=== PATIENT | female | born 1930 | race Caucasian/White ===

== ENCOUNTER → 2016-09-22 | Outpatient (CLI) | payer MEDICARE, BC ==
--- NOTE | 2016-09-22 14:37 | CT ---
EXAMINATION TYPE: CT abdomen wo con DATE OF EXAM: 09/22/2016 COMPARISON: NONE INDICATION: Abdominal pain DLP: 166.30 mGycm, Automated exposure control for dose reduction was used. CONTRAST: 0 mL of Omnipaque 350. Study performed without Oral Contrast TECHNIQUE: Axial images were obtained from above the diaphragm to the pubic rami in the axial plane a t 5 mm thick sections. Reconstructed images are reviewed on the computer in the coronal plane. FINDINGS: Limited CT sections are obtained the lung bases. The lung bases are clear. Coronary artery calcific ation is present. CT ABDOMEN: Liver: There are a multiple scattered calcified granuloma within the liver. Spleen: Multiple calcified splenic granuloma are present. Note is made of splenic artery calcificatio n and tortuosity. Pancreas: Normal Adrenal glands: The adrenal glands are normal. Gallbladder: Normal Kidneys: No masses are evident. No hydronephrosis is present. There is a large cyst extending from the inferior pole right kidney estimated to measure 11.1 x 7.6 cm in size. Smaller cortical renal cys t is present on the mid left kidney measuring 2.9 cm. There is an exophytic right mid kidney cyst bella suring 1.7 cm. No suspicious calcifications are present. There is malrotation of the left kidney. Aorta: Vascular calcification is within the aorta. Inferior vena cava: Normal. Loops of bowel within the abdomen and pelvis are normal. Study is performed without oral contrast limiting the evaluation. IMPRESSIONS: 1. 1. Multiple renal cysts. 2. Calcified granuloma within the spleen and liver
== END | disposition home or self-care (01) ==
LOC: RADCTMAIN 13:15
PROVIDERS: ATTEND Family Medicine
DX: N28.1 Cyst of kidney, acquired (principal); K75.3 Granulomatous hepatitis, not elsewhere classified; D73.89 Other diseases of spleen
CPT/HCPCS: 74150

== ENCOUNTER → 2016-10-19 | Outpatient (CLI) | payer MEDICARE, BC ==
--- NOTE | 2016-10-19 12:55 | US ---
EXAMINATION TYPE: US transvaginal DATE OF EXAM: 10/19/2016 COMPARISON: NONE CLINICAL HISTORY: N93.9 Vaginal bleeding. post menopausal patient with single episode of bleeding TECHNIQUE: Transvaginal (TV) EXAM MEASUREMENTS: Uterus: 4.9 x 1.9 x 4.4 cm Endometrial Stripe: 0.5 cm 1. Uterus: Retroverted myometrium is diffusely heterogenous. 2. Endometrium: Endometrium is thickened for the patient's age measuring 5 mm containing a 2mm cyst near the fundus. 3. Right Ovary: Obscured by overlying bowel gas 4. Left Ovary: Obscured by overlying bowel gas 5. Bilateral Adnexa: wnl 6. Posterior cul-de-sac: minimal free fluid IMPRESSION: Abnormally thickened endometrium for the patient's age of 5 mm containing an endometrial cyst. Direct visualization is recommended. A [place] message has been communicated to Pepe Canela MD via the [employer] Critical Result system on 10/19/2016 12:53 PM, Message ID [id number].
== END | disposition home or self-care (01) ==
LOC: RADUSWWP 11:38
PROVIDERS: ATTEND Family Medicine
DX: N85.8 Other specified noninflammatory disorders of uterus (principal); R93.8 Abnormal findings on diagnostic imaging of other specified body structures; N93.9 Abnormal uterine and vaginal bleeding, unspecified
CPT/HCPCS: 76830

== ENCOUNTER → 2016-11-09 | Outpatient (CLI) | payer MEDICARE, BC ==
--- NOTE | 2016-11-09 10:49 | FL ---
EXAMINATION TYPE: FL UGI air w small bowel DATE OF EXAM: 11/09/2016 10:39 AM COMPARISON: NONE CLINICAL HISTORY: Pain Preliminary view of the abdomen reveals a normal bowel gas pattern. Mild degenerative changes are not ed of the thoracolumbar spine. Upper GI examination was performed according to the air contrast technique. Barium and effervescent crystal was swallowed without difficulty or delay. Esophageal peristalsis and motility are within normal limits. There is no evidence for esophagitis, intraluminal mass, hiatal hernia or gastroesophageal reflux. The stomach has a normal appearance in terms of its size, shape and location. No gastric filling defects or ulcer craters are seen. The du odenal bulb and sweep are also free of intraluminal lesion or ulcer crater. Small bowel follow-through was performed with a transit time of 20 minutes. Small bowel loops are of normal caliber. There is no evidence for intrinsic or extrinsic mass effect. No evidence for inflamma tory bowel disease. Normal-appearing terminal ileum. IMPRESSION: Unremarkable evaluation.
== END | disposition home or self-care (01) ==
LOC: RADFLMAIN 08:51
PROVIDERS: ATTEND Family Medicine
DX: K21.9 Gastro-esophageal reflux disease without esophagitis (principal)
CPT/HCPCS: 74249

== ENCOUNTER → 2016-11-23 | Outpatient (CLI) | payer MEDICARE, BC ==
--- NOTE | 2016-11-23 16:28 | FL ---
EXAMINATION TYPE: FL barium swallow DATE OF EXAM: 11/23/2016 CLINICAL HISTORY: Dysphagia with difficulty swallowing. No history of surgery within the esophagus or upper abdomen. TECHNIQUE: A double contrast esophagram is performed utilizing air and barium. A total of 2 minutes and 1 second of fluoroscopic time was utilized during procedure with a total of 64 images. COMPARISON: None FINDINGS: The esophagus shows delayed motility with abnormal secondary waves and tertiary contraction s during both the gravity independent portion and gravity dependent portion of the examination. Altho ugh there is no esophageal dilatation there is severe delayed propulsion at the gastroesophageal junc tion representing an incomplete stricture. No definitive achalasia is seen as there is no proximal di lation and contrast does eventually pass through the lower esophageal sphincter. No evidence of hiatal hernia or stricture noted. Moderate intraesophageal reflux was seen during real time performance of this study. No significant gastroesophageal reflux of contrast was seen through the lower esophageal sphincter utilizing the Valsalva maneuver in the gravity independent position. Delayed esophageal motility was most pronounced on the gravity independent portion the examination an d water needed to be used to expel residual retained contrast within the mid and distal thoracic esop hagus through the gastroesophageal junction at the end of the examination. IMPRESSION: 1. 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 2. Moderate intraesophageal reflux due to delayed propulsion with nonuniform secondary contractions a nd tertiary contractions seen both in the gravity dependent and independent portions of the examinati on. 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
== END | disposition home or self-care (01) ==
LOC: RADFLWHC 10:10
PROVIDERS: ATTEND Family Medicine
DX: K22.2 Esophageal obstruction (principal); K21.9 Gastro-esophageal reflux disease without esophagitis
CPT/HCPCS: 74220

== ENCOUNTER → 2017-10-25 | Outpatient (CLI) | payer MEDICARE, BC ==
--- NOTE | 2017-10-25 13:56 | US ---
EXAMINATION TYPE: US abdomen complete DATE OF EXAM: 10/25/2017 COMPARISON: NONE CLINICAL HISTORY: R19.4 CHNG IN BOWEL HABITS,A09 gastroenteritis. Diarrhea, cholecystectomy EXAM MEASUREMENTS: Liver Length: 14.8 cm Gallbladder Wall: Surgically absent CBD: 0.6 cm Spleen: 9.4 cm Right Kidney: 10.5 x 3.3 x 4.3 cm Left Kidney: 10.1 x 3.6 x 4.8 cm Technical limitations due to large amount of overlying bowel content Pancreas: Obscured by bowel gas Liver: heterogeneous Gallbladder: Surgically absent Evidence for sonographic Kiran's sign: no CBD: wnl Spleen: granulomas Right Kidney: multiple cystic areas, largest = 1.8 x 1.4 x 1.7cm Left Kidney: multiple cystic areas, largest = 12.0 x 8.4 x 11.4cm Upper IVC: wnl Abd Aorta: calcifications noted Bladder: appears wnl, unable to visualize bladder jets IMPRESSION: 1. Bilateral renal cysts. 2. Splenic granuloma.
== END | disposition home or self-care (01) ==
LOC: RADUSWWP 12:21
PROVIDERS: ATTEND Family Medicine
DX: N28.1 Cyst of kidney, acquired (principal); D73.89 Other diseases of spleen
CPT/HCPCS: 76700; 76857

== ENCOUNTER → 2018-03-30 | Outpatient (CLI) | payer MEDICARE, BC | END | disposition home or self-care (01) | LOC: RADUSWWP 12:01 | PROVIDERS: ATTEND Orthopaedic Surgery | DX: I70.90 Unspecified atherosclerosis (principal); M20.41 Other hammer toe(s) (acquired), right foot; M20.42 Other hammer toe(s) (acquired), left foot | CPT/HCPCS: 93923 ==

== ENCOUNTER → 2018-04-26 | Outpatient (CLI) | payer MEDICARE, BC ==
[~2018-04-26] MED LIST: REGADENOSON 0.4 MG/5 ML SYRINGE IV ONE
--- NOTE | 2018-04-26 12:00 | NM ---
"EXAMINATION TYPE: NM stress lexiscan cardiolite DATE OF EXAM: 04/26/2018 COMPARISON: NONE HISTORY: Chest pain TECHNIQUE: After the intravenous administration of 9.2 mCi Tc 99m Sestamibi - Cardiolite resting SPE CT images acquired 50 minutes post injection. The patient received 0.4mg Lexiscan, 25 mCi Tc 99m Sestamibi - Stress images obtained 30 minutes post injection FINDINGS: Review of stress and rest SPECT images demonstrates question of a small area of thinning of the anter ior wall on stress images relative to rest images.. Gated analysis shows normal wall motion with an estimated left ventricular ejection fraction of 73 %. IMPRESSION: 1. Cannot exclude a small area of stress-induced reversibility involving the anterior wall the myocar dium. A [place] level critical message alert has been initiated for Pepe Canela MD via the [facility] 0 | Critical Results System on 04/26/2018 11:58 AM. This message alert has been sent to Pepe Canela MD via the preferences provided by the clinician for the receipt of Radiology Critical Findings. [facility] ID [id number]."
--- NOTE | 2018-04-27 09:00 | EST ---
EXERCISE STRESS DATE OF SERVICE: 04/26/2018 AGE: 87 SEX: Female HT: 67" WT: 145 pounds PROTOCOL: Lexiscan Cardiolite STAGE: DURATION OF EXERCISE: HEART RATE REST: 54 BLOOD PRESSURE REST: 162/78 MAXIMUM HEART RATE ACHIEVED: 90 MAXIMUM BLOOD PRESSURE: 163/85 85% MPHR: 100% MPHR: METS: INDICATIONS: Chest pain. CLINICAL INFORMATION: STRESS DATA: Heart rate 54, pressure is 162/78 mmHg. Baseline EKG showed sinus mechanism. The 0.4 mg of Lexiscan given over 15 seconds per protocol. Max heart rate was 90 beats per minute maximum pressure was 163/85 mmHg. Clinically, the patient did not have any symptoms of chest pain or discomfort and the EKG did not show any significant ST or T-wave abnormalities concerning for ischemia. CONCLUSION: 1. Nondiagnostic electrocardiogram stress testing in response to Lexiscan. 2. Please follow up on the Cardiolite portion on separate report. MMODL / IJN: [id number] /
== END | disposition home or self-care (01) ==
LOC: RADNMMAIN 08:26
PROVIDERS: ATTEND Family Medicine
DX: R94.31 Abnormal electrocardiogram [ECG] [EKG] (principal)
CPT/HCPCS: 93017; 78452; A9500; J2785

== ENCOUNTER 2018-05-09 06:07 | Inpatient (IN) | payer MEDICARE, BC ==
[2018-05-08 09:00] VITALS: BMI 24.9
[~2018-05-09 06:07] MED LIST changes: +LIDOCAINE 1% 20 ML VIAL (10MG/ML) FOR IV START INTRADERMA PRN; -REGADENOSON 0.4 MG/5 ML SYRINGE IV ONE; +ceFAZolin IN SWFI 2 GM/20 ML SYRINGE IVP ONE
[2018-05-09] MEDS ORDERED: DEXAMETHASONE SOD PHOS (MDV) 100 MG/10 ML VIAL IVP ONE (06:45)
[2018-05-09] MEDS ORDERED: ONDANSETRON 4 MG/2 ML VIAL IVP ONE (06:45)
[2018-05-09] MEDS: LACTATED RINGERS 1,000 ML IV SCH ×3 (07:00→20:34)
[2018-05-09 07:07] LABS: Basophils % (A) 1 %; Eosinophils # (A) 0.4 k/uL (0-0.7); Eosinophils % (A) 10 %; HCT 37.1 % (34.0-46.0); HGB 11.9 gm/dL (11.4-16.0); Lymphocytes # (A) 1.1 k/uL (1.0-4.8); Lymphocytes % (A) 33 %; MCH 31.4 pg (25.0-35.0); MCHC 32.2 g/dL (31.0-37.0); MCV 97.6 fL (80.0-100.0); Mean Platelet Volume 6.6; Monocytes # (A) 0.4 k/uL (0-1.0); Monocytes % (A) 13 %; Neutrophils # (A) 1.3 k/uL (1.3-7.7); Neutrophils % (A) 40 %; Platelet Count 217 k/uL (150-450); RDW 13.6 % (11.5-15.5); WBC 3.4 k/uL (3.8-10.6)
[2018-05-09] MEDS: fentaNYL (PF) 50 MCG/ML 2 ML AMP IV PRN ×3 (07:09→10:37)
[2018-05-09] MEDS ORDERED: MIDAZOLAM (PF) 2 MG/2 ML VIAL IVP ONE (07:09)
[2018-05-09 07:15] LABS: Calcium 9.4 mg/dL (8.4-10.2)
[2018-05-09 07:16] LABS: Potassium 4.7 mmol/L (3.5-5.1)
[2018-05-09] MEDS ORDERED: PROPOFOL 10 MG/ML 20 ML VIAL IV ONE (07:55)
[2018-05-09] MEDS ORDERED: LIDOCAINE 1% INJ 10MG/ML (20 ML MDV) ONE (07:55)
--- NOTE | 2018-05-09 09:28 | P.OP ---
Date of Procedure: 05/09/18 Preoperative Diagnosis: 1. Right rigid second hammertoe 2. Right rigid third hammertoe 3. Right hallux valgus 4. Right rigid fourth and fifth hammertoes Postoperative Diagnosis: Same Procedure(s) Performed: 1. Correction of right rigid second hammertoe with PIP resection arthroplasty, MTP capsulotomy, extensor tenotomy, and Girdlestone-Cassidy flexor to extensor tendon transfers 2. Correction of right rigid third hammertoe with PIP resection arthroplasty, MTP capsulotomy, extensor tenotomy, and Girdlestone-Cassidy flexor to extensor tendon transfers Anesthesia: SHUNA, regional Surgeon: Win Llamas [employer] Associate #1: Marlo Hernandez Estimated Blood Loss (ml): 10 IV fluids (ml): 1,000 Pathology: none sent Condition: stable Disposition: PACU Indications for Procedure: The patient is a very pleasant 87-year-old female with a long-standing history of problems in both of her feet. The patient came to see me with symptomatic right second and third hammertoes. Clinically she had a moderate to severe hallux valgus and rigid hammering of the second through fifth toes. Only the second and third toes bothered her. She had tried nonsurgical treatment with toe straps, Budin splints, extra-depth shoes, and activity modification all with diminishing relief. She requested surgery. Prior to agreeing to proceed with surgery I sent her for a vascular surgery evaluation to make sure she had adequate vascular inflow into her toes to heal elective surgery. She was seen by vascular surgery and cleared to heal elective forefoot procedure. I do lengthy discussion with the patient and her daughter on treatment options. My recommendation was to correct her rigid hammertoe deformities with a PIP resection arthroplasty, MTP capsulotomy, extensor tenotomy, and flexor to extensor tendon transfers. We discussed the potential risks and complications of surgery including but not limited to risk of anesthesia, superficial infection, deep infection, delayed wound healing, wound necrosis, loss of vascular supply to the toe requiring pin removal and possibly amputation, recurrent deformity, floating toe, numbness in the toes, swelling in the toes, generalized to satisfaction with surgery, need for further surgery, and postoperative medical complications. The patient voiced her understanding of this and also analysis a less common complications are possible. At her consent to go forward with surgery. Description of Procedure: The patient was identified in preoperative holding. The right extremity including the second and third toes were marked with my initials. I reviewed the consent form with the patient and her daughter. All their questions were answered. The patient was then brought back to the operating room by anesthesia. She was positioned on the OR table where general anesthetic and preoperative antibiotics were administered. All bony prominences were well- padded. A tourniquet was applied to the proximal aspect of the right leg. The right leg was then prepped and draped in standard sterile fashion. Prior to starting surgery timeout was performed identifying the correct patient, operative extremity, and procedure. The patient's leg was then elevated, exs anguinated with an Esmarch bandage, and the tourniquet was inflated to 300 mmHg. I began by outlining a longitudinal incision centered over the second toe. Skin incision with a scalpel and dissection was carried down carefully to take soft tissue. The long extensor tendon was found proximally and sharply incised. The second MTP capsule was identified and the dorsal, medial, and lateral capsule were released to allow correction of the MTP deformity. A transverse incision was made directly over the PIP joint. The collateral ligaments were released. The head of the proximal phalanx was exposed and a small microsagittal saw was used to remove the head of the proximal phalanx at the metaphyseal flare. A small longitudinal incision was made in the floor of the PIP joint. The short flexor tendons were identified and sharply released. The long flexor tendon was identified, clamped, and cut distally. The long flexor tendon was then split along its raphae. A small longitudinal incision was then made over the dorsal extensor mechanism over the proximal phalanx. Dissection was carried subperiosteally medially and laterally around the proximal phalanx into the PIP joint were both limbs of the long flexor tendon were then grasped and transferred dorsally. A long double-ended 0.0625 K wire was driven retrograde through the joint out the tip of the toe. The PIP joint was then reduced and the K wire was driven proximally across the proximal phalanx and into the metatarsal head holding the joint reduced. The long flexor tendons were then secured into the extensor mechanism using 3-0 FiberWire. The wire was cut and capped. The wound was irrigated and closed in layers. Attention was then turned to the third toe. I began by outlining a longitudinal incision centered over the third toe. Skin incision with a scalpel and dissection was carried down carefully to take soft tissue. The long extensor tendon was found proximally and sharply incised. The third MTP capsule was identified and the dorsal, medial, and lateral capsule were released to allow correction of the MTP deformity. A transverse incision was made directly over the PIP joint. The collateral ligaments were released. The head of the proximal phalanx was exposed and a small microsagittal saw was used to remove the head of the proximal phalanx at the metaphyseal flare. A small longitudinal incision was made in the floor of the PIP joint. The short flexor tendons were identified and sharply released. The long flexor tendon was identified, clamped, and cut distally. The long flexor tendon was then split along its raphae. A small longitudinal incision was then made over the dorsal extensor mechanism over the proximal phalanx. Dissection was carried subperiosteally medially and laterally around the proximal phalanx into the PIP joint were both limbs of the long flexor tendon were then grasped and transferred dorsally. A long double-ended 0.0625 K wire was driven retrograde through the joint out the tip of the toe. The PIP joint was then reduced and the K wire was driven proximally across the proximal phalanx and into the metatarsal head holding the joint reduced. The long flexor tendons were then secured into the extensor mechanism using 3-0 FiberWire. The wire was cut and capped. The wound was irrigated and closed in layers. Final fluoroscopic images were then taken verifying position of the K wires. A sterile dressing was applied followed by her total postoperative shoe. The patient was awoken from her anesthetic, transferred to a [place], and brought to PACU without the procedure well. Marlo Hernandez PA-C was required as a skilled assignment desk assistant throughout this procedure Plan: Due to the patient's age, need for physical therapy, and elevated blood pressures intraoperatively she is going to be admitted overnight for observation and an internal medicine consultation to evaluate her blood pressure. Since she received a nerve block she is to remain nonweightbearing on her operative extremity until the block wears off. Once the block wears off she can heel weight-bear in a postoperative shoe. She will receive 2 doses of postoperative antibiotics. She can discharge back to her nursing facility when she is cleared by internal medicine and passes therapy.
[2018-05-09] MEDS ORDERED: MORPHINE SULFATE 2 MG/ML SYRINGE IV PRN ×4 (09:42)
[2018-05-09] MEDS ORDERED: ONDANSETRON 4 MG/2 ML VIAL IVP PRN (09:42)
--- NOTE | 2018-05-09 09:51 | P.ONQ ---
Anesthesiology Proc Note - PNB - Peripheral Nerve Block Performed Right Adductor Canal Single Time Out Performed: Yes (7:08) Procedure Start Time: 07:11 Procedure Stop Time: 07:14 Indication: Acute Post-Operative Pain, Requested by physician Sedation Type: Sedate with meaningful contact maintained Preparation: Sterile Prep Position: Supine Catheter: None Needle Types: Facet Needle Size: 100mm (4") Needle Gauge: 20 Technique: Ultrasound Injectate: 0.5% Ropivacaine (see comment for volume) (20 cc) Blood Aspirated: No Pain Paresthesia on Injection Noted: No Resistance on Injection: Normal Events: Uneventful and Well Tolerated
--- NOTE | 2018-05-09 09:53 | P.ONQ ---
Anesthesiology Proc Note - PNB - Peripheral Nerve Block Performed Right Popliteal Single Time Out Performed: Yes (7:08) Procedure Start Time: 07:16 Procedure Stop Time: :19 Indication: Acute Post-Operative Pain Sedation Type: Sedate with meaningful contact maintained Preparation: Sterile Prep Catheter: None Needle Types: Facet Needle Size: 100mm (4") Needle Gauge: 20 Technique: Ultrasound Injectate: 0.5% Ropivacaine (see comment for volume) Blood Aspirated: No Pain Paresthesia on Injection Noted: No Resistance on Injection: Normal Events: Uneventful and Well Tolerated (20cc)
[2018-05-09] MEDS ORDERED: hydrALAZINE HCL 20 MG/ML 1 ML VIAL IVP ONE (10:20)
[2018-05-09] MEDS: METOPROLOL SUCCINATE (ER) 50 MG TAB.ER.24H PO SCH (14:58)
[2018-05-09] MEDS: hydrALAZINE HCL 20 MG/ML 1 ML VIAL IVP PRN (14:58)
--- NOTE | 2018-05-09 15:21 | FL ---
Fluoroscopy HISTORY: Arthrodesis 4 seconds fluoroscopy time supplied to the referring clinician. 2 intraoperative C-arm images docum ent the procedure. See dictated report from orthopedic surgery.
--- NOTE | 2018-05-09 15:24 | XR ---
Limited right foot HISTORY: Arthrodesis 2 intraoperative C-arm images document the procedure.
[2018-05-09] MEDS: HYDROcodone/APAP 5-325MG 1 EACH TAB PO PRN ×2 (15:56→23:21)
[2018-05-09] MEDS: ceFAZolin IN SWFI 2 GM/20 ML SYRINGE IVP SCH ×2 (15:57→23:10)
[2018-05-09] MEDS: QUEtiapine 50 MG TAB PO SCH (20:41)
[2018-05-09] MEDS ORDERED: QUEtiapine 50 MG TAB PO SCH (21:00)
[2018-05-09] MEDS ORDERED: QUEtiapine 100 MG TAB PO SCH (21:00)
--- NOTE | 2018-05-10 01:09 | CONS ---
CONSULTATION CHIEF COMPLAINT: 87-year-old white female with status post hammertoe placement in the right foot. Medical management consult. No chest pain, shortness of breath. She is requesting her Seroquel she takes at night for insomnia, hypertension medications, pain medications and diuretics. 14-point review of systems negative except for mentioned in HPI. HOME MEDICINES: 1. Seroquel 150 q.h.s. 2. Metoprolol succinate 50 mg 1 q.a.m. 3. Lasix 20 daily. 4. Aspirin 81 daily. 5. Lyrica 75 q.8h. PHYSICAL EXAMINATION: Vital signs stable. Afebrile. Cardiovascular S1, S2. Lungs clear. GI soft. Hematology negative. Homans psych fair mood and affect. ASSESSMENT: 1. Status post hammertoe surgery. 2. Hypertension. 3. Insomnia. 4. Mood disorder. 5. Chronic degenerative disc disease. MMODL / IJN: [id number] /
[2018-05-10] MEDS: LACTATED RINGERS 1,000 ML IV SCH ×3 (05:24→13:53)
[2018-05-10] MEDS: FUROSEMIDE 20 MG TAB PO SCH (08:20)
[2018-05-10] MEDS: ASPIRIN 81 MG PO SCH (08:20)
[2018-05-10] MEDS: METOPROLOL SUCCINATE (ER) 50 MG TAB.ER.24H PO SCH (08:20)
[2018-05-10] MEDS: ENOXAPARIN 30 MG/0.3 ML SYRINGE SQ SCH (08:20)
[2018-05-10] MEDS: HYDROcodone/APAP 5-325MG 1 EACH TAB PO PRN ×2 (13:49→19:46)
[2018-05-10] MEDS: hydrOXYzine PAMOATE 25 MG CAP PO PRN (13:49)
--- NOTE | 2018-05-10 15:21 | P.PN ---
Subjective Progress Note Date: 05/10/18 This patient is an 87-year-old female with a past medical history of hypertension, mood disorder, and kidney disease who was initially seen by Dr. Llamas in the office for her symptomatic right second and third hammertoes. Patient had tried nonsurgical treatment with toe straps, Budin splints, extra depth shoes, and activity modification all with minimal relief. Patient requested surgery for a permanent correction of her foot deformity. Prior to the procedure, the patient was sent for a vascular surgery evaluation to make sure she had adequate vascular inflow into her toes to heal from elective surgery. Patient presented to [facility] on 05/09/2018 and underwent a correction of the rigid hammertoe with PIP resection arthroplasty, MTP capsulotomy, extensor tenotomy, Girdlestonetaylor flexor to extensor tendon transfers of the right second and third right toes with Dr. Llamas. Patient was admitted following the procedure for overnight for observation, internal medicine consultation, physical therapy evaluation, and rehab placement. Today is postoperative day #1. The patient states her pain is currently well- controlled, patient states her foot still feels numb due to the nerve block. She states she was up with therapy today, she transferred with the walker without issue, per patient. She states she is remaining non-weight bearing on the right lower extremity. Patient tolerated her breakfast and lunch well. Patient denies chest pain, shortness of breath, nausea, vomiting. Patient has no new complaints today. Vital signs stable. Objective - Vital Signs Vital signs: Vital Signs Temp 98.6 F 05/10/18 07:00 Pulse 73 05/10/18 07:00 Resp 17 05/10/18 07:00 BP 137/61 05/10/18 07:00 Pulse Ox 92 L 05/10/18 07:00 Intake & Output 05/09/18 05/10/18 05/10/18 18:59 06:59 18:59 Intake Total 1000 400 240 Output Total 5 300 Balance 995 100 240 Intake: IV 800 Intake, IV Titration 400 Amount Lactated Ringers 1,000 ml 400 @ 100 mls/hr IV .Q10H JS Rx#:[id number] Oral 240 Other 200 Output: Urine 300 Estimated Blood Loss 5 Other: # Voids 3 1 - Exam On examination, the patient is lying in bed in no acute distress. The patient is alert and oriented 3. On inspection of the right lower extremity, there is a a soft dressing with an MARLY wrap in place. The dressing is clean, dry, and intact. There are pins present in the 2nd and 3rd toes; there is no surrounding erythema, warmth, or drainage. There are no signs of infection of the pin sites. The right toes are warm and well perfused, with capillary refill less than 2 seconds. Sensation is intact to light touch of the right lower extremity. Neurovascular is intact of the right lower extremity. Calves are soft and non- tender bilaterally. - Labs CBC & Chem 7: 05/09/18 06:50 05/09/18 06:50 Assessment and Plan Assessment: Postoperative day #1: Correction of rigid second hammertoe with PIP resection arthroplasty, and MTP capsulotomy, extensor tenotomy, and Girdlestonetaylor flexor to extensor tendon transfers of the right second and third toes Plan: - Strict nonweightbearing of the right lower extremity. Ice and elevate the right lower extremity to decrease pain and swelling. - Hydrogen peroxide to pin sites of 2nd and 3rd toes BID. Surgical dressing may be changed 48 hours post-operatively. - Physical therapy for gait and balance training. - Continue pain management. - Lovenox while inpatient for anticoagulation, aspirin on discharge. - 2 doses of postoperative antibiotics complete. - Appreciate medicine consult for medical management. - Anticipate discharge to rehab facility within next 48-72 hours, pending medical clearance.
[2018-05-10] MEDS: hydrALAZINE HCL 20 MG/ML 1 ML VIAL IVP PRN (17:50)
[2018-05-10] MEDS: QUEtiapine 50 MG TAB PO SCH (19:47)
[2018-05-10] MEDS ORDERED: HYDROcodone/APAP 5-325MG 1 EACH TAB PO STA (22:15)
[2018-05-10] MEDS ORDERED: MORPHINE SULFATE 4 MG/ML SYRINGE IVP PRN (22:16)
[2018-05-10] MEDS ORDERED: MORPHINE SULFATE 2 MG/ML SYRINGE IVP PRN (22:16)
[2018-05-11] MEDS: HYDROcodone/APAP 5-325MG 1 EACH TAB PO PRN ×4 (04:37→23:50)
--- NOTE | 2018-05-11 06:11 | PN ---
PROGRESS NOTE SUBJECTIVE: This is an 87-year-old white female. Status post hammertoe repair of the right leg, is going to go to the rehab center next day or 2 for nonweightbearing for 6 weeks on the right leg. CARDIOVASCULAR: S1, S2. LUNGS: Transmitted upper airway sounds. HEMATOLOGY: Negative Homans. PSYCH: Fair mood and affect. NEUROLOGIC: Alert and oriented x3. ASSESSMENT: 1. Status post hammertoe repair, right foot. 2. Chronic pain syndrome. 3. Gastroesophageal reflux disease. 4. Insomnia. Restart her home medicines. Watch for the next 24 to 48 hours. Possible rehab center placement. MMODL / IJN: [id number] /
[2018-05-11] MEDS: LACTATED RINGERS 1,000 ML IV SCH ×2 (07:31→15:58)
[2018-05-11] MEDS: ENOXAPARIN 30 MG/0.3 ML SYRINGE SQ SCH (07:36)
[2018-05-11] MEDS: FUROSEMIDE 20 MG TAB PO SCH (07:36)
[2018-05-11] MEDS: ASPIRIN 81 MG PO SCH (07:36)
[2018-05-11] MEDS: METOPROLOL SUCCINATE (ER) 50 MG TAB.ER.24H PO SCH (07:36)
--- NOTE | 2018-05-11 14:50 | P.PN ---
Subjective Progress Note Date: 05/11/18 This patient is an 87-year-old female with a past medical history of hypertension, mood disorder, and kidney disease who was initially seen by Dr. Llamas in the office for her symptomatic right second and third hammertoes. Patient had tried nonsurgical treatment with toe straps, Budin splints, extra depth shoes, and activity modification all with minimal relief. Patient requested surgery for a permanent correction of her foot deformity. Prior to the procedure, the patient was sent for a vascular surgery evaluation to make sure she had adequate vascular inflow into her toes to heal from elective surgery. Patient presented to [facility] on 05/09/2018 and underwent a correction of the rigid hammertoe with PIP resection arthroplasty, MTP capsulotomy, extensor tenotomy, Girdlestonetaylor flexor to extensor tendon transfers of the right second and third right toes with Dr. Llamas. Patient was admitted following the procedure for overnight for observation, internal medicine consultation, physical therapy evaluation, and rehab placement. Today is postoperative day #2. The patient states her pain is currently well- controlled, although she was in a lot of pain last night. She states she is remaining non-weight bearing on the right lower extremity. Patient continues to tolerate her diet well. Patient denies chest pain, shortness of breath, nausea, vomiting, numbness or tingling of the right lower extremity. Patient has no new complaints today. Vital signs stable. Objective - Vital Signs Vital signs: Vital Signs Temp 98.1 F 05/11/18 07:00 Pulse 67 05/11/18 07:00 Resp 16 05/11/18 07:00 BP 135/55 05/11/18 07:00 Pulse Ox 93 L 05/11/18 07:00 Intake & Output 05/10/18 05/11/18 05/11/18 18:59 06:59 18:59 Intake Total 840 1320 240 Output Total 125 Balance 840 1195 240 Intake: Intake, IV Titration 320 Amount Lactated Ringers 1,000 ml 320 @ 20 mls/hr IV .Q24H [facility] Rx#:[id number] Oral 840 1000 240 Output: Urine 125 Other: Voiding Method Bedside Commode # Voids 7 2 - Exam On examination, the patient is lying in bed in no acute distress. The patient is alert and oriented 3. On inspection of the right lower extremity, there is a a soft dressing with an MARLY wrap in place. The dressing is clean, dry, and intact. There are pins present in the 2nd and 3rd toes; there is no surrounding erythema, warmth, or drainage. There are no signs of infection of the pin sites. The right toes are warm and well perfused, with capillary refill less than 2 seconds. Sensation is intact to light touch of the right lower extremity. Neurovascular is intact of the right lower extremity. Calves are soft and non- tender bilaterally. - Labs CBC & Chem 7: 05/09/18 06:50 05/09/18 06:50 Assessment and Plan Assessment: Postoperative day #2: Correction of rigid second hammertoe with PIP resection arthroplasty, and MTP capsulotomy, extensor tenotomy, and Girdlestonetaylor fle xor to extensor tendon transfers of the right second and third toes Plan: - Strict nonweightbearing of the right lower extremity. Ice and elevate the right lower extremity to decrease pain and swelling. - Hydrogen peroxide to pin sites of 2nd and 3rd toes BID. Surgical dressing may be changed 48 hours post-operatively. - Physical therapy for gait and balance training. - Continue pain management. - Lovenox while inpatient for anticoagulation, aspirin on discharge. - 2 doses of postoperative antibiotics complete. - Appreciate medicine consult for medical management. - Anticipate discharge to [facility] within next 48-72 hours, pending medical clearance.
[2018-05-11] MEDS: hydrALAZINE HCL 20 MG/ML 1 ML VIAL IVP PRN (17:59)
[2018-05-11] MEDS: QUEtiapine 50 MG TAB PO SCH (20:59)
[2018-05-12] MEDS: LACTATED RINGERS 1,000 ML IV SCH ×4 (00:56→18:24)
[2018-05-12] MEDS: hydrOXYzine PAMOATE 25 MG CAP PO PRN ×2 (07:24→13:28)
[2018-05-12] MEDS: HYDROcodone/APAP 5-325MG 1 EACH TAB PO PRN ×3 (07:24→20:25)
[2018-05-12] MEDS: ENOXAPARIN 30 MG/0.3 ML SYRINGE SQ SCH (09:17)
[2018-05-12] MEDS: hydrALAZINE HCL 20 MG/ML 1 ML VIAL IVP PRN (09:17)
[2018-05-12] MEDS: METOPROLOL SUCCINATE (ER) 50 MG TAB.ER.24H PO SCH (09:18)
[2018-05-12] MEDS: FUROSEMIDE 20 MG TAB PO SCH (09:18)
[2018-05-12] MEDS: ASPIRIN 81 MG PO SCH (09:18)
--- NOTE | 2018-05-12 11:23 | P.PN ---
Subjective Progress Note Date: 05/12/18 Principal diagnosis: Status post right second and third toe hammertoe corrections Patient is seen at bedside this morning. She is postop day #3 from second and third toe hammertoe correction surgery. She has pain at the surgical site as expected but denies any new complaints. She denies numbness, tingling or calf pain. Review of systems is negative for fever, chills, chest pain, shortness of breath or other Objective - Vital Signs Vital signs: Vital Signs Temp 98.1 F 05/12/18 07:30 Pulse 85 05/12/18 07:30 Resp 20 05/12/18 07:30 BP 164/70 05/12/18 07:30 Pulse Ox 92 L 05/12/18 07:30 Intake & Output 05/11/18 05/12/18 05/12/18 18:59 06:59 18:59 Intake Total 640 Balance 640 Intake: Intake, IV Titration 160 Amount Lactated Ringers 1,000 ml 160 @ 20 mls/hr IV .Q24H [facility] Rx#:[id number] Oral 480 Other: Voiding Method Bedside Commode # Voids 2 1 - Exam Inspection reveals a benign surgical wound. Pins are in place. There is no active bleeding or drainage. Neurovascular status is intact throughout the lower extremity with motor and sensation fully intact. Calf is soft and nontender. 2+ dorsalis pedis pulse and less than 2 second cap refill is present. - Constitutional General appearance: Present: no acute distress - Labs CBC & Chem 7: 05/09/18 06:50 05/09/18 06:50 Assessment and Plan (1) Hammertoe of right foot Narrative/Plan: She will continue with routine postop orthopedic protocol including pain management, wound care, PT, DVT prophylaxis and medical management. Expect that she will transfer to [facility] Monday. Current Visit: Yes Status: Acute Priority: Medium Code(s): M20.41 - OTHER HAMMER TOE(S) (ACQUIRED), RIGHT FOOT SNOMED Code(s): 970980184 Time with Patient: Less than 30
[2018-05-12 13:42] LABS: Albumin 3.6 g/dL (3.5-5.0); Calcium 9.3 mg/dL (8.4-10.2); Potassium 4.6 mmol/L (3.5-5.1); Total Bilirubin 0.6 mg/dL (0.2-1.3); Total Protein 7.1 g/dL (6.3-8.2)
--- NOTE | 2018-05-12 16:45 | PN ---
PROGRESS NOTE SUBJECTIVE: 87-year-old white female with renal insufficiency. BUN and creatinine elevated. This could be repeated today. She is sitting up in the chair, getting physical therapy. Awaiting rehab placement. Cardiovascular S1, S2. Lungs clear. GI soft. ASSESSMENT: 1. Insomnia. 2. Mood disorder. 3. Hypertension. 4. Diastolic heart failure. 5. Renal insufficiency. 6. Status post hammertoe surgery on the right foot, nonweightbearing for 6 months. BUN is 32, creatinine 1.711. Possibly monitor. Home medications. Follow up at the rehab center with this patient. MMODL / IJN: [id number] /
[2018-05-12] MEDS: QUEtiapine 50 MG TAB PO SCH (20:26)
[2018-05-12] MEDS: SENNOSIDES-DOCUSATE SODIUM 1 EACH TAB PO PRN (20:42)
[2018-05-13] MEDS: LACTATED RINGERS 1,000 ML IV SCH ×3 (03:56→20:35)
[2018-05-13] MEDS: HYDROcodone/APAP 5-325MG 1 EACH TAB PO PRN ×3 (03:56→20:29)
--- NOTE | 2018-05-13 09:21 | P.PN ---
Subjective Progress Note Date: 05/13/18 The patient reports the pain is well controlled and much improved from the first postop day. She's been able to ambulate and she feels her mobility is improving. The pain is well controlled with oral medications. She denies specific issues or concerns. Objective - Vital Signs Vital signs: Vital Signs Temp 98.3 F 05/13/18 07:00 Pulse 79 05/13/18 07:00 Resp 16 05/13/18 07:00 BP 106/52 05/13/18 07:00 Pulse Ox 96 05/13/18 07:00 Intake & Output 05/12/18 05/13/18 05/13/18 18:59 06:59 18:59 Intake Total 1140 Balance 1140 Intake: Oral 1140 Other: Voiding Method Toilet # Voids 2 2 - Exam The dressing was removed. The incisions are well approximated with sutures in place. There is mild edema without erythema. No significant ecchymosis. K wires are in place with no drainage. Light touch sensation is subjectively intact. Calf is soft and nontender. - Labs CBC & Chem 7: 05/09/18 06:50 05/12/18 13:09 Labs: Abnormal Lab Results - Last 24 Hours (Table) 05/12/18 Range/Units 13:09 BUN 32 H (7-17) mg/dL Creatinine 1.71 H (0.52-1.04) mg/dL Glucose 101 H (74-99) mg/dL Assessment and Plan Assessment: Postoperative day #4: Correction of rigid second hammertoe with PIP resection arthroplasty, MTP capsulotomy, extensor tenotomy, Girdlestone-Cassidy [id number] tendon transfers of the right second and third toes Plan: The dressing was changed. Continue physical therapy for gait training PRN pain management DVT prophylaxis with LMWH while inpatient then aspirin Expect discharge to subacute rehabilitation facility tomorrow Bo Covington D.O. [facility]
[2018-05-13] MEDS: ASPIRIN 81 MG PO SCH (09:40)
[2018-05-13] MEDS: METOPROLOL SUCCINATE (ER) 50 MG TAB.ER.24H PO SCH (09:40)
[2018-05-13] MEDS: FUROSEMIDE 20 MG TAB PO SCH (09:40)
[2018-05-13] MEDS: ENOXAPARIN 30 MG/0.3 ML SYRINGE SQ SCH (09:40)
[2018-05-13] MEDS ORDERED: MAGNESIUM HYDROXIDE 2,400 MG/10 ML CUP PO PRN (11:49)
[2018-05-13] MEDS: hydrALAZINE HCL 20 MG/ML 1 ML VIAL IVP PRN (15:33)
[2018-05-13] MEDS: QUEtiapine 50 MG TAB PO SCH (20:29)
[2018-05-13] MEDS: SENNOSIDES-DOCUSATE SODIUM 1 EACH TAB PO PRN (20:37)
--- NOTE | 2018-05-14 00:07 | PN ---
PROGRESS NOTE SUBJECTIVE: White female is getting cleared for discharge to the rehab center. PT/OT on the right foot is undergoing. Cardiovascular S1-S2. Lungs clear. GI soft. Milk of magnesia being given for constipation. ASSESSMENT AND PLAN: 1. Status post hematoma, right foot surgery. 2. Hypertension. 3. Insomnia. 4. Chronic constipation. 5. Milk of magnesia. 6. Home medicines. 7. Discharge to long term tomorrow. MMODL / IJN: [id number] /
[2018-05-14] MEDS: LACTATED RINGERS 1,000 ML IV SCH ×3 (00:45→08:02)
[2018-05-14] MEDS: HYDROcodone/APAP 5-325MG 1 EACH TAB PO PRN ×2 (03:43→14:17)
[2018-05-14 07:51] VITALS: RESP 12
[2018-05-14] MEDS: METOPROLOL SUCCINATE (ER) 50 MG TAB.ER.24H PO SCH (07:56)
[2018-05-14] MEDS: FUROSEMIDE 20 MG TAB PO SCH (07:56)
[2018-05-14] MEDS: ASPIRIN 81 MG PO SCH (07:56)
[2018-05-14] MEDS: ENOXAPARIN 30 MG/0.3 ML SYRINGE SQ SCH (07:57)
--- NOTE | 2018-05-14 12:36 | P.DS ---
Providers Date of admission: 05/10/18 14:35 Attending physician: Win Llamas Consults: 05/09/18 09:53 Consult Physician Routine Consulting Provider: Pepe Canela Reason/Comments: Medical management Do you want consulting provider notified?: Yes [facility] Course: This patient is an 87-year-old female with a past medical history of hypertension, mood disorder, and kidney disease who was initially seen by Dr. Llamas in the office for her symptomatic right second and third hammertoes. Patient had tried nonsurgical treatment with toe straps, Budin splints, extra depth shoes, and activity modification all with minimal relief. Patient requested surgery for a permanent correction of her foot deformity. Prior to the procedure, the patient was sent for a vascular surgery evaluation to make sure she had adequate vascular inflow into her toes to heal from elective surgery. Patient presented to [facility] on 05/09/2018 and underwent a c orrection of the rigid hammertoe with PIP resection arthroplasty, MTP capsulotomy, extensor tenotomy, Girdlestonetaylor flexor to extensor tendon transfers of the right second and third right toes with Dr. Llamas. Patient was admitted following the procedure for for observation, internal medicine consultation, physical therapy evaluation, and rehab placement. The procedure was performed without complication or sequelae. The patient is doing fairly well postoperatively. Vital signs and labs are stable on postoperative day #5. The patient is examined bedside this morning. The patient states her pain continues to improve. She has been up with therapy and has been transferring without issue, per patient. She denies numbness or tingling of the right lower extremity. She denies any new complaints or concerns this morning. On examination, the patient is sitting up in the chair in no acute distress. The patient is alert and oriented 3. On inspection of the right lower extremity, there is a a soft dressing with an MARLY wrap in place. The dressing is clean, dry, and intact. There are pins present in the 2nd and 3rd toes; there is no surrounding erythema, warmth, or drainage. There are no signs of infection of the pin sites. The right toes are warm and well perfused, with capillary refill less than 2 seconds. Sensation is intact to light touch of the right l ower extremity. Neurovascular is intact of the right lower extremity. Calves are soft and non-tender bilaterally. Patient is discharged to rehab in good condition, pending medical clearance. Patient will follow-up with Dr. Llamas in the office in 2 weeks. Please see [facility] for accurate list of discharge medication Patient Condition at Discharge: Fair Plan - Discharge Summary Discharge Rx Participant: Yes New Discharge Prescriptions: New Aspirin 325 mg PO DAILY #14 tab Docusate [Colace] 100 mg PO BID #60 capsule Hydrocodone/Acetaminophen [[place] 5-325] 1 tab PO Q6HR PRN #28 tab PRN Reason: Pain HYDROcodone/APAP 5-325MG [[place] 5-325] 1 each PO Q6HR PRN tab PRN Reason: Pain Metoprolol Succinate (ER) [Toprol XL] 50 mg PO DAILY tab.er.24h Continue Aspirin 81 mg PO DAILY QUEtiapine [SEROquel] 50 mg PO HS QUEtiapine [SEROquel] 100 mg PO HS Furosemide [Lasix] 20 mg PO DAILY Discontinued Hydrocodone/Acetaminophen [[place] 7.5-325] 1 tab PO Q8H PRN PRN Reason: Pain Metoprolol Succinate (ER) [Toprol Xl] 50 mg PO DAILY Discharge Medication List Aspirin 81 mg PO DAILY 07/08/13 [History] Furosemide [Lasix] 20 mg PO DAILY 05/08/18 [History] QUEtiapine [SEROquel] 50 mg PO HS 05/08/18 [History] QUEtiapine [SEROquel] 100 mg PO HS 05/08/18 [History] Aspirin 325 mg PO DAILY #14 tab 05/11/18 [Rx] Docusate [Colace] 100 mg PO BID #60 capsule 05/11/18 [Rx] HYDROcodone/APAP 5-325MG [[place] 5-325] 1 each PO Q6HR PRN tab 05/14/18 [Rx] Hydrocodone/Acetaminophen [[place] 5-325] 1 tab PO Q6HR PRN #28 tab 05/14/18 [Rx] Metoprolol Succinate (ER) [Toprol XL] 50 mg PO DAILY tab.er.24h 05/14/18 [Rx] Follow up Appointment(s)/Referral(s): Elmira Pham, [NON-STAFF] - As Needed Win Llamas MD [Medical Doctor] - 05/24/18 1:50 pm Activity/Diet/Wound Care/Special Instructions: 1. Strict non-weight bearing on right leg for one week following surgery. May begin heel weight bearing only in a hard-soled post-operative shoe starting 1 week post-operatively, on Monday05/16/18, if nerve block has completely worn off. 2. Leave dressing in place for 2 days after surgery. After 2-days you can remove dressing and get incision wet in the shower, but don't soak. When you are done showering pat incisions dry and keep covered with band aids or gauze. 3. Perform twice daily pin site care with a q-tip dipped in peroxide starting the first afternoon following surgery. 4. Take pain medications as ordered, take Colace as a stool softener, take aspirin for blood clot prevention. 5. Follow-up in the office in [address] Llamas. Call the office with any questions or concerns, Discharge Disposition: TRANSFER TO SNF/ECF
[2018-05-14 15:14] VITALS: BP 170/68; PULSE 55; TEMP 98.1
== END 2018-05-14 16:30 | DRG 501 ==
LOC: OR 06:07 → 4SSUR 09:40 → OR 05-10 14:35 → 4SSUR 05-10 14:35
PROVIDERS: ADMIT Orthopaedic Surgery; ATTEND Orthopaedic Surgery
PROC: 0L8V0ZZ Division of Right Foot Tendon, Open Approach (ICD-10-PCS; 2018-05-09)
PROC: 0SRP0JZ Replacement of Right Toe Phalangeal Joint with Synthetic Substitute, Open Approach (ICD-10-PCS; 2018-05-09)
PROC: 0SRP0JZ Replacement of Right Toe Phalangeal Joint with Synthetic Substitute, Open Approach (ICD-10-PCS; 2018-05-09)
PROC: 0SNP0ZZ Release Right Toe Phalangeal Joint, Open Approach (ICD-10-PCS; 2018-05-09)
PROC: 0SNP0ZZ Release Right Toe Phalangeal Joint, Open Approach (ICD-10-PCS; 2018-05-09)
PROC: 0LXV0ZZ Transfer Right Foot Tendon, Open Approach (ICD-10-PCS; 2018-05-09)
PROC: 0LXV0ZZ Transfer Right Foot Tendon, Open Approach (ICD-10-PCS; 2018-05-09)
PROC: 0L8V0ZZ Division of Right Foot Tendon, Open Approach (ICD-10-PCS; principal; 2018-05-09 08:00)
DX: M20.41 Other hammer toe(s) (acquired), right foot (principal); I50.32 Chronic diastolic (congestive) heart failure; I11.0 Hypertensive heart disease with heart failure; F39 Unspecified mood [affective] disorder; M20.11 Hallux valgus (acquired), right foot; G89.4 Chronic pain syndrome; K21.9 Gastro-esophageal reflux disease without esophagitis; G47.00 Insomnia, unspecified; N28.9 Disorder of kidney and ureter, unspecified; K59.09 Other constipation; Z79.82 Long term (current) use of aspirin; Z79.899 Other long term (current) drug therapy
CPT/HCPCS: 64493; 80048; 80053; 85025

== ENCOUNTER 2018-06-13 12:25 | Emergency (ER) | payer MEDICARE, BC ==
[2018-06-13 12:34] VITALS: BP 178/78; PULSE 77; RESP 73; TEMP 98.2
[2018-06-13] MEDS ORDERED: KETOROLAC 30 MG/ML 1 ML VIAL IVP STA (12:55)
--- NOTE | 2018-06-13 12:58 | ED ---
Chest Pain HPI - General Chief Complaint: Chest Pain Stated Complaint: Chest Pain Time Seen by Provider: 06/13/18 12:37 Source: patient, family, RN notes reviewed Mode of arrival: wheelchair Limitations: no limitations - History of Present Illness Initial Comments: This is a 87-year-old female who presents with complaints of the onset of left- sided chest pain with radiation down her left arm 5 days ago. She states it's hurts sometimes pressure-like 56/10 severity does increase with certain movements. She denies any cough or sneeze trauma. She does push on the anterior aspect the left chest wall and it does reproduce the pain. MD Complaint: chest pain - Related Data Home Medications Medication Instructions Recorded Confirmed Aspirin 81 mg PO DAILY 07/08/13 06/13/18 Furosemide [Lasix] 20 mg PO DAILY 05/08/18 06/13/18 QUEtiapine [SEROquel] 50 mg PO HS 05/08/18 06/13/18 QUEtiapine [SEROquel] 100 mg PO HS 05/08/18 06/13/18 Previous Rx's Medication Instructions Recorded Aspirin 325 mg PO DAILY #14 tab 05/11/18 Docusate [Colace] 100 mg PO BID #60 capsule 05/11/18 HYDROcodone/APAP 5-325MG [[place] 1 each PO Q6HR PRN tab 05/14/18 5-325] Metoprolol Succinate (ER) [Toprol 50 mg PO DAILY tab.er.24h 05/14/18 XL] predniSONE 20 mg PO BID #10 tab 06/13/18 Allergies Allergy/AdvReac Type Severity Reaction Status Date / Time No Known Allergies Allergy Verified 06/13/18 12:48 Review of Systems ROS Statement: Those systems with pertinent positive or pertinent negative responses have been documented in the HPI. ROS Other: All systems not noted in ROS Statement are negative. EKG Findings - EKG Results: EKG: interpreted by ERMD, sinus rhythm (Sinus tachycardia rate of 129. Interval 176 respiration 140 QT since QTC to 36/345) bundle-branch block with anterior fascicular block nonspecific inferior changes. This is compared with EKG dated 05/09/18 showing similar configuration.) Past Medical History Past Medical History: CVA/TIA, Hypertension, Osteoarthritis (OA), Renal Disease Additional Past Medical History / Comment(s): HX PANCREATITIS 2011 OR 2010, LOWER BACK PAIN-HARD TO WALK FAR- USES CANE OR WALKER. TIA X 2. patient states not aware. states Stage 3 kidney dx, History of Any Multi-Drug Resistant Organisms: None Reported Past Surgical History: Adenoidectomy, Appendectomy, Back Surgery, Cholecystectomy, Hernia Repair, Joint Replacement, Tonsillectomy Additional Past Surgical History / Comment(s): Low back surgery, CATARACTS TAMAR, INCISIONAL HERNIA, RT KNEE REPLACEMENT, TAMAR.VARICOSE VEIN STRIPPING, PAIN CLINIC PROCEDURES, COLONOSCOPY, EGD Past Anesthesia/Blood Transfusion Reactions: No Reported Reaction Additional Past Anesthesia/Blood Transfusion Reaction / Comment(s): . Past Psychological History: No Psychological Hx Reported Smoking Status: Former smoker Past Alcohol Use History: Rare Past Drug Use History: None Reported - Past Family History Father Family Medical History: No Reported History Additional Family Medical History / Comment(s): Father at age 84 yrs of old age. Mother Family Medical History: Cancer Additional Family Medical History / Comment(s): Mother at age 53yrs of ovarian cancer. Brother(s) Family Medical History: Cancer Additional Family Medical History / Comment(s): BRAIN CA General Exam - General Exam Comments Initial Comments: This is a well-developed well-nourished awake alert oriented 3 female Limitations: no limitations General appearance: alert, anxious Head exam: Present: atraumatic, normocephalic, normal inspection Eye exam: Present: normal appearance, PERRL, EOMI. Absent: scleral icterus, conjunctival injection, periorbital swelling ENT exam: Present: normal exam, mucous membranes moist Neck exam: Present: normal inspection, full ROM, other (No stridor JVD or bruits). Absent: tenderness, meningismus, lymphadenopathy Respiratory exam: Present: normal lung sounds bilaterally, chest wall tenderness (Reproducible tennis palpation on the left costochondral costal sternal margin no step-off or crepitation), other (Patient is demonstrated evidence of kyphosis.). Absent: respiratory distress, wheezes, rales, rhonchi, stridor Cardiovascular Exam: Present: regular rate, normal rhythm, normal heart sounds. Absent: systolic murmur, diastolic murmur, rubs, gallop, clicks GI/Abdominal exam: Present: soft, normal bowel sounds. Absent: distended, tenderness, guarding, rebound, rigid Extremities exam: Present: normal inspection, full ROM, normal capillary refill. Absent: tenderness, pedal edema, joint swelling, calf tenderness Back exam: Present: normal inspection Neurological exam: Present: alert, oriented X3, CN II-XII intact Psychiatric exam: Present: normal affect, normal mood Skin exam: Present: warm, dry, intact, normal color. Absent: rash Course Vital Signs 06/13/18 12:31 Temperature 98.2 F Pulse Rate 77 Respiratory 73 H Rate Blood Pressure 178/78 O2 Sat by Pulse 97 Oximetry Chest Pain MDM - MDM I did review the imaging and report no acute findings. Patient's heart rate did respond to IV fluids. I did review the findings with the patient and her family. The presentation consistent with chest wall pain costochondritis we placed on a short course of steroids and Tylenol for pain she is a follow-up with Dr. woods when necessary Disposition Clinical Impression: Costalchondritis, Chest wall syndrome Disposition: HOME SELF-CARE Condition: Good Instructions (If sedation given, give patient instructions): Costochondritis (ED) Additional Instructions: Tylenol for pain Prescriptions: predniSONE 20 mg PO BID #10 tab Is patient prescribed a controlled substance at d/c from ED?: No Referrals: Pepe Canela MD [Primary Care Provider] - 1-2 days
[2018-06-13 13:19] LABS: Basophils # (A) 0.1 k/uL (0-0.2); Basophils % (A) 1 %; Eosinophils # (A) 0.4 k/uL (0-0.7); Eosinophils % (A) 8 %; HGB 11.8 gm/dL (11.4-16.0); Lymphocytes # (A) 1.1 k/uL (1.0-4.8); Lymphocytes % (A) 20 %; MCHC 32.7 g/dL (31.0-37.0); MCV 97.8 fL (80.0-100.0); Mean Platelet Volume 6.7; Monocytes # (A) 0.5 k/uL (0-1.0); Monocytes % (A) 9 %; Neutrophils # (A) 3.2 k/uL (1.3-7.7); Neutrophils % (A) 59 %; Platelet Count 166 k/uL (150-450); RBC 3.68 m/uL (3.80-5.40); RDW 13.5 % (11.5-15.5); WBC 5.5 k/uL (3.8-10.6)
[2018-06-13 13:33] LABS: Partial Thromboplastin Time 21.4 sec (22.0-30.0); Prothrombin Time 10.4 sec (9.0-12.0)
[2018-06-13 13:34] LABS: Albumin 3.8 g/dL (3.5-5.0); Calcium 9.2 mg/dL (8.4-10.2); Total Bilirubin 0.7 mg/dL (0.2-1.3); Total Protein 7.3 g/dL (6.3-8.2)
[2018-06-13 13:38] LABS: Potassium 5.2 mmol/L (3.5-5.1)
--- NOTE | 2018-06-13 13:49 | XR ---
EXAMINATION TYPE: XR chest 2V DATE OF EXAM: 06/13/2018 COMPARISON: Prior chest x-ray 01/17/2015 HISTORY: Chest pain TECHNIQUE: Frontal and lateral views of the chest are obtained. FINDINGS: There is no focal air space opacity, pleural effusion, or pneumothorax seen. The cardiac silhouette size is stable and likely enlarged although patient is rotated which makes accentuate appe arance. Bandlike area of increased attenuation in the right midlung likely represents scarring is sta ble. There are overlying cardiac leads. Prominent lung volumes suggest underlying COPD. The aorta is dense and tortuous as on prior exam. There are coronary artery calcifications present. The osseous st ructures are intact. IMPRESSION: No acute cardiopulmonary process.
== END 2018-06-13 15:14 | disposition home or self-care (01) ==
LOC: EC 12:25
DX: M94.0 Chondrocostal junction syndrome [Tietze] (principal); M40.209 Unspecified kyphosis, site unspecified; M19.90 Unspecified osteoarthritis, unspecified site; I10 Essential (primary) hypertension; Z79.82 Long term (current) use of aspirin; Z79.899 Other long term (current) drug therapy; Z86.73 Personal history of transient ischemic attack (TIA), and cerebral infarction without residual deficits; Z87.891 Personal history of nicotine dependence; Z96.651 Presence of right artificial knee joint
CPT/HCPCS: 36415; 93005; 83880; 80053; 83735; 84484; 85025; 85610; 85730; 71046; 99285; 96374; J1885

== ENCOUNTER 2018-06-23 18:03 | Observation (INO) | payer MEDICARE, BC ==
[2018-06-23] MEDS ORDERED: MORPHINE SULFATE 4 MG/ML SYRINGE IV STA (18:40)
[2018-06-23] MEDS ORDERED: SODIUM CHLORIDE 0.9% 500 ML 500 ML IV STA (18:40)
[2018-06-23] MEDS ORDERED: ONDANSETRON 4 MG/2 ML VIAL IVP STA (18:40)
--- NOTE | 2018-06-23 18:42 | ED ---
Abdominal Pain HPI - General Source: patient Mode of arrival: wheelchair Limitations: no limitations <Jenna Gordon - Last Filed: 06/24/18 00:29> <Gris Crump - Last Filed: 06/27/18 04:28> - General Chief Complaint: Abdominal Pain Stated Complaint: Rt side pain Time Seen by Provider: 06/23/18 18:22 - History of Present Illness Initial Comments: 87-year-old female patient presents to the emergency department today for evaluation of right-sided abdominal pain and right-sided chest pain. Patient states that symptoms started yesterday. Patient states the pain has been progressively worsening since. Patient states she is having some mild shortness of breath with this. She states she has been nauseated but has not vomited. Patient does have history of pancreatitis. She was recently worked up for angina approximately one week ago did see her conference planning manager afterwards. Patient states she has not had anything to eat or drink today. Denies any constipation or diarrhea. Denies any fever or chills. Denies any radiation of the pain into her back. Patient denies any recent rash, numbness, tingling, dizziness, weakness, hematuria, dysuria, urinary urgency, urinary frequency, headache, visual changes, or any other complaints. (Jenna Gordon) - Related Data Home Medications Medication Instructions Recorded Confirmed Aspirin 81 mg PO DAILY 07/08/13 06/23/18 Furosemide [Lasix] 20 mg PO DAILY 05/08/18 06/23/18 QUEtiapine [SEROquel] 50 mg PO HS 05/08/18 06/23/18 QUEtiapine [SEROquel] 100 mg PO HS 05/08/18 06/23/18 Atorvastatin [Lipitor] 20 mg PO DAILY 06/23/18 06/23/18 HYDROcodone/APAP 7.5-325MG [[place] 1 tab PO HS 06/23/18 06/23/18 7.5-325] Multivitamins, Thera [Multivitamin 1 tab PO DAILY 06/23/18 06/23/18 (formulary)] Previous Rx's Medication Instructions Recorded Metoprolol Succinate (ER) [Toprol 50 mg PO DAILY tab.er.24h 05/14/18 XL] Allergies Allergy/AdvReac Type Severity Reaction Status Date / Time No Known Allergies Allergy Verified 06/23/18 19:42 Review of Systems ROS Other: All systems not noted in ROS Statement are negative. <Jenna Gordon - Last Filed: 06/24/18 00:29> ROS Other: All systems not noted in ROS Statement are negative. <Zulema Crumpica P - Last Filed: 06/27/18 04:28> ROS Statement: Those systems with pertinent positive or pertinent negative responses have been documented in the HPI. Past Medical History Past Medical History: CVA/TIA, Hypertension, Osteoarthritis (OA), Renal Disease Additional Past Medical History / Comment(s): HX PANCREATITIS 2011 OR 2010, LOWER BACK PAIN-HARD TO WALK FAR- USES CANE OR WALKER. TIA X 2. patient states not aware. states Stage 3 kidney dx, History of Any Multi-Drug Resistant Organisms: None Reported Past Surgical History: Adenoidectomy, Appendectomy, Back Surgery, Cholecystectomy, Hernia Repair, Joint Replacement, Tonsillectomy Additional Past Surgical History / Comment(s): Low back surgery, CATARACTS TAMAR, INCISIONAL HERNIA, RT KNEE REPLACEMENT, TAMAR.VARICOSE VEIN STRIPPING, PAIN CLINIC PROCEDURES, COLONOSCOPY, EGD Past Anesthesia/Blood Transfusion Reactions: No Reported Reaction Additional Past Anesthesia/Blood Transfusion Reaction / Comment(s): . Past Psychological History: No Psychological Hx Reported Smoking Status: Former smoker Past Alcohol Use History: Rare Past Drug Use History: None Reported - Past Family History Father Family Medical History: No Reported History Additional Family Medical History / Comment(s): Father at age 84 yrs of old age. Mother Family Medical History: Cancer Additional Family Medical History / Comment(s): Mother at age 53yrs of ovarian cancer. Brother(s) Family Medical History: Cancer Additional Family Medical History / Comment(s): BRAIN CA <Jenna Gordon - Last Filed: 06/24/18 00:29> General Exam Limitations: no limitations General appearance: alert, in no apparent distress, other (Physical well- developed, well-nourished elderly female patient in no acute distress. Vital signs upon presentation are temperature 97.9F, pulse 98, respirations 18, blood pressure 164/79, pulse ox 96% on room air.) Eye exam: Present: normal appearance, PERRL, EOMI. Absent: scleral icterus, conjunctival injection, periorbital swelling ENT exam: Present: normal exam, normal oropharynx, mucous membranes moist Respiratory exam: Present: normal lung sounds bilaterally, chest wall tenderness (right sided). Absent: respiratory distress, wheezes, rales, rhonchi, stridor Cardiovascular Exam: Present: regular rate, normal rhythm, normal heart sounds. Absent: systolic murmur, diastolic murmur, rubs, gallop, clicks GI/Abdominal exam: Present: soft, tenderness (Midepigastric, right upper quadrant, left upper quadrant tenderness), normal bowel sounds. Absent: distended, guarding, rebound, rigid Neurological exam: Present: alert, oriented X3, CN II-XII intact Psychiatric exam: Present: normal affect, normal mood Skin exam: Present: warm, dry, intact, normal color. Absent: rash <Jenna Gordon - Last Filed: 06/24/18 00:29> Course Vital Signs 06/23/18 06/23/18 06/23/18 18:06 19:30 21:05 Temperature 97.9 F 98.2 F 98.3 F Pulse Rate 98 85 96 Respiratory 18 15 14 Rate Blood Pressure 164/79 176/91 170/94 O2 Sat by Pulse 96 93 L 94 L Oximetry 06/23/18 22:20 Temperature 98.2 F Pulse Rate 85 Respiratory 15 Rate Blood Pressure 176/87 O2 Sat by Pulse 97 Oximetry Medical Decision Making - Lab Data Result diagrams: 06/23/18 19:15 06/23/18 19:15 - EKG Data -: EKG Interpreted by Oh - Radiology Data Radiology results: report reviewed, image reviewed <Jenna Gordon - Last Filed: 06/24/18 00:29> - Lab Data Result diagrams: 06/24/18 06:07 06/25/18 15:05 <Gris Crump - Last Filed: 06/27/18 04:28> - Medical Decision Making 87-year-old female patient presents the emergency department today for evaluation of right-sided chest pain, right-sided abdominal pain. Physical examination did reveal upper abdominal tenderness. Labs reviewed and did reveal elevated BUN at 31 and creatinine 1.26, GFR is 38, this is chronic for the patient. CT abdomen and pelvis was obtained given patient's presence of tenderness. This showed no acute abnormalities. Patient does continue to have pain despite administration of narcotic pain medication. She'll be admitted to the hospital for further evaluation of intractable abdominal and chest pain. Patient family are aware of and agreeable with this plan. (Jenna Gordon) I personally saw and examined the patient. I reviewed and agree with the mid- level provider findings including all diagnostic interpretations and treatment plans as written unless otherwise stated. (Gris Crump) - Lab Data Lab Results 06/23/18 06/23/18 06/23/18 Range/Units 19:15 19:15 19:15 WBC 8.7 (3.8-10.6) k/uL RBC 3.99 (3.80-5.40) m/uL Hgb 12.6 (11.4-16.0) gm/dL Hct 39.0 (34.0-46.0) % MCV 97.6 (80.0-100.0) fL MCH 31.6 (25.0-35.0) pg MCHC 32.3 (31.0-37.0) g/dL RDW 14.3 (11.5-15.5) % Plt Count 208 (150-450) k/uL Neutrophils % 89 % Lymphocytes % 5 % Monocytes % 3 % Eosinophils % 1 % Basophils % 0 % Neutrophils # 7.8 H (1.3-7.7) k/uL Lymphocytes # 0.5 L (1.0-4.8) k/uL Monocytes # 0.3 (0-1.0) k/uL Eosinophils # 0.0 (0-0.7) k/uL Basophils # 0.0 (0-0.2) k/uL PT (9.0-12.0) sec INR (<1.2) APTT (22.0-30.0) sec Sodium 136 L (137-145) mmol/L Potassium 4.8 (3.5-5.1) mmol/L Chloride 106 (98-107) mmol/L Carbon Dioxide 24 (22-30) mmol/L Anion Gap 6 mmol/L BUN 31 H (7-17) mg/dL Creatinine 1.26 H (0.52-1.04) mg/dL Est GFR (CKD-EPI)AfAm 44 (>60 ml/min/1.73 sqM) Est GFR (CKD-EPI)NonAf 38 (>60 ml/min/1.73 sqM) Glucose 125 H (74-99) mg/dL Plasma Lactic Acid Vladimir 0.8 (0.7-2.0) mmol/L Calcium 9.3 (8.4-10.2) mg/dL Total Bilirubin 0.7 (0.2-1.3) mg/dL AST 19 (14-36) U/L ALT 23 (9-52) U/L Alkaline Phosphatase 109 (38-126) U/L Troponin I (0.000-0.034) ng/mL Total Protein 7.0 (6.3-8.2) g/dL Albumin 3.6 (3.5-5.0) g/dL Amylase 65 (30-110) U/L Lipase 150 (23-300) U/L Urine Color Urine Appearance (Clear) Urine pH (5.0-8.0) Ur Specific Harvey (1.001-1.035) Urine Protein (Negative) Urine Glucose (UA) (Negative) Urine Ketones (Negative) Urine Blood (Negative) Urine Nitrite (Negative) Urine Bilirubin (Negative) Urine Urobilinogen (<2.0) mg/dL Ur Leukocyte Esterase (Negative) 06/23/18 06/23/18 06/23/18 Range/Units 19:15 19:15 19:56 WBC (3.8-10.6) k/uL RBC (3.80-5.40) m/uL Hgb (11.4-16.0) gm/dL Hct (34.0-46.0) % MCV (80.0-100.0) fL MCH (25.0-35.0) pg MCHC (31.0-37.0) g/dL RDW (11.5-15.5) % Plt Count (150-450) k/uL Neutrophils % % Lymphocytes % % Monocytes % % Eosinophils % % Basophils % % Neutrophils # (1.3-7.7) k/uL Lymphocytes # (1.0-4.8) k/uL Monocytes # (0-1.0) k/uL Eosinophils # (0-0.7) k/uL Basophils # (0-0.2) k/uL PT 10.4 (9.0-12.0) sec INR 1.0 (<1.2) APTT 26.6 (22.0-30.0) sec Sodium (137-145) mmol/L Potassium (3.5-5.1) mmol/L Chloride (98-107) mmol/L Carbon Dioxide (22-30) mmol/L Anion Gap mmol/L BUN (7-17) mg/dL Creatinine (0.52-1.04) mg/dL Est GFR (CKD-EPI)AfAm (>60 ml/min/1.73 sqM) Est GFR (CKD-EPI)NonAf (>60 ml/min/1.73 sqM) Glucose (74-99) mg/dL Plasma Lactic Acid Vladimir (0.7-2.0) mmol/L Calcium (8.4-10.2) mg/dL Total Bilirubin (0.2-1.3) mg/dL AST (14-36) U/L ALT (9-52) U/L Alkaline Phosphatase (38-126) U/L Troponin I <0.012 (0.000-0.034) ng/mL Total Protein (6.3-8.2) g/dL Albumin (3.5-5.0) g/dL Amylase (30-110) U/L Lipase (23-300) U/L Urine Color Light Yellow Urine Appearance Clear (Clear) Urine pH 7.0 (5.0-8.0) Ur Specific Harvey 1.007 (1.001-1.035) Urine Protein Negative (Negative) Urine Glucose (UA) Negative (Negative) Urine Ketones Negative (Negative) Urine Blood Negative (Negative) Urine Nitrite Negative (Negative) Urine Bilirubin Negative (Negative) Urine Urobilinogen <2.0 (<2.0) mg/dL Ur Leukocyte Esterase Negative (Negative) - EKG Data EKG Comments: EKG obtained in 1917 shows sinus rhythm with a right bundle branch block, left anterior fascicular block. Ventricular rate is 173, QRS duration 140, QT 176, QTC 298. (Jenna Gordon) - Radiology Data CT abdomen and pelvis without contrast was obtained. Report was reviewed in its entirety. Impression by Dr. Head shows compared to old exam there is no in filtrate and atelectasis at the lung bases. Old granulomatous disease. Cardiomegaly. Multiple renal cysts. There is a large right-sided extrarenal pelvis unchanged. Colonic diverticulosis without diverticulitis. Two-view x-ray of the chest is obtained. Report was reviewed in its entirety. Impression by Dr. Head shows fibrotic changes and atelectasis at the lung bases is increased compared to old exam. No heart failure seen. Single view of the abdomen is obtained. Report reviewed in its entirety. Impression by Dr. Head shows nonacute abdomen. Pleural reaction and atelectasis at the lung bases increased compared to old exam. (Jenna Gordon) Disposition Decision to Admit Reason: Admit from EC Decision Date: 06/23/18 Decision Time: 21:47 <Jenna Gordon - Last Filed: 06/24/18 00:29> <Gris Crump - Last Filed: 06/27/18 04:28> Clinical Impression: Intractable abdominal pain, Chest pain Disposition: ADMITTED IP TO THIS [facility] Condition: Stable
--- NOTE | 2018-06-23 19:50 | XR ---
Abdomen single view. History pain. Comparison 01/17/2015. FINDINGS: There is some pleural thickening and atelectasis at the lung bases. There is no sign of intestinal ob struction or pneumoperitoneum. Abdominal aorta is atheromatous. There is no evidence of a mass. IMPRESSION: Nonacute abdomen. Pleural reaction and atelectasis at the lung bases increased compared to old exam.
[2018-06-23 19:53] LABS: Basophils % (A) 0 %; Eosinophils % (A) 1 %; HGB 12.6 gm/dL (11.4-16.0); Lymphocytes # (A) 0.5 k/uL (1.0-4.8); Lymphocytes % (A) 5 %; MCH 31.6 pg (25.0-35.0); MCHC 32.3 g/dL (31.0-37.0); MCV 97.6 fL (80.0-100.0); Mean Platelet Volume 7.6; Monocytes # (A) 0.3 k/uL (0-1.0); Monocytes % (A) 3 %; Neutrophils # (A) 7.8 k/uL (1.3-7.7); Neutrophils % (A) 89 %; Platelet Count 208 k/uL (150-450); RBC 3.99 m/uL (3.80-5.40); RDW 14.3 % (11.5-15.5); WBC 8.7 k/uL (3.8-10.6)
[2018-06-23 20:10] LABS: Albumin 3.6 g/dL (3.5-5.0); Calcium 9.3 mg/dL (8.4-10.2); Potassium 4.8 mmol/L (3.5-5.1); Total Bilirubin 0.7 mg/dL (0.2-1.3)
[2018-06-23 20:11] LABS: Partial Thromboplastin Time 26.6 sec (22.0-30.0); Prothrombin Time 10.4 sec (9.0-12.0)
--- NOTE | 2018-06-23 20:12 | XR ---
EXAMINATION TYPE: XR chest 2V DATE OF EXAM: 06/23/2018 COMPARISON: 06/13/2018 HISTORY: Chest pain TECHNIQUE: Frontal and lateral views of the chest are obtained. FINDINGS: There is some infiltrate or atelectasis at the lung bases. Heart size is normal. Thoracic aorta is atheromatous. There is no heart failure. IMPRESSION: Fibrotic changes and atelectasis at the lung bases is increased compared to old exam. No heart failure seen.
[2018-06-23 20:19] LABS: Appearance,Urine Clear (Clear); Bilirubin,Urine Negative (Negative); Blood,Urine Negative (Negative); Color,Urine Light Yellow; Glucose,Urine (UA) Negative (Negative); Ketones,Urine Negative (Negative); Leukocyte Esterase,Urine Negative (Negative); Nitrite,Urine Negative (Negative); Protein,Urine Negative (Negative); Specific Gravity,Urine 1.007 (1.001-1.035); Urobilinogen,Urine <2.0 mg/dL (<2.0)
--- NOTE | 2018-06-23 20:58 | CT ---
EXAMINATION TYPE: CT abdomen pelvis wo con DATE OF EXAM: 06/23/2018 COMPARISON: 10/09/2016 HISTORY: Right sided abdominal tenderness. CT DLP: 425.4 mGycm Automated exposure control for dose reduction was used. TECHNIQUE: Helical acquisition of images was performed from the lung bases through the pelvis. FINDINGS: There is some patchy atelectasis at the lung bases. There is 1.5 center calcified granuloma left lowe r lobe. There are numerous splenic calcified granulomata. Heart is enlarged. There is no pericardial effusion. There is some pleural thickening at the lung bases. There are calcified hepatic granulomata. Bile ducts are not dilated. There is no evidence of pancreat ic mass. There are a few pancreatic calcifications. I see no pancreatic mass. There is extensive vasc ular calcification. Kidneys show multiple cortical cysts and there is a very large cyst on the lower pole of the left kid tre that measures 11.5 cm. There are numerous diverticula in the sigmoid colon. There is no sign of d iverticulitis. Bladder distends smoothly. There is no inguinal hernia. There is no hydronephrosis. Th ere is large extrarenal pelvis on the right side. There is no retroperitoneal adenopathy. There is no ascites. There is no sign of a bowel obstruction. There is no free air. There is no mesenteric edema. IMPRESSION: COMPARED TO OLD EXAM THERE IS NEW INFILTRATE AND ATELECTASIS AT THE LUNG BASES. OLD GRANULOMATOUS DISEASE. CARDIOMEGALY. MULTIPLE RENAL CYSTS. THERE IS A LARGE RIGHT-SIDED EXTRARENAL PELVIS UNCHANGED. COLONIC DIVERTICULOSIS WITHOUT DIVERTICULITIS.
[2018-06-23] MEDS ORDERED: MORPHINE SULFATE 4 MG/ML SYRINGE IVP STA (21:39)
[2018-06-23] MEDS ORDERED: MORPHINE SULFATE 4 MG/ML SYRINGE IV PRN (21:40)
[2018-06-23] MEDS ORDERED: NALOXONE 0.4 MG/ML 1 ML VIAL IV PRN (21:40)
[2018-06-23] MEDS ORDERED: ONDANSETRON 4 MG/2 ML VIAL IVP PRN (21:40)
[2018-06-23] MEDS: SODIUM CHLORIDE 0.9% 1,000 ML IV SCH (22:22)
[2018-06-23] MEDS ORDERED: hydrALAZINE HCL 20 MG/ML 1 ML VIAL IVP PRN (23:39)
[2018-06-24] MEDS: QUEtiapine 100 MG TAB PO SCH ×2 (00:02→20:37)
[2018-06-24] MEDS: QUEtiapine 50 MG TAB PO SCH ×2 (00:02→20:37)
[2018-06-24 07:12] LABS: Basophils % (A) 0 %; Eosinophils % (A) 0 %; HCT 34.9 % (34.0-46.0); HGB 11.3 gm/dL (11.4-16.0); Lymphocytes # (A) 0.6 k/uL (1.0-4.8); Lymphocytes % (A) 11 %; MCHC 32.4 g/dL (31.0-37.0); MCV 98.7 fL (80.0-100.0); Mean Platelet Volume 6.9; Monocytes # (A) 0.5 k/uL (0-1.0); Monocytes % (A) 9 %; Neutrophils # (A) 4.4 k/uL (1.3-7.7); Neutrophils % (A) 78 %; Platelet Count 190 k/uL (150-450); RBC 3.54 m/uL (3.80-5.40); RDW 13.7 % (11.5-15.5); WBC 5.6 k/uL (3.8-10.6)
[2018-06-24 07:27] LABS: Albumin 2.9 g/dL (3.5-5.0); Calcium 8.6 mg/dL (8.4-10.2); Potassium 5.5 mmol/L (3.5-5.1); Total Bilirubin 0.4 mg/dL (0.2-1.3)
[2018-06-24] MEDS: METOPROLOL SUCCINATE (ER) 50 MG TAB.ER.24H PO SCH (08:42)
[2018-06-24] MEDS: ASPIRIN 81 MG PO SCH (08:42)
[2018-06-24] MEDS: FUROSEMIDE 20 MG TAB PO SCH (08:42)
[2018-06-24] MEDS: ATORVASTATIN 20 MG TAB PO SCH (08:42)
--- NOTE | 2018-06-24 11:27 | P.GSCN ---
History of Present Illness Consult date: 06/24/18 History of present illness: CHIEF COMPLAINT: Abdominal pain HISTORY OF PRESENT ILLNESS: The patient is a 87-year-old female who presents to the hospital after developing acute cramping abdominal pain particularly along the right side extending to the left. No prior events. She reports trying to bake apple pie and was lifting from the abdomen and then had acute onset of sharp stabbing pain. Her pain became moderate severe 10 on a 10 prompting her to the emergency room. Since admission, the pain has improved. She reports having chronic kidney disease. She has not been previously evaluated by urology per her recollection. General surgery's consulted for history of abdominal pain. PAST MEDICAL HISTORY: See list. PAST SURGICAL HISTORY: See list. MEDICATIONS: See list. ALLERGIES: See list. SOCIAL HISTORY: No illicit drug use FAMILY HISTORY: No reports of Crohn's disease or inflammatory bowel disease REVIEW OF ORGAN SYSTEMS: CONSTITUTIONAL: No fevers or chills. No recent weight loss. EYES: Denies any trouble with vision. No glasses. HEENT: No difficulties with hearing. No nosebleeds. RESPIRATORY: Denies pneumonia. Denies any troubles with breathing or dyspnea on exertion. CARDIOVASCULAR: Denies any chest pain, palpitations, or recent heart attacks. GASTROINTESTINAL: Denies fatty food intolerance. Past history of pancreatitis GENITOURINARY: Denies any blood in urine or increased urinary frequency. Has stage III kidney disease. NEUROLOGICAL: Denies any numbness or tingling along the distal extremities. No seizure disorders or headaches. Past history of stroke. MUSCULOSKELETAL: Has back pain, stiffness or joint arthritis. SKIN: No current skin cancer. No rash. PSYCHIATRIC: Has depression. No suicidal thoughts. ENDOCRINE: Denies current thyroid disorders. Denies any blood sugar glucose intolerance. HEME/LYMPHATIC: Denies any lumps and bumps around the neck. No recent deep venous thrombosis. ALLERGY/IMMUNOLOGY: No immunoglobulin therapy. No immune deficiencies. BREAST: Denies current breast lumps, pain or nipple discharge. PHYSICAL EXAM: VITALS: Reviewed CONSTITUTIONAL: Well developed and in no acute distress. EYES: Conjuctivae without sclera icterus. Pupils are equally round and reactive to light. Extraocular movements grossly intact. HEAD, EARS, NOSE, THROAT: Moist buccal mucosa. Head is atraumatic, normocephalic. Hears conversational speech. No nasal drainage. NECK: Supple. No JV distention. No thyroidomegaly. RESPIRATORY: Non-labored respirations and equal bilateral excursions. No gross wheezes. CARDIOVASCULAR: Regular rate and rhythm. Extremities without moderate edema. Palpable 2+ radial pulses. ABDOMEN: No hepatomegaly. Soft. Nondistended. Fullness along the left upper quadrant to left lower quadrant. No peritonitis LYMPH: No neck lymphadenopathy. MUSCULOSKELETAL: Nail and fingers with good capillary refill. SKIN: Warm and well perfused with good skin turgor. NEUROLOGIC: Cranial nerves I through XII grossly intact. Sensation upper and extremities intact. No focal or lateralizing signs. PSYCH: Appropriate affect. Alert and oriented to person, place and time. Displays appropriate insight. CLINCAL LABS: Reviewed without white count. Creatinine function elevated over 1.2. RADIOLOGY: Report reviewed IMAGING: Independently reviewed of CT scans from 2019 in 2014 demonstrating increased size of extremely large left renal cyst over 11 cm in size with mass e ffect. No perforation or pneumoperitoneum identified ASSESSMENT: 1. New acute onset abdominal pain, generalized 2. Extremely large left renal cyst with mass effect 3. History of stage III chronic kidney disease, secondary to hypertension PLAN: 1. She has extremely large left renal cyst with mass effect in comparison to prior studies 2. She reports not previously seeing a urologist. Recommend urology consultation for extremely large renal cyst with mass effect 3. No general surgical intervention needed. 4. She reports seeing Dr. Staley for baseline chronic kidney disease Thank you for this kind consultation. Past Medical History Past Medical History: CVA/TIA, Hypertension, Osteoarthritis (OA), Renal Disease Additional Past Medical History / Comment(s): HX PANCREATITIS 2011 OR 2010, LOWER BACK PAIN-HARD TO WALK FAR- USES CANE OR WALKER. TIA X 2. patient states not aware. states Stage 3 kidney dx, History of Any Multi-Drug Resistant Organisms: None Reported Past Surgical History: Adenoidectomy, Appendectomy, Back Surgery, Cholecystectomy, Hernia Repair, Joint Replacement, Tonsillectomy Additional Past Surgical History / Comment(s): Low back surgery, CATARACTS TAMAR, INCISIONAL HERNIA, RT KNEE REPLACEMENT, TAMAR.VARICOSE VEIN STRIPPING, PAIN CLINIC PROCEDURES, COLONOSCOPY, EGD Past Anesthesia/Blood Transfusion Reactions: No Reported Reaction Additional Past Anesthesia/Blood Transfusion Reaction / Comm: . Past Psychological History: No Psychological Hx Reported Smoking Status: Former smoker Past Alcohol Use History: Rare Past Drug Use History: None Reported - Past Family History Father Family Medical History: No Reported History Additional Family Medical History / Comment(s): Father at age 84 yrs of old age. Mother Family Medical History: Cancer Additional Family Medical History / Comment(s): Mother at age 53yrs of ovarian cancer. Brother(s) Family Medical History: Cancer Additional Family Medical History / Comment(s): BRAIN CA Medications and Allergies Home Medications Medication Instructions Recorded Confirmed Type Aspirin 81 mg PO DAILY 07/08/13 06/23/18 History Furosemide [Lasix] 20 mg PO DAILY 05/08/18 06/23/18 History QUEtiapine [SEROquel] 50 mg PO HS 05/08/18 06/23/18 History QUEtiapine [SEROquel] 100 mg PO HS 05/08/18 06/23/18 History Metoprolol Succinate (ER) [Toprol 50 mg PO DAILY tab.er.24h 05/14/18 06/23/18 Rx XL] Atorvastatin [Lipitor] 20 mg PO DAILY 06/23/18 06/23/18 History HYDROcodone/APAP 7.5-325MG [[place] 1 tab PO HS 06/23/18 06/23/18 History 7.5-325] Multivitamins, Thera [Multivitamin 1 tab PO DAILY 06/23/18 06/23/18 History (formulary)] Allergies Allergy/AdvReac Type Severity Reaction Status Date / Time No Known Allergies Allergy Verified 06/23/18 19:42 Surgical - Exam Vital Signs Temp Pulse Resp BP Pulse Ox 97.9 F 98 18 164/79 96 06/23/18 18:06 06/23/18 18:06 06/23/18 18:06 06/23/18 18:06 06/23/18 18:06 Results - Labs 06/24/18 06:07 06/24/18 06:07 Abnormal Lab Results - Last 24 Hours (Table) 06/23/18 06/23/18 06/24/18 Range/Units 19:15 19:15 06:07 RBC 3.54 L (3.80-5.40) m/uL Hgb 11.3 L (11.4-16.0) gm/dL Neutrophils # 7.8 H (1.3-7.7) k/uL Lymphocytes # 0.5 L 0.6 L (1.0-4.8) k/uL Sodium 136 L (137-145) mmol/L Potassium (3.5-5.1) mmol/L Chloride (98-107) mmol/L BUN 31 H (7-17) mg/dL Creatinine 1.26 H (0.52-1.04) mg/dL Glucose 125 H (74-99) mg/dL Total Protein (6.3-8.2) g/dL Albumin (3.5-5.0) g/dL 06/24/18 Range/Units 06:07 RBC (3.80-5.40) m/uL Hgb (11.4-16.0) gm/dL Neutrophils # (1.3-7.7) k/uL Lymphocytes # (1.0-4.8) k/uL Sodium (137-145) mmol/L Potassium 5.5 H (3.5-5.1) mmol/L Chloride 109 H (98-107) mmol/L BUN 26 H (7-17) mg/dL Creatinine 1.11 H (0.52-1.04) mg/dL Glucose 100 H (74-99) mg/dL Total Protein 6.0 L (6.3-8.2) g/dL Albumin 2.9 L (3.5-5.0) g/dL Diabetes panel 06/23/18 06/24/18 Range/Units 19:15 06:07 Sodium 136 L 137 (137-145) mmol/L Potassium 4.8 5.5 H (3.5-5.1) mmol/L Chloride 106 109 H (98-107) mmol/L Carbon Dioxide 24 22 (22-30) mmol/L BUN 31 H 26 H (7-17) mg/dL Creatinine 1.26 H 1.11 H (0.52-1.04) mg/dL Glucose 125 H 100 H (74-99) mg/dL Calcium 9.3 8.6 (8.4-10.2) mg/dL AST 19 17 (14-36) U/L ALT 23 27 (9-52) U/L Alkaline Phosphatase 109 78 (38-126) U/L Total Protein 7.0 6.0 L (6.3-8.2) g/dL Albumin 3.6 2.9 L (3.5-5.0) g/dL Calcium panel 06/23/18 06/24/18 Range/Units 19:15 06:07 Calcium 9.3 8.6 (8.4-10.2) mg/dL Albumin 3.6 2.9 L (3.5-5.0) g/dL Pituitary panel 06/23/18 06/24/18 Range/Units 19:15 06:07 Sodium 136 L 137 (137-145) mmol/L Potassium 4.8 5.5 H (3.5-5.1) mmol/L Chloride 106 109 H (98-107) mmol/L Carbon Dioxide 24 22 (22-30) mmol/L BUN 31 H 26 H (7-17) mg/dL Creatinine 1.26 H 1.11 H (0.52-1.04) mg/dL Glucose 125 H 100 H (74-99) mg/dL Calcium 9.3 8.6 (8.4-10.2) mg/dL Adrenal panel 06/23/18 06/24/18 Range/Units 19:15 06:07 Sodium 136 L 137 (137-145) mmol/L Potassium 4.8 5.5 H (3.5-5.1) mmol/L Chloride 106 109 H (98-107) mmol/L Carbon Dioxide 24 22 (22-30) mmol/L BUN 31 H 26 H (7-17) mg/dL Creatinine 1.26 H 1.11 H (0.52-1.04) mg/dL Glucose 125 H 100 H (74-99) mg/dL Calcium 9.3 8.6 (8.4-10.2) mg/dL Total Bilirubin 0.7 0.4 (0.2-1.3) mg/dL AST 19 17 (14-36) U/L ALT 23 27 (9-52) U/L Alkaline Phosphatase 109 78 (38-126) U/L Total Protein 7.0 6.0 L (6.3-8.2) g/dL Albumin 3.6 2.9 L (3.5-5.0) g/dL Assessment and Plan (1) Cyst of left kidney Current Visit: Yes Status: Acute Code(s): N28.1 - CYST OF KIDNEY, ACQUIRED SNOMED Code(s): 094810332 (2) Stage 3 chronic kidney disease due to benign hypertension Current Visit: Yes Status: Acute Code(s): I12.9 - HYPERTENSIVE CHRONIC KIDNEY DISEASE W STG 1-4/UNSP CHR KDNY; N18.3 - CHRONIC KIDNEY DISEASE, STAGE 3 (MODERATE) SNOMED Code(s): 974643680276804 (3) Hypertensive heart and chronic kidney disease stage 3 Current Visit: Yes Status: Acute Code(s): I13.10 - HYP HRT & CHR KDNY DIS W/O HRT FAIL, W STG 1-4/UNSP CHR KDNY; N18.3 - CHRONIC KIDNEY DISEASE, STAGE 3 (MODERATE) SNOMED Code(s): 89564712337811 (4) Intractable abdominal pain Current Visit: Yes Status: Acute Code(s): R10.9 - UNSPECIFIED ABDOMINAL PAIN SNOMED Code(s): 95407191 (5) Hyperlipidemia Current Visit: Yes Status: Acute Code(s): E78.5 - HYPERLIPIDEMIA, UNSPECIFIED SNOMED Code(s): 01753409 (6) Depressive disorder Current Visit: Yes Status: Acute Code(s): F32.9 - MAJOR DEPRESSIVE DISORDER, SINGLE EPISODE, UNSPECIFIED SNOMED Code(s): 65083410
--- NOTE | 2018-06-24 13:51 | P.CRDCN ---
History of Present Illness Consult date: 06/24/18 Chief complaint: Epigastric discomfort History of present illness: This is a pleasant 87-year-old female patient who sees Dr. alatorre as an outpa tient with a past medical history significant for hypertension as well as dyslipidemia was brought to the hospital by her daughter because off abdominal/epigastric discomfort. The patient describes a discomfort in the upper right abdomen and epigastric area, without any chest pain or chest discomfort, no radiation of the pain to the arm or neck or shoulders, andseated symptoms of shortness of breath, sweating, dizziness or light the scar syncope. The patient was admitted to the hospital about 2 months ago with a chest discomfort and at that point she underwent myocardial perfusion imaging stress test and that showed possible apical ischemia but for some reason she did not having any coronary angiogram. The troponin this time came in to be unremarkable. The EKG did not show any significant ST or T-wave abnormalities. She stated that her discomfort has improved now but she still have some. She underwent a computed tomography scan of the abdomen and pelvis and that revealed what it seems to be diverticulosis without any evidence of diverticulitis. Past Medical History Past Medical History: CVA/TIA, Hypertension, Osteoarthritis (OA), Renal Disease Additional Past Medical History / Comment(s): HX PANCREATITIS 2011 OR 2010, LOWER BACK PAIN-HARD TO WALK FAR- USES CANE OR WALKER. TIA X 2. patient states not aware. states Stage 3 kidney dx, History of Any Multi-Drug Resistant Organisms: None Reported Past Surgical History: Adenoidectomy, Appendectomy, Back Surgery, Cholecystectomy, Hernia Repair, Joint Replacement, Tonsillectomy Additional Past Surgical History / Comment(s): Low back surgery, CATARACTS TAMAR, INCISIONAL HERNIA, RT KNEE REPLACEMENT, TAMAR.VARICOSE VEIN STRIPPING, PAIN CLINIC PROCEDURES, COLONOSCOPY, EGD Past Anesthesia/Blood Transfusion Reactions: No Reported Reaction Additional Past Anesthesia/Blood Transfusion Reaction / Comment(s): . Past Psychological History: No Psychological Hx Reported Smoking Status: Former smoker Past Alcohol Use History: Rare Past Drug Use History: None Reported - Past Family History Father Family Medical History: No Reported History Additional Family Medical History / Comment(s): Father at age 84 yrs of old age. Mother Family Medical History: Cancer Additional Family Medical History / Comment(s): Mother at age 53yrs of ovarian cancer. Brother(s) Family Medical History: Cancer Additional Family Medical History / Comment(s): BRAIN CA Medications and Allergies Home Medications Medication Instructions Recorded Confirmed Type Aspirin 81 mg PO DAILY 07/08/13 06/23/18 History Furosemide [Lasix] 20 mg PO DAILY 05/08/18 06/23/18 History QUEtiapine [SEROquel] 50 mg PO HS 05/08/18 06/23/18 History QUEtiapine [SEROquel] 100 mg PO HS 05/08/18 06/23/18 History Metoprolol Succinate (ER) [Toprol 50 mg PO DAILY tab.er.24h 05/14/18 06/23/18 Rx XL] Atorvastatin [Lipitor] 20 mg PO DAILY 06/23/18 06/23/18 History HYDROcodone/APAP 7.5-325MG [[place] 1 tab PO HS 06/23/18 06/23/18 History 7.5-325] Multivitamins, Thera [Multivitamin 1 tab PO DAILY 06/23/18 06/23/18 History (formulary)] Allergies Allergy/AdvReac Type Severity Reaction Status Date / Time No Known Allergies Allergy Verified 06/23/18 19:42 Physical Exam Vitals: Vital Signs Temp Pulse Pulse Pulse Resp BP BP 06/24/18 11:50 97.8 F 77 16 127/72 06/24/18 05:00 98.3 F 96 16 123/59 06/24/18 02:22 95 16 146/72 06/24/18 00:50 96 16 06/24/18 00:44 160/78 06/23/18 23:05 98.3 F 16 180/86 06/23/18 23:00 97.6 F 76 16 06/23/18 22:20 98.2 F 85 15 176/87 06/23/18 21:05 98.3 F 96 14 170/94 06/23/18 19:30 98.2 F 85 15 176/91 06/23/18 18:06 97.9 F 98 18 164/79 Pulse Ox 06/24/18 11:50 96 06/24/18 05:00 96 06/24/18 02:22 06/24/18 00:50 06/24/18 00:44 06/23/18 23:05 96 06/23/18 23:00 91 L 06/23/18 22:20 97 06/23/18 21:05 94 L 06/23/18 19:30 93 L 06/23/18 18:06 96 Intake and Output 06/23/18 06/24/18 06/24/18 22:59 06:59 14:59 Intake Total 450 Balance 450 Intake: Intake, IV Titration 450 Amount Sodium Chloride 0.9% 1, 400 000 ml @ 50 mls/hr IV . Q20H JS Rx#:[id number] cefTRIAXone 1 gm In 50 Sodium Chloride 0.9% 50 ml @ 100 mls/hr IVPB Q24H [facility] Rx#:[id number] Other: Voiding Method Bedside Commode Bedside Commode # Voids 1 1 Weight 68.039 kg 63.5 kg - Constitutional General appearance: no acute distress - Respiratory Respiratory: bilateral: CTA - Cardiovascular Rhythm: regular Heart sounds: normal: S1, S2 Abnormal Heart Sounds: systolic murmur Results 06/24/18 06:07 06/24/18 06:07 Cardiac Enzymes 06/23/18 06/23/18 06/24/18 Range/Units 19:15 19:15 01:28 AST 19 (14-36) U/L Troponin I <0.012 <0.012 (0.000-0.034) ng/mL 06/24/18 06/24/18 Range/Units 06:07 06:07 AST 17 (14-36) U/L Troponin I <0.012 (0.000-0.034) ng/mL Coagulation 06/23/18 Range/Units 19:15 PT 10.4 (9.0-12.0) sec APTT 26.6 (22.0-30.0) sec CBC 06/23/18 06/24/18 Range/Units 19:15 06:07 WBC 8.7 5.6 (3.8-10.6) k/uL RBC 3.99 3.54 L (3.80-5.40) m/uL Hgb 12.6 11.3 L (11.4-16.0) gm/dL Hct 39.0 34.9 (34.0-46.0) % Plt Count 208 190 (150-450) k/uL Comprehensive Metabolic Panel 06/23/18 06/24/18 Range/Units 19:15 06:07 Sodium 136 L 137 (137-145) mmol/L Potassium 4.8 5.5 H (3.5-5.1) mmol/L Chloride 106 109 H (98-107) mmol/L Carbon Dioxide 24 22 (22-30) mmol/L BUN 31 H 26 H (7-17) mg/dL Creatinine 1.26 H 1.11 H (0.52-1.04) mg/dL Glucose 125 H 100 H (74-99) mg/dL Calcium 9.3 8.6 (8.4-10.2) mg/dL AST 19 17 (14-36) U/L ALT 23 27 (9-52) U/L Alkaline Phosphatase 109 78 (38-126) U/L Total Protein 7.0 6.0 L (6.3-8.2) g/dL Albumin 3.6 2.9 L (3.5-5.0) g/dL Current Medications Generic Name Dose Route Start Last Admin Trade Name Freq PRN Reason Stop Dose Admin Hydrocodone Bitart/Acetaminophen 1 each 06/24/18 21:00 [place] 7.5-325 PO HS JS Aspirin 81 mg 06/24/18 09:00 06/24/18 08:42 Aspirin PO 81 mg DAILY JS Administration Atorvastatin Calcium 20 mg 06/24/18 09:00 06/24/18 08:42 Lipitor PO 20 mg DAILY JS Administration Furosemide 20 mg 06/24/18 09:00 06/24/18 08:42 Lasix PO 20 mg DAILY JS Administration Hydralazine HCl 10 mg 06/23/18 23:39 06/24/18 00:03 Apresoline IVP 10 mg Q6HR PRN Administration Blood Pressure - High Sodium Chloride 1,000 mls @ 50 mls/hr 06/23/18 21:45 06/23/18 22:22 Saline 0.9% IV 50 mls/hr .Q20H JS Administration Ceftriaxone Sodium 1 gm/ 50 mls @ 100 mls/hr 06/23/18 23:00 06/24/18 00:00 Sodium Chloride IVPB 100 mls/hr Q24H JS Administration Metoprolol Succinate 50 mg 06/24/18 09:00 06/24/18 08:42 Toprol Xl PO 50 mg DAILY JS Administration Morphine Sulfate 4 mg 06/23/18 21:40 06/24/18 08:42 Morphine Sulfate (Inj) IV 4 mg Q4HR PRN Administration Severe Pain Naloxone HCl 0.2 mg 06/23/18 21:40 Narcan IV Q2M PRN Opioid Reversal Ondansetron HCl 4 mg 06/23/18 21:40 Zofran IVP Q8HR PRN Nausea And Vomiting Quetiapine Fumarate 50 mg 06/23/18 23:00 06/24/18 00:02 Seroquel PO 50 mg HS JS Administration Quetiapine Fumarate 100 mg 06/23/18 23:00 06/24/18 00:02 Seroquel PO 100 mg HS JS Administration Intake and Output 06/23/18 06/24/18 06/24/18 22:59 06:59 14:59 Intake Total 450 Balance 450 Intake: Intake, IV Titration 450 Amount Sodium Chloride 0.9% 1, 400 000 ml @ 50 mls/hr IV . Q20H JS Rx#:[id number] cefTRIAXone 1 gm In 50 Sodium Chloride 0.9% 50 ml @ 100 mls/hr IVPB Q24H JS Rx#:[id number] Other: Voiding Method Bedside Commode Bedside Commode # Voids 1 1 Weight 68.039 kg 63.5 kg 06/24/18 06:07 06/24/18 06:07 Assessment and Plan Assessment: Assessment #1 atypical chest/epigastric discomfort #2 hypertension #3 dyslipidemia Plan #1 the patient was ruled out for acute coronary event #2 monitor the patient for additional 24 hours #3 follow-up with the patient Thank you for allowing us participate in her care
[2018-06-24] MEDS: HYDROcodone/APAP 5-325MG 1 EACH TAB PO PRN (17:08)
[2018-06-24] MEDS: SODIUM CHLORIDE 0.9% 1,000 ML IV SCH (17:11)
[2018-06-24] MEDS ORDERED: HYDROcodone/APAP 7.5-325MG 1 EACH TAB PO SCH (21:00)
--- NOTE | 2018-06-24 21:05 | HP ---
HISTORY AND PHYSICAL CHIEF COMPLAINT: 87-year-old white female with history of hypertension, lifted a crock pot and twisted. She had some abdominal epigastric pain radiating to her right ribs, worse when she moved. Surgery saw the patient and had concern over a cyst in her kidney at 12 cm, which was unchanged from multiple times in the past. Her pain is elicited on palpation and with movement. Cardiology consult was reviewed. PAST MEDICAL HISTORY: CVA, TIA, hypertension, osteoarthritis, GERD, renal disease, pancreatitis. SURGERIES: Adenoidectomy, appendectomy, back surgery, cholecystectomy, hernia repair, joint replacement, tonsillectomy, knee replacement, varicose vein stripping. SOCIAL HISTORY: Former smoker. Rare alcohol. PAST FAMILY MEDICAL HISTORY: Father of old age. Mother cancer, ovarian. Brother, brain cancer. HOME MEDICINES: 1. Lasix 20 daily. 2. Seroquel 150 q.h.s. 3. Metoprolol succinate 50 daily. 4. Lipitor 20 mg daily. ALLERGIES: Negative. Temp 97.8, pulse is 90s to 80s, respiratory rate 16-14, blood pressure is 120s to 180s over 60 to 80. CARDIOVASCULAR: S1, S2. LUNGS: Clear. GI: Soft. HEMATOLOGY: Negative Homans. PSYCH: Fair mood and affect. MUSCULOSKELETAL: Tenderness to palpation, right ribs over lateral palpation and mild right flank pain with tenderness. Hemoglobin is 11.3 and white count is normal. CT scan of the abdomen and pelvis is reviewed. ASSESSMENT: 1. Hypertension. 2. Dyslipidemia. 3. Rib pain. 4. Costochondritis. 5. Flank tenderness. 6. Acute on chronic renal insufficiency. 7. Atypical chest pain, musculoskeletal nature. The patient will probably be discharged home as it is musculoskeletal in nature. Await for Cardiology and Urology consults. MMODL / IJN: [id number] /
[2018-06-25] MEDS: FUROSEMIDE 20 MG TAB PO SCH (08:15)
[2018-06-25] MEDS: HYDROcodone/APAP 5-325MG 1 EACH TAB PO PRN (08:15)
[2018-06-25] MEDS: METOPROLOL SUCCINATE (ER) 50 MG TAB.ER.24H PO SCH (08:15)
[2018-06-25] MEDS: ASPIRIN 81 MG PO SCH (08:15)
[2018-06-25] MEDS: ATORVASTATIN 20 MG TAB PO SCH (08:15)
--- NOTE | 2018-06-25 10:44 | P.PN ---
Subjective This is a pleasant 87-year-old female past medical history significant for hypertension, dyslipidemia and chronic kidney disease. She follows in the office with Dr. Vincent. She presented to the hospital with symptoms of right sided abdominal pain and we are following her for an episode of chest pain. She was recently evaluated in the office after being seen in the hospital with costrochondritis. Discussion with the patient and her daughter at that time determined maximum medical therapy would be the goal of any further CAD work-up. She has been seen by surgery and they are recommending a urology consultation for a large renal cyst. Blood pressure 128/65 heart rate 75 afebrile maintaining oxygen saturation on nasal cannula. Laboratory data reviewed, WBC 5.6, hemoglobin 11.3, platelets 198, sodium 137, potassium 5.5, creatinine 1.1, cardiac enzymes negative 3. Currently maintained on aspirin 81 mg daily, atorvastatin 20 mg daily, Lasix 20 mg daily, Toprol 50 mg daily. She is seen and examined sitting up in bed in no acute distress. She continues to complain of right upper quadrant abdominal pain and reproducible right chest wall pain. No shortness of breath, dizziness or palpitations. GENERAL: Well-appearing, well-nourished and in no acute distress. NECK: Supple without JVD or thyromegaly. LUNGS: Breath sounds clear to auscultation bilaterally. Respiration equal and unlabored. No wheezes, rales or rhonchi. HEART: Regular rate and rhythm with systolic ejection murmur at the left sternal border, no rubs or gallops. S1 and S2 heard. EXTREMITIES: Normal range of motion, no edema. No clubbing or cyanosis. Per ipheral pulses intact. ASSESSMENT Reproducible chest pain, atypical for angina. An acute coronary event has been ruled out. Abdominal pain Hypertension Dyslipidemia Chronic kidney disease PLAN An acute coronary event has been ruled out. Review echocardiogram and doppler study. Ongoing medical management. Follow up with Dr. Vincent upon discharge. Nurse Practitioner note has been reviewed, I agree with a documented findings and plan of care. Patient was seen and examined. Objective - Vital Signs Vital signs: Vital Signs Temp 98.7 F 06/25/18 05:00 Pulse 75 06/25/18 05:00 Resp 16 06/25/18 05:00 BP 128/65 06/25/18 05:00 Pulse Ox 93 L 06/25/18 05:00 Intake & Output 06/24/18 06/25/18 06/25/18 18:59 06:59 18:59 Intake Total 1480 Balance 1480 Intake: Intake, IV Titration 650 Amount Sodium Chloride 0.9% 1, 600 000 ml @ 50 mls/hr IV . Q20H JS Rx#:[id number] cefTRIAXone 1 gm In 50 Sodium Chloride 0.9% 50 ml @ 100 mls/hr IVPB Q24H JS Rx#:[id number] Oral 830 Other: Voiding Method Bedside Commode Bedside Commode # Voids 1 2 - Labs CBC & Chem 7: 06/24/18 06:07 06/24/18 06:07
--- NOTE | 2018-06-25 11:17 | P.PN ---
Subjective Progress Note Date: 06/25/18 CHIEF COMPLAINT: abdominal pain HISTORY OF PRESENT ILLNESS: Patient examined at the bedside. Patient reports right sided back pain. She denies abdominal pain. Denies nausea or vomiting. Vital signs have been stable. She is afebrile. PHYSICAL EXAM: VITAL SIGNS: Reviewed. GENERAL: Well-developed in no acute distress. HEENT: No sclera icterus. Extraocular movements grossly intact. Moist buccal mucosa. Head is atraumatic, normocephalic. ABDOMEN: Soft. Nondistended. Nontender. NEUROLOGIC: Alert and oriented. Cranial nerves II through XII grossly intact. ASSESSMENT: 1. Abdominal pain, resolved 2. Large left renal cyst with mass effect PLAN: No surgical intervention recommended. Urology consult recommended yesterday by Dr. Wray. We will sign off. Please reconsult if needed. Nurse practitioner note has been reviewed by physician. Signing provider agrees with the documented findings, assessment, and plan of care. Objective - Vital Signs Vital signs: Vital Signs Temp 98.7 F 06/25/18 05:00 Pulse 75 06/25/18 05:00 Resp 16 06/25/18 05:00 BP 128/65 06/25/18 05:00 Pulse Ox 93 L 06/25/18 05:00 Intake & Output 06/24/18 06/25/18 06/25/18 18:59 06:59 18:59 Intake Total 1480 Balance 1480 Intake: Intake, IV Titration 650 Amount Sodium Chloride 0.9% 1, 600 000 ml @ 50 mls/hr IV . Q20H JS Rx#:[id number] cefTRIAXone 1 gm In 50 Sodium Chloride 0.9% 50 ml @ 100 mls/hr IVPB Q24H JS Rx#:[id number] Oral 830 Other: Voiding Method Bedside Commode Bedside Commode # Voids 1 2 - Labs CBC & Chem 7: 06/24/18 06:07 06/24/18 06:07 Assessment and Plan (1) Cyst of left kidney Current Visit: Yes Status: Acute Code(s): N28.1 - CYST OF KIDNEY, ACQUIRED SNOMED Code(s): 157882410 (2) Intractable abdominal pain Current Visit: Yes Status: Acute Code(s): R10.9 - UNSPECIFIED ABDOMINAL PAIN SNOMED Code(s): 97242423
[2018-06-25 12:08] VITALS: BP 122/67; PULSE 53; RESP 17; TEMP 97.8
--- NOTE | 2018-06-25 15:00 | P.DS ---
Providers Date of admission: 06/23/18 21:36 Expected date of discharge: 06/25/18 Attending physician: Peep Canela Consults: 06/23/18 22:35 Consult Physician Routine Consulting Provider: Hermilo Zamudio Consult Reason/Comments: abdominal pain Do you want consulting provider notified?: Yes 06/23/18 22:36 Consult Physician Routine Consulting Provider: Clemencia Galvan Consult Reason/Comments: chest pain Do you want consulting provider notified?: Yes [facility] Course: Final Diagnoses: _Atypical chest pain, muscle skeletal nature. Acute coronary event ruled out as per cardiology -HTN -Abdominal pain, resolved -Recent costochondritis -Acute on chronic renal failure, III -Dyslipidemia -Large left renal cyst with mass effect, follow-up with urology outpatient Hospital course:This is an 87-year-old female admitted with right-sided abdominal pain is pain recent costochondritis and multiple other medical issues. Evaluated by cardiology, general surgery.Abdominal pain subsided. Apparently patient had previously followed up with urology with no further recommendations at that time as per PCP .Patient advised to follow-up with urology outpatient. Patient has been cleared by all consults for discharge. Patient is being discharged home in a stable condition with guarded prognosis. EXAM: GENERAL:Alert & oriented X 3, no acute distress Lungs: Bilateral breath sounds clear, no rhonchi crackles or wheezes CARDIAC: Regular S1 and S2, positive systolic murmur ABD: Soft, nontender, positive bowel sounds Neuro: No focal deficits The impression and plan of care has been dictated as directed. : I performed a history and examination of this patient, discussed the same with the dictator. I agree with the dictator's note ,documented as a scribe. Any additional findings or plans will be noted. Time taken: 35 minutes Patient Condition at Discharge: Stable Plan - Discharge Summary Discharge Rx Participant: No New Discharge Prescriptions: Continue Aspirin 81 mg PO DAILY QUEtiapine [SEROquel] 50 mg PO HS QUEtiapine [SEROquel] 100 mg PO HS Furosemide [Lasix] 20 mg PO DAILY Metoprolol Succinate (ER) [Toprol XL] 50 mg PO DAILY tab.er.24h Multivitamins, Thera [Multivitamin (formulary)] 1 tab PO DAILY HYDROcodone/APAP 7.5-325MG [[place] 7.5-325] 1 tab PO HS Atorvastatin [Lipitor] 20 mg PO DAILY Discharge Medication List Aspirin 81 mg PO DAILY 07/08/13 [History] Furosemide [Lasix] 20 mg PO DAILY 05/08/18 [History] QUEtiapine [SEROquel] 50 mg PO HS 05/08/18 [History] QUEtiapine [SEROquel] 100 mg PO HS 05/08/18 [History] Metoprolol Succinate (ER) [Toprol XL] 50 mg PO DAILY tab.er.24h 05/14/18 [Rx] Atorvastatin [Lipitor] 20 mg PO DAILY 06/23/18 [History] HYDROcodone/APAP 7.5-325MG [[place] 7.5-325] 1 tab PO HS 06/23/18 [History] Multivitamins, Thera [Multivitamin (formulary)] 1 tab PO DAILY 06/23/18 [History] Follow up Appointment(s)/Referral(s): Ilan Vincent MD [STAFF PHYSICIAN] - 2 Weeks Pepe Canela MD [Primary Care Provider] - 3 Days Lionel Rivera MD [STAFF PHYSICIAN] - 1 Week Ambulatory/Diagnostic Orders: Complete Blood Count w/diff [LAB.AMB] Time Frame: 3 Days, Location: None Selected Activity/Diet/Wound Care/Special Instructions: "k" Pending
[2018-06-25 15:36] LABS: Calcium 8.6 mg/dL (8.4-10.2); Potassium 4.3 mmol/L (3.5-5.1)
[2018-06-25] MEDS: SODIUM CHLORIDE 0.9% 1,000 ML IV SCH (16:24)
--- NOTE | 2018-06-25 19:33 | ECHOF ---
Referral Reason:cp MEASUREMENTS -------- HEIGHT: 167.6 cm WEIGHT: 63.0 kg BP: IVSd: 1.2 cm (0.6 - 1.1) LVIDd: 2.9 cm (3.9 - 5.3) LVPWd: 1.2 cm (0.6 - 1.1) IVSs: 1.7 cm LVIDs: 1.4 cm LVPWs: 1.4 cm Ao Diam: 3.4 cm (2.0 - 3.7) LA Diam: 4.0 cm (2.7 - 3.8) AV Cusp: 1.7 cm (1.5 - 2.6) MV E John: 0.98 m/s MV DecT: 271 ms MV A John: 1.10 m/s MV E/A Ratio: 0.89 AR PHT: 595 ms RAP: 5.00 mmHg RVSP: 34.22 mmHg FINDINGS -------- Sinus rhythm. This was a technically good study. The left ventricular size is normal. There is mild concentric left ventricular hypertrophy. Overa ll left ventricular systolic function is normal with, an EF between 55 - 60 %. The right ventricle is normal in size. The left atrium is mildly dilated. The right atrial size is normal. Interatrial and interventricular septum intact. Aortic valve is trileaflet and is mildly thickened. There is oyst-rw-ecvebhmh aortic regurgitation. The mitral valve leaflets are mildly thickened. Mild mitral annular calcification present. Mild m itral regurgitation is present. Mild tricuspid regurgitation present. The right ventricular systolic pressure, as measured by Doppl er, is 34.22mmHg. There is no pulmonic regurgitation present. The aortic root size is normal. Normal inferior vena cava with normal inspiratory collapse consistent with estimated right atrial pre ssure of 5 mmHg. There is no pericardial effusion. CONCLUSIONS -------- 1. Sinus rhythm. 2. This was a technically good study. 3. The left ventricular size is normal. 4. There is mild concentric left ventricular hypertrophy. 5. Overall left ventricular systolic function is normal with, an EF between 55 - 60 %. 6. The right ventricle is normal in size. 7. The left atrium is mildly dilated. 8. The right atrial size is normal. 9. Interatrial and interventricular septum intact. 10. Aortic valve is trileaflet and is mildly thickened. 11. There is tghv-nw-ambfnvit aortic regurgitation. 12. The mitral valve leaflets are mildly thickened. 13. Mild mitral annular calcification present. 14. Mild mitral regurgitation is present. 15. Mild tricuspid regurgitation present. 16. The right ventricular systolic pressure, as measured by Doppler, is 34.22mmHg. 17. There is no pulmonic regurgitation present. 18. The aortic root size is normal. 19. Normal inferior vena cava with normal inspiratory collapse consistent with estimated right atrial pressure of 5 mmHg. 20. There is no pericardial effusion. HAND ENDBAND CUTTER: Judi Butterfield RDCS
== END 2018-06-25 17:50 | disposition home or self-care (01) ==
LOC: EC 18:03 → 3NMEDONC 21:36
PROVIDERS: ADMIT Family Medicine; ATTEND Family Medicine
DX: R07.89 Other chest pain (principal); R10.84 Generalized abdominal pain; R10.13 Epigastric pain; N17.9 Acute kidney failure, unspecified; I13.10 Hypertensive heart and chronic kidney disease without heart failure, with stage 1 through stage 4 chronic kidney disease, or unspecified chronic kidney disease; N18.3 Chronic kidney disease, stage 3 (moderate); N28.1 Cyst of kidney, acquired; E78.5 Hyperlipidemia, unspecified; M94.0 Chondrocostal junction syndrome [Tietze]; M19.90 Unspecified osteoarthritis, unspecified site; M54.5 Low back pain; R26.2 Difficulty in walking, not elsewhere classified; K57.30 Diverticulosis of large intestine without perforation or abscess without bleeding; J84.10 Pulmonary fibrosis, unspecified; J98.11 Atelectasis; F32.9 Major depressive disorder, single episode, unspecified; R91.8 Other nonspecific abnormal finding of lung field; X50.9XXA Other and unspecified overexertion or strenuous movements or postures, initial encounter; Z79.82 Long term (current) use of aspirin; Z79.899 Other long term (current) drug therapy; Z79.891 Long term (current) use of opiate analgesic; Z86.73 Personal history of transient ischemic attack (TIA), and cerebral infarction without residual deficits; Z87.19 Personal history of other diseases of the digestive system; Z90.49 Acquired absence of other specified parts of digestive tract; Z98.42 Cataract extraction status, left eye; Z98.41 Cataract extraction status, right eye; Z87.891 Personal history of nicotine dependence; Z96.651 Presence of right artificial knee joint; Z80.41 Family history of malignant neoplasm of ovary; Z80.8 Family history of malignant neoplasm of other organs or systems
CPT/HCPCS: 96376 ×2; 96365; 96375 ×2; 96361; 99285; 36415; 93005; 93306; 80053 ×2; 80048; 82150; 83605; 83690; 84484 ×2; 85025 ×2; 85610; 85730; 81003; 71046; 74018; 74176; G0378 ×3; J2270 ×2; J0360; J2405; J0696

== ENCOUNTER 2018-06-27 12:37 | Inpatient (IN) | payer MEDICARE, BC ==
[2018-06-27 13:57] VITALS: BMI 25.4
[2018-06-27] MEDS ORDERED: RX INFO: IV CONTRAST WAS GIVEN 1 EACH MISC MISCELLANE PRN (14:57)
[2018-06-27 16:14] LABS: Basophils % (A) 1 %; Eosinophils # (A) 0.3 k/uL (0-0.7); Eosinophils % (A) 5 %; HGB 11.1 gm/dL (11.4-16.0); Lymphocytes # (A) 1.1 k/uL (1.0-4.8); Lymphocytes % (A) 19 %; MCHC 32.7 g/dL (31.0-37.0); MCV 97.9 fL (80.0-100.0); Mean Platelet Volume 7.1; Monocytes # (A) 0.4 k/uL (0-1.0); Monocytes % (A) 6 %; Neutrophils # (A) 3.6 k/uL (1.3-7.7); Neutrophils % (A) 66 %; Platelet Count 236 k/uL (150-450); RBC 3.47 m/uL (3.80-5.40); RDW 13.6 % (11.5-15.5); WBC 5.5 k/uL (3.8-10.6)
[2018-06-27 16:28] LABS: Albumin 3.1 g/dL (3.5-5.0); Calcium 9.1 mg/dL (8.4-10.2); Potassium 5.5 mmol/L (3.5-5.1); Total Bilirubin 0.5 mg/dL (0.2-1.3); Total Protein 6.2 g/dL (6.3-8.2)
[2018-06-27] MEDS: AZITHROMYCIN 500 MG in SODIUM CHLORIDE 0.9% 250 ML IVPB SCH (16:39)
[2018-06-27] MEDS: IPRATROPIUM-ALBUTEROL 3 ML NEB INHALATION SCH ×2 (17:13→22:09)
[2018-06-27] MEDS: SODIUM CHLORIDE 0.9% 1,000 ML IV SCH (17:37)
--- NOTE | 2018-06-27 19:07 | CT ---
EXAMINATION TYPE: CT chest wo con DATE OF EXAM: 06/27/2018 COMPARISON: 05/11/2009 HISTORY: Pneumonia. CT DLP: 402.2 mGycm. Automated Exposure Control for Dose Reduction was Utilized. TECHNIQUE: CT scan of the thorax is performed without IV contrast. FINDINGS: There is bilateral pleural effusions and slightly larger on the right side. Heart appears enlarged. T here are numerous calcified splenic granulomata. There is some patchy fibrotic changes and atelectasi s at the lung bases. There is no mediastinal adenopathy. I see no hilar mass. Thoracic aorta is ather omatous. 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 There is no pericardial effusion. There is mild airspace infiltrate at the lung bases. There is thoracic kyphotic curvature. There is slight anterior wedging of mid thoracic vertebra. Ther e is 30 percent anterior wedging of T8 vertebral. IMPRESSION: Compared to old exam there is development of bilateral pleural effusions with basilar pul monary infiltrates and atelectasis. This could relate to both pneumonia and congestive heart failure. Old granulomatous disease. Heart appears increased compared to old exam. Aneurysm of the ascending aorta measures 2 mm larger than last exam.
[2018-06-27] MEDS: QUEtiapine 100 MG TAB PO SCH (20:54)
[2018-06-27] MEDS: HYDROcodone/APAP 7.5-325MG 1 EACH TAB PO SCH (20:54)
[2018-06-27] MEDS: ATORVASTATIN 20 MG TAB PO SCH (20:54)
[2018-06-27] MEDS ORDERED: QUEtiapine 100 MG TAB PO SCH (21:00)
[2018-06-28] MEDS: ASPIRIN 81 MG PO SCH (08:22)
[2018-06-28] MEDS: METOPROLOL SUCCINATE (ER) 50 MG TAB.ER.24H PO SCH (08:22)
[2018-06-28] MEDS: MULTIVITAMINS, THERA 1 EACH TAB PO SCH (08:22)
[2018-06-28] MEDS: AZITHROMYCIN 500 MG in SODIUM CHLORIDE 0.9% 250 ML IVPB SCH (08:23)
[2018-06-28] MEDS ORDERED: FUROSEMIDE 20 MG TAB PO SCH (09:00)
[2018-06-28] MEDS: IPRATROPIUM-ALBUTEROL 3 ML NEB INHALATION SCH ×5 (09:24→19:49)
[2018-06-28] MEDS: SODIUM CHLORIDE 0.9% 1,000 ML IV SCH (14:28)
[2018-06-28] MEDS: FUROSEMIDE 20 MG TAB PO SCH (16:17)
--- NOTE | 2018-06-28 16:35 | P.CNPUL ---
History of Present Illness Consult date: 06/28/18 Requesting physician: Pepe Canela Reason for consult: pneumonia, abnormal CXR/CT Chief complaint: Shortness of breath History of present illness: This 87-year-old white female patient of Dr. Canela, with past medical history of hypertension, dyslipidemia, previous history of CVA/TIA, osteoa rthritis, former smoker, who was recently hospitalized for atypical chest pain, which was most likely musculoskeletal in nature and acute coronary event was ruled out as per cardiology. Patient did have acute on chronic renal failure, and right-sided back pain. Patient has a history of a large left renal cyst with mass effect, and she was supposed to follow up with the urology an outpatient basis. Patient was discharged home in the stable condition on all 06/25/2018. Apparently patient started experiencing increased pain on the right side in the lower back. In addition she was complaining of some generalized weakness, and some cough, and chest tightness. She went to see Dr. Canela in the office ordered CT chest, which showed bilateral pleural effusions, right greater than the left, cardiomegaly, there was some patchy fibrotic changes and atelectasis at the lung bases, and there were numerous calcified splenic granulomata. There was a concern for congestive heart failure and the possibility of pneumonia. And not aneurysm of the ascending aorta was noted to be tooth limited is larger than the last exam. She denies fever or chills, room air pulse ox is 97%, lab work was completed, and showed no leukocytosis, with blood cell count was 5.5, hemoglobin is 11.1, sodium is 1:30, potassium is 5.5, rest of electrolytes were within normal limits, B1 is 26 and creatinine is 1.18, renal profile is actually improved from last admission, proBNP was within normal limits at 1210. Were consulted in regards to abnormal findings seen on the CT of the chest bilateral pleural effusions, and possibility of basilar infiltrates related to pneumonia Review of Systems All systems: negative Constitutional: Denies chills, Denies fever Eyes: denies blurred vision, denies pain Ears, nose, mouth and throat: Denies headache, Denies sore throat Cardiovascular: Reports chest pain, Denies shortness of breath Respiratory: Denies cough Gastrointestinal: Denies abdominal pain, Denies diarrhea, Denies nausea, Denies vomiting Genitourinary: Denies dysuria, Denies hematuria Musculoskeletal: Denies myalgias Integumentary: Denies pruritus, Denies rash Neurological: Denies numbness, Denies weakness Psychiatric: Denies anxiety, Denies depression Endocrine: Denies fatigue, Denies weight change Past Medical History Past Medical History: CVA/TIA, Hypertension, Osteoarthritis (OA), Renal Disease Additional Past Medical History / Comment(s): HX PANCREATITIS 2011 OR 2010, LOWER BACK PAIN-HARD TO WALK FAR- USES CANE OR WALKER. TIA X 2. states Stage 3 kidney dx, History of Any Multi-Drug Resistant Organisms: None Reported Past Surgical History: Adenoidectomy, Appendectomy, Back Surgery, Cholecystectomy, Hernia Repair, Joint Replacement, Tonsillectomy Additional Past Surgical History / Comment(s): Low back surgery, CATARACTS TAMAR, INCISIONAL HERNIA, RT KNEE REPLACEMENT, TAMAR.VARICOSE VEIN STRIPPING, PAIN CLINIC PROCEDURES, COLONOSCOPY, EGD Past Anesthesia/Blood Transfusion Reactions: No Reported Reaction Additional Past Anesthesia/Blood Transfusion Reaction / Comment(s): reluctant to receive any anesthesia, wants family meeting prior to any procedures involving anesthesia Past Psychological History: No Psychological Hx Reported Smoking Status: Former smoker Past Alcohol Use History: Rare Additional Past Alcohol Use History / Comment(s): STARTED SMOKING @ AGE 19 (1950) QUIT @ AGE 57(1987) WAS 2 PPD Past Drug Use History: None Reported - Past Family History Father Family Medical History: No Reported History Additional Family Medical History / Comment(s): Father at age 84 yrs of old age. Mother Family Medical History: Cancer Additional Family Medical History / Comment(s): Mother at age 53yrs of ovarian cancer. Brother(s) Family Medical History: Cancer Additional Family Medical History / Comment(s): BRAIN CA Medications and Allergies Home Medications Medication Instructions Recorded Confirmed Type Aspirin 81 mg PO DAILY 07/08/13 06/27/18 History Furosemide [Lasix] 20 mg PO DAILY 05/08/18 06/27/18 History QUEtiapine [SEROquel] 50 mg PO HS 05/08/18 06/27/18 History QUEtiapine [SEROquel] 100 mg PO HS 05/08/18 06/27/18 History Metoprolol Succinate (ER) [Toprol 50 mg PO DAILY tab.er.24h 05/14/18 06/27/18 Rx XL] Atorvastatin [Lipitor] 20 mg PO HS 06/23/18 06/27/18 History HYDROcodone/APAP 7.5-325MG [[place] 1 tab PO HS 06/23/18 06/27/18 History 7.5-325] Multivitamins, Thera [Multivitamin 1 tab PO DAILY 06/23/18 06/27/18 History (formulary)] Allergies Allergy/AdvReac Type Severity Reaction Status Date / Time No Known Allergies Allergy Verified 06/27/18 15:33 Physical Exam Vitals: Vital Signs Temp Pulse Pulse Resp BP Pulse Ox 06/28/18 15:27 16 06/28/18 15:00 97.5 F L 68 16 146/62 97 06/28/18 09:35 74 06/28/18 09:24 74 06/28/18 08:00 20 06/28/18 07:00 97.4 F L 75 20 155/69 96 06/27/18 22:00 98.7 F 98 18 151/58 94 L 06/27/18 17:27 72 06/27/18 17:13 72 Intake and Output 06/28/18 06/28/18 06/28/18 06:59 14:59 22:59 Intake Total 200 Balance 200 Intake: Oral 200 Other: Voiding Method Toilet Toilet # Voids 2 GENERAL EXAM: Alert, pleasant, elderly 87-year-old white female, on room air, in no acute distress . HEAD: Normocephalic/atraumatic. EYES: Normal reaction of pupils, equal size. Conjunctiva pink, sclera white. NOSE: Clear with pink turbinates. THROAT: No erythema or exudates. NECK: No masses, no JVD, no thyroid enlargement, no adenopathy. CHEST: No chest wall deformity. Symmetrical expansion. LUNGS: Equal air entry with basilar crackles CVS: Regular rate and rhythm, normal S1 and S2, no gallops, no murmurs, no rubs ABDOMEN: Soft, nontender. No hepatosplenomegaly, normal bowel sounds, no guarding or rigidity. EXTREMITIES: No clubbing, lower extremity nonpitting edema, no cyanosis, 2+ pulses and upper and lower extremities. MUSCULOSKELETAL: Muscle strength and tone normal. SPINE: No scoliosis or deformity SKIN: No rashes CENTRAL NERVOUS SYSTEM: Alert and oriented -3. No focal deficits, tone is normal in all 4 extremities. PSYCHIATRIC: Alert and oriented -3. Appropriate affect. Intact judgment and insight. Results - Laboratory Findings CBC and BMP: 06/27/18 15:50 06/27/18 15:50 Abnormal lab findings: Abnormal Labs 06/27/18 06/27/18 15:50 15:50 RBC 3.47 L Hgb 11.1 L Potassium 5.5 H BUN 26 H Creatinine 1.18 H Glucose 101 H Total Protein 6.2 L Albumin 3.1 L - Diagnostic Findings CT scan - chest: report reviewed, image reviewed Assessment and Plan Plan: #1. Bilateral pleural effusions, and bibasilar infiltrates, rule out underlying pneumonia or congestive heart failure #2. Recent hospitalization for atypical chest pain, right-sided costochondritis, acute coronary event was ruled out by cardiology #3. Hypertension #4. Osteoarthritis #5. CVA/TIA #6. Acute kidney injury, improving since last admission #7. Large left renal cyst, and patient was supposed to follow-up with the urology #8. Chronic kidney disease stage III #9. Former smoker #10. diverticulosis Plan: We'll continue with empiric antibiotics for now, oral Lasix, CT chest results have been reviewed with Dr. Gallegos, and findings are likely related to bilateral pleural effusions, with some loculation on the right, basilar infiltrates, but clinically patient is afebrile, there is no leukocytosis, no cough or congestion rule out underlying pneumonia, we'll obtain pro-calcitonin level. We'll continue current coverage with Zithromax and Rocephin. Continue to follow and make further recommendations. I performed a history & physical examination of the patient and discussed their management with my nurse practitioner, Eleanor Almazan. I reviewed the nurse practitioner's note and agree with the documented findings and plan of care. Lung sounds are positive for basilar rales. The findings and the impression was discussed with the patient. I attest to the documentation by the nurse practitioner. Time with Patient: Greater than 30
[2018-06-28] MEDS: ATORVASTATIN 20 MG TAB PO SCH (21:16)
[2018-06-28] MEDS: HYDROcodone/APAP 7.5-325MG 1 EACH TAB PO SCH (21:20)
[2018-06-28] MEDS: QUEtiapine 100 MG TAB PO SCH (21:20)
[2018-06-29] MEDS: methylPREDNISolone SOD SUCCI 125 MG/2 ML VIAL IV SCH ×3 (00:40→11:22)
--- NOTE | 2018-06-29 06:14 | HP ---
HISTORY AND PHYSICAL CHIEF COMPLAINT: An 87-year-old white female brought to the hospital for bilateral pneumonia, cough, congestion, shortness of breath, failed outpatient treatment, unable to ambulate due to significant weakness, lethargic, lightheadedness with 2 person assist. She is refusing to go the [facility]. She was recently discharged with a left renal cyst and possible pneumonia. Started on IV antibiotics with Solu-Medrol. She is feeling better since she was admitted. REVIEW OF SYSTEMS: Fourteen point review of systems negative except for as mentioned in HPI. PAST MEDICAL HISTORY: Past medical history of CVA, TIA, hypertension, osteoarthritis, renal disease, chronic renal disease stage 3. SURGICAL HISTORY: Appendectomy, adenoidectomy, back surgery, cholecystectomy, hernia repair, joint replacement, tonsillectomy, right knee replacement, bilateral varicose vein stripping, cataracts bilaterally, colonoscopy, EGD. SOCIAL HISTORY: Former smoker. No alcohol. No illicit drugs. HOME MEDICATIONS: 1. Seroquel. 2. Lasix. 3. Aspirin. 4. Toprol-XL. 5. Lipitor. 6. Multivitamin. 7. Benedict. PHYSICAL EXAMINATION: Vital signs reviewed. CARDIOVASCULAR: S1, S2. LUNGS: Show scattered wheeze and rhonchi. HEMATOLOGY: Negative Homans; 2 to 3+ pedal edema. VASCULAR: Normal dorsalis pedis, posterior tibial and radial pulse. OPHTHALMOLOGIC: Pupils equal, round, react to light and accommodation. HEAD: Normocephalic atraumatic. PSYCH: Fair mood and affect. Potassium 5.5, BUN 26, creatinine 1.18. ASSESSMENT: 1. Bilateral pleural effusions, bibasilar infiltrates, suspect pneumonia with atypical chest pain secondary to pneumonia. 2. Hypertension. 3. Osteoarthritis. Patient on Lasix, empiric antibiotics. Please see further orders. MMODL / IJN: [id number] /
[2018-06-29] MEDS: IPRATROPIUM-ALBUTEROL 3 ML NEB INHALATION SCH ×3 (07:29→15:17)
[2018-06-29] MEDS: AZITHROMYCIN 500 MG in SODIUM CHLORIDE 0.9% 250 ML IVPB SCH ×2 (08:04→08:05)
[2018-06-29] MEDS: ASPIRIN 81 MG PO SCH (08:05)
[2018-06-29] MEDS: FUROSEMIDE 20 MG TAB PO SCH ×2 (08:05→16:20)
[2018-06-29] MEDS: METOPROLOL SUCCINATE (ER) 50 MG TAB.ER.24H PO SCH (08:05)
[2018-06-29] MEDS: MULTIVITAMINS, THERA 1 EACH TAB PO SCH (08:05)
[2018-06-29] MEDS: SODIUM CHLORIDE 0.9% 1,000 ML IV SCH (08:08)
[2018-06-29 08:52] LABS: Basophils % (A) 0 %; Eosinophils % (A) 1 %; HCT 37.3 % (34.0-46.0); HGB 11.8 gm/dL (11.4-16.0); Lymphocytes # (A) 0.5 k/uL (1.0-4.8); Lymphocytes % (A) 18 %; MCH 31.1 pg (25.0-35.0); MCHC 31.6 g/dL (31.0-37.0); MCV 98.3 fL (80.0-100.0); Mean Platelet Volume 6.9; Monocytes % (A) 2 %; Neutrophils # (A) 2.2 k/uL (1.3-7.7); Neutrophils % (A) 77 %; Platelet Count 264 k/uL (150-450); RBC 3.79 m/uL (3.80-5.40); RDW 13.7 % (11.5-15.5); WBC 2.8 k/uL (3.8-10.6)
[2018-06-29 09:07] LABS: Albumin 3.4 g/dL (3.5-5.0); Calcium 9.1 mg/dL (8.4-10.2); Potassium 5.1 mmol/L (3.5-5.1); Total Bilirubin 0.4 mg/dL (0.2-1.3); Total Protein 6.7 g/dL (6.3-8.2)
--- NOTE | 2018-06-29 12:35 | US ---
EXAMINATION TYPE: US chest DATE OF EXAM: 06/29/2018 COMPARISON: NONE CLINICAL HISTORY: pleural effusions. Bilateral pleural effusion TECHNIQUE: Targeted ultrasound of the posterior lower bilateral hemithoraces EXAM MEASUREMENTS: Right side NOT MARKED for possible thoracentesis outside the dept. Left side NOT MARKED for possible thoracentesis outside the dept. Pulmonologists are able to review the images in the patient?s EMR. IMPRESSIONS: No sizable pleural effusions identified.
--- NOTE | 2018-06-29 12:38 | XR ---
EXAMINATION TYPE: XR chest 2V DATE OF EXAM: 06/29/2018 COMPARISON: 06/23/2018 TECHNIQUE: PA and lateral views submitted. HISTORY: Pneumonia FINDINGS: There is bilateral lower lobe consolidation and more localized peripheral consolidation in the right middle lobe. Underlying COPD noted and there is blunting of the costophrenic angles. No pneumothorax. Tiny pleural effusions not excluded. Atherosclerotic change aorta. Degenerative change of the spine with diffuse osteopenia and chronic appearing mild wedge deformities thoracic region. Chronic sternal deformity may been the basis of previous trauma. Question calcified lymph nodes in the hilum correla te for granulomatous apical 3 mm granuloma may be present as well stable chest x-ray. IMPRESSION: 1. COPD with persistent lower lobe infiltrates unchanged in appearance. Pleural thickening or tiny pl eural effusion suggested.
--- NOTE | 2018-06-29 13:45 | P.PN ---
Subjective Progress Note Date: 06/29/18 Principal diagnosis: Bilateral pleural effusions This 87-year-old white female patient of Dr. Canela, with past medical history of hypertension, dyslipidemia, previous history of CVA/TIA, osteoarthritis, former smoker, who was recently hospitalized for atypical chest pain, which was most likely musculoskeletal in nature and acute coronary event was ruled out as per cardiology. Patient did have acute on chronic renal failure, and right- sided back pain. Patient has a history of a large left renal cyst with mass effect, and she was supposed to follow up with the urology an outpatient basis. Patient was discharged home in the stable condition on all 06/25/2018. Appare ntly patient started experiencing increased pain on the right side in the lower back. In addition she was complaining of some generalized weakness, and some cough, and chest tightness. She went to see Dr. Canela in the office ordered CT chest, which showed bilateral pleural effusions, right greater than the left, cardiomegaly, there was some patchy fibrotic changes and atelectasis at the lung bases, and there were numerous calcified splenic granulomata. There was a concern for congestive heart failure and the possibility of pneumonia. And not aneurysm of the ascending aorta was noted to be tooth limited is larger than the last exam. She denies fever or chills, room air pulse ox is 97%, lab work was completed, and showed no leukocytosis, with blood cell count was 5.5, hemoglobin is 11.1, sodium is 1:30, potassium is 5.5, rest of electrolytes were within normal limits, B1 is 26 and creatinine is 1.18, renal profile is actually improved from last admission, proBNP was within normal limits at 1210. Were consulted in regards to abnormal findings seen on the CT of the chest bilateral pleural effusions, and possibility of basilar infiltrates related to pneumonia. On 06/29/2018 patient is seen in follow-up on medical surgical floor. On today's exam patient is awake and alert, she is sitting up in the chair, she states she is feeling much better, no shortness of breath, room air pulse ox is 94-99%, she is afebrile, she states the right-sided lower back pain has resolved, no cough or congestion, no wheezing. No fever or chills, chest x-ray was obtained and shows COPD with consolidation in bilateral lower lobes, no thickening or tiny pleural effusion. Ultrasound of the chest was completed and showed no signs or pleural effusions. clinically patient is stable. Yesterday we increased her dose of oral Lasix. Lung sounds are diminished, with minimal bibasilar crackles. Afebrile. Cultures showed no growth. ProBNP was within normal limits for age, poor calcitonin did come back slightly elevated at 0.31 suggesting possibility of infection. White blood cell count is 2.8, hemoglobin is 11.8, x-rays were unremarkable, BUN was 23 creatinine is 1.06. She states angela aviles would like to go home today, she has gotten up and ambulated, she is on room air. There is a possibility of sending her home on oral antibiotics and oral diuretics with outpatient follow-up Objective - Vital Signs Vital signs: Vital Signs Temp 98.2 F 06/29/18 05:15 Pulse 74 06/29/18 11:09 Resp 20 06/29/18 08:00 BP 144/73 06/29/18 05:15 Pulse Ox 94 L 06/29/18 05:15 Intake & Output 06/28/18 06/29/18 06/29/18 18:59 06:59 18:59 Intake Total 200 300 Balance 200 300 Intake: Oral 200 300 Other: Voiding Method Toilet Toilet Toilet # Voids 2 1 1 - Exam GENERAL EXAM: Alert, pleasant, elderly 87-year-old white female, on room air, in no acute distress . HEAD: Normocephalic/atraumatic. EYES: Normal reaction of pupils, equal size. Conjunctiva pink, sclera white. NOSE: Clear with pink turbinates. THROAT: No erythema or exudates. NECK: No masses, no JVD, no thyroid enlargement, no adenopathy. CHEST: No chest wall deformity. Symmetrical expansion. LUNGS: Equal air entry with basilar crackles CVS: Regular rate and rhythm, normal S1 and S2, no gallops, no murmurs, no rubs ABDOMEN: Soft, nontender. No hepatosplenomegaly, normal bowel sounds, no guarding or rigidity. EXTREMITIES: No clubbing, lower extremity nonpitting edema, no cyanosis, 2+ pulses and upper and lower extremities. MUSCULOSKELETAL: Muscle strength and tone normal. SPINE: No scoliosis or deformity SKIN: No rashes CENTRAL NERVOUS SYSTEM: Alert and oriented -3. No focal deficits, tone is normal in all 4 extremities. PSYCHIATRIC: Alert and oriented -3. Appropriate affect. Intact judgment and insight. - Labs CBC & Chem 7: 06/29/18 08:04 06/29/18 08:04 Labs: Abnormal Lab Results - Last 24 Hours (Table) 06/28/18 06/29/18 06/29/18 Range/Units 16:17 08:04 08:04 WBC 2.8 L (3.8-10.6) k/uL RBC 3.79 L (3.80-5.40) m/uL Lymphocytes # 0.5 L (1.0-4.8) k/uL Chloride 108 H (98-107) mmol/L BUN 23 H (7-17) mg/dL Creatinine 1.06 H (0.52-1.04) mg/dL Glucose 154 H (74-99) mg/dL Albumin 3.4 L (3.5-5.0) g/dL Procalcitonin 0.31 H (0.02-0.09) ng/mL Microbiology - Last 24 Hours (Table) 06/27/18 15:50 Blood Culture - Preliminary Blood No Growth after 24 hours Assessment and Plan Plan: #1. Bilateral pleural effusions, and bibasilar infiltrates, proBNP was within normal limits ruling out congestive heart failure, pro-calcitonin came back baltazar vated at 0.31 suggesting possibility of infectious process. Ultrasound of the chest did not show any sizable pleural effusion drainage. #2. Recent hospitalization for atypical chest pain, right-sided costochondritis, acute coronary event was ruled out by cardiology #3. Hypertension #4. Osteoarthritis #5. CVA/TIA #6. Acute kidney injury, improving since last admission #7. Large left renal cyst, and patient was supposed to follow-up with the urology #8. Chronic kidney disease stage III #9. Former smoker #10. diverticulosis Plan: Patient is doing well, yesterday we increased her oral dose of Lasix, she states she did not diurese significantly, but she does feel better on today's exam, no complaints of back pain, no shortness of breath, no fever or chills. Ultrasound of the chest did not show any sizable pleural effusion. Follow-up chest x-ray was reviewed and shows stable findings of bibasilar consolidation, pleural changes or tiny pleural effusion. The patient is stable, tolerating ambulation, she is on room air, she is requesting to go home today. Patient could probably be discharged home on oral antibiotics and oral Lasix. She will need follow-up in the office next week. I performed a history & physical examination of the patient and discussed their management with my nurse practitioner, Eleanor Almazan. I reviewed the nurse practitioner's note and agree with the documented findings and plan of care. Lung sounds are positive for basilar rales. The findings and the impression was discussed with the patient. I attest to the documentation by the nurse practitioner. Time with Patient: Less than 30
--- NOTE | 2018-06-29 15:15 | P.DS ---
Providers Date of admission: 06/27/18 13:09 Expected date of discharge: 06/29/18 Attending physician: Pepe Canela Consults: 06/28/18 11:28 Consult Physician Routine Consulting Provider: Calvin Salas Consult Reason/Comments: bilateral pl effusions Do you want consulting provider notified?: Yes Primary care physician: [facility] Course: Final DIagnoses: -Bilateral pleural effusions, bibasilar infiltrates, suspect pneumonia with atypical chest pain secondary to pneumonia -Acute renal failure, improving since last admission -Large left renal cyst, patient to follow-up with urology outpatient -Chronic renal failure, stage III -Hypertension -Osteoarthritis -Recent hospitalization for atypical chest pain, right-sided costochondritis, acute coronary event was ruled out by cardiology -Former smoker -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 Hospital course: This is an 87-year-old female admitted with bilateral pleural effusions, bibasilar infiltrates, suspected pneumonia with atypical chest pain secondary to pneumonia and multiple other medical issues. Evaluated by pulmonary. Maintained on nebulized bronchodilators, IV steroids, IV antibiotics with Lasix dose increased. Ultrasound of chest did not show any sizable pleural effusion, follow-up chest x-ray reported stable bibasilar consolidation pleural changes/tiny pleural effusion. Significant clinical improvement. Discussed with patient staying another night, but patient requesting to go home today, does not want to stay another night. Cleared by pulmonary for discharge. Patient is being discharged home in a stable condition with guarded prognosis. EXAM: Alert and oriented 3, no acute distress. LUNGS: Equal air entry, bilateral bases diminished with basilar crackles CVS: Regular rate and rhythm, normal S1 and S2, no gallops, no murmurs, no rubs ABDOMEN: Soft, nontender. No hepatosplenomegaly, normal bowel sounds, no guarding or rigidity. NERVOUS SYSTEM: No focal deficits The impression and plan of care has been dictated as directed. : I performed a history and examination of this patient, discussed the same with the dictator. I agree with the dictator's note ,documented as a scribe. Any additional findings or plans will be noted. Time taken: 35 minutes Patient Condition at Discharge: Stable Plan - Discharge Summary Discharge Rx Participant: No New Discharge Prescriptions: New Cefuroxime Axetil [Ceftin] 500 mg PO BID #10 tab predniSONE 10 mg PO DIRECTED #30 tab Azithromycin [Zithromax] 500 mg PO DAILY 3 Days #3 tab Omeprazole [PriLOSEC] 20 mg PO AC-BID #60 cap Ipratropium-Albuterol Nebulize [Duoneb 0.5 mg-3 mg/3 ml Soln] 3 ml INHALATION RT-QID #120 ampul.neb Continue Aspirin 81 mg PO DAILY QUEtiapine [SEROquel] 50 mg PO HS QUEtiapine [SEROquel] 100 mg PO HS Metoprolol Succinate (ER) [Toprol XL] 50 mg PO DAILY tab.er.24h Multivitamins, Thera [Multivitamin (formulary)] 1 tab PO DAILY HYDROcodone/APAP 7.5-325MG [[place] 7.5-325] 1 tab PO HS Atorvastatin [Lipitor] 20 mg PO HS Changed Furosemide [Lasix] 20 mg PO BID #60 tab Discharge Medication List Aspirin 81 mg PO DAILY 07/08/13 [History] QUEtiapine [SEROquel] 50 mg PO HS 05/08/18 [History] QUEtiapine [SEROquel] 100 mg PO HS 05/08/18 [History] Metoprolol Succinate (ER) [Toprol XL] 50 mg PO DAILY tab.er.24h 05/14/18 [Rx] Atorvastatin [Lipitor] 20 mg PO HS 06/23/18 [History] HYDROcodone/APAP 7.5-325MG [[place] 7.5-325] 1 tab PO HS 06/23/18 [History] Multivitamins, Thera [Multivitamin (formulary)] 1 tab PO DAILY 06/23/18 [History] Azithromycin [Zithromax] 500 mg PO DAILY 3 Days #3 tab 06/29/18 [Rx] Cefuroxime Axetil [Ceftin] 500 mg PO BID #10 tab 06/29/18 [Rx] Furosemide [Lasix] 20 mg PO BID #60 tab 06/29/18 [Rx] Ipratropium-Albuterol Nebulize [Duoneb 0.5 mg-3 mg/3 ml Soln] 3 ml INHALATION RT-QID #120 ampul.neb 06/29/18 [Rx] Omeprazole [PriLOSEC] 20 mg PO AC-BID #60 cap 06/29/18 [Rx] predniSONE 10 mg PO DIRECTED #30 tab 06/29/18 [Rx] Follow up Appointment(s)/Referral(s): Calvin Salas MD [STAFF PHYSICIAN] - 1 Week [facility] [NON-STAFF] - Ivan Bui DO [Doctor of Osteopathic Medicine] - 1 Week (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 Discharge Disposition: HOME WITH HOME HEALTH SERVICES
[2018-06-29 15:55] VITALS: BP 163/86; PULSE 96; RESP 16; TEMP 98.8
== END 2018-06-29 16:35 | disposition home health service (06) | DRG 194 ==
LOC: 4MS4W 13:09
PROVIDERS: ADMIT Family Medicine; ATTEND Family Medicine
DX: J18.9 Pneumonia, unspecified organism (principal); J90 Pleural effusion, not elsewhere classified; N17.9 Acute kidney failure, unspecified; J44.0 Chronic obstructive pulmonary disease with (acute) lower respiratory infection; I71.2 Thoracic aortic aneurysm, without rupture; N28.1 Cyst of kidney, acquired; N18.3 Chronic kidney disease, stage 3 (moderate); M19.90 Unspecified osteoarthritis, unspecified site; K57.90 Diverticulosis of intestine, part unspecified, without perforation or abscess without bleeding; E78.5 Hyperlipidemia, unspecified; I12.9 Hypertensive chronic kidney disease with stage 1 through stage 4 chronic kidney disease, or unspecified chronic kidney disease; Z79.82 Long term (current) use of aspirin; Z86.73 Personal history of transient ischemic attack (TIA), and cerebral infarction without residual deficits; Z96.653 Presence of artificial knee joint, bilateral; Z98.42 Cataract extraction status, left eye; Z90.49 Acquired absence of other specified parts of digestive tract; Z98.41 Cataract extraction status, right eye; Z87.891 Personal history of nicotine dependence; Z79.899 Other long term (current) drug therapy; Z80.41 Family history of malignant neoplasm of ovary; Z80.8 Family history of malignant neoplasm of other organs or systems
CPT/HCPCS: 71046; 71250; 76604; 80053; 83880; 84145; 85025; 87040; 94640

== ENCOUNTER 2018-07-07 15:50 | Inpatient (IN) | payer MEDICARE, BC ==
[2018-07-07] MEDS ORDERED: SODIUM CHLORIDE 0.9% 1,000 ML IV STA (16:21)
[2018-07-07] MEDS ORDERED: DILTIAZEM 5 MG/ML 5 ML VIAL IVP STA (16:21)
--- NOTE | 2018-07-07 16:33 | ED ---
General Adult HPI - General Chief complaint: Dizziness Stated complaint: CHEST PAIN, DIZZY Time Seen by Provider: 07/07/18 16:04 Source: patient, family, EMS, RN notes reviewed, old records reviewed Mode of arrival: EMS Limitations: no limitations - History of Present Illness Initial comments: Chief complaint history of present illness this is an 87-year-old female here with family. The patient reports that upon awakening this morning she has not felt well. Mild chest discomfort sometimes pain. Slightly dizzy when she walks. Denies sweats nausea or vomiting no radiation of pain to arm neck or back. Patient reports she was worked up for chest pain several weeks ago this is not similar to that. This seems to be slightly worse plus she feels more dizzy. - Related Data Home Medications Medication Instructions Recorded Confirmed Aspirin 81 mg PO DAILY 07/08/13 07/07/18 QUEtiapine [SEROquel] 50 mg PO HS 05/08/18 07/07/18 QUEtiapine [SEROquel] 100 mg PO HS 05/08/18 07/07/18 Atorvastatin [Lipitor] 20 mg PO HS 06/23/18 07/07/18 HYDROcodone/APAP 7.5-325MG [[place] 1 tab PO HS 06/23/18 07/07/18 7.5-325] Multivitamins, Thera [Multivitamin 1 tab PO DAILY 06/23/18 07/07/18 (formulary)] Previous Rx's Medication Instructions Recorded Metoprolol Succinate (ER) [Toprol 50 mg PO DAILY tab.er.24h 05/14/18 XL] Furosemide [Lasix] 20 mg PO BID #60 tab 06/29/18 Ipratropium-Albuterol Nebulize 3 ml INHALATION RT-QID #120 06/29/18 [Duoneb 0.5 mg-3 mg/3 ml Soln] ampul.neb Omeprazole [PriLOSEC] 20 mg PO AC-BID #60 cap 06/29/18 Allergies Allergy/AdvReac Type Severity Reaction Status Date / Time No Known Allergies Allergy Verified 07/07/18 16:15 Review of Systems ROS Statement: Those systems with pertinent positive or pertinent negative responses have been documented in the HPI. Review of systems patient's denying any headache no visual acuity changes denies any neck pain denies significant shortness of breath. But she does report dizziness when she moves about. Mild chest heaviness or pressure without radiation arm neck or back denying diaphoresis. Denies any GI/ problems denies any weakness. Sister states she's not been confused and does not appear to have had any neurological event. Past medical problems significant for TIAs, recent workup for chest pain, hypertension, osteoarthritis, stage III renal disease, couple episodes of pancreatitis, chronic low back pain. Her surgeries include tonsils and adenoids, back surgery, cholecystectomy, hernia repair, total right knee and low back. As well as cataracts bilaterally. Family history mother had possibly uterine or ovarian cancer and an uncle had brain cancer. Patient's ex-smoker. Does not drink alcohol. No apparent ALLERGIES. ROS Other: All systems not noted in ROS Statement are negative. Past Medical History Past Medical History: CVA/TIA, Hypertension, Osteoarthritis (OA), Renal Disease Additional Past Medical History / Comment(s): HX PANCREATITIS 2011 OR 2011, LOWER BACK PAIN-HARD TO WALK FAR- USES CANE OR WALKER. TIA X 2. states Stage 3 kidney dx, History of Any Multi-Drug Resistant Organisms: None Reported Past Surgical History: Adenoidectomy, Appendectomy, Back Surgery, Cholecystectomy, Hernia Repair, Joint Replacement, Tonsillectomy Additional Past Surgical History / Comment(s): Low back surgery, CATARACTS TAMAR, INCISIONAL HERNIA, RT KNEE REPLACEMENT, TAMAR.VARICOSE VEIN STRIPPING, PAIN CLINIC PROCEDURES, COLONOSCOPY, EGD Past Anesthesia/Blood Transfusion Reactions: No Reported Reaction Additional Past Anesthesia/Blood Transfusion Reaction / Comment(s): reluctant to receive any anesthesia, wants family meeting prior to any procedures involving anesthesia Past Psychological History: No Psychological Hx Reported Smoking Status: Former smoker Past Alcohol Use History: Rare Past Drug Use History: None Reported - Past Family History Father Family Medical History: No Reported History Additional Family Medical History / Comment(s): Father at age 84 yrs of old age. Mother Family Medical History: Cancer Additional Family Medical History / Comment(s): Mother at age 53yrs of ovarian cancer. Brother(s) Family Medical History: Cancer Additional Family Medical History / Comment(s): BRAIN CA General Exam - General Exam Comments Initial Comments: General: The patient is awake and alert, here for complaint of feeling slightly dizzy with chest discomfort. Denies any radiation of pain denies nausea vomiting or diarrhea. Vital signs show temperature 97.8 pulse 124 respiratory rate 16 pulse ox 95% room air blood pressure 104/83. Eye: Pupils are equal, round and reactive to light, extra-ocular movements are intact; there is normal conjunctiva bilaterally. No signs of icterus. Evidence of bilateral cataract removal. Ears, nose, mouth and throat: There are moist mucous membranes and no oral lesions. Falls teeth Neck: The neck is supple, there is no tenderness or JVD. Cardiovascular: Tachycardic heart rate, 125 a regular rate and rhythm no apparent murmur appreciated this time. Respiratory: Lungs are clear to auscultation, respirations are non-labored, breath sounds are equal. No wheezes, stridor, rales, or rhonchi. Gastrointestinal: Soft, non-distended, non-tender abdomen without masses or organomegaly noted. There is no rebound or guarding present. No CVA tenderness. Bowel sounds are unremarkable. No pulsatile masses Back: There is no tenderness to palpation in the midline. There is no obvious deformity. No rashes noted. Denying back pain on exam Musculoskeletal: Normal ROM, no tenderness, mild edema, improving per patient, states she's on water pills twice a day.. There is no calf tenderness or swelling. Sensation intact. Pulses equal bilaterally 2+. Neurological: Denying any neuro deficits. None noted on cursory exam. Skin: Skin is warm and dry and no rashes or lesions are noted. Psychiatric: Cooperative, Limitations: no limitations Course Vital Signs 07/07/18 07/07/18 07/07/18 15:57 17:14 17:16 Temperature 97.8 F Pulse Rate 124 H 133 H 135 H Respiratory 16 16 16 Rate Blood Pressure 104/83 74/62 102/74 O2 Sat by Pulse 95 96 94 L Oximetry 07/07/18 07/07/18 07/07/18 17:20 17:36 17:38 Temperature Pulse Rate 144 H Respiratory 16 Rate Blood Pressure 102/54 93/71 105/64 O2 Sat by Pulse 94 L Oximetry 07/07/18 07/07/18 07/07/18 17:50 17:56 18:11 Temperature Pulse Rate Respiratory Rate Blood Pressure 118/52 116/40 122/60 O2 Sat by Pulse Oximetry EKG Findings - EKG Comments: EKG Findings:: EKG was done upon arrival 1600 hrs. showing A. fib with RVR rate 138. QRS is 132 QT is [address] Hirshc Medical Decision Making - Medical Decision Making Medical decision making; is an 87-year-old female here to complaints mild dizziness. EKG showed evidence of A. fib with RVR. This be new onset. While emergency room the patient's blood pressure was initially 106 systolic. It dipped to approximately 76 on 1 taking but on the next was back up to 102 systolic. The patient is receiving IV fluids, she'll receive a bolus, and she will receive Cardizem low-dose over several minutes to help slow the rate. The patient at no time felt any worsening she did upon arrival. No increased chest pain. The sphygmomanometer. To be incorrect. The nurse rechecked the blood pressure multiple times and it was in the 116 systolic range. After 5 mg of IV Cardizem the patient heart rate slowed. EKG pending. The patient has been started on low-dose heparin. I discussed the case with Dr. Canela. Patient admitted to his service with cardiology consultation. - Lab Data Result diagrams: 07/07/18 17:05 07/07/18 17:05 Lab Results 07/07/18 07/07/18 07/07/18 Range/Units 17:05 17:05 17:05 WBC 7.1 (3.8-10.6) k/uL RBC 3.97 (3.80-5.40) m/uL Hgb 12.2 (11.4-16.0) gm/dL Hct 37.9 (34.0-46.0) % MCV 95.6 (80.0-100.0) fL MCH 30.7 (25.0-35.0) pg MCHC 32.1 (31.0-37.0) g/dL RDW 13.8 (11.5-15.5) % Plt Count 339 (150-450) k/uL Neutrophils % 63 % Lymphocytes % 23 % Monocytes % 8 % Eosinophils % 4 % Basophils % 0 % Neutrophils # 4.5 (1.3-7.7) k/uL Lymphocytes # 1.6 (1.0-4.8) k/uL Monocytes # 0.6 (0-1.0) k/uL Eosinophils # 0.3 (0-0.7) k/uL Basophils # 0.0 (0-0.2) k/uL PT (9.0-12.0) sec INR (<1.2) APTT (22.0-30.0) sec Sodium 133 L (137-145) mmol/L Potassium 5.3 H (3.5-5.1) mmol/L Chloride 101 (98-107) mmol/L Carbon Dioxide 24 (22-30) mmol/L Anion Gap 8 mmol/L BUN 64 H (7-17) mg/dL Creatinine 1.65 H (0.52-1.04) mg/dL Est GFR (CKD-EPI)AfAm 32 (>60 ml/min/1.73 sqM) Est GFR (CKD-EPI)NonAf 28 (>60 ml/min/1.73 sqM) Glucose 92 (74-99) mg/dL Calcium 9.2 (8.4-10.2) mg/dL Magnesium 2.5 H (1.6-2.3) mg/dL Total Bilirubin 0.4 (0.2-1.3) mg/dL AST 25 (14-36) U/L ALT 29 (9-52) U/L Alkaline Phosphatase 78 (38-126) U/L Creatine Kinase 60 (30-135) U/L Troponin I (0.000-0.034) ng/mL NT-Pro-B Natriuret Pep 827 pg/mL Total Protein 6.4 (6.3-8.2) g/dL Albumin 3.4 L (3.5-5.0) g/dL Amylase 161 H (30-110) U/L Lipase 437 H (23-300) U/L 07/07/18 07/07/18 Range/Units 17:05 17:05 WBC (3.8-10.6) k/uL RBC (3.80-5.40) m/uL Hgb (11.4-16.0) gm/dL Hct (34.0-46.0) % MCV (80.0-100.0) fL MCH (25.0-35.0) pg MCHC (31.0-37.0) g/dL RDW (11.5-15.5) % Plt Count (150-450) k/uL Neutrophils % % Lymphocytes % % Monocytes % % Eosinophils % % Basophils % % Neutrophils # (1.3-7.7) k/uL Lymphocytes # (1.0-4.8) k/uL Monocytes # (0-1.0) k/uL Eosinophils # (0-0.7) k/uL Basophils # (0-0.2) k/uL PT 11.4 (9.0-12.0) sec INR 1.1 (<1.2) APTT 22.7 (22.0-30.0) sec Sodium (137-145) mmol/L Potassium (3.5-5.1) mmol/L Chloride (98-107) mmol/L Carbon Dioxide (22-30) mmol/L Anion Gap mmol/L BUN (7-17) mg/dL Creatinine (0.52-1.04) mg/dL Est GFR (CKD-EPI)AfAm (>60 ml/min/1.73 sqM) Est GFR (CKD-EPI)NonAf (>60 ml/min/1.73 sqM) Glucose (74-99) mg/dL Calcium (8.4-10.2) mg/dL Magnesium (1.6-2.3) mg/dL Total Bilirubin (0.2-1.3) mg/dL AST (14-36) U/L ALT (9-52) U/L Alkaline Phosphatase (38-126) U/L Creatine Kinase (30-135) U/L Troponin I 0.029 (0.000-0.034) ng/mL NT-Pro-B Natriuret Pep pg/mL Total Protein (6.3-8.2) g/dL Albumin (3.5-5.0) g/dL Amylase (30-110) U/L Lipase (23-300) U/L Disposition Clinical Impression: Atrial fibrillation with RVR Disposition: ADMITTED IP TO THIS HOSP Condition: Fair Referrals: Pepe Canela MD [Primary Care Provider] - 1-2 days
[2018-07-07 17:23] LABS: Basophils % (A) 0 %; Eosinophils # (A) 0.3 k/uL (0-0.7); Eosinophils % (A) 4 %; HCT 37.9 % (34.0-46.0); HGB 12.2 gm/dL (11.4-16.0); Lymphocytes # (A) 1.6 k/uL (1.0-4.8); Lymphocytes % (A) 23 %; MCH 30.7 pg (25.0-35.0); MCHC 32.1 g/dL (31.0-37.0); MCV 95.6 fL (80.0-100.0); Mean Platelet Volume 6.7; Monocytes # (A) 0.6 k/uL (0-1.0); Monocytes % (A) 8 %; Neutrophils # (A) 4.5 k/uL (1.3-7.7); Neutrophils % (A) 63 %; Platelet Count 339 k/uL (150-450); RBC 3.97 m/uL (3.80-5.40); RDW 13.8 % (11.5-15.5); WBC 7.1 k/uL (3.8-10.6)
[2018-07-07 17:32] LABS: INR 1.1 (<1.2); Partial Thromboplastin Time 22.7 sec (22.0-30.0); Prothrombin Time 11.4 sec (9.0-12.0)
[2018-07-07 17:33] LABS: Albumin 3.4 g/dL (3.5-5.0); Calcium 9.2 mg/dL (8.4-10.2); Magnesium 2.5 mg/dL (1.6-2.3); Potassium 5.3 mmol/L (3.5-5.1); Total Bilirubin 0.4 mg/dL (0.2-1.3); Total Protein 6.4 g/dL (6.3-8.2)
--- NOTE | 2018-07-07 17:47 | XR ---
EXAMINATION TYPE: XR chest 2V DATE OF EXAM: 07/07/2018 COMPARISON: 06/29/2018 HISTORY: Chest pain TECHNIQUE: Frontal and lateral views of the chest are obtained. FINDINGS: Emphysematous changes are seen of the lungs. There remains a spiculated density of the rig ht lower lung abutting the pleural surface unchanged from 06/29/2018. Cardia mediastinal fluid is mild ly enlarged. Mid thoracic compression deformity is again noted with osseous demineralization seen thr oughout. No new focal consolidation, pleural effusion or pneumothorax. Pulmonary arteries are promine nt suggesting underlying pulmonary arterial hypertension. Granulomatous changes are again noted. IMPRESSION: Stable exam from 06/29/2018 with persistent right lower lung nodular density presumed to r epresent pneumonia with underlying emphysema.
[2018-07-07] MEDS ORDERED: HEPARIN SODIUM,PORCINE 5,000 UNIT/ML 1 ML VIAL IV PRN (18:24)
[2018-07-07] MEDS ORDERED: HEPARIN SODIUM,PORCINE 5,000 UNIT/ML 1 ML VIAL IV ONE (18:24)
[2018-07-07] MEDS ORDERED: HEPARIN SOD,PORK IN 0.45% NACL 25,000 UNIT in 0.45% NACL 1 250ML.BAG IV SCH (18:30)
[2018-07-07] MEDS ORDERED: ACETAMINOPHEN TAB 325 MG TAB PO PRN (18:33)
[2018-07-07] MEDS ORDERED: NALOXONE 0.4 MG/ML 1 ML VIAL IV PRN (18:33)
[2018-07-07] MEDS ORDERED: DILTIAZEM 125 MG in SODIUM CHLORIDE 0.9% 100 ML IV SCH (18:45)
[2018-07-07] MEDS: IPRATROPIUM-ALBUTEROL 3 ML NEB INHALATION SCH (19:28)
[2018-07-07 20:53] VITALS: BMI 22.4
[2018-07-07] MEDS ORDERED: QUEtiapine 50 MG TAB PO SCH (21:00)
[2018-07-07] MEDS: HYDROcodone/APAP 7.5-325MG 1 EACH TAB PO SCH (21:03)
[2018-07-07] MEDS: QUEtiapine 50 MG TAB PO SCH (21:04)
[2018-07-07] MEDS: ATORVASTATIN 20 MG TAB PO SCH (21:15)
[2018-07-07] MEDS: FUROSEMIDE 20 MG TAB PO SCH (21:15)
[2018-07-07 23:30] LABS: INR 1.1 (<1.2); Partial Thromboplastin Time 64.5 sec (22.0-30.0)
[2018-07-08] MEDS: PANTOPRAZOLE 40 MG TABLET PO SCH (06:32)
[2018-07-08] MEDS: IPRATROPIUM-ALBUTEROL 3 ML NEB INHALATION SCH ×4 (07:43→20:42)
[2018-07-08] MEDS: METOPROLOL SUCCINATE (ER) 50 MG TAB.ER.24H PO SCH (07:54)
[2018-07-08] MEDS: ASPIRIN 81 MG PO SCH (07:54)
[2018-07-08] MEDS: FUROSEMIDE 20 MG TAB PO SCH (07:54)
[2018-07-08] MEDS: APIXABAN 2.5 MG TABLET PO SCH ×2 (10:22→21:07)
[2018-07-08] MEDS: ISOSORBIDE MONONITRATE ER 30 MG TAB.ER.24H PO SCH (10:22)
--- NOTE | 2018-07-08 11:20 | CONS ---
CONSULTATION Mrs. Acosta is an 87-year-old female who is followed on a regular basis with Dr. Vincent who presented with chest discomfort and not feeling well. She was noted to be in atrial fibrillation in the emergency room and subsequently converted back to sinus mechanism. She was in the hospital earlier this month and was evaluated by Dr. Roach. At that time, underwent an echocardiogram that revealed a preserved ventricular size and systolic function with mild mitral and tricuspid regurgitation. The patient is not aware of her arrhythmia and did not feel the palpitation but felt chest discomfort and not feeling well. According to her, she was told she has arrhythmia, although it is unclear to me. She had admission with chest pain in the past, but there is no evidence of acute coronary syndrome. She denies any dizziness. She denies any syncope. No peripheral edema. No PND. No orthopnea. Her coronary risk factors remarkable for history of hypertension, hyperlipidemia. She is nondiabetic. MEDICATION: Metoprolol succinate 50 mg daily, Seroquel, DuoNeb, Lasix 20 mg twice a day, Lipitor 20 mg daily and aspirin once a day. REVIEW OF SYSTEMS: RESPIRATORY system: She had dyspnea on exertion. She has no recent wheezing. GI system: She had a prior episode of abdominal pain, but no recent nausea and vomiting. No GI bleeding. system: No dysuria or hematuria. NERVOUS SYSTEM: No history of stroke or seizure. PHYSICAL EXAMINATION: She is an 87-year-old female, alert, oriented, in no apparent distress. Blood pressure 124/60 with a heart rate in 70s. HEAD: Normocephalic. Eyes sclerae anicteric. NECK: Good carotid upstroke. No bruit. No jugular venous distention. LUNGS: Clear to auscultation. HEART: Regular rate and rhythm S1, S2. No S3 with systolic murmur ejection type 2/6 at the base. No diastolic murmur. No rub. ABDOMEN: Soft, nontender. Positive bowel sounds. No megaly. EXTREMITIES: No edema. Intact distal pulses. LAB DATA: Lab data revealed a BUN and creatinine 64 and 1.65, which is worse then it was on June 29. Her troponin 0.029, 0.127, 0.150. Her amylase is 161. Lipase is 437. Her hemoglobin 12.2, white blood cell of 7.1. Her initial EKG which is not available was reported as atrial fibrillation. On the monitor, she was in atrial fibrillation. Subsequently she is in sinus mechanism now with a right bundle branch block, left axis deviation. IMPRESSION: 1. Paroxysmal atrial fibrillation not clearly documented in the past. Patient back in sinus mechanism. 2. Episodes of chest discomfort of unclear etiology, has some atypical features for ischemic heart disease probably noncardiac. 3. Troponin elevation could be related to the atrial fibrillation. 4. Worsening renal function. The patient may have had a transient hypotensive episode with the atrial fibrillation. 5. Prior history of hypertension. 6. History of hyperlipidemia. 7. Elevated lipase and amylase have been normal during prior admission. RECOMMENDATIONS: I will stop the IV heparin. I will initiate treatment with Eliquis and isosorbide. I will hold her diuretics. I will repeat her lab data for her renal function tomorrow and depending on her progress, further recommendations will be made. The elevation of the lipase and amylase could reflect her pancreatitis and further evaluation will be needed. Thank you for this consult. We will follow with you. MMSONIDOL / IJN: [id number] /
[2018-07-08] MEDS: ATORVASTATIN 20 MG TAB PO SCH (21:07)
[2018-07-08] MEDS: QUEtiapine 50 MG TAB PO SCH (21:07)
[2018-07-08] MEDS: HYDROcodone/APAP 7.5-325MG 1 EACH TAB PO SCH (22:17)
--- NOTE | 2018-07-08 22:49 | HP ---
HISTORY AND PHYSICAL CHIEF COMPLAINT: 87-year-old white female who came in with chest discomfort, atrial fibrillation, rapid ventricular response. Apparently it is intermittent. She has mild valvular disease. She is admitted, started on Cardizem drip which was stopped and she went on to oral medications. Denies any syncope or peripheral edema. She was admitted with bilateral pneumonia about a few weeks ago. PAST MEDICAL HISTORY: History of hypertension, GERD, dyslipidemia, mood disorder, insomnia. MEDICATIONS: 1. Metoprolol succinate 50 mg daily. 2. Seroquel 150 a day. 3. DuoNeb q.i.d. 4. Lasix 20 b.i.d. 5. Lipitor 20 daily. 6. Aspirin 1 a day. REVIEW OF SYSTEMS: Fourteen point review of systems negative except for mentioned in HPI. PHYSICAL EXAMINATION: PSYCH: Fair mood and affect. NEUROLOGIC: Alert and oriented x3. LABS: Reviewed. BUN 64, creatinine 1.65. Troponins are negative. Lipase 437. ASSESSMENT: 1. Paroxysmal atrial fibrillation. 2. Atypical chest discomfort. 3. Elevated troponin could be related to atrial fibrillation and worsening renal function. 4. Possibly transient hypotensive episode. 5. Hypertension. 6. Dyslipidemia. 7. Elevated lipase of unclear etiology. Start her on Eliquis and isosorbide. Rule out myocardial infarction. Rule out acute on chronic pancreatitis. Please see further orders. MMODL / IJN: [id number] /
[2018-07-09 06:43] LABS: Basophils % (A) 0 %; Eosinophils # (A) 0.3 k/uL (0-0.7); Eosinophils % (A) 6 %; HCT 34.1 % (34.0-46.0); HGB 10.8 gm/dL (11.4-16.0); Lymphocytes # (A) 1.3 k/uL (1.0-4.8); Lymphocytes % (A) 31 %; MCH 30.4 pg (25.0-35.0); MCHC 31.5 g/dL (31.0-37.0); MCV 96.6 fL (80.0-100.0); Mean Platelet Volume 6.8; Monocytes # (A) 0.5 k/uL (0-1.0); Monocytes % (A) 11 %; Neutrophils % (A) 48 %; Platelet Count 277 k/uL (150-450); RBC 3.53 m/uL (3.80-5.40); RDW 14.2 % (11.5-15.5); WBC 4.1 k/uL (3.8-10.6)
[2018-07-09] MEDS: PANTOPRAZOLE 40 MG TABLET PO SCH (06:59)
[2018-07-09 07:00] LABS: Albumin 2.8 g/dL (3.5-5.0); Calcium 8.7 mg/dL (8.4-10.2); Potassium 4.5 mmol/L (3.5-5.1); Total Bilirubin 0.5 mg/dL (0.2-1.3); Total Protein 5.4 g/dL (6.3-8.2)
[2018-07-09] MEDS: IPRATROPIUM-ALBUTEROL 3 ML NEB INHALATION SCH ×4 (07:15→19:09)
[2018-07-09] MEDS: ISOSORBIDE MONONITRATE ER 30 MG TAB.ER.24H PO SCH (08:54)
[2018-07-09] MEDS: ASPIRIN 81 MG PO SCH (08:54)
[2018-07-09] MEDS: APIXABAN 2.5 MG TABLET PO SCH ×2 (08:54→21:13)
[2018-07-09] MEDS: METOPROLOL SUCCINATE (ER) 50 MG TAB.ER.24H PO SCH (08:54)
--- NOTE | 2018-07-09 10:08 | CT ---
EXAMINATION TYPE: CT abdomen pelvis wo con DATE OF EXAM: 07/09/2018 COMPARISON: 06/23/2018 INDICATION: Pancreatitis DLP: 429.7 mGycm, Automated exposure control for dose reduction was used. CONTRAST: 0 mL of Isovue 300. Study performed without Oral Contrast TECHNIQUE: Axial images were obtained from above the diaphragm to the pubic rami in the axial plane a t 5 mm thick sections. Reconstructed images are reviewed on the computer in the coronal plane. FINDINGS: Limited CT sections are obtained the lung bases. Coronary artery calcifications present. Calcificati on is within the descending thoracic aorta. There is a nodular density within the posterior right lung base measuring 1.4 cm. Series 201 image 7. This could be related to atelectasis or pneumonia. Underlying mass is not excluded. Follow-up is rec ommended. This area appears larger than a study on 06/23/2018. Some thickening within the right middle lobe and above the diaphragm is also present measuring 1.7 cm. Series 201 image 22. Additional scatte red areas of pneumonitis are present. Small left pleural effusion may be present.. CT ABDOMEN: Liver: Multiple calcified granuloma are scattered within the liver. Spleen: Numerous calcified granuloma are within the spleen. Pancreas: Pancreas appears atrophic. Splenic artery calcification is noted adjacent. Significant infl ammatory changes are not identified. No pseudocyst formation is clearly evident. There may be some pr ominence of the common bile duct at the head of the pancreas. The gallbladder is not identified. Adrenal glands: The adrenal glands are normal. Gallbladder: Not clearly evident. Kidneys: There is a 0.9 cm hyperdensity along the posterior superior left kidney. There are several h ypodensities within the medial right kidney including 1.7 and 2.0 cm area measuring 9 Hounsfield unit s each likely are simple cyst. There is an exophytic cyst on the posterior left inferior kidney measu ring 3.3 cm and 14 Hounsfield units. There is a very large cyst at the inferior pole right kidney bella suring 11.4 x 8.5 cm and 8 Hounsfield units compatible with large cyst. On the right kidney there is a hyperdense area within the inferior lateral left renal cortex measuring 0.7 cm. A small cyst on the superior lateral right kidney measures 1.8 cm and 15 Hounsfield units. Additional hyperdensities in the superior right renal cortex measuring 0.7 cm. No hydronephrosis is present. No renal stones are identified. Aorta: Vascular calcification is within the aorta. Inferior vena cava: Normal. CT PELVIS: Loops of bowel within the abdomen and pelvis are normal. The study is performed without oral cont rast limiting bowel evaluation. Scattered diverticuli within the sigmoid colon. Appendix: Not identified. No suspicious inflammatory changes are adjacent. Urinary bladder: Normal. Genitourinary structures: Uterus is slightly bulky at the fundus and may contain a 2.9 cm fundal fibr oid. Adnexal regions are clear. No free fluid is within the pelvis. Osseous structures: No suspicious lytic or sclerotic lesions. Facet degenerative changes are present within the lumbar spine. IMPRESSIONS: 1. No suspicious changes to suggest acute pancreatitis or pseudocyst formation. Some prominence of t he common bile duct near the level of the head of the pancreas is not excluded. 2. Diverticulosis without acute diverticulitis. 3. Multiple bilateral renal cysts. 4. Small subcentimeter hyperdensities within the renal cortices bilaterally could be related to angio myolipoma. 5. Bibasilar atelectasis. Underlying masses are not excluded. Follow-up to clearing is recommended. 6. Hepatic and splenic calcified granuloma.
--- NOTE | 2018-07-09 15:06 | P.PN ---
Subjective Progress Note Date: 07/09/18 This is an 87-year-old female who follows with Dr. Vincent in the office, she was noted to be in atrial fibrillation in the emergency room and subsequently converted back to normal sinus rhythm. She did have an echo performed earlier this month which revealed a preserved ventricular size and sys tolic function with mild mitral and tricuspid regurgitation. She continues to be in a normal sinus rhythm today, it is also noted that her amylase and lipase continued to rise. . CAT scan of the abdomen and pelvis was performed which did not reveal any suspicious changes to suggest acute pancreatitis or pseudocyst formation. Some prominence of the common bile duct near the level of the head of the pancreas is not excluded. Diverticulosis without acute diverticulitis and multiple bilateral renal cysts noted. Small hyperdensities within the renal cortices noted, bibasilar atelectasis, hepatic and splenic calcified granuloma. Blood pressure 106/54, heart rate in the 70s, 96% on room air. White blood cell count 4.1, hemoglobin 10.8, platelet count 277. Sodium 134, potassium 4.5, BUN 40 and creatinine 1.1. Objective - Vital Signs Vital signs: Vital Signs Temp 97.6 F 07/09/18 12:00 Pulse 79 07/09/18 12:00 Resp 20 07/09/18 12:00 BP 106/55 07/09/18 12:00 Pulse Ox 96 07/09/18 12:00 Intake & Output 07/08/18 07/09/18 07/09/18 18:59 06:59 18:59 Intake Total 822 120 Output Total 875 0 400 Balance -53 120 -400 Weight 67.3 kg Intake: Intake, IV Titration 600 Amount Sodium Chloride 0.9% 1, 600 000 ml @ 50 mls/hr IV . Q20H STA Rx#:[id number] Oral 222 120 Output: Urine 875 0 400 Other: Voiding Method Toilet Toilet # Voids 2 0 2 # Bowel Movements 1 - Exam PHYSICAL EXAMINATION: GENERAL: 87-year-old female in no acute distress at the time of my examination HEENT: Head is atraumatic, normocephalic. Pupils equal, round. Sclera anicteric. Conjunctiva are clear. Mucous membranes of the mouth are moist. Neck is supple. There is no elevated jugular venous pressure. No carotid bruit is heard. HEART EXAMINATION: S1 and S2 1 systolic ejection murmur is heard CHEST EXAMINATION: Lungs are clear to auscultation and precussion. No chest wall tenderness is noted on palpation or with deep breathing. ABDOMEN: Soft, nontender. Bowel sounds are heard. No organomegaly noted. EXTREMITIES: 2+ peripheral pulses with no evidence of peripheral edema and no calf tenderness noted. NEUROLOGIC patient is awake, alert and oriented 3 . . - Labs CBC & Chem 7: 07/09/18 06:16 07/09/18 06:16 Labs: Abnormal Lab Results - Last 24 Hours (Table) 07/08/18 07/09/18 07/09/18 Range/Units 22:52 06:16 06:16 RBC 3.53 L (3.80-5.40) m/uL Hgb 10.8 L (11.4-16.0) gm/dL Sodium 134 L (137-145) mmol/L BUN 40 H (7-17) mg/dL Creatinine 1.18 H (0.52-1.04) mg/dL Total Protein 5.4 L (6.3-8.2) g/dL Albumin 2.8 L (3.5-5.0) g/dL Lipase 684 H (23-300) U/L Assessment and Plan Plan: Assessment and plan #1 paroxysmal atrial fibrillation patient back in normal sinus rhythm #2 troponin abnormality, likely secondary to atrial fibrillation #3 hypertension #4 hyperlipidemia #5 elevated lipase and amylase Plan From cardiology's perspective, we would recommend to continue the patient on her current medications. DNP note has been reviewed, I agree with a documented findings and plan of care. Patient was seen and examined.
--- NOTE | 2018-07-09 15:42 | P.PN ---
Subjective Progress Note Date: 07/09/18 This is an 87-year-old female admitted with atrial fibrillation fibrillation with RVR, palpitations, recent bilateral pneumonia and multiple other medical issues. Status post Cardizem drip, converted to sinus rhythm with right bundle branch block. Renal function improving, creatinine down to 1.18. Lipase worsening, 684 with normal T bili and LFTs. ET of abdomen and pelvis reporting prominence of the common bile duct at the head of the pancreas, gallbladder not identified, multiple bilateral renal cysts without hydronephrosis, scattered diverticuli within the sigmoid colon, bulky uterus with possible fundal fibroid, no free fluid within the pelvis. Denies abdominal pain. Afebrile, normal WBC. Objective - Vital Signs Vital signs: Vital Signs Temp 97.6 F 07/09/18 12:00 Pulse 79 07/09/18 12:00 Resp 20 07/09/18 12:00 BP 106/55 07/09/18 12:00 Pulse Ox 96 07/09/18 12:00 Intake & Output 07/08/18 07/09/18 07/09/18 18:59 06:59 18:59 Intake Total 822 120 Output Total 875 0 400 Balance -53 120 -400 Weight 67.3 kg Intake: Intake, IV Titration 600 Amount Sodium Chloride 0.9% 1, 600 000 ml @ 50 mls/hr IV . Q20H STA Rx#:[id number] Oral 222 120 Output: Urine 875 0 400 Other: Voiding Method Toilet Toilet # Voids 2 0 2 # Bowel Movements 1 - Exam PHYSICAL EXAM: VITAL SIGNS: As above GENERAL: Sitting up in bed, no acute distress HEENT: Conjunctivae normal. eyes normal. NECK: No JVD. No thyroid enlargement. No LNs CARDIOVASCULAR: S1, S2 muffled. Systolic murmur, no rubs, no gallops RESPIRATION: Breath sounds diminished in the bases. No rhonchi or crackles. No bronchial breathing. ABDOMEN: Soft, nontender . No guarding. no masses palpable. Bowel sounds heard. LEGS: No edema. no swelling PSYCHIATRY: Alert and oriented -3, mood and affect normal. NERVOUS SYSTEM: Cranial N 2-12 grossly normal. Moves all 4 limbs. Diffuse weakness No focal deficits. Skin: no ulcer no rash Joints: No active swelling. No inflammation. Lymphatic system. No LN neck axilla or groin. - Labs CBC & Chem 7: 07/09/18 06:16 07/09/18 06:16 Labs: Abnormal Lab Results - Last 24 Hours (Table) 07/08/18 07/09/18 07/09/18 Range/Units 22:52 06:16 06:16 RBC 3.53 L (3.80-5.40) m/uL Hgb 10.8 L (11.4-16.0) gm/dL Sodium 134 L (137-145) mmol/L BUN 40 H (7-17) mg/dL Creatinine 1.18 H (0.52-1.04) mg/dL Total Protein 5.4 L (6.3-8.2) g/dL Albumin 2.8 L (3.5-5.0) g/dL Lipase 684 H (23-300) U/L Assessment and Plan Assessment: -Paroxysmal atrial fibrillation, currently sinus rhythm -Atypical chest discomfort -Elevated troponin suspect related to atrial fibrillation and worsening renal function; probably noncardiac as per cardiology. -Acute renal failure secondary to Possibly transient hypotensive episode with the afib. -Elevated lipase of unclear etiology, worsening. Possible acute on chronic pancreatitis. CT reports Prominence of the common bile duct near the pancreas head. 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 Maintain gentle IV fluid hydration and clear liquid diet .Surgery consulted regarding worsening lipase, pancreatitis and prominence of the common bile duct near the pancreas head. Pulmonary consulted regarding potential lung masses as per CT. further recommendations to follow. The impression and plan of care has been dictated as directed. : I performed a history and examination of this patient, discussed the same with the dictator. I agree with the dictator's note ,documented as a scribe. Any additional findings or plans will be noted.
--- NOTE | 2018-07-09 16:08 | P.CNPUL ---
History of Present Illness Consult date: 07/09/18 Reason for consult: dyspnea, chest pain, lung mass, abnormal CXR/CT Chief complaint: Shortness of breath and chest pain with abnormal computed rosa graphy scan History of present illness: 87-year-old female with a remote history of smoking in the past quit more than 30-35 years ago has been stable state health until about 3 days ago started having chest tightness pain or shortness of breath while she was doing shopping she was brought into emergency department and found to be in paroxysmal atrial fibrillation spontaneously converted back to sinus she is started on blood thinners she has mildly renal insufficiency Ammann her troponin are high with mildly elevated mildly his level patient's feels better and denies any chest pain shortness of breath improved swelling in the lower extremities present she has been getting Eliquis for anticoagulation and bronchodilator Review of Systems All systems: negative Past Medical History Past Medical History: CVA/TIA, Hypertension, Osteoarthritis (OA), Renal Disease Additional Past Medical History / Comment(s): HX PANCREATITIS 2011 OR 2010, LOWER BACK PAIN-HARD TO WALK FAR- USES CANE OR WALKER. TIA X 2. states Stage 3 kidney dx, History of Any Multi-Drug Resistant Organisms: None Reported Past Surgical History: Adenoidectomy, Appendectomy, Back Surgery, Cholecystectomy, Hernia Repair, Joint Replacement, Tonsillectomy Additional Past Surgical History / Comment(s): Low back surgery, CATARACTS TAMAR, INCISIONAL HERNIA, RT KNEE REPLACEMENT, TAMAR.VARICOSE VEIN STRIPPING, PAIN CLINIC PROCEDURES, COLONOSCOPY, EGD Past Anesthesia/Blood Transfusion Reactions: No Reported Reaction Additional Past Anesthesia/Blood Transfusion Reaction / Comment(s): reluctant to receive any anesthesia, wants family meeting prior to any procedures involving anesthesia Past Psychological History: No Psychological Hx Reported Additional Psychological History / Comment(s): . Smoking Status: Former smoker Past Alcohol Use History: Rare Additional Past Alcohol Use History / Comment(s): STARTED SMOKING @ AGE 19 (1951) QUIT @ AGE 57(1987) WAS 2 PPD Past Drug Use History: None Reported - Past Family History Father Family Medical History: No Reported History Additional Family Medical History / Comment(s): Father at age 84 yrs of old age. Mother Family Medical History: Cancer Additional Family Medical History / Comment(s): Mother at age 53yrs of ovarian cancer. Brother(s) Family Medical History: Cancer Additional Family Medical History / Comment(s): BRAIN CA Medications and Allergies Home Medications Medication Instructions Recorded Confirmed Type Aspirin 81 mg PO DAILY 07/08/13 07/07/18 History QUEtiapine [SEROquel] 50 mg PO HS 05/08/18 07/07/18 History QUEtiapine [SEROquel] 100 mg PO HS 05/08/18 07/07/18 History Metoprolol Succinate (ER) [Toprol 50 mg PO DAILY tab.er.24h 05/14/18 07/07/18 Rx XL] Atorvastatin [Lipitor] 20 mg PO HS 06/23/18 07/07/18 History HYDROcodone/APAP 7.5-325MG [[place] 1 tab PO HS 06/23/18 07/07/18 History 7.5-325] Multivitamins, Thera [Multivitamin 1 tab PO DAILY 06/23/18 07/07/18 History (formulary)] Furosemide [Lasix] 20 mg PO BID #60 tab 06/29/18 07/07/18 Rx Ipratropium-Albuterol Nebulize 3 ml INHALATION RT-QID #120 06/29/18 07/07/18 Rx [Duoneb 0.5 mg-3 mg/3 ml Soln] ampul.neb Omeprazole [PriLOSEC] 20 mg PO AC-BID #60 cap 06/29/18 07/07/18 Rx Allergies Allergy/AdvReac Type Severity Reaction Status Date / Time No Known Allergies Allergy Verified 07/07/18 16:15 Physical Exam Vitals: Vital Signs Temp Pulse Pulse Resp BP Pulse Ox 07/09/18 15:40 98.0 F 71 18 137/65 96 07/09/18 15:32 80 07/09/18 15:19 79 96 07/09/18 12:00 97.6 F 79 20 106/55 96 07/09/18 11:41 80 07/09/18 11:32 82 07/09/18 08:00 97.8 F 68 18 139/60 96 07/09/18 07:26 80 07/09/18 07:17 86 96 07/09/18 05:15 82 16 107/58 07/08/18 22:57 98.4 F 88 15 97/67 94 L 07/08/18 21:01 98.7 F 80 16 113/64 94 L 07/08/18 20:33 72 07/08/18 16:50 97.1 F L 69 18 109/52 98 07/08/18 16:48 68 18 07/08/18 16:31 70 07/08/18 16:22 70 Intake and Output 07/09/18 07/09/18 07/09/18 06:59 14:59 22:59 Intake Total 230 Output Total 0 400 Balance 0 -170 Intake: Oral 230 Output: Urine 0 400 Other: Voiding Method Toilet # Voids 0 2 Weight 67.3 kg - Constitutional General appearance: average body habitus, cooperative, disheveled, mild distress - EENT Eyes: anicteric sclerae, EOMI, PERRLA, normal appearance Ears: bilateral: normal - Neck Neck: normal ROM Carotids: bilateral: upstroke normal, bruit absent Thyroid: bilateral: normal size - Respiratory Respiratory: bilateral: CTA (Upper part), diminished (At the bases), negative: dullness, rales, rhonchi, wheezing, prolonged expiration - Cardiovascular Rhythm: regular Heart sounds: normal: S1, S2 - Gastrointestinal General gastrointestinal: normal bowel sounds - Integumentary Integumentary: normal turgor - Neurologic Neurologic: CNII-XII intact - Musculoskeletal Musculoskeletal: gait normal, generalized weakness, strength equal bilaterally - Psychiatric Psychiatric: A&O x's 3, appropriate affect, intact judgment & insight Results - Laboratory Findings CBC and BMP: 07/09/18 06:16 07/09/18 06:16 PT/INR, D-dimer PT 12.0 sec (9.0-12.0) 07/07/18 23:12 INR 1.1 (<1.2) 07/07/18 23:12 Abnormal lab findings: Abnormal Labs 07/07/18 07/07/18 07/07/18 17:05 23:12 23:12 RBC Hgb APTT 64.5 H Sodium 133 L Potassium 5.3 H BUN 64 H Creatinine 1.65 H Magnesium 2.5 H Troponin I 0.127 H* Total Protein Albumin 3.4 L Amylase 161 H Lipase 437 H 07/08/18 07/08/18 07/09/18 05:49 22:52 06:16 RBC Hgb APTT Sodium 134 L Potassium BUN 40 H Creatinine 1.18 H Magnesium Troponin I 0.150 H* Total Protein 5.4 L Albumin 2.8 L Amylase Lipase 684 H 07/09/18 06:16 RBC 3.53 L Hgb 10.8 L APTT Sodium Potassium BUN Creatinine Magnesium Troponin I Total Protein Albumin Amylase Lipase - Diagnostic Findings Chest x-ray: report reviewed, image reviewed CT scan - chest: report reviewed, image reviewed (Computed tomography scan of the abdominal and pelvis reviewed residence of right lower lobe bronchiectasis along with right lower lobe masslike atelectasis) Assessment and Plan Assessment: Right lower lobe masslike atelectasis, Bronchiectasis predominantly in the lower lobes A. fib with rapid ventricular response paroxysmal nature Diastolic heart failure acute in nature related to A. fib Chronic renal failure stage III Elevated troponin Elevated lipase Plan: We will get the designated noncontrast computed tomography scan of the chest further recommendations pending Continue management for A. fib Time with Patient: Greater than 30
--- NOTE | 2018-07-09 16:56 | P.GSCN ---
History of Present Illness Consult date: 07/09/18 History of present illness: 87-year-old female presents to the emergency department with complaints of chest pain and overall feeling of weakness and feeling ill. On workup in the emergency department, the patient was found to be in atrial fibrillation with RVR and subsequently was converted to sinus rhythm. She is being followed by cardiology and is on anticoagulation and rhythm control. On workup, the patient was also found to have an elevated lipase level. The patient states that she has had this found in the past previously. She states that she does have a history of cholecystectomy that was performed over 20 years ago. She denies any abdominal pain. She denies any nausea. She denies any vomiting. She denies having any significant workup for pancreatitis in the past. CT of the abdomen and pelvis was also performed that does not show any inflammatory changes around the pancreas. Currently, the patient has no abdominal complaints. She denies any fever, chills or any shortness of breath. Review of Systems All systems: negative Past Medical History Past Medical History: CVA/TIA, Hypertension, Osteoarthritis (OA), Renal Disease Additional Past Medical History / Comment(s): HX PANCREATITIS 2011 OR 2010, LOWER BACK PAIN-HARD TO WALK FAR- USES CANE OR WALKER. TIA X 2. states Stage 3 kidney dx, History of Any Multi-Drug Resistant Organisms: None Reported Past Surgical History: Adenoidectomy, Appendectomy, Back Surgery, Cholecystectomy, Hernia Repair, Joint Replacement, Tonsillectomy Additional Past Surgical History / Comment(s): Low back surgery, CATARACTS TAMAR, INCISIONAL HERNIA, RT KNEE REPLACEMENT, TAMAR.VARICOSE VEIN STRIPPING, PAIN CLINIC PROCEDURES, COLONOSCOPY, EGD Past Anesthesia/Blood Transfusion Reactions: No Reported Reaction Additional Past Anesthesia/Blood Transfusion Reaction / Comm: reluctant to receive any anesthesia, wants family meeting prior to any procedures involving anesthesia Past Psychological History: No Psychological Hx Reported Additional Psychological History / Comment(s): . Smoking Status: Former smoker Past Alcohol Use History: Rare Additional Past Alcohol Use History / Comment(s): STARTED SMOKING @ AGE 19 (1951) QUIT @ AGE 57(1987) WAS 2 PPD Past Drug Use History: None Reported - Past Family History Father Family Medical History: No Reported History Additional Family Medical History / Comment(s): Father at age 84 yrs of old age. Mother Family Medical History: Cancer Additional Family Medical History / Comment(s): Mother at age 53yrs of ovarian cancer. Brother(s) Family Medical History: Cancer Additional Family Medical History / Comment(s): BRAIN CA Medications and Allergies Home Medications Medication Instructions Recorded Confirmed Type Aspirin 81 mg PO DAILY 07/08/13 07/07/18 History QUEtiapine [SEROquel] 50 mg PO HS 05/08/18 07/07/18 History QUEtiapine [SEROquel] 100 mg PO HS 05/08/18 07/07/18 History Metoprolol Succinate (ER) [Toprol 50 mg PO DAILY tab.er.24h 05/14/18 07/07/18 Rx XL] Atorvastatin [Lipitor] 20 mg PO HS 06/23/18 07/07/18 History HYDROcodone/APAP 7.5-325MG [[place] 1 tab PO HS 06/23/18 07/07/18 History 7.5-325] Multivitamins, Thera [Multivitamin 1 tab PO DAILY 06/23/18 07/07/18 History (formulary)] Furosemide [Lasix] 20 mg PO BID #60 tab 06/29/18 07/07/18 Rx Ipratropium-Albuterol Nebulize 3 ml INHALATION RT-QID #120 06/29/18 07/07/18 Rx [Duoneb 0.5 mg-3 mg/3 ml Soln] ampul.neb Omeprazole [PriLOSEC] 20 mg PO AC-BID #60 cap 06/29/18 07/07/18 Rx Allergies Allergy/AdvReac Type Severity Reaction Status Date / Time No Known Allergies Allergy Verified 07/07/18 16:15 Surgical - Exam Osteopathic Statement: *. No significant issues noted on an osteopathic structural exam other than those noted in the History and Physical/Consult. Vital Signs Temp Pulse Resp BP Pulse Ox 97.8 F 124 H 16 104/83 95 07/07/18 15:57 07/07/18 15:57 07/07/18 15:57 07/07/18 15:57 07/07/18 15:57 - General well nourished, no distress - Eyes PERRL, normal ocular movement - ENT no hearing loss - Neck trachea midline - Respiratory No difficulty with respiration - Abdomen Soft, nontender, nondistended, no rebound, no guarding - Psychiatric oriented to time, oriented to person, oriented to place Results - Labs 07/09/18 06:16 07/09/18 06:16 Abnormal Lab Results - Last 24 Hours (Table) 07/08/18 07/09/18 07/09/18 Range/Units 22:52 06:16 06:16 RBC 3.53 L (3.80-5.40) m/uL Hgb 10.8 L (11.4-16.0) gm/dL Sodium 134 L (137-145) mmol/L BUN 40 H (7-17) mg/dL Creatinine 1.18 H (0.52-1.04) mg/dL Total Protein 5.4 L (6.3-8.2) g/dL Albumin 2.8 L (3.5-5.0) g/dL Lipase 684 H (23-300) U/L Diabetes panel 07/09/18 Range/Units 06:16 Sodium 134 L (137-145) mmol/L Potassium 4.5 (3.5-5.1) mmol/L Chloride 107 (98-107) mmol/L Carbon Dioxide 22 (22-30) mmol/L BUN 40 H (7-17) mg/dL Creatinine 1.18 H (0.52-1.04) mg/dL Glucose 99 (74-99) mg/dL Calcium 8.7 (8.4-10.2) mg/dL AST 20 (14-36) U/L ALT 22 (9-52) U/L Alkaline Phosphatase 67 (38-126) U/L Total Protein 5.4 L (6.3-8.2) g/dL Albumin 2.8 L (3.5-5.0) g/dL Calcium panel 07/09/18 Range/Units 06:16 Calcium 8.7 (8.4-10.2) mg/dL Albumin 2.8 L (3.5-5.0) g/dL Pituitary panel 07/09/18 Range/Units 06:16 Sodium 134 L (137-145) mmol/L Potassium 4.5 (3.5-5.1) mmol/L Chloride 107 (98-107) mmol/L Carbon Dioxide 22 (22-30) mmol/L BUN 40 H (7-17) mg/dL Creatinine 1.18 H (0.52-1.04) mg/dL Glucose 99 (74-99) mg/dL Calcium 8.7 (8.4-10.2) mg/dL Adrenal panel 07/09/18 Range/Units 06:16 Sodium 134 L (137-145) mmol/L Potassium 4.5 (3.5-5.1) mmol/L Chloride 107 (98-107) mmol/L Carbon Dioxide 22 (22-30) mmol/L BUN 40 H (7-17) mg/dL Creatinine 1.18 H (0.52-1.04) mg/dL Glucose 99 (74-99) mg/dL Calcium 8.7 (8.4-10.2) mg/dL Total Bilirubin 0.5 (0.2-1.3) mg/dL AST 20 (14-36) U/L ALT 22 (9-52) U/L Alkaline Phosphatase 67 (38-126) U/L Total Protein 5.4 L (6.3-8.2) g/dL Albumin 2.8 L (3.5-5.0) g/dL - Imaging CT scan - abdomen: report reviewed, image reviewed CT scan - pelvis: report reviewed, image reviewed (No evidence of inflammatory changes around the pancreas noted) Assessment and Plan (1) Pancreatitis Narrative/Plan: 87-year-old female with pancreatitis of unknown etiology - We will obtain a ultrasound of the abdomen with evaluation of the pancreas. Currently, the patient is asymptomatic with no abdominal pain. If the patient is continuing to have elevated lipase levels and continue conservative pancreatitis, she will likely require full workup for pancreatitis with gastroenterology. At this time, we will continue clear liquid diet until ultrasound is performed and at that point her diet can be advanced as tolerated. Current Visit: Yes Status: Acute Code(s): K85.90 - ACUTE PANCREATITIS WITHOUT NECROSIS OR INFECTION, UNSP SNOMED Code(s): 54980388
--- NOTE | 2018-07-09 17:50 | CT ---
EXAMINATION TYPE: CT chest wo con DATE OF EXAM: 07/09/2018 COMPARISON: 06/27/2018 HISTORY: Abnormal scan pneumonia CT DLP: 233 mGycm. Automated Exposure Control for Dose Reduction was Utilized. TECHNIQUE: CT scan of the thorax is performed without IV contrast. FINDINGS: There is some pulmonary hyperinflation and flattening of the diaphragm. There is coarse linear densit y at the posterior lung bases consistent with scarring atelectasis. There are numerous calcified gran ulomata in the liver and spleen. Thoracic aorta is atheromatous. Heart size is normal. There is coron bety artery calcification. Thoracic aorta is atheromatous. 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 There is no mediastinal adenopathy. There are no hilar masses. There is no pleural effusion. Th ere is thoracic kyphosis and anterior wedging of T8 and T7 and T5 vertebra.. IMPRESSION: COPD. Fibrotic changes and scarring and atelectasis at the lung bases. There is significa nt improved aeration of the lung bases compared to recent exam with significant reduction of pleural effusions bilaterally.
--- NOTE | 2018-07-09 18:56 | US ---
EXAMINATION TYPE: US abdomen limited DATE OF EXAM: 07/09/2018 COMPARISON: US, CT CLINICAL HISTORY: Pancreatitis. Pancreatitis, hx cholecystectomy, hx renal cysts. HTN. EXAM MEASUREMENTS: Liver Length: 13.8 cm Gallbladder Wall: Removed CBD: 0.77 cm Right Kidney: 10.6 x 4.3 x 2.7 cm Pancreas: Hypoechoic area seen within the pancreas measurin.6 x 0.7 x 0.6 cm. Slightly limited. Liver: Hyperechoic areas with shadowing seen scattered in liver. Evidence for sonographic Kiran's sign: no CBD: appears wnl post cholecystectomy. Right Kidney: Multiple anechoic areas seen. Hypoechoic area measured laterally: 2.2 x 2.1 x 1.6 cm. IMPRESSION: Complex cyst right kidney. Small echogenic foci in the liver consistent with granulomata. Tiny cyst in the body of the pancreas of uncertain significance. This could relate to old pancreatit is. No dilated ducts.
[2018-07-09] MEDS: QUEtiapine 50 MG TAB PO SCH (21:13)
[2018-07-09] MEDS: HYDROcodone/APAP 7.5-325MG 1 EACH TAB PO SCH (21:13)
[2018-07-09] MEDS: ATORVASTATIN 20 MG TAB PO SCH (21:13)
[2018-07-10 06:34] LABS: Glucose,Whole Blood 96 mg/dL (75-99)
[2018-07-10] MEDS: PANTOPRAZOLE 40 MG TABLET PO SCH (06:38)
[2018-07-10 07:05] LABS: Calcium 8.9 mg/dL (8.4-10.2); Potassium 4.8 mmol/L (3.5-5.1)
[2018-07-10] MEDS: IPRATROPIUM-ALBUTEROL 3 ML NEB INHALATION SCH ×2 (07:31→11:34)
[2018-07-10 09:00] VITALS: RESP 16
[2018-07-10] MEDS: ASPIRIN 81 MG PO SCH (09:08)
[2018-07-10] MEDS: ISOSORBIDE MONONITRATE ER 30 MG TAB.ER.24H PO SCH (09:08)
[2018-07-10] MEDS: APIXABAN 2.5 MG TABLET PO SCH (09:08)
[2018-07-10] MEDS: METOPROLOL SUCCINATE (ER) 50 MG TAB.ER.24H PO SCH (09:08)
--- NOTE | 2018-07-10 11:16 | P.PN ---
Subjective Progress Note Date: 07/10/18 Patient seen and examined at bedside. States she is feeling well. Denies abdominal pain. Denies nausea or vomiting. Tolerating diet. Objective - Vital Signs Vital signs: Vital Signs Temp 97.3 F L 07/10/18 08:50 Pulse 79 07/10/18 08:50 Resp 16 07/10/18 08:50 BP 132/66 07/10/18 08:50 Pulse Ox 96 07/10/18 08:50 Intake & Output 07/09/18 07/10/18 07/10/18 18:59 06:59 18:59 Intake Total 230 240 Output Total 400 Balance -170 240 Weight 67.2 kg Intake: Oral 230 240 Output: Urine 400 Other: Voiding Method Toilet Toilet # Voids 2 1 1 - Constitutional General appearance: Present: cooperative, no acute distress - EENT ENT: Present: hearing grossly normal - Respiratory Details: No difficulty with respiration - Gastrointestinal Gastrointestinal Comment(s): Soft, nontender, nondistended, no rebound, no guarding - Musculoskeletal Musculoskeletal: Present: generalized weakness - Psychiatric Psychiatric: Present: A&O x's 3 - Labs CBC & Chem 7: 07/09/18 06:16 07/10/18 06:23 Labs: Abnormal Lab Results - Last 24 Hours (Table) 07/10/18 Range/Units 06:23 Sodium 136 L (137-145) mmol/L Chloride 109 H (98-107) mmol/L BUN 27 H (7-17) mg/dL Creatinine 1.08 H (0.52-1.04) mg/dL Amylase 123 H (30-110) U/L Assessment and Plan (1) Pancreatitis Narrative/Plan: 87-year-old female with pancreatitis of unknown etiology - Lipase and amylase levels have improved - Ultrasound was reviewed and a small pancreatic cyst is noted, the radiologist did comment possible from old pancreatitis - I would recommend follow-up for pancreatic ultrasound in 6 months to evaluate cyst. If any recurrence of pancreatitis, I would recommend gastroenterology workup for etiology of pancreatitis. - Okay to advance diet as tolerated Current Visit: Yes Status: Acute Code(s): K85.90 - ACUTE PANCREATITIS W ITHOUT NECROSIS OR INFECTION, UNSP SNOMED Code(s): 14880683
[2018-07-10 11:51] VITALS: PULSE 65
[2018-07-10 12:00] VITALS: BP 148/63; TEMP 97.7
--- NOTE | 2018-07-10 15:17 | P.DS ---
Providers Date of admission: 07/07/18 18:33 Expected date of discharge: 07/10/18 Attending physician: Pepe Canela Consults: 07/07/18 18:33 Consult Physician Stat Consulting Provider: [facility] Consult Reason/Comments: New-onset A. fib with RVR Do you want consulting provider notified?: Yes 07/09/18 13:58 Consult Physician Routine Consulting Provider: Gretta Em Consult Reason/Comments: Worsening lipase,-Prominence of the common bile duct near the pancreas head Do you want consulting provider notified?: Yes 07/09/18 15:27 Consult Physician Routine Consulting Provider: Toribio Simpson Consult Reason/Comments: -Bibasilar atelectasis with possible underlying masses per ct Do you want consulting provider notified?: Yes Primary care physician: [facility] Course: Final Diagnoses: -Paroxysmal atrial fibrillation, currently sinus rhythm -Atypical chest discomfort -Elevated troponin suspect related to atrial fibrillation and worsening renal function; probably noncardiac as per cardiology. -Acute renal failure secondary to Possibly transient hypotensive episode with the afib., Improving. -Elevated lipase of unclear etiology, worsening. Asymptomatic acute on chronic pancreatitis. CT reports Prominence of the common bile duct near the pancreas head. Ultrasound reported as small pancreatic cyst, possibly from old pancreatitis. Outpatient GI workup. 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 Status post Cardizem drip, converted to sinus rhythm with right bundle branch block. Renal function improving, creatinine down to 1.18. Lipase worsening, 684 with normal T bili and LFTs. ET of abdomen and pelvis reporting prominence of the common bile duct at the head of the pancreas, gallbladder not identified, multiple bilateral renal cysts without hydronephrosis, scattered diverticuli within the sigmoid colon, bulky uterus with possible fundal fibroid, no free fluid within the pelvis. Denies abdominal pain. Afebrile, normal WBC. Evaluated by cardiology, pulmonary, general surgery. Placed on Eliquis for anticoagulation. Gentle IV fluid hydration with bowel rest. Significant clinical improvement. No surgical intervention recommended at this time;Follow Up Pancreatic ultrasound in 6 months recommended to further evaluate cyst. GI workup for etiology of pancreatitis, outpatient. Cleared by all consults for discharge.Patient is being discharged to [facility] in a stable condition with guarded prognosis. EXAM: GENERAL: Alert and oriented 3 no acute distress CARDIOVASCULAR: S1, S2 muffled. Systolic murmur, no rubs, no gallops RESPIRATION: Breath sounds diminished in the bases. No rhonchi or crackles. ABDOMEN: Soft, nontender . No guarding. no masses palpable. Bowel sounds heard. NERVOUS SYSTEM: No focal deficits. The impression and plan of care has been dictated as directed. : I performed a history and examination of this patient, discussed the same with the dictator. I agree with the dictator's note ,documented as a scribe. Any additional findings or plans will be noted. Time taken: 35 minutes Patient Condition at Discharge: Stable Plan - Discharge Summary New Discharge Prescriptions: New Apixaban [Eliquis] 2.5 mg PO BID #60 tablet Isosorbide Mononitrate ER [Imdur] 30 mg PO DAILY #30 tab.er.24h Continue Aspirin 81 mg PO DAILY QUEtiapine [SEROquel] 50 mg PO HS QUEtiapine [SEROquel] 100 mg PO HS Metoprolol Succinate (ER) [Toprol XL] 50 mg PO DAILY tab.er.24h Multivitamins, Thera [Multivitamin (formulary)] 1 tab PO DAILY HYDROcodone/APAP 7.5-325MG [Drummonds 7.5-325] 1 tab PO HS Atorvastatin [Lipitor] 20 mg PO HS Furosemide [Lasix] 20 mg PO BID #60 tab Omeprazole [PriLOSEC] 20 mg PO AC-BID #60 cap Ipratropium-Albuterol Nebulize [Duoneb 0.5 mg-3 mg/3 ml Soln] 3 ml INHALATION RT-QID #120 ampul.neb Discharge Medication List Aspirin 81 mg PO DAILY 07/08/13 [History] QUEtiapine [SEROquel] 50 mg PO HS 05/08/18 [History] QUEtiapine [SEROquel] 100 mg PO HS 05/08/18 [History] Metoprolol Succinate (ER) [Toprol XL] 50 mg PO DAILY tab.er.24h 05/14/18 [Rx] Atorvastatin [Lipitor] 20 mg PO HS 06/23/18 [History] HYDROcodone/APAP 7.5-325MG [Drummonds 7.5-325] 1 tab PO HS 06/23/18 [History] Multivitamins, Thera [Multivitamin (formulary)] 1 tab PO DAILY 06/23/18 [History] Furosemide [Lasix] 20 mg PO BID #60 tab 06/29/18 [Rx] Ipratropium-Albuterol Nebulize [Duoneb 0.5 mg-3 mg/3 ml Soln] 3 ml INHALATION RT-QID #120 ampul.neb 06/29/18 [Rx] Omeprazole [PriLOSEC] 20 mg PO AC-BID #60 cap 06/29/18 [Rx] Apixaban [Eliquis] 2.5 mg PO BID #60 tablet 07/10/18 [Rx] Isosorbide Mononitrate ER [Imdur] 30 mg PO DAILY #30 tab.er.24h 07/10/18 [Rx] Follow up Appointment(s)/Referral(s): Diane Staley MD [STAFF PHYSICIAN] - 1 Week (Renal cysts. Please keep previous follow up appointment for September 04 at 1:[address] Staley would like to see you sooner the office will give you a call. ) Pepe Canela MD [Primary Care Provider] - 07/12/18 2:15 pm (Please keep previous follow up appointment. ) Toribio Simpson MD [STAFF PHYSICIAN] - 07/24/18 9:45 am Monty Najera MD [STAFF PHYSICIAN] - 07/27/18 9:00 am (Pancreatitis-etiology unclear) Ambulatory/Diagnostic Orders: Complete Blood Count w/diff [LAB.AMB] Time Frame: 3 Days, Location: None Selected Patient Instructions/Handouts: A-fib (Atrial Fibrillation) (DC), Safe Use of Anticoagulants (DC) Activity/Diet/Wound Care/Special Instructions: 30 day eliquis copay is $40 Mapp
--- NOTE | 2018-07-10 15:18 | P.PN ---
Subjective Progress Note Date: 07/10/18 This is an 87-year-old female who follows with Dr. Vincent in the office, she was noted to be in atrial fibrillation in the emergency room and subsequently converted back to normal sinus rhythm. She did have an echo performed earlier this month which revealed a preserved ventricular size and sys tolic function with mild mitral and tricuspid regurgitation. She continues to be in a normal sinus rhythm today, it is also noted that her amylase and lipase continued to rise. . CAT scan of the abdomen and pelvis was performed which did not reveal any suspicious changes to suggest acute pancreatitis or pseudocyst formation. Some prominence of the common bile duct near the level of the head of the pancreas is not excluded. Diverticulosis without acute diverticulitis and multiple bilateral renal cysts noted. Small hyperdensities within the renal cortices noted, bibasilar atelectasis, hepatic and splenic calcified granuloma. Blood pressure 106/54, heart rate in the 70s, 96% on room air. White blood cell count 4.1, hemoglobin 10.8, platelet count 277. Sodium 134, potassium 4.5, BUN 40 and creatinine 1.1. 07/10 2018 Patient seen and examined this morning, doing well overall. Amylase and lipase levels decreasing. Hemodynamically stable. Blood Pressure 140/60 with a heart rate in the 60s, 96% on room air. Sodium 136, potassium 4.8, BUN 27 and creatinine 1.0. Objective - Vital Signs Vital signs: Vital Signs Temp 97.7 F 07/10/18 12:00 Pulse 65 07/10/18 12:00 Resp 16 07/10/18 12:00 BP 148/63 07/10/18 12:00 Pulse Ox 96 07/10/18 12:00 Intake & Output 07/09/18 07/10/18 07/10/18 18:59 06:59 18:59 Intake Total 230 480 Output Total 400 300 Balance -170 180 Weight 67.2 kg Intake: Oral 230 480 Output: Urine 400 300 Other: Voiding Method Toilet Toilet # Voids 2 1 1 - Exam PHYSICAL EXAMINATION: GENERAL: 87-year-old female in no acute distress at the time of my examination HEENT: Head is atraumatic, normocephalic. Pupils equal, round. Sclera anicteric. Conjunctiva are clear. Mucous membranes of the mouth are moist. Neck is supple. There is no elevated jugular venous pressure. No carotid bruit is heard. HEART EXAMINATION: S1 and S2 1 systolic ejection murmur is heard CHEST EXAMINATION: Lungs are clear to auscultation and precussion. No chest wall tenderness is noted on palpation or with deep breathing. ABDOMEN: Soft, nontender. Bowel sounds are heard. No organomegaly noted. EXTREMITIES: 2+ peripheral pulses with no evidence of peripheral edema and no calf tenderness noted. NEUROLOGIC patient is awake, alert and oriented 3 . . - Labs CBC & Chem 7: 07/09/18 06:16 07/10/18 06:23 Labs: Abnormal Lab Results - Last 24 Hours (Table) 07/10/18 Range/Units 06:23 Sodium 136 L (137-145) mmol/L Chloride 109 H (98-107) mmol/L BUN 27 H (7-17) mg/dL Creatinine 1.08 H (0.52-1.04) mg/dL Amylase 123 H (30-110) U/L Assessment and Plan Plan: Assessment and plan #1 paroxysmal atrial fibrillation patient back in normal sinus rhythm #2 troponin abnormality, likely secondary to atrial fibrillation #3 hypertension #4 hyperlipidemia #5 elevated lipase and amylase Plan From cardiology's perspective, we would recommend to continue the patient on her current medications. She may be be discharged once cleared by primary. We'll make her a follow-up appointment in the office post discharge. DNP note has been reviewed, I agree with a documented findings and plan of care. Patient was seen and examined.
--- NOTE | 2018-07-10 18:02 | P.PN ---
Subjective Progress Note Date: 07/10/18 Principal diagnosis: Right-sided multiple masslike atelectasis, bronchiectasis, A. fib with rapid ventricular response, diastolic heart failure related to A. fib, chronic renal failure stage III, elevated troponin, elevated lipase, 07/10/2018, patient seen eval reexamined during the rounds her respiratory status is better she is less short of breath breathing more comfortably denies any cough or sputum production she is being evaluated for possible discharge later on today, I reviewed the computed tomography scan there are multiple discrete bandlike atelectasis/masses are present on the right side they are more suggestive of rounded atelectasis I have discussed the patient at length no plans for aggressive intervention like biopsy will evaluated as outpatient with a short-term follow-up CT 87-year-old female with a remote history of smoking in the past quit more than 30-35 years ago has been stable state health until about 3 days ago started having chest tightness pain or shortness of breath while she was doing shopping she was brought into emergency department and found to be in paroxysmal atrial fibrillation spontaneously converted back to sinus she is started on blood thinners she has mildly renal insufficiency Ammann her troponin are high with mildly elevated mildly his level patient's feels better and denies any chest pain shortness of breath improved swelling in the lower extremities present she has been getting Eliquis for anticoagulation and bronchodilator Objective - Vital Signs Vital signs: Vital Signs Temp 97.7 F 07/10/18 12:00 Pulse 65 07/10/18 12:00 Resp 16 07/10/18 12:00 BP 148/63 07/10/18 12:00 Pulse Ox 96 07/10/18 12:00 Intake & Output 07/09/18 07/10/18 07/10/18 18:59 06:59 18:59 Intake Total 230 480 Output Total 400 300 Balance -170 180 Weight 67.2 kg Intake: Oral 230 480 Output: Urine 400 300 Other: Voiding Method Toilet Toilet # Voids 2 1 1 - Exam - Constitutional General appearance: average body habitus, cooperative, disheveled, mild distress - EENT Eyes: anicteric sclerae, EOMI, PERRLA, normal appearance Ears: bilateral: normal - Neck Neck: normal ROM Carotids: bilateral: upstroke normal, bruit absent Thyroid: bilateral: normal size - Respiratory Respiratory: bilateral: CTA (Upper part), diminished (At the bases), negative: dullness, rales, rhonchi, wheezing, prolonged expiration - Cardiovascular Rhythm: regular Heart sounds: normal: S1, S2 - Gastrointestinal General gastrointestinal: normal bowel sounds - Integumentary Integumentary: normal turgor - Neurologic Neurologic: CNII-XII intact - Musculoskeletal Musculoskeletal: gait normal, generalized weakness, strength equal bilaterally - Psychiatric Psychiatric: A&O x's 3, appropriate affect, intact judgment & insight - Labs CBC & Chem 7: 07/09/18 06:16 07/10/18 06:23 Labs: Abnormal Lab Results - Last 24 Hours (Table) 07/10/18 Range/Units 06:23 Sodium 136 L (137-145) mmol/L Chloride 109 H (98-107) mmol/L BUN 27 H (7-17) mg/dL Creatinine 1.08 H (0.52-1.04) mg/dL Amylase 123 H (30-110) U/L Assessment and Plan Assessment: Right sided multiple masslike atelectasis, probably fibrotic scar with trapped lung in the form of atelectasis Bronchiectasis predominantly in the lower lobes A. fib with rapid ventricular response paroxysmal nature Diastolic heart failure acute in nature related to A. fib Chronic renal failure stage III Elevated troponin Elevated lipase Plan: We'll do a short-term follow-up computed tomography scan outpatient basis Continue management for A. fib Patient did be discharged care plan discussed with her at length further recommendations pending as outpatient Time with Patient: Greater than 30
== END 2018-07-10 15:27 | disposition home or self-care (01) | DRG 308 ==
LOC: EC 15:50 → 3SCARD 18:33
PROVIDERS: ADMIT Family Medicine; ATTEND Family Medicine
DX: I48.0 Paroxysmal atrial fibrillation (principal); I50.31 Acute diastolic (congestive) heart failure; K85.90 Acute pancreatitis without necrosis or infection, unspecified; I13.0 Hypertensive heart and chronic kidney disease with heart failure and stage 1 through stage 4 chronic kidney disease, or unspecified chronic kidney disease; J98.11 Atelectasis; K86.1 Other chronic pancreatitis; K86.2 Cyst of pancreas; N17.9 Acute kidney failure, unspecified; E78.5 Hyperlipidemia, unspecified; I08.1 Rheumatic disorders of both mitral and tricuspid valves; I25.9 Chronic ischemic heart disease, unspecified; J47.9 Bronchiectasis, uncomplicated; K21.9 Gastro-esophageal reflux disease without esophagitis; K57.90 Diverticulosis of intestine, part unspecified, without perforation or abscess without bleeding; N18.3 Chronic kidney disease, stage 3 (moderate); N28.1 Cyst of kidney, acquired; Z79.82 Long term (current) use of aspirin; Z79.899 Other long term (current) drug therapy; Z80.41 Family history of malignant neoplasm of ovary; Z80.8 Family history of malignant neoplasm of other organs or systems; Z86.73 Personal history of transient ischemic attack (TIA), and cerebral infarction without residual deficits; Z87.891 Personal history of nicotine dependence; Z90.49 Acquired absence of other specified parts of digestive tract; Z96.651 Presence of right artificial knee joint; Z98.42 Cataract extraction status, left eye; Z98.41 Cataract extraction status, right eye; Z87.01 Personal history of pneumonia (recurrent); R74.8 Abnormal levels of other serum enzymes; I45.10 Unspecified right bundle-branch block; G47.00 Insomnia, unspecified; F39 Unspecified mood [affective] disorder
CPT/HCPCS: 36415; 71046; 71250; 74176; 76705; 80048; 80053; 82150; 82550; 83690; 83735; 83880; 84484; 85025; 85610; 85730; 93005; 94640; 94760; 96365; 96368; 96376; 99285

== ENCOUNTER 2018-07-16 10:03 | Inpatient (IN) | payer MEDICARE, BC ==
[2018-07-16] MEDS ORDERED: NITROGLYCERIN OINT 1 INCH/GM PACKET TOPICAL STA (10:13)
--- NOTE | 2018-07-16 10:18 | ED ---
General Adult HPI - General Chief complaint: Chest Pain Stated complaint: CHEST PAIN Time Seen by Provider: 07/16/18 10:05 Source: patient, EMS, RN notes reviewed Mode of arrival: EMS Limitations: no limitations - History of Present Illness Initial comments: This is an 87-year-old female presents emergency department with past medical history significant for atrial fibrillation pancreatitis COPD and renal failure. Patient comes in today because she has had a heaviness intermittently on her chest and chest. Patient states she is also more short of breath than normal. Patient denies any radiation of the heaviness. Patient denies any diaphoretic episodes. Patient has any nausea vomiting. Patient denies lightheadedness dizziness or near syncopal episode. Patient states that heaviness continues currently. Patient denies any abdominal pain patient denies any leg swelling or calf tenderness. - Related Data Home Medications Medication Instructions Recorded Confirmed Aspirin 81 mg PO DAILY 07/08/13 07/16/18 QUEtiapine [SEROquel] 50 mg PO HS 05/08/18 07/16/18 QUEtiapine [SEROquel] 100 mg PO HS 05/08/18 07/16/18 Atorvastatin [Lipitor] 20 mg PO HS 06/23/18 07/16/18 HYDROcodone/APAP 7.5-325MG [[place] 1 tab PO HS 06/23/18 07/16/18 7.5-325] Multivitamins, Thera [Multivitamin 1 tab PO DAILY 06/23/18 07/16/18 (formulary)] Previous Rx's Medication Instructions Recorded Metoprolol Succinate (ER) [Toprol 50 mg PO DAILY tab.er.24h 05/14/18 XL] Furosemide [Lasix] 20 mg PO BID #60 tab 06/29/18 Ipratropium-Albuterol Nebulize 3 ml INHALATION RT-QID #120 06/29/18 [Duoneb 0.5 mg-3 mg/3 ml Soln] ampul.neb Omeprazole [PriLOSEC] 20 mg PO AC-BID #60 cap 06/29/18 Apixaban [Eliquis] 2.5 mg PO BID #60 tablet 07/10/18 Isosorbide Mononitrate ER [Imdur] 30 mg PO DAILY #30 tab.er.24h 07/10/18 Allergies Allergy/AdvReac Type Severity Reaction Status Date / Time No Known Allergies Allergy Verified 07/16/18 10:46 Review of Systems ROS Statement: Those systems with pertinent positive or pertinent negative responses have been documented in the HPI. ROS Other: All systems not noted in ROS Statement are negative. Past Medical History Past Medical History: CVA/TIA, Hypertension, Osteoarthritis (OA), Renal Disease Additional Past Medical History / Comment(s): HX PANCREATITIS 2011 OR 2010, LOWER BACK PAIN-HARD TO WALK FAR- USES CANE OR WALKER. TIA X 2. states Stage 3 kidney dx, History of Any Multi-Drug Resistant Organisms: None Reported Past Surgical History: Adenoidectomy, Appendectomy, Back Surgery, Cholecystectomy, Hernia Repair, Joint Replacement, Tonsillectomy Additional Past Surgical History / Comment(s): Low back surgery, CATARACTS TAMAR, INCISIONAL HERNIA, RT KNEE REPLACEMENT, TAMAR.VARICOSE VEIN STRIPPING, PAIN CLINIC PROCEDURES, COLONOSCOPY, EGD Past Anesthesia/Blood Transfusion Reactions: No Reported Reaction Additional Past Anesthesia/Blood Transfusion Reaction / Comment(s): reluctant to receive any anesthesia, wants family meeting prior to any procedures involving anesthesia Past Psychological History: No Psychological Hx Reported Smoking Status: Former smoker Past Alcohol Use History: Rare Past Drug Use History: None Reported - Past Family History Father Family Medical History: No Reported History Additional Family Medical History / Comment(s): Father at age 84 yrs of old age. Mother Family Medical History: Cancer Additional Family Medical History / Comment(s): Mother at age 53yrs of ovarian cancer. Brother(s) Family Medical History: Cancer Additional Family Medical History / Comment(s): BRAIN [place] General Exam - General Exam Comments Initial Comments: GENERAL: Patient is well-developed and well-nourished. Patient is nontoxic and well- hydrated and is in mild distress. ENT: Neck is soft and supple. No significant lymphadenopathy is noted. Oropharynx is clear. Moist mucous membranes. Neck has full range of motion without eliciting any pain. EYES: The sclera were anicteric and conjunctiva were pink and moist. Extraocular movements were intact and pupils were equal round and reactive to light. Eyelids were unremarkable. PULMONARY: Unlabored respirations. Patient crackles bilateral bases more on the right than the left CARDIOVASCULAR: There is a regular rate and rhythm without any murmurs gallops or rubs. ABDOMEN: Soft and nontender with normal bowel sounds. No palpable organomegaly was noted. There is no palpable pulsatile mass. SKIN: Skin is clear with no lesions or rashes and otherwise unremarkable. NEUROLOGIC: Patient is alert and oriented x3. Cranial nerves II through XII are grossly intact. Motor and sensory are also intact. Normal speech, volume and content. Symmetrical smile. MUSCULOSKELETAL: Normal extremities with adequate strength and full range of motion. No lower extremity swelling or edema. No calf tenderness. LYMPHATICS: No significant lymphadenopathy is noted PSYCHIATRIC: Normal psychiatric evaluation. Limitations: no limitations Course Vital Signs 07/16/18 07/16/18 07/16/18 10:14 11:16 12:30 Temperature 98.7 F Pulse Rate 109 H 122 H 141 H Respiratory 22 20 20 Rate Blood Pressure 120/72 130/64 115/78 O2 Sat by Pulse 98 99 99 Oximetry 07/16/18 07/16/18 07/16/18 13:57 14:30 15:30 Temperature 98.3 F Pulse Rate 121 H 101 H 71 Respiratory 18 20 18 Rate Blood Pressure 112/81 123/67 146/67 O2 Sat by Pulse 99 99 Oximetry Medical Decision Making - Medical Decision Making EKG shows atrial fibrillation at 1 13 bpm QRS is widened at 144 QTC is 316 QTC is 433. Patient has a right bundle branch block. EKG shows no ST segment elevation. I spoke with Dr. Canela and I admitted the patient and wrote admitting orders. I consulted cardiology and I continued heparin and aspirin and nitro on the floor - Lab Data Result diagrams: 07/16/18 10:20 07/19/18 06:47 Lab Results 07/16/18 07/16/18 07/16/18 Range/Units 10:20 10:20 10:20 WBC 4.8 (3.8-10.6) k/uL RBC 3.76 L (3.80-5.40) m/uL Hgb 12.0 (11.4-16.0) gm/dL Hct 35.9 (34.0-46.0) % MCV 95.6 (80.0-100.0) fL MCH 32.0 (25.0-35.0) pg MCHC 33.4 (31.0-37.0) g/dL RDW 15.2 (11.5-15.5) % Plt Count 226 (150-450) k/uL Neutrophils % 61 % Lymphocytes % 21 % Monocytes % 10 % Eosinophils % 5 % Basophils % 1 % Neutrophils # 2.9 (1.3-7.7) k/uL Lymphocytes # 1.0 (1.0-4.8) k/uL Monocytes # 0.5 (0-1.0) k/uL Eosinophils # 0.2 (0-0.7) k/uL Basophils # 0.0 (0-0.2) k/uL PT (9.0-12.0) sec INR (<1.2) APTT (22.0-30.0) sec Sodium 137 (137-145) mmol/L Potassium 4.2 (3.5-5.1) mmol/L Chloride 106 (98-107) mmol/L Carbon Dioxide 22 (22-30) mmol/L Anion Gap 9 mmol/L BUN 66 H (7-17) mg/dL Creatinine 1.49 H (0.52-1.04) mg/dL Est GFR (CKD-EPI)AfAm 36 (>60 ml/min/1.73 sqM) Est GFR (CKD-EPI)NonAf 31 (>60 ml/min/1.73 sqM) Glucose 145 H (74-99) mg/dL POC Glucose (mg/dL) (75-99) mg/dL POC Glu Emergency Doctor ID Calcium 9.0 (8.4-10.2) mg/dL Magnesium 2.3 (1.6-2.3) mg/dL Total Bilirubin 0.5 (0.2-1.3) mg/dL AST 24 (14-36) U/L ALT 15 (9-52) U/L Alkaline Phosphatase 64 (38-126) U/L Troponin I (0.000-0.034) ng/mL NT-Pro-B Natriuret Pep 5670 pg/mL Total Protein 6.2 L (6.3-8.2) g/dL Albumin 3.3 L (3.5-5.0) g/dL Triglycerides (<150) mg/dL Cholesterol (<200) mg/dL LDL Cholesterol, Calc (0-99) mg/dL HDL Cholesterol (40-60) mg/dL Urine Color Urine Appearance (Clear) Urine pH (5.0-8.0) Ur Specific [place] (1.001-1.035) Urine Protein (Negative) Urine Glucose (UA) (Negative) Urine Ketones (Negative) Urine Blood (Negative) Urine Nitrite (Negative) Urine Bilirubin (Negative) Urine Urobilinogen (<2.0) mg/dL Ur Leukocyte Esterase (Negative) 07/16/18 07/16/18 07/16/18 Range/Units 10:20 10:20 10:20 WBC (3.8-10.6) k/uL RBC (3.80-5.40) m/uL Hgb (11.4-16.0) gm/dL Hct (34.0-46.0) % MCV (80.0-100.0) fL MCH (25.0-35.0) pg MCHC (31.0-37.0) g/dL RDW (11.5-15.5) % Plt Count (150-450) k/uL Neutrophils % % Lymphocytes % % Monocytes % % Eosinophils % % Basophils % % Neutrophils # (1.3-7.7) k/uL Lymphocytes # (1.0-4.8) k/uL Monocytes # (0-1.0) k/uL Eosinophils # (0-0.7) k/uL Basophils # (0-0.2) k/uL PT 11.2 (9.0-12.0) sec INR 1.1 (<1.2) APTT 24.1 (22.0-30.0) sec Sodium (137-145) mmol/L Potassium (3.5-5.1) mmol/L Chloride (98-107) mmol/L Carbon Dioxide (22-30) mmol/L Anion Gap mmol/L BUN (7-17) mg/dL Creatinine (0.52-1.04) mg/dL Est GFR (CKD-EPI)AfAm (>60 ml/min/1.73 sqM) Est GFR (CKD-EPI)NonAf (>60 ml/min/1.73 sqM) Glucose (74-99) mg/dL POC Glucose (mg/dL) (75-99) mg/dL POC Glu Emergency Doctor ID Calcium (8.4-10.2) mg/dL Magnesium (1.6-2.3) mg/dL Total Bilirubin (0.2-1.3) mg/dL AST (14-36) U/L ALT (9-52) U/L Alkaline Phosphatase (38-126) U/L Troponin I 0.058 H* (0.000-0.034) ng/mL NT-Pro-B Natriuret Pep pg/mL Total Protein (6.3-8.2) g/dL Albumin (3.5-5.0) g/dL Triglycerides 156 H (<150) mg/dL Cholesterol 113 (<200) mg/dL LDL Cholesterol, Calc 34 (0-99) mg/dL HDL Cholesterol 48 (40-60) mg/dL Urine Color Urine Appearance (Clear) Urine pH (5.0-8.0) Ur Specific [place] (1.001-1.035) Urine Protein (Negative) Urine Glucose (UA) (Negative) Urine Ketones (Negative) Urine Blood (Negative) Urine Nitrite (Negative) Urine Bilirubin (Negative) Urine Urobilinogen (<2.0) mg/dL Ur Leukocyte Esterase (Negative) 07/16/18 07/16/18 07/16/18 Range/Units 16:18 16:26 18:27 WBC (3.8-10.6) k/uL RBC (3.80-5.40) m/uL Hgb (11.4-16.0) gm/dL Hct (34.0-46.0) % MCV (80.0-100.0) fL MCH (25.0-35.0) pg MCHC (31.0-37.0) g/dL RDW (11.5-15.5) % Plt Count (150-450) k/uL Neutrophils % % Lymphocytes % % Monocytes % % Eosinophils % % Basophils % % Neutrophils # (1.3-7.7) k/uL Lymphocytes # (1.0-4.8) k/uL Monocytes # (0-1.0) k/uL Eosinophils # (0-0.7) k/uL Basophils # (0-0.2) k/uL PT (9.0-12.0) sec INR (<1.2) APTT 50.9 H (22.0-30.0) sec Sodium (137-145) mmol/L Potassium (3.5-5.1) mmol/L Chloride (98-107) mmol/L Carbon Dioxide (22-30) mmol/L Anion Gap mmol/L BUN (7-17) mg/dL Creatinine (0.52-1.04) mg/dL Est GFR (CKD-EPI)AfAm (>60 ml/min/1.73 sqM) Est GFR (CKD-EPI)NonAf (>60 ml/min/1.73 sqM) Glucose (74-99) mg/dL POC Glucose (mg/dL) (75-99) mg/dL POC Glu Emergency Doctor ID Calcium (8.4-10.2) mg/dL Magnesium (1.6-2.3) mg/dL Total Bilirubin (0.2-1.3) mg/dL AST (14-36) U/L ALT (9-52) U/L Alkaline Phosphatase (38-126) U/L Troponin I 0.049 H* (0.000-0.034) ng/mL NT-Pro-B Natriuret Pep pg/mL Total Protein (6.3-8.2) g/dL Albumin (3.5-5.0) g/dL Triglycerides (<150) mg/dL Cholesterol (<200) mg/dL LDL Cholesterol, Calc (0-99) mg/dL HDL Cholesterol (40-60) mg/dL Urine Color Yellow Urine Appearance Clear (Clear) Urine pH 5.5 (5.0-8.0) Ur Specific [place] 1.017 (1.001-1.035) Urine Protein Negative (Negative) Urine Glucose (UA) Negative (Negative) Urine Ketones Negative (Negative) Urine Blood Negative (Negative) Urine Nitrite Negative (Negative) Urine Bilirubin Negative (Negative) Urine Urobilinogen <2.0 (<2.0) mg/dL Ur Leukocyte Esterase Negative (Negative) 07/16/18 07/17/18 07/18/18 Range/Units 22:44 05:39 06:10 WBC (3.8-10.6) k/uL RBC (3.80-5.40) m/uL Hgb (11.4-16.0) gm/dL Hct (34.0-46.0) % MCV (80.0-100.0) fL MCH (25.0-35.0) pg MCHC (31.0-37.0) g/dL RDW (11.5-15.5) % Plt Count (150-450) k/uL Neutrophils % % Lymphocytes % % Monocytes % % Eosinophils % % Basophils % % Neutrophils # (1.3-7.7) k/uL Lymphocytes # (1.0-4.8) k/uL Monocytes # (0-1.0) k/uL Eosinophils # (0-0.7) k/uL Basophils # (0-0.2) k/uL PT (9.0-12.0) sec INR (<1.2) APTT 55.9 H (22.0-30.0) sec Sodium (137-145) mmol/L Potassium (3.5-5.1) mmol/L Chloride (98-107) mmol/L Carbon Dioxide (22-30) mmol/L Anion Gap mmol/L BUN (7-17) mg/dL Creatinine (0.52-1.04) mg/dL Est GFR (CKD-EPI)AfAm (>60 ml/min/1.73 sqM) Est GFR (CKD-EPI)NonAf (>60 ml/min/1.73 sqM) Glucose (74-99) mg/dL POC Glucose (mg/dL) 102 H (75-99) mg/dL POC Glu Emergency Doctor ID Magaly Briceno Calcium (8.4-10.2) mg/dL Magnesium (1.6-2.3) mg/dL Total Bilirubin (0.2-1.3) mg/dL AST (14-36) U/L ALT (9-52) U/L Alkaline Phosphatase (38-126) U/L Troponin I 0.032 (0.000-0.034) ng/mL NT-Pro-B Natriuret Pep pg/mL Total Protein (6.3-8.2) g/dL Albumin (3.5-5.0) g/dL Triglycerides (<150) mg/dL Cholesterol (<200) mg/dL LDL Cholesterol, Calc (0-99) mg/dL HDL Cholesterol (40-60) mg/dL Urine Color Urine Appearance (Clear) Urine pH (5.0-8.0) Ur Specific [place] (1.001-1.035) Urine Protein (Negative) Urine Glucose (UA) (Negative) Urine Ketones (Negative) Urine Blood (Negative) Urine Nitrite (Negative) Urine Bilirubin (Negative) Urine Urobilinogen (<2.0) mg/dL Ur Leukocyte Esterase (Negative) 07/18/18 07/18/18 Range/Units 07:39 07:39 WBC (3.8-10.6) k/uL RBC (3.80-5.40) m/uL Hgb (11.4-16.0) gm/dL Hct (34.0-46.0) % MCV (80.0-100.0) fL MCH (25.0-35.0) pg MCHC (31.0-37.0) g/dL RDW (11.5-15.5) % Plt Count (150-450) k/uL Neutrophils % % Lymphocytes % % Monocytes % % Eosinophils % % Basophils % % Neutrophils # (1.3-7.7) k/uL Lymphocytes # (1.0-4.8) k/uL Monocytes # (0-1.0) k/uL Eosinophils # (0-0.7) k/uL Basophils # (0-0.2) k/uL PT (9.0-12.0) sec INR (<1.2) APTT 52.2 H (22.0-30.0) sec Sodium 139 (137-145) mmol/L Potassium 4.3 (3.5-5.1) mmol/L Chloride 109 H (98-107) mmol/L Carbon Dioxide 24 (22-30) mmol/L Anion Gap 6 mmol/L BUN 45 H (7-17) mg/dL Creatinine 1.60 H (0.52-1.04) mg/dL Est GFR (CKD-EPI)AfAm 33 (>60 ml/min/1.73 sqM) Est GFR (CKD-EPI)NonAf 29 (>60 ml/min/1.73 sqM) Glucose 96 (74-99) mg/dL POC Glucose (mg/dL) (75-99) mg/dL POC Glu Emergency Doctor ID Calcium 9.1 (8.4-10.2) mg/dL Magnesium 2.1 (1.6-2.3) mg/dL Total Bilirubin (0.2-1.3) mg/dL AST (14-36) U/L ALT (9-52) U/L Alkaline Phosphatase (38-126) U/L Troponin I (0.000-0.034) ng/mL NT-Pro-B Natriuret Pep pg/mL Total Protein (6.3-8.2) g/dL Albumin (3.5-5.0) g/dL Triglycerides (<150) mg/dL Cholesterol (<200) mg/dL LDL Cholesterol, Calc (0-99) mg/dL HDL Cholesterol (40-60) mg/dL Urine Color Urine Appearance (Clear) Urine pH (5.0-8.0) Ur Specific [place] (1.001-1.035) Urine Protein (Negative) Urine Glucose (UA) (Negative) Urine Ketones (Negative) Urine Blood (Negative) Urine Nitrite (Negative) Urine Bilirubin (Negative) Urine Urobilinogen (<2.0) mg/dL Ur Leukocyte Esterase (Negative) Critical Care Time Critical Care Time: Yes Total Critical Care Time: 35 Disposition Clinical Impression: Unstable angina pectoris Disposition: ADMITTED IP TO THIS HOSP
[2018-07-16 10:30] LABS: Basophils % (A) 1 %; Eosinophils # (A) 0.2 k/uL (0-0.7); Eosinophils % (A) 5 %; HCT 35.9 % (34.0-46.0); Lymphocytes % (A) 21 %; MCHC 33.4 g/dL (31.0-37.0); MCV 95.6 fL (80.0-100.0); Monocytes # (A) 0.5 k/uL (0-1.0); Monocytes % (A) 10 %; Neutrophils # (A) 2.9 k/uL (1.3-7.7); Neutrophils % (A) 61 %; Platelet Count 226 k/uL (150-450); RBC 3.76 m/uL (3.80-5.40); RDW 15.2 % (11.5-15.5); WBC 4.8 k/uL (3.8-10.6)
[2018-07-16 10:39] LABS: Albumin 3.3 g/dL (3.5-5.0); Magnesium 2.3 mg/dL (1.6-2.3); Potassium 4.2 mmol/L (3.5-5.1); Total Bilirubin 0.5 mg/dL (0.2-1.3); Total Protein 6.2 g/dL (6.3-8.2)
[2018-07-16 10:50] LABS: INR 1.1 (<1.2); Partial Thromboplastin Time 24.1 sec (22.0-30.0); Prothrombin Time 11.2 sec (9.0-12.0)
--- NOTE | 2018-07-16 10:56 | XR ---
EXAMINATION TYPE: XR chest 2V DATE OF EXAM: 07/16/2018 COMPARISON: 07/07/2018 INDICATION: Chest pressure breath TIA TECHNIQUE: Frontal and lateral views of the chest are obtained. FINDINGS: The heart size is normal. The pulmonary vasculature is normal. Some mild infiltrate appears to be adjacent to the minor fissure within the right lower lobe. Follow- up is recommended. Atelectasis and pneumonia should be considered. Minimal left pleural effusion is l ikely present at the costophrenic angle.. There may be some hyperinflation flattening the diaphragms . Consider emphysematous change IMPRESSION: 1. Mild infiltrate in the peripheral right lower lobe. 2. Small pleural effusion. 3. Some emphysematous change may be present.
[2018-07-16] MEDS ORDERED: HEPARIN SODIUM,PORCINE 5,000 UNIT/ML 1 ML VIAL IV ONE (11:29)
[2018-07-16] MEDS ORDERED: NITROGLYCERIN SL TABS 0.4 MG TAB SUBLINGUAL PRN (11:51)
[2018-07-16] MEDS: HEPARIN SOD,PORK IN 0.45% NACL 25,000 UNIT in 0.45% NACL 1 250ML.BAG IV SCH (12:28)
--- NOTE | 2018-07-16 14:35 | P.CRDCN ---
History of Present Illness Consult date: 07/16/18 Chief complaint: Chest discomfort History of present illness: This is a pleasant 87-year-old female patient with a past medical history significant for paroxysmal atrial fibrillation, hypertension, dyslipidemia, and chronic kidney disease, was brought to the emergency room by her daughter because of chest discomfort. This is the third admission for the patient with a chest discomfort within the last several weeks. The patient was in her usual state of health until yesterday showed was playing cards with her friends and she felt tired, fatigued, and weak, and she went to bed. She woke up during the night walking to the bathroom and she was experiencing chest discomfort. She did have another episode of chest discomfort earlier today. The patient described the discomfort as a pressure in the mid of the chest, without any radiation to the arm or neck or shoulders, and without any associated symptoms of shortness of breath, nausea, dizziness, heart racing, or syncope. No sweating as well as. The EKG showed what it seems to be atrial fibrillation without any ischemic ST or T-wave abnormalities. The first set of troponin came in to be slightly abnormal. The patient did have 2 previous admissions in June 2018 with a chest discomfort. In April 2018 she underwent a myocardial perfusion imaging stress test here in this hospital and that showed ischemia. For some reason the patient did not have any coronary angiogram after that probably because of her chronic kidney disease. Past Medical History Past Medical History: CVA/TIA, Hypertension, Osteoarthritis (OA), Renal Disease Additional Past Medical History / Comment(s): HX PANCREATITIS 2011 OR 2010, LOWER BACK PAIN-HARD TO WALK FAR- USES CANE OR WALKER. TIA X 2. states Stage 3 kidney dx, History of Any Multi-Drug Resistant Organisms: None Reported Past Surgical History: Adenoidectomy, Appendectomy, Back Surgery, Cholecystectomy, Hernia Repair, Joint Replacement, Tonsillectomy Additional Past Surgical History / Comment(s): Low back surgery, CATARACTS TAMAR, INCISIONAL HERNIA, RT KNEE REPLACEMENT, TAMAR.VARICOSE VEIN STRIPPING, PAIN CLINIC PROCEDURES, COLONOSCOPY, EGD Past Anesthesia/Blood Transfusion Reactions: No Reported Reaction Additional Past Anesthesia/Blood Transfusion Reaction / Comment(s): reluctant to receive any anesthesia, wants family meeting prior to any procedures involving anesthesia Past Psychological History: No Psychological Hx Reported Smoking Status: Former smoker Past Alcohol Use History: Rare Past Drug Use History: None Reported - Past Family History Father Family Medical History: No Reported History Additional Family Medical History / Comment(s): Father at age 84 yrs of old age. Mother Family Medical History: Cancer Additional Family Medical History / Comment(s): Mother at age 53yrs of ovarian cancer. Brother(s) Family Medical History: Cancer Additional Family Medical History / Comment(s): BRAIN CA Medications and Allergies Home Medications Medication Instructions Recorded Confirmed Type Aspirin 81 mg PO DAILY 07/08/13 07/16/18 History QUEtiapine [SEROquel] 50 mg PO HS 05/08/18 07/16/18 History QUEtiapine [SEROquel] 100 mg PO HS 05/08/18 07/16/18 History Metoprolol Succinate (ER) [Toprol 50 mg PO DAILY tab.er.24h 05/14/18 07/16/18 Rx XL] Atorvastatin [Lipitor] 20 mg PO HS 06/23/18 07/16/18 History HYDROcodone/APAP 7.5-325MG [[place] 1 tab PO HS 06/23/18 07/16/18 History 7.5-325] Multivitamins, Thera [Multivitamin 1 tab PO DAILY 06/23/18 07/16/18 History (formulary)] Furosemide [Lasix] 20 mg PO BID #60 tab 06/29/18 07/16/18 Rx Ipratropium-Albuterol Nebulize 3 ml INHALATION RT-QID #120 06/29/18 07/16/18 Rx [Duoneb 0.5 mg-3 mg/3 ml Soln] ampul.neb Omeprazole [PriLOSEC] 20 mg PO AC-BID #60 cap 06/29/18 07/16/18 Rx Apixaban [Eliquis] 2.5 mg PO BID #60 tablet 07/10/18 07/16/18 Rx Isosorbide Mononitrate ER [Imdur] 30 mg PO DAILY #30 tab.er.24h 07/10/18 07/16/18 Rx Allergies Allergy/AdvReac Type Severity Reaction Status Date / Time No Known Allergies Allergy Verified 07/16/18 10:46 Physical Exam Vitals: Vital Signs Temp Pulse Resp BP Pulse Ox 07/16/18 13:57 98.3 F 121 H 18 112/81 07/16/18 12:30 141 H 20 115/78 99 07/16/18 11:16 122 H 20 130/64 99 07/16/18 10:14 98.7 F 109 H 22 120/72 98 Intake and Output 07/15/18 07/16/18 07/16/18 22:59 06:59 14:59 Other: Weight 64.41 kg - Constitutional General appearance: no acute distress - Respiratory Respiratory: bilateral: CTA - Cardiovascular Rhythm: regular Heart sounds: normal: S1, S2 Results 07/16/18 10:20 07/16/18 10:20 Cardiac Enzymes 07/16/18 07/16/18 Range/Units 10:20 10:20 AST 24 (14-36) U/L Troponin I 0.058 H* (0.000-0.034) ng/mL Coagulation 07/16/18 Range/Units 10:20 PT 11.2 (9.0-12.0) sec APTT 24.1 (22.0-30.0) sec CBC 07/16/18 Range/Units 10:20 WBC 4.8 (3.8-10.6) k/uL RBC 3.76 L (3.80-5.40) m/uL Hgb 12.0 (11.4-16.0) gm/dL Hct 35.9 (34.0-46.0) % Plt Count 226 (150-450) k/uL Comprehensive Metabolic Panel 07/16/18 Range/Units 10:20 Sodium 137 (137-145) mmol/L Potassium 4.2 (3.5-5.1) mmol/L Chloride 106 (98-107) mmol/L Carbon Dioxide 22 (22-30) mmol/L BUN 66 H (7-17) mg/dL Creatinine 1.49 H (0.52-1.04) mg/dL Glucose 145 H (74-99) mg/dL Calcium 9.0 (8.4-10.2) mg/dL AST 24 (14-36) U/L ALT 15 (9-52) U/L Alkaline Phosphatase 64 (38-126) U/L Total Protein 6.2 L (6.3-8.2) g/dL Albumin 3.3 L (3.5-5.0) g/dL Current Medications Generic Name Dose Route Start Last Admin Trade Name Freq PRN Reason Stop Dose Admin Aspirin 325 mg 07/17/18 09:00 Aspirin PO DAILY [facility] Heparin Sodium/Sodium Chloride 250 mls @ 7.729 mls/hr 07/16/18 11:30 07/16/18 12:28 25,000 unit/ Sodium Chloride IV 12 units/kg/hr .Q24H JS 7.729 mls/hr Administration Protocol 12 UNITS/KG/HR Metoprolol Succinate 50 mg 07/17/18 09:00 Toprol Xl PO DAILY [facility] Nitroglycerin 1 inch 07/16/18 18:00 Nitro-Bid Oint TOPICAL Q6HR [facility] Nitroglycerin 0.4 mg 07/16/18 11:51 Nitrostat SUBLINGUAL Q5M PRN Chest Pain Intake and Output 07/15/18 07/16/18 07/16/18 22:59 06:59 14:59 Other: Weight 64.41 kg Patient Weight 07/17/18 06:59 Weight 64.41 kg 07/16/18 10:20 07/16/18 10:20 Assessment and Plan Assessment: Assessment #1 chest discomfort concerning for angina. #2 mildly abnormal cardiac enzymes could be secondary to the chronic kidney dis ease with acute non-ST elevation myocardial infarction to be considered #3 hypertension #4 paroxysmal atrial fibrillation Plan #1 I will restart the patient beta laure with Toprol-XL #2 continue the current medical regimen including the aspirin and heparin IV #3 I do feel that the patient need to have coronary angiogram in view of the recurrent chest discomfort and the failure of maximize medical treatment including oral nitrate #3 I would suggest obtain a nephrology consult to assess the renal function before we proceed with coronary angiogram #4 follow-up with the patient. Thank you for allowing us participate in her care and we will continue following up with the patient
[2018-07-16 16:44] LABS: Appearance,Urine Clear (Clear); Bilirubin,Urine Negative (Negative); Blood,Urine Negative (Negative); Color,Urine Yellow; Glucose,Urine (UA) Negative (Negative); Ketones,Urine Negative (Negative); Leukocyte Esterase,Urine Negative (Negative); Nitrite,Urine Negative (Negative); PH, Urine 5.5 (5.0-8.0); Protein,Urine Negative (Negative); Specific Gravity,Urine 1.017 (1.001-1.035); Urobilinogen,Urine <2.0 mg/dL (<2.0)
--- NOTE | 2018-07-16 16:55 | HP ---
HISTORY AND PHYSICAL CHIEF COMPLAINT: 87-year-old female with past medical history of paroxysmal atrial fibrillation, hypertension, dyslipidemia, chronic kidney disease, came to the emergency room due to chest discomfort with any exertion, worsening over the past week or 2. She is unable to play cards due to significant chest tightness at which time she is brought to the emergency room for rule out myocardial infarction. Cardiology saw her. She had atrial fibrillation with heart rate into the 130s to 150s. Mildly elevated troponin. PAST MEDICAL HISTORY: CVA TIA, hypertension, osteoarthritis, renal disease, history of pancreatitis. SURGICAL HISTORY: Adenoidectomy, appendectomy, back surgery, cholecystectomy, hernia repair, joint replacement, tonsillectomy, bilateral varicose veins. FAMILY HISTORY: Father at 84. Mother cancer of ovaries, age 53, brother with cancer of the brain. HOME MEDICATIONS: 1. Seroquel 150 mg q.h.s. 2. Aspirin 81 mg daily. 3. Metoprolol succinate 50 mg daily. 4. Lipitor 20 daily. 5. [place] 7.5 q.h.s. 6. Multivitamin daily. 7. Lasix 20 mg b.i.d. 8. DuoNeb q.i.d. 9. Prilosec 20 mg b.i.d. 10.Eliquis 2.5 b.i.d. 11.Imdur 30 mg daily. ALLERGIES: No known drug allergies. PHYSICAL EXAMINATION: VITAL SIGNS: Vital signs show heart rate is in the 100s-130s to 140s, respiratory rate 18 to 22, blood pressure 112 to 130 over 60s to 70s, temp 98.3. CARDIOVASCULAR: S1-S2. LUNGS scattered wheeze. HEMATOLOGIC: Negative Homans. GI soft. VASCULAR: Normal doses pedis posterior tibial and radial pulse. PSYCH: Fair mood and affect. CONSTITUTION: Looks weak and fatigued. Labs are reviewed. LABORATORY DATA: BUN 66, creatinine 1.49. ASSESSMENT: 1. Prerenal renal insufficiency. 2. Chronic kidney disease stage 3. 3. Dehydration. 4. Mildly elevated cardiac enzymes, possibly due to chronic kidney disease with acute non STEMI to be considered. 5. Hypertension. 6. Paroxysmal atrial fibrillation. 7. Possible unstable angina. Patient was started on beta blockers. Hold Eliquis apparently at this time. Possibly nephrology consult. Heart catheterization. MMODL / IJN: [id number] /
[2018-07-16] MEDS: PANTOPRAZOLE 40 MG TABLET PO SCH (17:25)
[2018-07-16] MEDS: FUROSEMIDE 20 MG TAB PO SCH (17:25)
[2018-07-16] MEDS: NITROGLYCERIN OINT 1 INCH/GM PACKET TOPICAL SCH (17:25)
[2018-07-16] MEDS: IPRATROPIUM-ALBUTEROL 3 ML NEB INHALATION SCH (20:38)
[2018-07-16] MEDS ORDERED: QUEtiapine 100 MG TAB PO SCH (21:00)
[2018-07-16] MEDS: ATORVASTATIN 20 MG TAB PO SCH (21:55)
[2018-07-16] MEDS: QUEtiapine 50 MG TAB PO SCH (21:55)
[2018-07-16] MEDS: HYDROcodone/APAP 7.5-325MG 1 EACH TAB PO SCH (21:55)
[2018-07-16] MEDS: DOCUSATE 100 MG CAP PO SCH (21:56)
[2018-07-17 02:04] LABS: Cholesterol 113 mg/dL (<200); HDL Cholesterol 48 mg/dL (40-60); LDL Cholesterol,Calculated 34 mg/dL (0-99); Triglycerides 156 mg/dL (<150)
[2018-07-17] MEDS: NITROGLYCERIN OINT 1 INCH/GM PACKET TOPICAL SCH ×2 (04:57→05:03)
[2018-07-17] MEDS: PANTOPRAZOLE 40 MG TABLET PO SCH ×2 (06:46→16:05)
[2018-07-17] MEDS: IPRATROPIUM-ALBUTEROL 3 ML NEB INHALATION SCH ×4 (07:32→19:05)
[2018-07-17] MEDS ORDERED: ASPIRIN 325 MG TAB PO SCH (09:00)
[2018-07-17] MEDS: FUROSEMIDE 20 MG TAB PO SCH ×2 (09:03→16:05)
[2018-07-17] MEDS: DOCUSATE 100 MG CAP PO SCH ×2 (09:03→21:43)
[2018-07-17] MEDS: MULTIVITAMINS, THERA 1 EACH TAB PO SCH (09:03)
[2018-07-17] MEDS: METOPROLOL SUCCINATE (ER) 50 MG TAB.ER.24H PO SCH (09:03)
[2018-07-17] MEDS: RANOLAZINE 500 MG TAB.ER.12H PO SCH ×2 (12:09→21:44)
[2018-07-17 12:14] VITALS: BMI 23.4
--- NOTE | 2018-07-17 12:45 | P.NPCON ---
History of Present Illness - Reason for Consult acute renal failure, chronic renal failure - History of Present Illness Reason for consultation: Acute kidney injury on chronic kidney disease History of present illness: Patient is a 87-year-old female seen in renal consultation for acute kidney injury on chronic kidney disease. 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 Patient presented to the hospital with dyspnea and shortness of breath. She has history of diastolic CHF. She is currently maintained on Lasix 20 mg orally twice daily. No edema at this time. She does monitor her salt intake at home closely. No hematuria or dysuria. Denies use of nonsteroidals. Patient has been seen by cardiology and there are plans to do a cardiac catheterization. Currently the patient denies any chest pain or shortness of breath. Oral intake is good. Denies vomiting or diarrhea. No history of diabetes. Patient's son was on hemodialysis due to diabetic nephropathy. Vital signs are stable. General: The patient appeared well nourished and normally developed. HEENT: Head exam is unremarkable. Neck is without jugular venous distension. LUNGS: Lungs are clear to auscultation and percussion. Breath sounds decreased. HEART: Rate and Rhythm are regular. First and second heart sounds normal. No murmurs, rubs or gallops. ABDOMEN: Abdominal exam reveals normal bowel sounds. Non-tender and non- distended. No evidence of peritonitis. EXTREMITITES: No clubbing, cyanosis, or edema. Past Medical History Past Medical History: Atrial Fibrillation, CVA/TIA, Hypertension, Osteoarthritis (OA), Renal Disease Additional Past Medical History / Comment(s): HX PANCREATITIS 2011 OR 2010, LOWER BACK PAIN-HARD TO WALK FAR- USES CANE OR WALKER. TIA X 2. states Stage 3 kidney dx, AFIB History of Any Multi-Drug Resistant Organisms: None Reported Past Surgical History: Adenoidectomy, Appendectomy, Back Surgery, C holecystectomy, Hernia Repair, Joint Replacement, Tonsillectomy Additional Past Surgical History / Comment(s): Low back surgery, CATARACTS TAMAR, INCISIONAL HERNIA, RT KNEE REPLACEMENT, TAMAR.VARICOSE VEIN STRIPPING, PAIN CLINIC PROCEDURES, COLONOSCOPY, EGD Past Anesthesia/Blood Transfusion Reactions: No Reported Reaction Additional Past Anesthesia/Blood Transfusion Reaction / Comment(s): reluctant to receive any anesthesia, wants family meeting prior to any procedures involving anesthesia Past Psychological History: No Psychological Hx Reported Additional Psychological History / Comment(s): . Smoking Status: Former smoker Past Alcohol Use History: Rare Additional Past Alcohol Use History / Comment(s): STARTED SMOKING @ AGE 19 (1950) QUIT @ AGE 57(1987) WAS 2 PPD Past Drug Use History: None Reported - Past Family History Father Family Medical History: No Reported History Additional Family Medical History / Comment(s): Father at age 84 yrs of old age. Mother Family Medical History: Cancer Additional Family Medical History / Comment(s): Mother at age 53yrs of ovarian cancer. Brother(s) Family Medical History: Cancer Additional Family Medical History / Comment(s): BRAIN CA Medications and Allergies Home Medications Medication Instructions Recorded Confirmed Type Aspirin 81 mg PO DAILY 07/08/13 07/16/18 History QUEtiapine [SEROquel] 50 mg PO HS 05/08/18 07/16/18 History QUEtiapine [SEROquel] 100 mg PO HS 05/08/18 07/16/18 History Metoprolol Succinate (ER) [Toprol 50 mg PO DAILY tab.er.24h 05/14/18 07/16/18 Rx XL] Atorvastatin [Lipitor] 20 mg PO HS 06/23/18 07/16/18 History HYDROcodone/APAP 7.5-325MG [[place] 1 tab PO HS 06/23/18 07/16/18 History 7.5-325] Multivitamins, Thera [Multivitamin 1 tab PO DAILY 06/23/18 07/16/18 History (formulary)] Furosemide [Lasix] 20 mg PO BID #60 tab 06/29/18 07/16/18 Rx Ipratropium-Albuterol Nebulize 3 ml INHALATION RT-QID #120 06/29/18 07/16/18 Rx [Duoneb 0.5 mg-3 mg/3 ml Soln] ampul.neb Omeprazole [PriLOSEC] 20 mg PO AC-BID #60 cap 06/29/18 07/16/18 Rx Apixaban [Eliquis] 2.5 mg PO BID #60 tablet 07/10/18 07/16/18 Rx Isosorbide Mononitrate ER [Imdur] 30 mg PO DAILY #30 tab.er.24h 07/10/18 07/16/18 Rx Allergies Allergy/AdvReac Type Severity Reaction Status Date / Time No Known Allergies Allergy Verified 07/16/18 10:46 Physical Exam Vitals: Vital Signs Temp Pulse Pulse Resp BP BP BP 07/17/18 12:00 71 16 07/17/18 08:00 97.7 F 87 18 122/51 07/17/18 07:42 78 07/17/18 07:33 83 18 07/17/18 04:00 97.6 F 76 16 112/62 07/17/18 00:00 98 F 68 16 114/72 07/16/18 20:46 72 07/16/18 20:38 71 07/16/18 20:00 98.1 F 64 16 128/64 07/16/18 16:00 98.0 F 77 18 166/66 07/16/18 15:58 98.1 F 70 18 07/16/18 15:30 71 18 146/67 07/16/18 14:30 101 H 20 123/67 07/16/18 13:57 98.3 F 121 H 18 112/81 Pulse Ox 07/17/18 12:00 07/17/18 08:00 100 07/17/18 07:42 07/17/18 07:33 95 07/17/18 04:00 96 07/17/18 00:00 98 07/16/18 20:46 07/16/18 20:38 07/16/18 20:00 97 07/16/18 16:00 96 07/16/18 15:58 99 07/16/18 15:30 99 07/16/18 14:30 99 07/16/18 13:57 Intake and Output 07/16/18 07/17/18 07/17/18 22:59 06:59 14:59 Intake Total 300.367 90.429 446 Output Total 900 150 850 Balance -599.633 -59.571 -404 Intake: IV 10 Invasive Line 1 10 Intake, IV Titration 50.367 90.429 Amount Heparin Sod,Pork in 0.45% 50.367 90.429 NaCl 25,000 unit In 0.45 % NaCl 1 250ml.bag @ 12 UNITS/KG/HR 7.729 mls/hr IV .Q24H [facility] Rx#: [id number] Oral 240 0 446 Output: Urine 900 150 850 Other: # Voids 0 2 Weight 67.7 kg 67.9 kg 67.9 kg Results - Lab Results Most recent lab results Calcium 9.0 mg/dL (8.4-10.2) 07/16/18 10:20 Magnesium 2.3 mg/dL (1.6-2.3) 07/16/18 10:20 07/16/18 10:20 07/16/18 10:20 Assessment and Plan Plan: Assessment: 1. Acute kidney injury mostly prerenal secondary to hemodynamic instability and diuresis. Creatinine 1.49 on admission. UA benign. 2. Chronic kidney disease stage III with baseline creatinine in the range of 1- 1.3 secondary to nephrosclerosis. 3. Diastolic CHF. Currently compensated. 4. Chest pain. Cardiology following. Potential cardiac catheterization this admission. Plan: Maintain Lasix 20 mg orally twice daily. Morning labs pending. I discussed with the patient and her family the risk of developing worsening kidney failure potentially requiring the need for renal replacement therapy after exposure to IV contrast. They understand and are willing to proceed with cardiac catheterization if needed. I will hydrate the patient with normal saline at 75 mL an hour to be started 8-10 hours prior to the procedure and to be continued for at least 10-12 hours post procedure. Thank you for the consultation. I will continue to follow the patient with you during her hospital stay.
[2018-07-17] MEDS ORDERED: ALPRAZolam 0.25 MG TAB PO PRN (13:26)
[2018-07-17] MEDS ORDERED: NITROGLYCERIN SL TABS 0.4 MG TAB SUBLINGUAL PRN (13:26)
[2018-07-17] MEDS ORDERED: ALPRAZolam 0.5 MG TAB PO PRN (13:26)
--- NOTE | 2018-07-17 14:03 | P.CNPUL ---
History of Present Illness Consult date: 07/17/18 Reason for consult: dyspnea, chest pain Chief complaint: Chest discomfort or shortness of breath History of present illness: 87-year-old female who was admitted into the hospital after an episode of chest discomfort and shortness of breath , she denies any chest pain or sputum production the chest discomfort was transient thought to be related to A. fib with rapid ventricular response noted to have mildly elevated cardiac enzyme and she is been worked up for acute non-ST segment elevated MS she has chronic renal failure hypertension hypertensive cardiovascular disease, on specific questioning she denies any loss of consciousness, denies any wheezing denies any cough or sputum production denies any abdominal pain Review of Systems All systems: negative Past Medical History Past Medical History: Atrial Fibrillation, CVA/TIA, Hypertension, Osteoarthritis (OA), Renal Disease Additional Past Medical History / Comment(s): HX PANCREATITIS 2011 OR 2010, LOWER BACK PAIN-HARD TO WALK FAR- USES CANE OR WALKER. TIA X 2. states Stage 3 kidney dx, AFIB History of Any Multi-Drug Resistant Organisms: None Reported Past Surgical History: Adenoidectomy, Appendectomy, Back Surgery, Cholecystectomy, Hernia Repair, Joint Replacement, Tonsillectomy Additional Past Surgical History / Comment(s): Low back surgery, CATARACTS TAMAR, INCISIONAL HERNIA, RT KNEE REPLACEMENT, TAMAR.VARICOSE VEIN STRIPPING, PAIN CLINIC PROCEDURES, COLONOSCOPY, EGD Past Anesthesia/Blood Transfusion Reactions: No Reported Reaction Additional Past Anesthesia/Blood Transfusion Reaction / Comment(s): reluctant to receive any anesthesia, wants family meeting prior to any procedures involving anesthesia Past Psychological History: No Psychological Hx Reported Additional Psychological History / Comment(s): . Smoking Status: Former smoker Past Alcohol Use History: Rare Additional Past Alcohol Use History / Comment(s): STARTED SMOKING @ AGE 19 (1951) QUIT @ AGE 57(1987) WAS 2 PPD Past Drug Use History: None Reported - Past Family History Father Family Medical History: No Reported History Additional Family Medical History / Comment(s): Father at age 84 yrs of old age. Mother Family Medical History: Cancer Additional Family Medical History / Comment(s): Mother at age 53yrs of ovarian cancer. Brother(s) Family Medical History: Cancer Additional Family Medical History / Comment(s): BRAIN CA Medications and Allergies Home Medications Medication Instructions Recorded Confirmed Type Aspirin 81 mg PO DAILY 07/08/13 07/16/18 History QUEtiapine [SEROquel] 50 mg PO HS 05/08/18 07/16/18 History QUEtiapine [SEROquel] 100 mg PO HS 05/08/18 07/16/18 History Metoprolol Succinate (ER) [Toprol 50 mg PO DAILY tab.er.24h 05/14/18 07/16/18 Rx XL] Atorvastatin [Lipitor] 20 mg PO HS 06/23/18 07/16/18 History HYDROcodone/APAP 7.5-325MG [[place] 1 tab PO HS 06/23/18 07/16/18 History 7.5-325] Multivitamins, Thera [Multivitamin 1 tab PO DAILY 06/23/18 07/16/18 History (formulary)] Furosemide [Lasix] 20 mg PO BID #60 tab 06/29/18 07/16/18 Rx Ipratropium-Albuterol Nebulize 3 ml INHALATION RT-QID #120 06/29/18 07/16/18 Rx [Duoneb 0.5 mg-3 mg/3 ml Soln] ampul.neb Omeprazole [PriLOSEC] 20 mg PO AC-BID #60 cap 06/29/18 07/16/18 Rx Apixaban [Eliquis] 2.5 mg PO BID #60 tablet 07/10/18 07/16/18 Rx Isosorbide Mononitrate ER [Imdur] 30 mg PO DAILY #30 tab.er.24h 07/10/18 07/16/18 Rx Allergies Allergy/AdvReac Type Severity Reaction Status Date / Time No Known Allergies Allergy Verified 07/16/18 10:46 Physical Exam Vitals: Vital Signs Temp Pulse Pulse Resp BP BP BP 07/17/18 12:00 97.6 F 71 69 18 169/67 07/17/18 08:00 97.7 F 87 18 122/51 07/17/18 07:42 78 07/17/18 07:33 83 18 07/17/18 04:00 97.6 F 76 16 112/62 07/17/18 00:00 98 F 68 16 114/72 07/16/18 20:46 72 07/16/18 20:38 71 07/16/18 20:00 98.1 F 64 16 128/64 07/16/18 16:00 98.0 F 77 18 166/66 07/16/18 15:58 98.1 F 70 18 07/16/18 15:30 71 18 146/67 07/16/18 14:30 101 H 20 123/67 07/16/18 13:57 98.3 F 121 H 18 112/81 Pulse Ox 07/17/18 12:00 100 07/17/18 08:00 100 07/17/18 07:42 07/17/18 07:33 95 07/17/18 04:00 96 07/17/18 00:00 98 07/16/18 20:46 07/16/18 20:38 07/16/18 20:00 97 07/16/18 16:00 96 07/16/18 15:58 99 07/16/18 15:30 99 07/16/18 14:30 99 07/16/18 13:57 Intake and Output 07/16/18 07/17/18 07/17/18 22:59 06:59 14:59 Intake Total 300.367 90.429 686 Output Total 900 150 850 Balance -599.633 -59.571 -164 Intake: IV 10 Invasive Line 1 10 Intake, IV Titration 50.367 90.429 Amount Heparin Sod,Pork in 0.45% 50.367 90.429 NaCl 25,000 unit In 0.45 % NaCl 1 250ml.bag @ 12 UNITS/KG/HR 7.729 mls/hr IV .Q24H [facility] Rx#: [id number] Oral 240 0 686 Output: Urine 900 150 850 Other: # Voids 0 2 Weight 67.7 kg 67.9 kg 67.9 kg - Constitutional General appearance: average body habitus, cooperative, disheveled, mild distress - EENT Eyes: EOMI, PERRLA, normal appearance ENT: hard of hearing Ears: bilateral: normal - Neck Neck: normal ROM Carotids: bilateral: upstroke normal Thyroid: bilateral: normal size - Respiratory Respiratory: bilateral: rales (Bilateral basal Rales), negative: CTA, diminished, dullness, rhonchi, wheezing, prolonged expiration - Cardiovascular Rhythm: regular Heart sounds: normal: S1, S2 - Gastrointestinal General gastrointestinal: normal bowel sounds, soft - Integumentary Integumentary: normal turgor - Neurologic Neurologic: CNII-XII intact - Musculoskeletal Musculoskeletal: gait normal, generalized weakness, strength equal bilaterally - Psychiatric Psychiatric: A&O x's 3, appropriate affect, intact judgment & insight Results - Laboratory Findings CBC and BMP: 07/16/18 10:20 07/16/18 10:20 PT/INR, D-dimer PT 11.2 sec (9.0-12.0) 07/16/18 10:20 INR 1.1 (<1.2) 07/16/18 10:20 Abnormal lab findings: Abnormal Labs 07/16/18 07/16/18 07/16/18 10:20 10:20 10:20 RBC 3.76 L APTT BUN 66 H Creatinine 1.49 H Glucose 145 H Troponin I 0.058 H* Total Protein 6.2 L Albumin 3.3 L Triglycerides 07/16/18 07/16/18 07/16/18 10:20 16:18 18:27 RBC APTT 50.9 H BUN Creatinine Glucose Troponin I 0.049 H* Total Protein Albumin Triglycerides 156 H 07/17/18 05:39 RBC APTT 55.9 H BUN Creatinine Glucose Troponin I Total Protein Albumin Triglycerides - Diagnostic Findings Chest x-ray: report reviewed, image reviewed (Right lower lobe atelectasis, small pleural effusion, COPD-like changes, doubt pneumonia) Assessment and Plan Assessment: Right lower lobe atelectasis Small right-sided effusion Suspect they're related to congestive heart failure /acute diastolic heart failure Doubt pneumonia Non-ST segment elevated MS cannot be excluded Chronic renal failure stage III A. fib with rapid ventricular response Acute diastolic heart failure Plan: Gentle diuresis Hold antibiotics Agree with breathing treatments We will obtain a repeat chest x-ray after diuresis Further recommendations pending plan of care as per clinical response of the patient Agree with more definitive intervention for A. fib Time with Patient: Greater than 30
[2018-07-17] MEDS: HEPARIN SOD,PORK IN 0.45% NACL 25,000 UNIT in 0.45% NACL 1 250ML.BAG IV SCH ×2 (15:52→19:40)
--- NOTE | 2018-07-17 15:58 | P.PN ---
Subjective Progress Note Date: 07/17/18 This is a pleasant 87-year-old female patient with a past medical history significant for paroxysmal atrial fibrillation, hypertension, dyslipidemia, and chronic kidney disease, was brought to the emergency room by her daughter because of chest discomfort. This is the third admission for the patient with a chest discomfort within the last several weeks. The patient was in her usual state of health until yesterday showed was playing cards with her friends and she felt tired, fatigued, and weak, and she went to bed. She woke up during the night walking to the bathroom and she was experiencing chest discomfort. She did have another episode of chest discomfort earlier today. The patient described the discomfort as a pressure in the mid of the chest, without any radiation to the arm or neck or shoulders, and without any associated symptoms of shortness of breath, nausea, dizziness, heart racing, or syncope. No sweating as well as. The EKG showed what it seems to be atrial fibrillation without any ischemic ST or T-wave abnormalities. The first set of troponin came in to be slightly abnormal. The patient did have 2 previous admissions in June 2018 with a chest discomfort. In April 2018 she underwent a myocardial perfusion imaging stress test here in this hospital and that showed ischemia. For some reason the patient did not have any coronary angiogram after that probably because of her chronic kidney disease. 07/17/2018 Patient was seen and examined this morning, she denies any further episodes of chest discomfort, I did have a lengthy discussion with her and her daughter, and son via phone conversation and in life, the risks of undergoing cardiac catheterization were explained to them in detail, especially the risks of to the kidneys. The patient and the children wish to undergo cardiac catheterization. This will be performed tomorrow by Dr. Soto. Hemodynamically the patient is stable. Objective - Vital Signs Vital signs: Vital Signs Temp 97.6 F 07/17/18 12:00 Pulse 70 07/17/18 12:11 Resp 16 07/17/18 12:11 BP 169/67 07/17/18 12:00 Pulse Ox 100 07/17/18 12:00 Intake & Output 07/16/18 07/17/18 07/17/18 18:59 06:59 18:59 Intake Total 300.367 90.429 756.978 Output Total 300 750 850 Balance 0.367 -659.571 -93.022 Weight 67.7 kg 67.9 kg 67.9 kg Intake: IV 10 Invasive Line 1 10 Intake, IV Titration 50.367 90.429 70.978 Amount Heparin Sod,Pork in 0.45% 50.367 90.429 70.978 NaCl 25,000 unit In 0.45 % NaCl 1 250ml.bag @ 12 UNITS/KG/HR 7.729 mls/hr IV .Q24H [facility] Rx#: [id number] Oral 240 0 686 Output: Urine 300 750 850 Other: # Voids 0 2 - Exam PHYSICAL EXAMINATION: GENERAL: 87-year-old female in no acute distress at the time of my examination HEENT: Head is atraumatic, normocephalic. Pupils equal, round. Sclera anicteric. Conjunctiva are clear. Mucous membranes of the mouth are moist. Neck is supple. There is no elevated jugular venous pressure. No carotid bruit is heard. HEART EXAMINATION: Heart S1 S2 1 systolic murmur is heard CHEST EXAMINATION: Lungs are clear to auscultation and precussion. No chest wall tenderness is noted on palpation or with deep breathing. ABDOMEN: Soft, nontender. Bowel sounds are heard. No organomegaly noted. EXTREMITIES: 2+ peripheral pulses with no evidence of peripheral edema and no calf tenderness noted. NEUROLOGIC patient is awake, alert and oriented 3 . . - Labs CBC & Chem 7: 07/16/18 10:20 07/16/18 10:20 Labs: Abnormal Lab Results - Last 24 Hours (Table) 07/16/18 07/16/18 07/16/18 Range/Units 10:20 16:18 18:27 APTT 50.9 H (22.0-30.0) sec Troponin I 0.049 H* (0.000-0.034) ng/mL Triglycerides 156 H (<150) mg/dL 07/17/18 Range/Units 05:39 APTT 55.9 H (22.0-30.0) sec Troponin I (0.000-0.034) ng/mL Triglycerides (<150) mg/dL Assessment and Plan Plan: Assessment #1 chest discomfort concerning for angina. #2 mildly abnormal cardiac enzymes could be secondary to the chronic kidney disease with acute non-ST elevation myocardial infarction to be considered #3 hypertension #4 paroxysmal atrial fibrillation Plan We will proceed with cardiac catheterization tomorrow, the risks and the benefits were explained to the patient and her family in detail and they're willing to proceed. We will hydrate the patient at 75 mL per hour. DNP note has been reviewed, I agree with a documented findings and plan of care. Patient was seen and examined.
[2018-07-17] MEDS: ATORVASTATIN 20 MG TAB PO SCH (21:43)
[2018-07-17] MEDS: HYDROcodone/APAP 7.5-325MG 1 EACH TAB PO SCH (21:43)
[2018-07-17] MEDS: QUEtiapine 50 MG TAB PO SCH (21:44)
[2018-07-18] MEDS: SODIUM CHLORIDE 0.9% 1,000 ML IV SCH ×2 (01:30→11:26)
[2018-07-18] MEDS: ASPIRIN 81 MG PO SCH (03:41)
[2018-07-18] MEDS ORDERED: SODIUM CHLORIDE 0.9% 1,000 ML in EMPTY BAG 1 BAG IV ONE (06:00)
[2018-07-18] MEDS ORDERED: ATORVASTATIN 80 MG TAB PO ONE (06:00)
[2018-07-18] MEDS ORDERED: ASPIRIN 325 MG TAB PO ONE (06:00)
[2018-07-18 06:12] LABS: Glucose,Whole Blood 102 mg/dL (75-99)
[2018-07-18] MEDS: DOCUSATE 100 MG CAP PO SCH ×2 (06:27→20:48)
[2018-07-18] MEDS: FUROSEMIDE 20 MG TAB PO SCH (06:27)
[2018-07-18] MEDS: MULTIVITAMINS, THERA 1 EACH TAB PO SCH (06:27)
[2018-07-18] MEDS: PANTOPRAZOLE 40 MG TABLET PO SCH ×2 (06:27→15:31)
[2018-07-18] MEDS: RANOLAZINE 500 MG TAB.ER.12H PO SCH ×2 (06:27→20:49)
[2018-07-18] MEDS: METOPROLOL SUCCINATE (ER) 50 MG TAB.ER.24H PO SCH (06:27)
--- NOTE | 2018-07-18 07:47 | XR ---
EXAMINATION TYPE: XR chest 1V portable DATE OF EXAM: 07/18/2018 COMPARISON: Chest x-ray 07/16/2018 HISTORY: Atelectasis TECHNIQUE: Single frontal view of the chest is obtained. FINDINGS: Findings are similar to prior exam. IMPRESSION: Residual atelectasis or scarring. Correlate for COPD.
[2018-07-18] MEDS: IPRATROPIUM-ALBUTEROL 3 ML NEB INHALATION SCH ×4 (08:56→20:18)
[2018-07-18 09:35] LABS: Calcium 9.1 mg/dL (8.4-10.2); Magnesium 2.1 mg/dL (1.6-2.3); Potassium 4.3 mmol/L (3.5-5.1)
--- NOTE | 2018-07-18 11:36 | P.PN ---
Subjective Patient is seen in follow-up for acute kidney injury on chronic kidney disease. Patient has chronic any disease stage III secondary to nephrosclerosis with baseline creatinine in the range of 1.1-1.3. Creatinine today is up to 1.6. She scheduled for cardiac catheterization today. No edema. Good urine output. No active chest pain or shortness of breath. Vital signs are stable. General: The patient appeared well nourished and normally developed. HEENT: Head exam is unremarkable. Neck is without jugular venous distension. LUNGS: Lungs are clear to auscultation and percussion. Breath sounds decreased. HEART: Rate and Rhythm are regular. First and second heart sounds normal. No murmurs, rubs or gallops. ABDOMEN: Abdominal exam reveals normal bowel sounds. Non-tender and non- distended. No evidence of peritonitis. EXTREMITITES: No clubbing, cyanosis, or edema. Objective - Vital Signs Vital signs: Vital Signs Temp 97.9 F 07/18/18 08:00 Pulse 72 07/18/18 09:10 Resp 18 07/18/18 08:00 BP 135/63 07/18/18 08:00 Pulse Ox 96 07/18/18 08:00 Intake & Output 07/17/18 07/18/18 07/18/18 18:59 06:59 18:59 Intake Total 1236.978 628.855 Output Total 1275 Balance -38.022 628.855 Weight 67.9 kg 67.9 kg Intake: Intake, IV Titration 70.978 628.855 Amount Heparin Sod,Pork in 0.45% 70.978 28.855 NaCl 25,000 unit In 0.45 % NaCl 1 250ml.bag @ 12 UNITS/KG/HR 7.729 mls/hr IV .Q24H [facility] Rx#: [id number] Sodium Chloride 0.9% 1, 600 000 ml @ 75 mls/hr IV . [id number] [facility] Rx#:[id number] Oral 1166 Output: Urine 1275 Other: Voiding Method Toilet Toilet # Voids 2 1 - Labs CBC & Chem 7: 07/16/18 10:20 07/18/18 07:39 Labs: Abnormal Lab Results - Last 24 Hours (Table) 07/18/18 07/18/18 07/18/18 Range/Units 06:10 07:39 07:39 APTT 52.2 H (22.0-30.0) sec Chloride 109 H (98-107) mmol/L BUN 45 H (7-17) mg/dL Creatinine 1.60 H (0.52-1.04) mg/dL POC Glucose (mg/dL) 102 H (75-99) mg/dL Assessment and Plan Plan: Assessment: 1. Acute kidney injury mostly prerenal secondary to hemodynamic instability and diuresis. Creatinine 1.49 on admission - 1.6 today. UA benign. 2. Chronic kidney disease stage III with baseline creatinine in the range of 1- 1.3 secondary to nephrosclerosis. 3. Diastolic CHF. Currently compensated. 4. Chest pain. Cardiology following. Cardiac catheterization today. Plan: Hold Lasix. I discussed with the patient and her family the risk of developing worsening kidney failure potentially requiring the need for renal replacement therapy after exposure to IV contrast. They understand and are willing to proceed with cardiac catheterization. Continue normal saline at 75 mL an hour till 12 hours post cardiac catheterization. Continue to monitor renal function and urine output closely.
--- NOTE | 2018-07-18 18:00 | P.PN ---
Subjective Progress Note Date: 07/17/18 This is an 87-year-old female admitted with chest tightness, mildly elevated troponins,atrial fibrillation with RVR and multiple other medical issues. Evaluated by cardiology and cardiac catheterization scheduled for tomorrow.IV fluid hydration prior to and post procedure as per Nephrology. Currently denies chest pain, palpitations or shortness of breath. Denies lightheadedness, dizziness, focal deficits. Objective - Vital Signs Vital signs: Vital Signs Temp 97.7 F 07/17/18 08:00 Pulse 71 07/17/18 12:00 Resp 16 07/17/18 12:00 BP 122/51 07/17/18 08:00 Pulse Ox 100 07/17/18 08:00 Intake & Output 07/16/18 07/17/18 07/17/18 18:59 06:59 18:59 Intake Total 300.367 90.429 446 Output Total 300 750 850 Balance 0.367 -659.571 -404 Weight 67.7 kg 67.9 kg 67.9 kg Intake: IV 10 Invasive Line 1 10 Intake, IV Titration 50.367 90.429 Amount Heparin Sod,Pork in 0.45% 50.367 90.429 NaCl 25,000 unit In 0.45 % NaCl 1 250ml.bag @ 12 UNITS/KG/HR 7.729 mls/hr IV .Q24H JS Rx#: [id number] Oral 240 0 446 Output: Urine 300 750 850 Other: # Voids 0 2 - Exam VITAL SIGNS: As above GENERAL: Sitting up in bed, no acute distress HEENT: Conjunctivae normal. eyes normal. Oral mucosa moist NECK: No JVD. No thyroid enlargement. No LNs CARDIOVASCULAR: S1, S2 muffled. Systolic murmur, no rubs, no gallops RESPIRATION: Breath sounds diminished in the bases. No rhonchi or crackles. No bronchial breathing. ABDOMEN: Soft, nontender . No guarding. no masses palpable. Bowel sounds heard. LEGS: No edema. no swelling , no clubbing, no cyanosis. PSYCHIATRY: Alert and oriented -3, mood and affect normal. NERVOUS SYSTEM: Cranial N 2-12 grossly normal. Moves all 4 limbs. Diffuse weakness No focal deficits. Skin: no ulcer no rash Joints: No active swelling. No inflammation. Lymphatic system. No LN neck axilla or groin. - Labs CBC & Chem 7: 07/16/18 10:20 07/18/18 07:39 Labs: Abnormal Lab Results - Last 24 Hours (Table) 07/16/18 07/16/18 07/16/18 Range/Units 10:20 16:18 18:27 APTT 50.9 H (22.0-30.0) sec Troponin I 0.049 H* (0.000-0.034) ng/mL Triglycerides 156 H (<150) mg/dL 07/17/18 Range/Units 05:39 APTT 55.9 H (22.0-30.0) sec Troponin I (0.000-0.034) ng/mL Triglycerides (<150) mg/dL Assessment and Plan Assessment: -Atypical chest Pain, possible unstable angina -Elevated troponin, mild, possibly related to CKD, possibly acute non-STEMI -Acute renal failure, prerenal secondary to dehydration -Paroxysmal atrial fibrillation -Chronic kidney disease, stage III, secondary to nephrosclerosis ,baseline creatinine 1.1.3 -Chronic Diastolic CHF -History of Elevated lipase of unclear etiology,Possible chronic pancreatitis. Prior CT reports Prominence of the common bile duct near the pancreas head., Elevated AFP. -Hypertension -Dyslipidemia -Bibasilar atelectasis Plan: Continue on current medication regime ,monitoring and symptomatic treatment. Cardiac catheterization scheduled for tomorrow with IV fluid hydration prior to the postprocedure per nephrology. Close monitoring of renal function and electrolytes with labs ordered for a.m. prognosis guarded given multiple complex medical issues. Further recommendations to follow. The impression and plan of care has been dictated as directed. : I performed a history and examination of this patient, discussed the same with the dictator. I agree with the dictator's note ,documented as a scribe. Any additional findings or plans will be noted.
--- NOTE | 2018-07-18 18:15 | P.PN ---
Subjective Progress Note Date: 07/18/18 This is an 87-year-old female admitted with chest tightness, mildly elevated troponins,atrial fibrillation with RVR and multiple other medical issues. Evaluated by cardiology and cardiac catheterization scheduled for tomorrow.IV fluid hydration prior to and post procedure as per Nephrology. Currently denies chest pain, palpitations or shortness of breath. Denies lightheadedness, dizziness, focal deficits. 07/18/2018 patient's schedule bumped- cardiac catheterization rescheduled for tomorrow. IV fluids placed on hold. Denies chest pain, palpitations or shortness of breath. MRI after cardiac catheterization. Objective - Vital Signs Vital signs: Vital Signs Temp 96.6 F L 07/18/18 16:00 Pulse 72 07/18/18 17:13 Resp 16 07/18/18 17:13 BP 98/55 07/18/18 16:00 Pulse Ox 95 07/18/18 16:00 Intake & Output 07/17/18 07/18/18 07/18/18 18:59 06:59 18:59 Intake Total 1236.978 628.855 Output Total 1275 Balance -38.022 628.855 Weight 67.9 kg 67.9 kg Intake: Intake, IV Titration 70.978 628.855 Amount Heparin Sod,Pork in 0.45% 70.978 28.855 NaCl 25,000 unit In 0.45 % NaCl 1 250ml.bag @ 12 UNITS/KG/HR 7.729 mls/hr IV .Q24H JS Rx#: [id number] Sodium Chloride 0.9% 1, 600 000 ml @ 75 mls/hr IV . [id number] JS Rx#:[id number] Oral 1166 Output: Urine 1275 Other: Voiding Method Toilet Toilet # Voids 2 1 1 - Exam VITAL SIGNS: As above GENERAL: Sitting up in bed, no acute distress HEENT: Conjunctivae normal. eyes normal. Oral mucosa moist NECK: No JVD. No thyroid enlargement. No LNs CARDIOVASCULAR: S1, S2 muffled. Systolic murmur, no rubs, no gallops RESPIRATION: Breath sounds diminished in the bases. No rhonchi or crackles. No bronchial breathing. ABDOMEN: Soft, nontender . No guarding. no masses palpable. Bowel sounds heard. LEGS: No edema. no swelling , no clubbing, no cyanosis. PSYCHIATRY: Alert and oriented -3, mood and affect normal. NERVOUS SYSTEM: Cranial N 2-12 grossly normal. Moves all 4 limbs. Diffuse weakness No focal deficits. Skin: no ulcer no rash - Labs CBC & Chem 7: 07/16/18 10:20 07/18/18 07:39 Labs: Abnormal Lab Results - Last 24 Hours (Table) 07/18/18 07/18/18 07/18/18 Range/Units 06:10 07:39 07:39 APTT 52.2 H (22.0-30.0) sec Chloride 109 H (98-107) mmol/L BUN 45 H (7-17) mg/dL Creatinine 1.60 H (0.52-1.04) mg/dL POC Glucose (mg/dL) 102 H (75-99) mg/dL Assessment and Plan Assessment: -Atypical chest Pain, possible unstable angina -Elevated troponin, mild, possibly related to CKD, possibly acute non-STEMI -Acute renal failure, prerenal secondary to dehydration -Paroxysmal atrial fibrillation -Chronic kidney disease, stage III, secondary to nephrosclerosis ,baseline creatinine 1.1.3 -Chronic Diastolic CHF -History of Elevated lipase of unclear etiology,Possible chronic pancreatitis. Prior CT reports Prominence of the common bile duct near the pancreas head., Elevated AFP. -Hypertension -Dyslipidemia -Bibasilar atelectasis Plan: Continue on current medication regime ,monitoring and symptomatic treatment. Cardiac catheterization rescheduled for tomorrow with IV fluid hydration prior to the postprocedure per nephrology. Close monitoring of renal function and electrolytes with labs ordered for a.m. MRI ordered for after cardiac catheterization regarding elevated AFP and possible chronic pancreatitis.subacute rehab at discharge. Further recommendations to follow. The impression and plan of care has been dictated as directed. : I performed a history and examination of this patient, discussed the same with the dictator. I agree with the dictator's note ,documented as a scribe. Any additional findings or plans will be noted.
[2018-07-18] MEDS: QUEtiapine 50 MG TAB PO SCH (20:48)
[2018-07-18] MEDS: ATORVASTATIN 20 MG TAB PO SCH (20:48)
[2018-07-18] MEDS: HYDROcodone/APAP 7.5-325MG 1 EACH TAB PO SCH (20:48)
[2018-07-18] MEDS: HEPARIN SOD,PORK IN 0.45% NACL 25,000 UNIT in 0.45% NACL 1 250ML.BAG IV SCH (23:58)
[2018-07-19] MEDS: SODIUM CHLORIDE 0.9% 1,000 ML IV SCH ×2 (04:00→15:35)
[2018-07-19] MEDS ORDERED: ASPIRIN 325 MG TAB PO STA (05:27)
[2018-07-19] MEDS ORDERED: ATORVASTATIN 80 MG TAB PO STA (05:28)
[2018-07-19] MEDS: ASPIRIN 81 MG PO SCH (05:30)
[2018-07-19] MEDS: DOCUSATE 100 MG CAP PO SCH ×2 (05:33→20:09)
[2018-07-19] MEDS: PANTOPRAZOLE 40 MG TABLET PO SCH ×2 (05:33→15:35)
[2018-07-19] MEDS: MULTIVITAMINS, THERA 1 EACH TAB PO SCH (05:33)
[2018-07-19] MEDS: METOPROLOL SUCCINATE (ER) 50 MG TAB.ER.24H PO SCH (05:33)
[2018-07-19] MEDS: RANOLAZINE 500 MG TAB.ER.12H PO SCH ×2 (05:34→20:09)
[2018-07-19] MEDS ORDERED: IV FLUID CONTINUATION 400 ML IV ONE (08:07)
[2018-07-19] MEDS ORDERED: MIDAZOLAM (PF) 2 MG/2 ML VIAL IVP ONE (08:07)
[2018-07-19] MEDS ORDERED: LIDOCAINE 1% INJ 10MG/ML (20 ML MDV) SQ ONE (08:12)
[2018-07-19 08:25] LABS: Calcium 8.8 mg/dL (8.4-10.2); Magnesium 2.1 mg/dL (1.6-2.3); Potassium 4.2 mmol/L (3.5-5.1)
[2018-07-19] MEDS: IPRATROPIUM-ALBUTEROL 3 ML NEB INHALATION SCH ×4 (08:27→20:26)
[2018-07-19] MEDS ORDERED: IOPAMIDOL-370 125ML BTL INJ ONE (08:30)
[2018-07-19] MEDS ORDERED: RX INFO: IV CONTRAST WAS GIVEN 1 EACH MISC MISCELLANE PRN (08:40)
[2018-07-19] MEDS ORDERED: SODIUM CHLORIDE 0.9% 1,000 ML IV SCH (08:45)
--- NOTE | 2018-07-19 09:27 | CC ---
CARDIAC CATHETERIZATION REPORT DATE OF SERVICE: 07/19/2018 PERFORMING PHYSICIAN: Warren Roach MD, [facility]. PROCEDURE PERFORMED: 1. Selective right and left coronary angiogram. 2. Left heart catheterization. INDICATION: This is an 87-year-old female patient with hypertension and dyslipidemia and paroxysmal atrial fibrillation, who presented to the hospital with chest discomfort and ruled in for acute non ST elevation myocardial infarction. She did have multiple hospital admissions with chest discomfort within the last year. Recently, she underwent a stress test and that revealed an anterior ischemia. Because of the recurrent chest discomfort, we did recommend proceeding with coronary angiogram. APPROACH: Right common femoral artery. COMPLICATION: None. LEVEL OF SEDATION: Moderate with sedation length of 20 minutes. PROCEDURE DESCRIPTION: After obtaining an informed consent, the patient was brought to the cardiac laborer cheesemaking. The right common femoral artery was cannulated using micropuncture technique and a micropuncture wire passed easily, then I placed a 6-[place] sheath in the right common femoral artery and I did selective right and left coronary angiogram using JR4 and JL4 catheters. Left heart catheterization was performed using the JR4 catheter which crossed the aortic valve. Then I did pullback across aortic valve. The procedure was completed without any complication. SELECTIVE CORONARY ANGIOGRAM: 1. The right coronary artery is a large caliber vessel and it is a dominant vessel. The RCA is chronically occluded in the midportion and fills by collaterals from the left coronary system. 2. The left main is angiographically normal. It bifurcates into left circumflex and left anterior descending artery. 3. The left circumflex is a large caliber vessel and it is a codominant vessel and appeared to be angiographically normal. It gives rise into a large OM branch which seems to be normal. 4. The LAD, the proximal LAD has mild disease only. The mid LAD appeared to have mild disease as well. The LAD in the proximal portion gives rise into a medium-sized diagonal branch which has a lesion about 99.9%. 5. The mid to distal LAD has a lesion appeared to be in the range of 50% to 60%. 6. HEMODYNAMICS: The left ventricular end-diastolic pressure was about 10 mmHg without significant gradient across the aortic valve. CONCLUSION: 1. Chronic total occlusion of the right coronary artery which fills by collaterals from the left coronary system. 2. Severe disease involving the first diagonal branch of the left anterior descending artery, which is a medium sized diagonal. 3. Intermediate to severe disease involving the mid to distal left anterior descending artery. POSTPROCEDURE MANAGEMENT: 1. Giving her chronic kidney disease where her max contrast was 80 ml, I did recommend maximized medical treatment at this point. 2. If the patient continues to have chest discomfort in the next 24 hours, I would recommend proceeding with PCI of the diagonal and also assess for ischemia in the LAD. MMODL / IJN: [id number] /
--- NOTE | 2018-07-19 10:11 | P.PN ---
Subjective Patient is seen in follow-up for acute kidney injury on chronic kidney disease. Patient has chronic any disease stage III secondary to nephrosclerosis with baseline creatinine in the range of 1.1-1.3. Creatinine today is up to 1.84. Patient underwent cardiac catheterization this morning which revealed severe disease involving the first diagonal branch of the LAD. She is scheduled for a stent placement tomorrow. No edema. Good urine output. No active chest pain or shortness of breath. Vital signs are stable. General: The patient appeared well nourished and normally developed. HEENT: Head exam is unremarkable. Neck is without jugular venous distension. LUNGS: Lungs are clear to auscultation and percussion. Breath sounds decreased. HEART: Rate and Rhythm are regular. First and second heart sounds normal. No murmurs, rubs or gallops. ABDOMEN: Abdominal exam reveals normal bowel sounds. Non-tender and non- distended. No evidence of peritonitis. EXTREMITITES: No clubbing, cyanosis, or edema. Objective - Vital Signs Vital signs: Vital Signs Temp 97.9 F 07/19/18 05:46 Pulse 92 07/19/18 05:46 Resp 18 07/19/18 05:46 BP 106/63 07/19/18 05:46 Pulse Ox 96 07/19/18 05:46 Intake & Output 07/18/18 07/19/18 07/19/18 18:59 06:59 18:59 Intake Total 861.756 100 Balance 861.756 100 Weight 67.3 kg Intake: IV 100 Intake, IV Titration 861.756 Amount Heparin Sod,Pork in 0.45% 261.756 NaCl 25,000 unit In 0.45 % NaCl 1 250ml.bag @ 12 UNITS/KG/HR 7.729 mls/hr IV .Q24H JS Rx#: [id number] Sodium Chloride 0.9% 1, 600 000 ml @ 75 mls/hr IV . [id number] JS Rx#:[id number] Other: Voiding Method Toilet Toilet # Voids 1 1 - Labs CBC & Chem 7: 07/16/18 10:20 07/19/18 06:47 Labs: Abnormal Lab Results - Last 24 Hours (Table) 07/19/18 07/19/18 Range/Units 06:47 06:47 APTT 39.0 H (22.0-30.0) sec BUN 40 H (7-17) mg/dL Creatinine 1.84 H (0.52-1.04) mg/dL Assessment and Plan Plan: Assessment: 1. Acute kidney injury mostly prerenal secondary to hemodynamic instability and diuresis. Creatinine 1.49 on admission - 1.84 today. UA benign. 2. Chronic kidney disease stage III with baseline creatinine in the range of 1- 1.3 secondary to nephrosclerosis. 3. Diastolic CHF. Currently compensated. 4. Chest pain. Cardiology following. Status post cardiac catheterization this morning which revealed severe disease involving the first diagonal branch of the LAD. Scheduled for stent placement tomorrow. Plan: Hold Lasix. Maintain normal saline at 75 mL an hour. I discussed with the patient and her family the risk of developing worsening kidney failure potentially requiring the need for renal replacement therapy after exposure to IV contrast. Continue to monitor renal function and urine output.
--- NOTE | 2018-07-19 14:11 | P.PN ---
Subjective Progress Note Date: 07/19/18 Principal diagnosis: Coronary artery disease, unstable angina, right lower lobe atelectasis, right- sided small effusion, congestive heart failure acute on chronic diastolic heart failure, non-ST segment elevated RI, chronic renal failure stage III, A. fib with rapid response, 07/19/2018, patient seen eval reexamined during the rounds breathing better heart rate is well controlled patient underwent cath earlier being planned for his stent of diagonal branch of LAD for tomorrow 87-year-old female who was admitted into the hospital after an episode of chest discomfort and shortness of breath , she denies any chest pain or sputum production the chest discomfort was transient thought to be related to A. fib with rapid ventricular response noted to have mildly elevated cardiac enzyme and she is been worked up for acute non-ST segment elevated RI she has chronic renal failure hypertension hypertensive cardiovascular disease, on specific questioning she denies any loss of consciousness, denies any wheezing denies any cough or sputum production denies any abdominal pain Objective - Vital Signs Vital signs: Vital Signs Temp 97.7 F 07/19/18 11:26 Pulse 63 07/19/18 12:26 Resp 18 07/19/18 12:26 BP 159/62 07/19/18 12:26 Pulse Ox 96 07/19/18 12:26 Intake & Output 07/18/18 07/19/18 07/19/18 18:59 06:59 18:59 Intake Total 861.756 100 Balance 861.756 100 Weight 67.3 kg Intake: IV 100 Intake, IV Titration 861.756 Amount Heparin Sod,Pork in 0.45% 261.756 NaCl 25,000 unit In 0.45 % NaCl 1 250ml.bag @ 12 UNITS/KG/HR 7.729 mls/hr IV .Q24H JS Rx#: [id number] Sodium Chloride 0.9% 1, 600 000 ml @ 75 mls/hr IV . [id number] JS Rx#:[id number] Other: Voiding Method Toilet Toilet Toilet # Voids 1 1 - Exam Constitutional General appearance: average body habitus, cooperative, disheveled, mild distress - EENT Eyes: EOMI, PERRLA, normal appearance ENT: hard of hearing Ears: bilateral: normal - Neck Neck: normal ROM Carotids: bilateral: upstroke normal Thyroid: bilateral: normal size - Respiratory Respiratory: bilateral: rales (Bilateral basal Rales), negative: CTA, diminished, dullness, rhonchi, wheezing, prolonged expiration - Cardiovascular Rhythm: regular Heart sounds: normal: S1, S2 - Gastrointestinal General gastrointestinal: normal bowel sounds, soft - Integumentary Integumentary: normal turgor - Neurologic Neurologic: CNII-XII intact - Musculoskeletal Musculoskeletal: gait normal, generalized weakness, strength equal bilaterally - Psychiatric Psychiatric: A&O x's 3, appropriate affect, intact judgment & insight - Labs CBC & Chem 7: 07/16/18 10:20 07/19/18 06:47 Labs: Abnormal Lab Results - Last 24 Hours (Table) 07/19/18 07/19/18 Range/Units 06:47 06:47 APTT 39.0 H (22.0-30.0) sec BUN 40 H (7-17) mg/dL Creatinine 1.84 H (0.52-1.04) mg/dL Assessment and Plan Assessment: Coronary artery disease/stenosis of diagonal branch of LAD Right lower lobe atelectasis Small right-sided effusion Suspect they're related to congestive heart failure /acute diastolic heart failure Doubt pneumonia Non-ST segment elevated RI cannot be excluded Chronic renal failure stage III A. fib with rapid ventricular response Acute diastolic heart failure Plan: Being planned for stent tomorrow Continue Gentle diuresis Hold antibiotics Agree with breathing treatments X-ray reviewed Further recommendations pending plan of care as per clinical response of the p atient Agree with more definitive intervention for A. fib Time with Patient: Greater than 30
--- NOTE | 2018-07-19 16:17 | P.PN ---
Subjective Progress Note Date: 07/19/18 This is an 87-year-old female admitted with chest tightness, mildly elevated troponins,atrial fibrillation with RVR and multiple other medical issues. Evaluated by cardiology and cardiac catheterization scheduled for tomorrow.IV fluid hydration prior to and post procedure as per Nephrology. Currently denies chest pain, palpitations or shortness of breath. Denies lightheadedness, dizziness, focal deficits. 07/18/2018 patient's schedule bumped- cardiac catheterization rescheduled for tomorrow. IV fluids placed on hold. Denies chest pain, palpitations or shortness of breath. MRI after cardiac catheterization. 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 No further chest pain or palpitations. Scheduled for stent placement tomorrow of the diagonal branch. Maintained on IV fluid hydration as per nephrology. Creatinine currently 1.84 , Lasix remains on hold .Denies chest pain, palpitations or shortness of breath. Objective - Vital Signs Vital signs: Vital Signs Temp 97.7 F 07/19/18 11:26 Pulse 63 07/19/18 12:26 Resp 18 07/19/18 12:26 BP 159/62 07/19/18 12:26 Pulse Ox 96 07/19/18 12:26 Intake & Output 07/18/18 07/19/18 07/19/18 18:59 06:59 18:59 Intake Total 861.756 100 Balance 861.756 100 Weight 67.3 kg Intake: IV 100 Intake, IV Titration 861.756 Amount Heparin Sod,Pork in 0.45% 261.756 NaCl 25,000 unit In 0.45 % NaCl 1 250ml.bag @ 12 UNITS/KG/HR 7.729 mls/hr IV .Q24H JS Rx#: [id number] Sodium Chloride 0.9% 1, 600 000 ml @ 75 mls/hr IV . [id number] JS Rx#:[id number] Other: Voiding Method Toilet Toilet Toilet # Voids 1 1 1 - Exam VITAL SIGNS: As above GENERAL: Laying in bed, no acute distress HEENT: Conjunctivae normal. eyes normal. Oral mucosa moist NECK: No JVD. No thyroid enlargement. No LNs CARDIOVASCULAR: S1, S2 muffled. Systolic murmur, no rubs, no gallops RESPIRATION: Breath sounds diminished in the bases. No rhonchi or crackles. No wheezing. ABDOMEN: Soft, nontender . No guarding. no masses palpable. Bowel sounds heard . LEGS: No edema. no swelling , no clubbing, no cyanosis. PSYCHIATRY: Alert and oriented -3, mood and affect normal. NERVOUS SYSTEM: Cranial N 2-12 grossly normal. Moves all 4 limbs. Diffuse weakness No focal deficits. Skin: no ulcer no rash - Labs CBC & Chem 7: 07/16/18 10:20 07/19/18 06:47 Labs: Abnormal Lab Results - Last 24 Hours (Table) 07/19/18 07/19/18 Range/Units 06:47 06:47 APTT 39.0 H (22.0-30.0) sec BUN 40 H (7-17) mg/dL Creatinine 1.84 H (0.52-1.04) mg/dL Assessment and Plan Assessment: -Atypical chest Pain, possible unstable angina -Elevated troponin, mild, possibly related to CKD, possibly acute non-STEMI -Acute renal failure, prerenal secondary to Diuresing,dehydration -Paroxysmal atrial fibrillation -Chronic kidney disease, stage III, secondary to nephrosclerosis ,baseline creatinine 1.1.3 -Chronic Diastolic CHF -History of Elevated lipase of unclear etiology,possible chronic pancreatitis. Prior CT reports Prominence of the common bile duct near the pancreas head., Elevated AFP. -Hypertension -Dyslipidemia -Bibasilar atelectasis Plan: Continue on current medication regime ,monitoring and symptomatic treatme nt. Scheduled for stent placement tomorrow with IV fluid hydration prior to the postprocedure per nephrology. Lasix remains on hold .Close monitoring of renal function and electrolytes with labs ordered for a.m. MRI ordered for after cardiac catheterization regarding chronic pancreatitis.subacute rehab at discharge. Further recommendations to follow. The impression and plan of care has been dictated as directed. : I performed a history and examination of this patient, discussed the same with the dictator. I agree with the dictator's note ,documented as a scribe. Any additional findings or plans will be noted.
[2018-07-19] MEDS: ATORVASTATIN 20 MG TAB PO SCH (20:09)
[2018-07-19] MEDS: HYDROcodone/APAP 7.5-325MG 1 EACH TAB PO SCH (20:09)
[2018-07-19] MEDS: QUEtiapine 50 MG TAB PO SCH (20:09)
[2018-07-20] MEDS: METOPROLOL SUCCINATE (ER) 50 MG TAB.ER.24H PO SCH (06:01)
[2018-07-20] MEDS: DOCUSATE 100 MG CAP PO SCH ×2 (06:01→21:01)
[2018-07-20] MEDS: PANTOPRAZOLE 40 MG TABLET PO SCH ×2 (06:01→16:48)
[2018-07-20] MEDS: RANOLAZINE 500 MG TAB.ER.12H PO SCH ×2 (06:02→21:01)
[2018-07-20] MEDS: MULTIVITAMINS, THERA 1 EACH TAB PO SCH (06:02)
[2018-07-20] MEDS: SODIUM CHLORIDE 0.9% 1,000 ML IV SCH ×2 (06:03→21:00)
[2018-07-20 06:50] LABS: Calcium 9.2 mg/dL (8.4-10.2); Magnesium 2.1 mg/dL (1.6-2.3); Potassium 4.7 mmol/L (3.5-5.1)
[2018-07-20] MEDS: IPRATROPIUM-ALBUTEROL 3 ML NEB INHALATION SCH ×4 (07:49→20:20)
--- NOTE | 2018-07-20 08:19 | P.PN ---
Subjective Patient is seen in follow-up for acute kidney injury on chronic kidney disease. Patient has chronic any disease stage III secondary to nephrosclerosis with baseline creatinine in the range of 1.1-1.3. Creatinine today is stable at 1.83. Patient underwent cardiac catheterization on July 19 which revealed severe disease involving the first diagonal branch of the LAD. She is scheduled for a stent placement today. No edema. Good urine output. No active chest pain or shortness of breath. Vital signs are stable. General: The patient appeared well nourished and normally developed. HEENT: Head exam is unremarkable. Neck is without jugular venous distension. LUNGS: Lungs are clear to auscultation and percussion. Breath sounds decreased. HEART: Rate and Rhythm are regular. First and second heart sounds normal. No murmurs, rubs or gallops. ABDOMEN: Abdominal exam reveals normal bowel sounds. Non-tender and non- distended. No evidence of peritonitis. EXTREMITITES: No clubbing, cyanosis, or edema. Objective - Vital Signs Vital signs: Vital Signs Temp 97.1 F L 07/20/18 03:46 Pulse 75 07/20/18 07:58 Resp 16 07/20/18 07:58 BP 99/67 07/20/18 03:46 Pulse Ox 95 07/20/18 07:49 Intake & Output 07/19/18 07/20/18 07/20/18 18:59 06:59 18:59 Intake Total 322 Output Total 200 Balance 322 -200 Weight 67.1 kg Intake: IV 100 Oral 222 Output: Urine 200 Other: Voiding Method Toilet # Voids 1 1 # Bowel Movements 1 - Labs CBC & Chem 7: 07/16/18 10:20 07/20/18 06:21 Labs: Abnormal Lab Results - Last 24 Hours (Table) 07/19/18 07/20/18 Range/Units 06:47 06:21 Chloride 108 H (98-107) mmol/L Carbon Dioxide 21 L (22-30) mmol/L BUN 40 H 35 H (7-17) mg/dL Creatinine 1.84 H 1.83 H (0.52-1.04) mg/dL Glucose 137 H (74-99) mg/dL Assessment and Plan Plan: Assessment: 1. Acute kidney injury mostly prerenal secondary to hemodynamic instability and diuresis. Creatinine 1.49 on admission - peaked at 1.84 this admission and is stable at 1.83 today. UA benign. Need to monitor for contrast-induced nephropathy. Patient received IV contrast on July 19 for a cardiac catheterization and is scheduled to receive contrast again today when she goes for a stent placement. 2. Chronic kidney disease stage III with baseline creatinine in the range of 1- 1.3 secondary to nephrosclerosis. 3. Diastolic CHF. Currently compensated. 4. Chest pain. Cardiology following. Status post cardiac catheterization on July 19which revealed severe disease involving the first diagonal branch of the LAD. Scheduled for stent placement today. Plan: Hold Lasix. Maintain normal saline at 75 mL an hour. I discussed with the patient and her family the risk of developing worsening kidney failure potentially requiring the need for renal replacement therapy after exposure to IV contrast. Continue to monitor renal function and urine output.
--- NOTE | 2018-07-20 11:06 | MR ---
MR abdomen without contrast HISTORY: Elevated AFP, pancreatitis Multiplanar multisequence imaging through the abdomen Correlation CT abdomen without contrast 07/09/2018 Lack of contrast could compromise the exam. Bilateral cortical cysts are associated with the kidneys as noted on CT, largest cyst at the lower po le on the left measures 12 cm in anterior to posterior dimension. Within the posterior left kidney th ere is a focus corresponding to the abnormality seen on CT, similar finding in the upper to midpole t he right kidney also subcentimeter in size show decreased signal on T2 remains increased signal on T1 -weighted images, possible proteinaceous cysts, some additional scattered subcentimeter foci of incre ased signal within the kidneys are smaller in size. Patient is post cholecystectomy. Common bile duct is dilated. No evident pancreatic mass on this noncontrast exam, mild prominence of the pancreatic d uct. No evident liver mass. There is a T2 intense focus, low signal on T1 consistent with cyst associ ated with the left lobe of the liver measuring only 9 mm, liver and spleen appear stable. Adrenal gla nds are unremarkable. Some dependent atelectatic changes are pleural thickening are noted, minimal pl eural fluid. IMPRESSION: No evident sequelae of pancreatitis. Noncontrast exam. Additional findings above.
[2018-07-20] MEDS ORDERED: HEPARIN SODIUM,PORCINE 5,000 UNIT/ML 1 ML VIAL IV PRN (13:19)
--- NOTE | 2018-07-20 13:21 | P.PN ---
Subjective Progress Note Date: 07/20/18 Principal diagnosis: Coronary artery disease, unstable angina, right lower lobe atelectasis, right- sided small effusion, congestive heart failure acute on chronic diastolic heart failure, non-ST segment elevated [place], chronic renal failure stage III, A. fib with rapid response, 07/20/2018, patient seen and evaluated examined during the rounds she has some loose stool diarrhea for which she is feeling weak but stools are more formed now respiratory status stable denies any chest pain shortness of breath no arrhythmia or tachycardia has been noted, she is awaiting repeat cath and stent placement sometime next week in the meantime renal functions are being monitored and followed 07/19/2018, patient seen eval reexamined during the rounds breathing better heart rate is well controlled patient underwent cath earlier being planned for his stent of diagonal branch of LAD for tomorrow 87-year-old female who was admitted into the hospital after an episode of chest discomfort and shortness of breath , she denies any chest pain or sputum production the chest discomfort was transient thought to be related to A. fib with rapid ventricular response noted to have mildly elevated cardiac enzyme and she is been worked up for acute non-ST segment elevated W[place] she has chronic renal failure hypertension hypertensive cardiovascular disease, on specific questioning she denies any loss of consciousness, denies any wheezing denies any cough or sputum production denies any abdominal pain Objective - Vital Signs Vital signs: Vital Signs Temp 97.9 F 07/20/18 12:00 Pulse 84 07/20/18 12:00 Resp 18 07/20/18 12:00 BP 120/49 07/20/18 12:00 Pulse Ox 96 07/20/18 12:00 Intake & Output 07/19/18 07/20/18 07/20/18 18:59 06:59 18:59 Intake Total 322 81 Output Total 200 Balance 322 -200 81 Weight 67.1 kg Intake: IV 100 81 Sodium Chloride 0.9% 1, 81 000 ml @ 75 mls/hr IV . [id number] [facility] Rx#:[id number] Oral 222 Output: Urine 200 Other: Voiding Method Toilet Toilet # Voids 1 1 # Bowel Movements 1 - Exam Constitutional General appearance: average body habitus, cooperative, disheveled, mild distress - EENT Eyes: EOMI, PERRLA, normal appearance ENT: hard of hearing Ears: bilateral: normal - Neck Neck: normal ROM Carotids: bilateral: upstroke normal Thyroid: bilateral: normal size - Respiratory Respiratory: bilateral: rales (Bilateral basal Rales), negative: CTA, diminished, dullness, rhonchi, wheezing, prolonged expiration - Cardiovascular Rhythm: regular Heart sounds: normal: S1, S2 - Gastrointestinal General gastrointestinal: normal bowel sounds, soft - Integumentary Integumentary: normal turgor - Neurologic Neurologic: CNII-XII intact - Musculoskeletal Musculoskeletal: gait normal, generalized weakness, strength equal bilaterally - Psychiatric Psychiatric: A&O x's 3, appropriate affect, intact judgment & insight - Labs CBC & Chem 7: 07/16/18 10:20 07/20/18 06:21 Labs: Abnormal Lab Results - Last 24 Hours (Table) 07/20/18 Range/Units 06:21 Chloride 108 H (98-107) mmol/L Carbon Dioxide 21 L (22-30) mmol/L BUN 35 H (7-17) mg/dL Creatinine 1.83 H (0.52-1.04) mg/dL Glucose 137 H (74-99) mg/dL Assessment and Plan Assessment: Coronary artery disease/stenosis of diagonal branch of LAD Right lower lobe atelectasis Small right-sided effusion Suspect they're related to congestive heart failure /acute diastolic heart f ailure Doubt pneumonia Non-ST segment elevated [place] cannot be excluded Chronic renal failure stage III A. fib with rapid ventricular response Acute diastolic heart failure Plan: Being planned for sometime early next week Continue Gentle diuresis Hold antibiotics Agree with breathing treatments X-ray reviewed Further recommendations pending plan of care as per clinical response of the patient Agree with more definitive intervention for A. fib Time with Patient: Greater than 30
[2018-07-20] MEDS: HEPARIN SOD,PORK IN 0.45% NACL 25,000 UNIT in 0.45% NACL 1 250ML.BAG IV SCH (13:39)
[2018-07-20] MEDS ORDERED: SODIUM CHLORIDE 0.9% 250 ML IV ONE (16:00)
--- NOTE | 2018-07-20 16:25 | P.PN ---
Subjective Progress Note Date: 07/20/18 07/20/2017: Patient seen and examined covering for Dr. Canela. Patient states that she had a rough night and had chest pain. She is on heparin drip. She denies chest pain or shortness of breath at this time. She states that she is tired and trying to take a nap. She did have some diarrhea earlier today but it seems to have resolved. She is afebrile. Objective - Vital Signs Vital signs: Vital Signs Temp 98.9 F 07/20/18 16:00 Pulse 72 07/20/18 16:00 Resp 16 07/20/18 16:00 BP 94/38 07/20/18 16:00 Pulse Ox 96 07/20/18 16:00 Intake & Output 07/19/18 07/20/18 07/20/18 18:59 06:59 18:59 Intake Total 322 81 Output Total 200 Balance 322 -200 81 Weight 67.1 kg Intake: IV 100 81 Sodium Chloride 0.9% 1, 81 000 ml @ 75 mls/hr IV . [id number] REPLACED BY [facility] Rx#:[id number] Oral 222 Output: Urine 200 Other: Voiding Method Toilet Toilet # Voids 1 1 # Bowel Movements 1 - Exam Gen.: Patient is alert and oriented 3, no acute distress Cardiovascular: Regular rate and rhythm, S1/S2 Lungs: Diminished breath sounds bilaterally otherwise clear Abdomen: Soft nontender nondistended positive bowel sounds Extremities: Trace edema - Labs CBC & Chem 7: 07/16/18 10:20 07/20/18 06:21 Labs: Abnormal Lab Results - Last 24 Hours (Table) 07/20/18 Range/Units 06:21 Chloride 108 H (98-107) mmol/L Carbon Dioxide 21 L (22-30) mmol/L BUN 35 H (7-17) mg/dL Creatinine 1.83 H (0.52-1.04) mg/dL Glucose 137 H (74-99) mg/dL Assessment and Plan Assessment: -Unstable angina -Elevated troponin, mild, possibly related to CKD, possibly acute non-STEMI -Acute renal failure, prerenal secondary to Diuresing,dehydration -Paroxysmal atrial fibrillation -Chronic kidney disease, stage III, secondary to nephrosclerosis ,baseline creatinine 1.1.3 -Chronic Diastolic CHF -History of Elevated lipase of unclear etiology,possible chronic pancreatitis. Prior CT reports Prominence of the common bile duct near the pancreas head., Elevated AFP. -Hypertension -Dyslipidemia -Bibasilar atelectasis Plan: Continue on current medication regime ,monitoring and symptomatic treat ment. Scheduled for stent placement with IV fluid hydration prior to the postprocedure per nephrology. Lasix remains on hold .Close monitoring of renal function and electrolytes with labs ordered for a.m. subacute rehab at discharge. Further recommendations to follow.
--- NOTE | 2018-07-20 18:12 | CONS ---
CONSULTATION This patient has been admitted with recurrent episodes of [id number]-elevation myocardial infarction. The patient was supposed to undergo angioplasty today, but because of the abnormal creatinine it has been put on hold for Monday. Patient is running slightly low blood pressure in the range of 90. We will give her fluid challenge of 250 mL/hour x4 and hold the metoprolol until tomorrow morning. Repeat the electrolytes. We will continue the IV fluids at 50 mL/hour. Patient's creatinine is 1.83. We will continue the heparin because of the history of atrial fibrillation. MMODL / IJN: [id number] /
[2018-07-20] MEDS: QUEtiapine 50 MG TAB PO SCH (21:01)
[2018-07-20] MEDS: HYDROcodone/APAP 7.5-325MG 1 EACH TAB PO SCH (21:01)
[2018-07-20] MEDS: ATORVASTATIN 20 MG TAB PO SCH (21:01)
[2018-07-21] MEDS: PANTOPRAZOLE 40 MG TABLET PO SCH ×2 (07:06→17:57)
[2018-07-21 07:41] LABS: Calcium 8.1 mg/dL (8.4-10.2); Magnesium 2.1 mg/dL (1.6-2.3); Potassium 3.9 mmol/L (3.5-5.1)
[2018-07-21] MEDS: MULTIVITAMINS, THERA 1 EACH TAB PO SCH (08:02)
[2018-07-21] MEDS: DOCUSATE 100 MG CAP PO SCH ×2 (08:02→20:28)
[2018-07-21] MEDS: METOPROLOL SUCCINATE (ER) 50 MG TAB.ER.24H PO SCH (08:02)
[2018-07-21] MEDS: RANOLAZINE 500 MG TAB.ER.12H PO SCH ×2 (08:03→20:28)
[2018-07-21 08:06] LABS: Basophils % (A) 0 %; Eosinophils # (A) 0.3 k/uL (0-0.7); Eosinophils % (A) 5 %; HCT 28.2 % (34.0-46.0); Lymphocytes # (A) 1.3 k/uL (1.0-4.8); Lymphocytes % (A) 22 %; MCHC 32.9 g/dL (31.0-37.0); MCV 97.1 fL (80.0-100.0); Mean Platelet Volume 7.3; Monocytes # (A) 0.4 k/uL (0-1.0); Monocytes % (A) 6 %; Neutrophils # (A) 3.9 k/uL (1.3-7.7); Neutrophils % (A) 64 %; Platelet Count 119 k/uL (150-450); RDW 15.4 % (11.5-15.5); WBC 6.1 k/uL (3.8-10.6)
[2018-07-21 08:20] LABS: HGB 9.3 gm/dL (11.4-16.0)
[2018-07-21] MEDS: IPRATROPIUM-ALBUTEROL 3 ML NEB INHALATION SCH ×4 (08:59→20:33)
--- NOTE | 2018-07-21 10:41 | XR ---
EXAMINATION TYPE: XR chest 1V DATE OF EXAM: 07/21/2018 HISTORY: chf. REFERENCE: Previous study dated 07/18/2018. FINDINGS: Lung volumes are prominent. The heart is mildly enlarged. There is some scarring or atelect asis right midlung. Pulmonary vasculature is normal. I do not see evidence of edema. IMPRESSION: 1. COPD. 2. MILD CARDIOMEGALY. 3. SCARRING VERSUS ATELECTASIS, RIGHT MIDLUNG.
--- NOTE | 2018-07-21 12:13 | PN ---
PROGRESS NOTE The patient is seen for followup for chronic kidney disease and acute kidney injury. Serum creatinine is down to 1.79 from 1.8 yesterday. The patient is status post cardiac catheterization on July 19 which showed severe disease. Patient was going to have another cardiac catheterization angioplasty yesterday but that has currently been postponed to Monday. Patient was started on IV fluids at 50 mL an hour. This morning she denies any significant shortness of breath. No ongoing chest pain. The patient has been voiding. PHYSICAL EXAMINATION: This morning, blood pressure 111/53, heart rate 67 per minute, she is afebrile. Examination of the heart S1, S2. Examination of the lungs, decreased breath sounds at the bases. Abdomen is soft, nontender. Examination of the lower extremities shows trace edema bilaterally. [employer]EL[employer] exam is grossly intact. LABS SHOW: Sodium 139, potassium 3.9, chloride 112, BUN 35, serum creatinine 1.79, hemoglobin 9.3 g/dL. ASSESSMENT: 1. Chronic kidney disease stage 3. Baseline creatinine 1-1.3 secondary to nephrosclerosis. 2. Acute kidney injury, mostly associated with hemodynamic instability and cardiorenal. She was recently diuresed as well. Patient is now maintained on IV fluids. We need to be cautious regarding the IV hydration. Check chest x-ray today. The cardiac cath is postponed until Monday. 3. Diastolic heart failure, currently improved. 4. Status post non ST elevation myocardial infarction. PLAN: Check chest x-ray today. Continue IV fluids and repeat labs in a.m. MMSONIDOL / JUANISN: [id number] /
--- NOTE | 2018-07-21 14:04 | P.PN ---
Subjective Progress Note Date: 07/21/18 Principal diagnosis: Coronary artery disease, unstable angina, right lower lobe atelectasis, right- sided small effusion, congestive heart failure acute on chronic diastolic heart failure, non-ST segment elevated [place], chronic renal failure stage III, A. fib with rapid response, 07/21/2018, patient seen and evaluated examined during the rounds she is feeling bit better her breathing is improved denies any cough or sputum production patient's lab indications reviewed 07/20/2018, patient seen and evaluated examined during the rounds she has some loose stool diarrhea for which she is feeling weak but stools are more formed now respiratory status stable denies any chest pain shortness of breath no arrhythmia or tachycardia has been noted, she is awaiting repeat cath and stent placement sometime next week in the meantime renal functions are being monitored and followed 07/19/2018, patient seen eval reexamined during the rounds breathing better heart rate is well controlled patient underwent cath earlier being planned for his stent of diagonal branch of LAD for tomorrow 87-year-old female who was admitted into the hospital after an episode of chest discomfort and shortness of breath , she denies any chest pain or sputum production the chest discomfort was transient thought to be related to A. fib with rapid ventricular response noted to have mildly elevated cardiac enzyme and she is been worked up for acute non-ST segment elevated [place] she has chronic renal failure hypertension hypertensive cardiovascular disease, on specific questioning she denies any loss of consciousness, denies any wheezing denies any cough or sputum production denies any abdominal pain Objective - Vital Signs Vital signs: Vital Signs Temp 98 F 07/21/18 12:00 Pulse 72 07/21/18 12:45 Resp 18 07/21/18 12:00 BP 138/63 07/21/18 12:00 Pulse Ox 98 07/21/18 12:00 Intake & Output 07/20/18 07/21/18 07/21/18 18:59 06:59 18:59 Intake Total 81 1476 240 Output Total 200 Balance 81 1276 240 Weight 67.2 kg Intake: IV 81 Sodium Chloride 0.9% 1, 81 000 ml @ 75 mls/hr IV . [id number] [facility] Rx#:[id number] Intake, IV Titration 1236 Amount Heparin Sod,Pork in 0.45% 16 NaCl 25,000 unit In 0.45 % NaCl 1 250ml.bag @ 12 UNITS/KG/HR 8.052 mls/hr IV .Q24H [facility] Rx#: [id number] Sodium Chloride 0.9% 1, 1100 000 ml @ 50 mls/hr IV . Q20H [facility] Rx#:[id number] Sodium Chloride 0.9% 250 120 ml @ 63 mls/hr IV .Q3H59M [facility] Rx#:[id number] Oral 240 240 Output: Urine 200 Other: Voiding Method Toilet Toilet # Voids 3 # Bowel Movements 1 - Exam Constitutional General appearance: average body habitus, cooperative, disheveled, mild distress - EENT Eyes: EOMI, PERRLA, normal appearance ENT: hard of hearing Ears: bilateral: normal - Neck Neck: normal ROM Carotids: bilateral: upstroke normal Thyroid: bilateral: normal size - Respiratory Respiratory: bilateral: rales (Bilateral basal Rales), negative: CTA, diminished, dullness, rhonchi, wheezing, prolonged expiration - Cardiovascular Rhythm: regular Heart sounds: normal: S1, S2 - Gastrointestinal General gastrointestinal: normal bowel sounds, soft - Integumentary Integumentary: normal turgor - Neurologic Neurologic: CNII-XII intact - Musculoskeletal Musculoskeletal: gait normal, generalized weakness, strength equal bilaterally - Psychiatric Psychiatric: A&O x's 3, appropriate affect, intact judgment & insight - Labs CBC & Chem 7: 07/21/18 06:41 07/21/18 06:41 Labs: Abnormal Lab Results - Last 24 Hours (Table) 07/20/18 07/21/18 07/21/18 Range/Units 19:10 06:41 06:41 RBC 2.90 L (3.80-5.40) m/uL Hgb 9.3 L D (11.4-16.0) gm/dL Hct 28.2 L (34.0-46.0) % Plt Count 119 L (150-450) k/uL APTT 47.8 H (22.0-30.0) sec Chloride 112 H (98-107) mmol/L BUN 35 H (7-17) mg/dL Creatinine 1.79 H (0.52-1.04) mg/dL Glucose 100 H (74-99) mg/dL Calcium 8.1 L (8.4-10.2) mg/dL 07/21/18 Range/Units 08:48 RBC (3.80-5.40) m/uL Hgb (11.4-16.0) gm/dL Hct (34.0-46.0) % Plt Count (150-450) k/uL APTT 69.0 H (22.0-30.0) sec Chloride (98-107) mmol/L BUN (7-17) mg/dL Creatinine (0.52-1.04) mg/dL Glucose (74-99) mg/dL Calcium (8.4-10.2) mg/dL Assessment and Plan Assessment: Coronary artery disease/stenosis of diagonal branch of LAD Right lower lobe atelectasis Small right-sided effusion Suspect they're related to congestive heart failure /acute diastolic heart failure Doubt pneumonia Non-ST segment elevated [place] cannot be excluded Chronic renal failure stage III A. fib with rapid ventricular response Acute diastolic heart failure Plan: Being planned for sometime early next week Continue Gentle diuresis Hold antibiotics Agree with breathing treatments X-ray reviewed Further recommendations pending plan of care as per clinical response of the patient Agree with more definitive intervention for A. fib Time with Patient: Greater than 30
--- NOTE | 2018-07-21 14:42 | PN ---
PROGRESS NOTE DATE OF SERVICE: 07/21/2018. HISTORY: This patient is admitted with recurrent maf-IF-ifpfllp elevation myocardial infarctions. He is sitting comfortably. Denies any anginal pain. Blood pressure is 111/53 mmHg. First and second heart sounds are normal. Lungs are clear to auscultation and percussion. Patient's blood pressure remains in the range of 900 systolic. Creatinine is 1.79. We will continue hydration at 50 mL/hour and hopefully patient will undergo a stent placement on Monday. MMODL / IJN: [id number] /
--- NOTE | 2018-07-21 15:10 | PN ---
PROGRESS NOTE DATE OF SERVICE: 07/21/2018. HISTORY: This is a white female admitted with possible unstable angina. She needs a 2nd heart catheterization for stent placement on Monday. She is being withheld from the stent at this time due to renal insufficiency. Hemoglobin is 9.3, white count is normal. BUN is 35, creatinine 1.79. PLAN: Continue with normal saline over the weekend and possible heart catheterization on Monday. Continue home medications. MMODL / IJN: [id number] /
[2018-07-21] MEDS: SODIUM CHLORIDE 0.9% 1,000 ML IV SCH (17:57)
[2018-07-21] MEDS: HEPARIN SOD,PORK IN 0.45% NACL 25,000 UNIT in 0.45% NACL 1 250ML.BAG IV SCH (17:58)
[2018-07-21] MEDS: QUEtiapine 50 MG TAB PO SCH (20:28)
[2018-07-21] MEDS: ATORVASTATIN 20 MG TAB PO SCH (20:29)
[2018-07-21] MEDS: HYDROcodone/APAP 7.5-325MG 1 EACH TAB PO SCH (20:29)
[2018-07-22] MEDS: PANTOPRAZOLE 40 MG TABLET PO SCH ×2 (06:32→18:09)
[2018-07-22 07:29] LABS: Basophils % (A) 1 %; Eosinophils # (A) 0.3 k/uL (0-0.7); Eosinophils % (A) 6 %; HCT 27.8 % (34.0-46.0); HGB 9.1 gm/dL (11.4-16.0); Lymphocytes # (A) 1.3 k/uL (1.0-4.8); Lymphocytes % (A) 28 %; MCH 32.1 pg (25.0-35.0); MCHC 32.8 g/dL (31.0-37.0); MCV 97.8 fL (80.0-100.0); Macrocytosis Slight; Mean Platelet Volume 7.4; Monocytes # (A) 0.3 k/uL (0-1.0); Monocytes % (A) 8 %; Neutrophils # (A) 2.5 k/uL (1.3-7.7); Neutrophils % (A) 54 %; Platelet Count 123 k/uL (150-450); RBC 2.85 m/uL (3.80-5.40); RDW 15.5 % (11.5-15.5); WBC 4.6 k/uL (3.8-10.6)
[2018-07-22 07:43] LABS: Albumin 2.6 g/dL (3.5-5.0); Calcium 8.3 mg/dL (8.4-10.2); Potassium 4.2 mmol/L (3.5-5.1); Total Bilirubin 0.5 mg/dL (0.2-1.3); Total Protein 5.3 g/dL (6.3-8.2)
[2018-07-22] MEDS: IPRATROPIUM-ALBUTEROL 3 ML NEB INHALATION SCH ×4 (08:47→21:25)
[2018-07-22] MEDS: METOPROLOL SUCCINATE (ER) 50 MG TAB.ER.24H PO SCH (08:57)
[2018-07-22] MEDS: MULTIVITAMINS, THERA 1 EACH TAB PO SCH (08:57)
[2018-07-22] MEDS: RANOLAZINE 500 MG TAB.ER.12H PO SCH ×2 (08:57→20:27)
[2018-07-22] MEDS: DOCUSATE 100 MG CAP PO SCH ×2 (08:57→20:26)
--- NOTE | 2018-07-22 11:44 | PN ---
PROGRESS NOTE Patient is seen for followup for acute kidney injury on top of chronic kidney disease. She is scheduled for cardiac catheterization on Monday. Currently, patient is maintained on IV fluids at 50 mL an hour. She denies any shortness of breath. Serum creatinine is slightly improved at 1.6 from 1.79 yesterday. PHYSICAL EXAMINATION: Blood pressure is 136/73, heart rate 76 per minute. She is afebrile. Examination of the heart: S1, S2. Examination of the lungs: Bilateral breath sounds are heard. Abdomen is soft, nontender. Examination of the lower extremities shows trace edema bilaterally. [employer]PRESENTATIVE exam is grossly intact. LAB: Shows sodium 140, potassium 4.2, BUN 27, serum creatinine 1.6, hemoglobin 9.1 g/dL. ASSESSMENT: 1. Acute kidney injury mainly cardiorenal, status post diuresis. Patient is back on IV fluids at 50 mL an hour. Creatinine is slightly improved. Continue to monitor closely for fluid overload. May continue with the current rate of IV fluids for now. 2. Diastolic heart failure, currently improved. 3. Status post non ST elevation myocardial infarction, scheduled for cardiac catheterization tomorrow with intervention. The patient did have a cardiac cath on July 19 as well. PLAN: Continue with IV fluids. Repeat labs in a.m. Avoid hypotension. Avoid any other nephrotoxic medications. MMODL / IJN: [id number] /
--- NOTE | 2018-07-22 11:56 | P.PN ---
Subjective Progress Note Date: 07/22/18 This is a pleasant 87-year-old female patient with a past medical history significant for paroxysmal atrial fibrillation, hypertension, dyslipidemia, and chronic kidney disease, was brought to the emergency room by her daughter because of chest discomfort. This is the third admission for the patient with a chest discomfort within the last several weeks. The patient was in her usual state of health until yesterday showed was playing cards with her friends and she felt tired, fatigued, and weak, and she went to bed. She woke up during the night walking to the bathroom and she was experiencing chest discomfort. She did have another episode of chest discomfort earlier today. The patient described the discomfort as a pressure in the mid of the chest, without any radiation to the arm or neck or shoulders, and without any associated symptoms of shortness of breath, nausea, dizziness, heart racing, or syncope. No sweating as well as. The EKG showed what it seems to be atrial fibrillation without any ischemic ST or T-wave abnormalities. The first set of troponin came in to be slightly abnormal. The patient did have 2 previous admissions in June 2018 with a chest discomfort. In April 2018 she underwent a myocardial perfusion imaging stress test here in this hospital and that showed ischemia. For some reason the patient did not have any coronary angiogram after that probably because of her chronic kidney disease. 07/17/2018 Patient was seen and examined this morning, she denies any further episodes of chest discomfort, I did have a lengthy discussion with her and her daughter, and son via phone conversation and in life, the risks of undergoing cardiac catheterization were explained to them in detail, especially the risks of to the kidneys. The patient and the children wish to undergo cardiac catheterization. This will be performed tomorrow by Dr. Soto. Hemodynamically the patient is stable. 07/22/2018 Patient was seen and examined this morning, feels well, denies any chest pain or difficulty in breathing. She is scheduled to undergo angioplasty and stenting tomorrow with Dr. Soto. We will give her some IV fluids at 50 mL per hour today. Her blood pressure is 144/90 with a heart rate in the 60s, 96% on room air. Hemoglobin 9.1, platelet 123, sodium 140, potassium 4.2, BUN 27 and creatinine 1.6. Objective - Vital Signs Vital signs: Vital Signs Temp 98.1 F 07/22/18 11:23 Pulse 68 07/22/18 11:23 Resp 18 07/22/18 11:23 BP 144/96 07/22/18 11:23 Pulse Ox 96 07/22/18 11:23 Intake & Output 07/21/18 07/22/18 07/22/18 18:59 06:59 18:59 Intake Total 948.006 355.009 Balance 948.006 355.009 Weight 64.9 kg Intake: Intake, IV Titration 228.006 115.009 Amount Heparin Sod,Pork in 0.45% 228.006 115.009 NaCl 25,000 unit In 0.45 % NaCl 1 250ml.bag @ 12 UNITS/KG/HR 8.052 mls/hr IV .Q24H [facility] Rx#: [id number] Oral 720 240 Other: Voiding Method Toilet # Voids 3 1 1 # Bowel Movements 1 - Exam PHYSICAL EXAMINATION: GENERAL: 87-year-old female in no acute distress at the time of my examination HEENT: Head is atraumatic, normocephalic. Pupils equal, round. Sclera anicteric. Conjunctiva are clear. Mucous membranes of the mouth are moist. Neck is supple. There is no elevated jugular venous pressure. No carotid bruit is heard. HEART EXAMINATION: Heart S1 S2 1 systolic murmur is heard CHEST EXAMINATION: Lungs are clear to auscultation and precussion. No chest wall tenderness is noted on palpation or with deep breathing. ABDOMEN: Soft, nontender. Bowel sounds are heard. No organomegaly noted. EXTREMITIES: 2+ peripheral pulses with no evidence of peripheral edema and no calf tenderness noted. NEUROLOGIC patient is awake, alert and oriented 3 . . - Labs CBC & Chem 7: 07/22/18 07:15 07/22/18 07:15 Labs: Abnormal Lab Results - Last 24 Hours (Table) 07/22/18 07/22/18 Range/Units 07:15 07:15 RBC 2.85 L (3.80-5.40) m/uL Hgb 9.1 L (11.4-16.0) gm/dL Hct 27.8 L (34.0-46.0) % Plt Count 123 L (150-450) k/uL Chloride 114 H (98-107) mmol/L BUN 27 H (7-17) mg/dL Creatinine 1.60 H (0.52-1.04) mg/dL Calcium 8.3 L (8.4-10.2) mg/dL Total Protein 5.3 L (6.3-8.2) g/dL Albumin 2.6 L (3.5-5.0) g/dL Assessment and Plan Plan: Assessment #1 chest discomfort concerning for angina. #2 mildly abnormal cardiac enzymes could be secondary to the chronic kidney disease with acute non-ST elevation myocardial infarction to be considered #3 hypertension #4 paroxysmal atrial fibrillation Plan Patient will be nothing by mouth at midnight, scheduled for PCI tomorrow with Dr. Soto. DNP note has been reviewed, I agree with a documented findings and plan of care. Patient was seen and examined.
[2018-07-22] MEDS: SODIUM CHLORIDE 0.9% 1,000 ML IV SCH (14:07)
--- NOTE | 2018-07-22 14:21 | P.PN ---
Subjective Progress Note Date: 07/22/18 07/22/2018: Patient seen and examined. Patient is sitting in bed on room air. She denies any chest pain and shortness of breath. Plan is for left heart catheterization with stent placement tomorrow. Objective - Vital Signs Vital signs: Vital Signs Temp 98.1 F 07/22/18 11:23 Pulse 72 07/22/18 12:18 Resp 18 07/22/18 11:23 BP 144/96 07/22/18 11:23 Pulse Ox 96 07/22/18 11:23 Intake & Output 07/21/18 07/22/18 07/22/18 18:59 06:59 18:59 Intake Total 948.006 355.009 Balance 948.006 355.009 Weight 64.9 kg Intake: Intake, IV Titration 228.006 115.009 Amount Heparin Sod,Pork in 0.45% 228.006 115.009 NaCl 25,000 unit In 0.45 % NaCl 1 250ml.bag @ 12 UNITS/KG/HR 8.052 mls/hr IV .Q24H JS Rx#: [id number] Oral 720 240 Other: Voiding Method Toilet # Voids 3 1 1 # Bowel Movements 1 - Exam Gen.: Patient is alert and oriented 3, no acute distress Cardiovascular: Regular rate and rhythm, S1/S2 Lungs: Diminished breath sounds bilaterally otherwise clear Abdomen: Soft nontender nondistended positive bowel sounds Extremities: Trace edema - Labs CBC & Chem 7: 07/22/18 07:15 07/22/18 07:15 Labs: Abnormal Lab Results - Last 24 Hours (Table) 07/22/18 07/22/18 Range/Units 07:15 07:15 RBC 2.85 L (3.80-5.40) m/uL Hgb 9.1 L (11.4-16.0) gm/dL Hct 27.8 L (34.0-46.0) % Plt Count 123 L (150-450) k/uL Chloride 114 H (98-107) mmol/L BUN 27 H (7-17) mg/dL Creatinine 1.60 H (0.52-1.04) mg/dL Calcium 8.3 L (8.4-10.2) mg/dL Total Protein 5.3 L (6.3-8.2) g/dL Albumin 2.6 L (3.5-5.0) g/dL Assessment and Plan Assessment: -Unstable angina -Elevated troponin, mild, possibly related to CKD, possibly acute non-STEMI -Acute renal failure, prerenal secondary to Diuresing,dehydration -Paroxysmal atrial fibrillation -Chronic kidney disease, stage III, secondary to nephrosclerosis ,baseline creatinine 1.1.3 -Chronic Diastolic CHF -History of Elevated lipase of unclear etiology,possible chronic pancreatitis. Prior CT reports Prominence of the common bile duct near the pancreas head., Elevated AFP. -Hypertension -Dyslipidemia -Bibasilar atelectasis Plan: Continue on current medication regime ,monitoring and symptomatic treatment. Scheduled for stent placement with IV fluid hydration prior to the postprocedure per nephrology. Lasix remains on hold .Close monitoring of renal function and electrolytes with labs ordered for a.m. subacute rehab at discharge. Further recommendations to follow.
[2018-07-22] MEDS: HEPARIN SOD,PORK IN 0.45% NACL 25,000 UNIT in 0.45% NACL 1 250ML.BAG IV SCH (20:17)
[2018-07-22] MEDS: QUEtiapine 50 MG TAB PO SCH (20:26)
[2018-07-22] MEDS: HYDROcodone/APAP 7.5-325MG 1 EACH TAB PO SCH (20:26)
[2018-07-22] MEDS: ATORVASTATIN 20 MG TAB PO SCH (20:27)
--- NOTE | 2018-07-22 23:54 | PN ---
PROGRESS NOTE SUBJECTIVE: 87-year-old with unstable angina. Creatinine is down to 1.6 today. She is having no chest pain,shortness of breath. She has been up ambulating. MRI of the abdomen was normal. Expect cardiac catheterization in the morning and then discharged home if normal. Cardiovascular S1-S2. Lungs clear. GI soft. Hematology: Negative Homans. Psych: Fair mood and affect. ASSESSMENT: 1. Unstable angina. 2. Atypical pancreatitis improved. 3. Hypertension. 4. Chronic obstructive pulmonary disease. Possible discharge home after heart catheterization. MMODL / IJN: [id number] /
[2018-07-23] MEDS: HEPARIN SOD,PORK IN 0.45% NACL 25,000 UNIT in 0.45% NACL 1 250ML.BAG IV SCH (04:39)
[2018-07-23 06:19] LABS: HCT 26.9 % (34.0-46.0); HGB 8.6 gm/dL (11.4-16.0); MCHC 32.1 g/dL (31.0-37.0); MCV 96.8 fL (80.0-100.0); Mean Platelet Volume 7.3; Platelet Count 132 k/uL (150-450); RBC 2.78 m/uL (3.80-5.40); RDW 14.9 % (11.5-15.5); WBC 3.1 k/uL (3.8-10.6)
[2018-07-23 06:38] LABS: Band Neutrophils % 6 %; Eosinophils # (M) 0.28 k/uL (0-0.7); Monocytes # (M) 0.19 k/uL (0-1.0); Neutrophils % (M) 34 %; Nucleated Red Blood Cells 0 /100 WBC (0-0); Total Cells Counted 100
[2018-07-23 06:39] LABS: Poikilocytosis (M) Present
[2018-07-23] MEDS: RANOLAZINE 500 MG TAB.ER.12H PO SCH ×2 (07:02→20:05)
[2018-07-23] MEDS: MULTIVITAMINS, THERA 1 EACH TAB PO SCH (07:02)
[2018-07-23] MEDS: METOPROLOL SUCCINATE (ER) 50 MG TAB.ER.24H PO SCH (07:02)
[2018-07-23] MEDS: PANTOPRAZOLE 40 MG TABLET PO SCH ×2 (07:03→18:45)
[2018-07-23] MEDS: DOCUSATE 100 MG CAP PO SCH ×2 (07:07→20:04)
[2018-07-23] MEDS ORDERED: LIDOCAINE 1% INJ 10MG/ML (20 ML MDV) ONE (08:54)
[2018-07-23 08:55] LABS: Calcium 8.4 mg/dL (8.4-10.2); Potassium 4.1 mmol/L (3.5-5.1)
[2018-07-23] MEDS ORDERED: ASPIRIN 81 MG PO STA (08:55)
[2018-07-23] MEDS ORDERED: ASPIRIN 81 MG ONE (09:01)
[2018-07-23] MEDS ORDERED: IV FLUID CONTINUATION 1,000 ML IV ONE (09:03)
[2018-07-23] MEDS ORDERED: ASPIRIN 81 MG PO ONE (09:04)
[2018-07-23] MEDS: IPRATROPIUM-ALBUTEROL 3 ML NEB INHALATION SCH ×4 (09:15→20:55)
[2018-07-23] MEDS ORDERED: MIDAZOLAM (PF) 2 MG/2 ML VIAL IV ONE (09:27)
[2018-07-23] MEDS ORDERED: LIDOCAINE 1% INJ 10MG/ML (20 ML MDV) SQ ONE ×2 (09:27→09:29)
[2018-07-23] MEDS ORDERED: ENALAPRILAT 1.25 MG/ML 1 ML VIAL ONE (09:30)
[2018-07-23] MEDS ORDERED: BIVALIRUDIN BOLUS 250 MG/50 ML IV ONE (09:30)
[2018-07-23] MEDS ORDERED: hydrALAZINE HCL 20 MG/ML 1 ML VIAL ONE (09:30)
[2018-07-23] MEDS ORDERED: ENALAPRILAT 1.25 MG/ML 1 ML VIAL IV ONE (09:31)
[2018-07-23] MEDS ORDERED: BIVALIRUDIN 250 MG in SODIUM CHLORIDE 0.9% 50 ML IV ONE (09:31)
[2018-07-23] MEDS: hydrALAZINE HCL 20 MG/ML 1 ML VIAL IV ONE ×2 (09:34→09:49)
[2018-07-23] MEDS ORDERED: HEPARIN SODIUM 1,000 UN/ML (10ML VL) ONE (10:19)
[2018-07-23] MEDS ORDERED: IOPAMIDOL-370 125ML BTL INJ ONE (10:21)
[2018-07-23] MEDS ORDERED: ATROPINE SULFATE 0.1 MG/ML 10ML SYRINGE IV PRN (10:28)
[2018-07-23] MEDS ORDERED: RX INFO: IV CONTRAST WAS GIVEN 1 EACH MISC MISCELLANE PRN (10:28)
[2018-07-23] MEDS ORDERED: ZOLPIDEM 5 MG TAB PO PRN (10:28)
[2018-07-23] MEDS ORDERED: NITROGLYCERIN SL TABS 0.4 MG TAB SUBLINGUAL PRN (10:28)
[2018-07-23] MEDS ORDERED: MAG HYDROX/AL HYDROX/SIMETH 30 ML CUP PO PRN (10:28)
[2018-07-23] MEDS ORDERED: CLOPIDOGREL 75 MG TAB ONE (10:31)
[2018-07-23] MEDS ORDERED: CLOPIDOGREL 75 MG TAB PO ONE (10:34)
[2018-07-23] MEDS: ISOSORBIDE MONONITRATE ER 60 MG TAB.ER.24H PO SCH (11:14)
[2018-07-23] MEDS: SODIUM CHLORIDE 0.9% 1,000 ML IV SCH (11:15)
--- NOTE | 2018-07-23 11:26 | P.PN ---
Subjective Progress Note Date: 07/23/18 This is an 87-year-old female admitted with chest tightness, mildly elevated troponins,atrial fibrillation with RVR and multiple other medical issues. Evaluated by cardiology and cardiac catheterization scheduled for tomorrow.IV fluid hydration prior to and post procedure as per Nephrology. Currently denies chest pain, palpitations or shortness of breath. Denies lightheadedness, dizziness, focal deficits. 07/18/2018 patient's schedule bumped- cardiac catheterization rescheduled for tomorrow. IV fluids placed on hold. Denies chest pain, palpitations or shortness of breath. MRI after cardiac catheterization. 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 No further chest pain or palpitations. Scheduled for stent placement tomorrow of the diagonal branch. Maintained on IV fluid hydration as per nephrology. Creatinine currently 1.84 , Lasix remains on hold .Denies chest pain, palpitations or shortness of breath. 08/19/2018 scheduled for heart catheterization/stent placement today. Denies chest pain, palpitations or shortness of breath. Creatinine 1.29, maintain IV fluid hydration as per nephrology. Objective - Vital Signs Vital signs: Vital Signs Temp 98.4 F 07/23/18 04:00 Pulse 66 07/23/18 04:00 Resp 18 07/23/18 04:00 BP 144/69 07/23/18 04:00 Pulse Ox 95 07/23/18 04:00 Intake & Output 07/22/18 07/23/18 07/23/18 18:59 06:59 18:59 Intake Total 651.545 115.677 Balance 651.545 115.677 Intake: Intake, IV Titration 151.545 115.677 Amount Heparin Sod,Pork in 0.45% 151.545 115.677 NaCl 25,000 unit In 0.45 % NaCl 1 250ml.bag @ 12 UNITS/KG/HR 8.052 mls/hr IV .Q24H JS Rx#: [id number] Oral 500 Other: Voiding Method Toilet # Voids 1 1 # Bowel Movements 1 - Exam VITAL SIGNS: As above GENERAL: Sitting up in bed, no acute distress HEENT: Conjunctivae normal. eyes normal. Oral mucosa moist NECK: No JVD. No thyroid enlargement. No LNs CARDIOVASCULAR: S1, S2 muffled. Systolic murmur, no rubs, no gallops RESPIRATION: Breath sounds diminished in the bases. No rhonchi or crackles. No wheezing. ABDOMEN: Soft, nontender . No guarding. no masses palpable. Bowel sounds heard. LEGS: trace edema. no clubbing, no cyanosis. PSYCHIATRY: Alert and oriented -3, mood and affect normal. NERVOUS SYSTEM: Cranial N 2-12 grossly normal. Moves all 4 limbs. Diffuse wea kness No focal deficits. Skin: no ulcer no rash - Labs CBC & Chem 7: 07/23/18 05:38 07/23/18 05:42 Labs: Abnormal Lab Results - Last 24 Hours (Table) 07/22/18 07/23/18 07/23/18 Range/Units 14:33 05:38 05:38 WBC 3.1 L (3.8-10.6) k/uL RBC 2.78 L (3.80-5.40) m/uL Hgb 8.6 L (11.4-16.0) gm/dL Hct 26.9 L (34.0-46.0) % Plt Count 132 L (150-450) k/uL Neutrophils # (Manual) 1.20 L (1.3-7.7) k/uL APTT 40.7 H 93.1 H (22.0-30.0) sec Assessment and Plan Assessment: -Atypical chest Pain, possible unstable angina -Elevated troponin, mild, possibly related to CKD, possibly acute non-STEMI -Acute renal failure, prerenal secondary to Diuresing,dehydration -Paroxysmal atrial fibrillation -Chronic kidney disease, stage III, secondary to nephrosclerosis ,baseline creatinine 1.1.3 -Chronic Diastolic CHF -History of Elevated lipase of unclear etiology,possible chronic pancreatitis. Prior CT reports Prominence of the common bile duct near the pancreas head., Elevated AFP. Abdominal MRI reported no evident sequelae of pancreatitis. 6mm left liver lobe cyst-stable, renal corresponding to prior. -Hypertension -Dyslipidemia -Bibasilar atelectasis Plan: Continue on current medication regime ,monitoring and symptomatic neo atment. Scheduled for stent placement today with IV fluid hydration prior to and postprocedure per nephrology. Close monitoring of renal function and electrolytes with labs ordered for elyse Tiwari at discharge. Further recommendations to follow. The impression and plan of care has been dictated as directed. : I performed a history and examination of this patient, discussed the same with the dictator. I agree with the dictator's note ,documented as a scribe. Any additional findings or plans will be noted.
--- NOTE | 2018-07-23 11:39 | P.PN ---
Subjective Patient is seen in follow-up for acute kidney injury on chronic kidney disease. Patient has chronic any disease stage III secondary to nephrosclerosis with baseline creatinine in the range of 1.1-1.3. Creatinine today is down to 1.29. Patient underwent cardiac catheterization on July 19 which revealed severe disease involving the first diagonal branch of the LAD. She underwent another cardiac catheterization today for stent placement which could not be done due to calcified vessel. Denies active chest pain or shortness of breath. Vital signs are stable. General: The patient appeared well nourished and normally developed. HEENT: Head exam is unremarkable. Neck is without jugular venous distension. LUNGS: Lungs are clear to auscultation and percussion. Breath sounds decreased. HEART: Rate and Rhythm are regular. First and second heart sounds normal. No murmurs, rubs or gallops. ABDOMEN: Abdominal exam reveals normal bowel sounds. Non-tender and non- distended. No evidence of peritonitis. EXTREMITITES: No clubbing, cyanosis, or edema. Objective - Vital Signs Vital signs: Vital Signs Temp 97.3 F L 07/23/18 08:00 Pulse 72 07/23/18 08:00 Resp 18 07/23/18 08:00 BP 170/69 07/23/18 08:00 Pulse Ox 98 07/23/18 08:00 Intake & Output 07/22/18 07/23/18 07/23/18 18:59 06:59 18:59 Intake Total 651.545 115.677 129.6 Balance 651.545 115.677 129.6 Intake: IV 129.6 Intake, IV Titration 151.545 115.677 Amount Heparin Sod,Pork in 0.45% 151.545 115.677 NaCl 25,000 unit In 0.45 % NaCl 1 250ml.bag @ 12 UNITS/KG/HR 8.052 mls/hr IV .Q24H JS Rx#: [id number] Oral 500 0 Other: Voiding Method Toilet # Voids 1 1 # Bowel Movements 1 - Labs CBC & Chem 7: 07/23/18 05:38 07/23/18 05:42 Labs: Abnormal Lab Results - Last 24 Hours (Table) 07/22/18 07/23/18 07/23/18 Range/Units 14:33 05:38 05:38 WBC 3.1 L (3.8-10.6) k/uL RBC 2.78 L (3.80-5.40) m/uL Hgb 8.6 L (11.4-16.0) gm/dL Hct 26.9 L (34.0-46.0) % Plt Count 132 L (150-450) k/uL Neutrophils # (Manual) 1.20 L (1.3-7.7) k/uL APTT 40.7 H 93.1 H (22.0-30.0) sec Chloride (98-107) mmol/L Carbon Dioxide (22-30) mmol/L BUN (7-17) mg/dL Creatinine (0.52-1.04) mg/dL 07/23/18 Range/Units 05:42 WBC (3.8-10.6) k/uL RBC (3.80-5.40) m/uL Hgb (11.4-16.0) gm/dL Hct (34.0-46.0) % Plt Count (150-450) k/uL Neutrophils # (Manual) (1.3-7.7) k/uL APTT (22.0-30.0) sec Chloride 115 H (98-107) mmol/L Carbon Dioxide 21 L (22-30) mmol/L BUN 18 H (7-17) mg/dL Creatinine 1.29 H (0.52-1.04) mg/dL Assessment and Plan Plan: Assessment: 1. Acute kidney injury mostly prerenal secondary to hemodynamic instability and diuresis. Creatinine peaked at 1.8 for this admission and is down to 1.29 today. UA benign. Need to monitor for contrast-induced nephropathy. Patient received IV contrast on July 19 for a cardiac catheterization and again today. 2. Chronic kidney disease stage III with baseline creatinine in the range of 1- 1.3 secondary to nephrosclerosis. 3. Diastolic CHF. Currently compensated. 4. Chest pain. Cardiology following. Status post cardiac catheterization on July 19 which revealed severe disease involving the first diagonal branch of the LAD. Stent could not be placed due to calcified vessel. 5. Mild metabolic acidosis secondary to IV fluids. Plan: Hold Lasix. Maintain normal saline at 50 mL an hour. Continue to monitor renal function and urine output. Encourage oral intake. Add hydralazine 25 mg 3 times daily. To hold if systolic blood pressure less than 120.
[2018-07-23] MEDS ORDERED: HYDROmorphone 0.5 MG/0.5 ML SYRINGE IVP STA (12:18)
[2018-07-23] MEDS: hydrALAZINE HCL 25 MG TAB PO SCH ×2 (16:45→20:05)
--- NOTE | 2018-07-23 17:39 | P.PN ---
Subjective Progress Note Date: 07/23/18 Principal diagnosis: Coronary artery disease, unstable angina, right lower lobe atelectasis, right- sided small effusion, congestive heart failure acute on chronic diastolic heart failure, non-ST segment elevated MT, chronic renal failure stage III, A. fib with rapid response, 07/23/2018, patient seen eval reexamined during the rounds patient is status post cath and angiogram today is stent couldn't be placed due to technical difficulties, denies any chest pain shortness of breath functions stable 07/21/2018, patient seen and evaluated examined during the rounds she is feeling bit better her breathing is improved denies any cough or sputum production patient's lab indications reviewed 07/20/2018, patient seen and evaluated examined during the rounds she has some loose stool diarrhea for which she is feeling weak but stools are more formed now respiratory status stable denies any chest pain shortness of breath no arrhythmia or tachycardia has been noted, she is awaiting repeat cath and stent placement sometime next week in the meantime renal functions are being monitored and followed 07/19/2018, patient seen eval reexamined during the rounds breathing better he art rate is well controlled patient underwent cath earlier being planned for his stent of diagonal branch of LAD for tomorrow 87-year-old female who was admitted into the hospital after an episode of chest discomfort and shortness of breath , she denies any chest pain or sputum production the chest discomfort was transient thought to be related to A. fib with rapid ventricular response noted to have mildly elevated cardiac enzyme and she is been worked up for acute non-ST segment elevated MT she has chronic renal failure hypertension hypertensive cardiovascular disease, on specific questionin g she denies any loss of consciousness, denies any wheezing denies any cough or sputum production denies any abdominal pain Objective - Vital Signs Vital signs: Vital Signs Temp 98.0 F 07/23/18 16:22 Pulse 70 07/23/18 16:22 Resp 17 07/23/18 16:22 BP 91/43 07/23/18 16:22 Pulse Ox 98 07/23/18 16:22 Intake & Output 07/22/18 07/23/18 07/23/18 18:59 06:59 18:59 Intake Total 651.545 115.677 129.6 Balance 651.545 115.677 129.6 Intake: IV 129.6 Intake, IV Titration 151.545 115.677 Amount Heparin Sod,Pork in 0.45% 151.545 115.677 NaCl 25,000 unit In 0.45 % NaCl 1 250ml.bag @ 12 UNITS/KG/HR 8.052 mls/hr IV .Q24H [facility] Rx#: [id number] Oral 500 0 Other: Voiding Method Toilet # Voids 1 1 # Bowel Movements 1 - Exam Constitutional General appearance: average body habitus, cooperative, disheveled, mild distress - EENT Eyes: EOMI, PERRLA, normal appearance ENT: hard of hearing Ears: bilateral: normal - Neck Neck: normal ROM Carotids: bilateral: upstroke normal Thyroid: bilateral: normal size - Respiratory Respiratory: bilateral: rales (Bilateral basal Rales), negative: CTA, diminished, dullness, rhonchi, wheezing, prolonged expiration - Cardiovascular Rhythm: regular Heart sounds: normal: S1, S2 - Gastrointestinal General gastrointestinal: normal bowel sounds, soft - Integumentary Integumentary: normal turgor - Neurologic Neurologic: CNII-XII intact - Musculoskeletal Musculoskeletal: gait normal, generalized weakness, strength equal bilaterally - Psychiatric Psychiatric: A&O x's 3, appropriate affect, intact judgment & insight - Labs CBC & Chem 7: 07/23/18 05:38 07/23/18 05:42 Labs: Abnormal Lab Results - Last 24 Hours (Table) 07/23/18 07/23/18 07/23/18 Range/Units 05:38 05:38 05:42 WBC 3.1 L (3.8-10.6) k/uL RBC 2.78 L (3.80-5.40) m/uL Hgb 8.6 L (11.4-16.0) gm/dL Hct 26.9 L (34.0-46.0) % Plt Count 132 L (150-450) k/uL Neutrophils # (Manual) 1.20 L (1.3-7.7) k/uL APTT 93.1 H (22.0-30.0) sec Chloride 115 H (98-107) mmol/L Carbon Dioxide 21 L (22-30) mmol/L BUN 18 H (7-17) mg/dL Creatinine 1.29 H (0.52-1.04) mg/dL Assessment and Plan Assessment: Coronary artery disease/stenosis of diagonal branch of LAD Right lower lobe atelectasis Small right-sided effusion Suspect they're related to congestive heart failure /acute diastolic heart failure Doubt pneumonia Non-ST segment elevated MT cannot be excluded Chronic renal failure stage III A. fib with rapid ventricular response Acute diastolic heart failure Plan: Maximal medical therapy Continue Gentle diuresis Hold antibiotics Agree with breathing treatments X-ray reviewed Further recommendations pending plan of care as per clinical response of the patient Agree with more definitive intervention for A. fib Time with Patient: Greater than 30
--- NOTE | 2018-07-23 18:10 | PTCA ---
PERCUTANEOUSTRANS CORORONARY ANGIOGRAPHY DATE OF SERVICE: July 23, 2018 PERFORMING PHYSICIAN: Warren Roach MD, overedger. PROCEDURE PERFORMED: Balloon angioplasty of the first diagonal branch of the LAD. INDICATION: This is an 87-year-old female patient who was having recurrent chest discomfort and she underwent a stress test in the past, showed anterior ischemia. She was treated conservatively and medically for a long time, but she continues to be symptomatic. Because of that, a heart catheterization was advised. She underwent a heart catheterization last week and that revealed chronic total occlusion of the RCA which fills by collaterals from the left coronary system with intermediate disease involving the LAD and subtotally occluded 1st diagonal branch. She was brought today to undergo a PTCA of the diagonal. APPROACH: Left common femoral artery. COMPLICATION: None. LEVEL OF SEDATION: Moderate with sedation length of 49 minutes. PROCEDURE DESCRIPTION: After obtaining an informed consent, the patient was brought to the cardiac cathead worker. The left common femoral artery was cannulated using micropuncture technique, the micropuncture wire passed easily. Then I placed a 6-Hebrew sheath in the left radial artery. After that, I did stat anticoagulation using Angiomax. Subsequently, I did engage the left main using EBU 3.75. After that, I did wire the diagonal branch using a Whisper wire with the backup support of 2 x 12 mm balloon. After that, I attempted doing balloon angioplasty initially using 2.0 balloon, but I was unable using 1.5 mm balloon. I tried advancing 2-0 balloon. I was unable and because of that I decided to stop at that point. POSTPROCEDURE MANAGEMENT: 1. Dual anti-platelet therapy. 2. Blood pressure control. 3. Follow up with the patient. MMODL / IJN: [id number] /
[2018-07-23] MEDS: ATORVASTATIN 20 MG TAB PO SCH (20:04)
[2018-07-23] MEDS: HYDROcodone/APAP 7.5-325MG 1 EACH TAB PO SCH (20:04)
[2018-07-23] MEDS: QUEtiapine 50 MG TAB PO SCH (20:05)
[2018-07-24] MEDS: SODIUM CHLORIDE 0.9% 1,000 ML IV SCH (06:57)
[2018-07-24] MEDS: PANTOPRAZOLE 40 MG TABLET PO SCH ×2 (06:58→17:42)
[2018-07-24 07:22] LABS: Calcium 8.3 mg/dL (8.4-10.2); Magnesium 1.7 mg/dL (1.6-2.3); Potassium 3.8 mmol/L (3.5-5.1)
[2018-07-24] MEDS: IPRATROPIUM-ALBUTEROL 3 ML NEB INHALATION SCH ×4 (07:27→20:57)
[2018-07-24 07:28] LABS: HCT 26.1 % (34.0-46.0); HGB 8.4 gm/dL (11.4-16.0); Hypochromasia Slight; MCH 31.9 pg (25.0-35.0); MCHC 32.4 g/dL (31.0-37.0); MCV 98.6 fL (80.0-100.0); Macrocytosis Slight; Mean Platelet Volume 7.6; Platelet Count 140 k/uL (150-450); RBC 2.64 m/uL (3.80-5.40); RDW 15.1 % (11.5-15.5); WBC 2.4 k/uL (3.8-10.6)
[2018-07-24] MEDS: MULTIVITAMINS, THERA 1 EACH TAB PO SCH (08:43)
[2018-07-24] MEDS: DOCUSATE 100 MG CAP PO SCH ×2 (08:43→20:56)
[2018-07-24] MEDS: RANOLAZINE 500 MG TAB.ER.12H PO SCH ×2 (08:43→20:56)
[2018-07-24] MEDS: ISOSORBIDE MONONITRATE ER 60 MG TAB.ER.24H PO SCH (08:43)
[2018-07-24] MEDS: hydrALAZINE HCL 25 MG TAB PO SCH ×3 (08:44→23:51)
[2018-07-24] MEDS: METOPROLOL SUCCINATE (ER) 50 MG TAB.ER.24H PO SCH (08:45)
[2018-07-24] MEDS: CLOPIDOGREL 75 MG TAB PO SCH (08:45)
[2018-07-24 09:01] LABS: Eosinophils # (M) 0.24 k/uL (0-0.7); Lymphocytes # (M) 0.94 k/uL (1.0-4.8); Monocytes # (M) 0.22 k/uL (0-1.0); Neutrophils # (M) 1.01 k/uL (1.3-7.7); Neutrophils % (M) 42 %; Nucleated Red Blood Cells 0 /100 WBC (0-0); Total Cells Counted 100
[2018-07-24 09:02] LABS: Poikilocytosis (M) Present
--- NOTE | 2018-07-24 10:26 | P.PN ---
Subjective Patient is seen in follow-up for acute kidney injury on chronic kidney disease. Patient has chronic any disease stage III secondary to nephrosclerosis with baseline creatinine in the range of 1.1-1.3. Renal function is relatively stable. Creatinine 1.35 today.. Patient underwent cardiac catheterization on July 19 which revealed severe disease involving the first diagonal branch of the LAD. She underwent another cardiac catheterization on July 23 for stent placement which could not be done due to calcified vessel but she did undergo balloon angioplasty. Denies active chest pain or shortness of breath. Feels weak. Vital signs are stable. General: The patient appeared well nourished and normally developed. HEENT: Head exam is unremarkable. Neck is without jugular venous distension. LUNGS: Lungs are clear to auscultation and percussion. Breath sounds decreased. HEART: Rate and Rhythm are regular. First and second heart sounds normal. No murmurs, rubs or gallops. ABDOMEN: Abdominal exam reveals normal bowel sounds. Non-tender and non- distended. No evidence of peritonitis. EXTREMITITES: No clubbing, cyanosis, or edema. Objective - Vital Signs Vital signs: Vital Signs Temp 98.7 F 07/24/18 08:35 Pulse 82 07/24/18 08:35 Resp 18 07/24/18 08:35 BP 121/59 07/24/18 08:35 Pulse Ox 95 07/24/18 08:35 Intake & Output 07/23/18 07/24/18 07/24/18 18:59 06:59 18:59 Intake Total 369.6 Balance 369.6 Weight 67.3 kg Intake: IV 129.6 Oral 240 Other: Voiding Method Toilet Toilet # Voids 1 1 # Bowel Movements 1 - Labs CBC & Chem 7: 07/24/18 06:18 07/24/18 06:18 Labs: Abnormal Lab Results - Last 24 Hours (Table) 07/24/18 07/24/18 Range/Units 06:18 06:18 WBC 2.4 L (3.8-10.6) k/uL RBC 2.64 L (3.80-5.40) m/uL Hgb 8.4 L (11.4-16.0) gm/dL Hct 26.1 L (34.0-46.0) % Plt Count 140 L (150-450) k/uL Neutrophils # (Manual) 1.01 L (1.3-7.7) k/uL Lymphocytes # (Manual) 0.94 L (1.0-4.8) k/uL Chloride 117 H (98-107) mmol/L Carbon Dioxide 20 L (22-30) mmol/L Creatinine 1.35 H (0.52-1.04) mg/dL Calcium 8.3 L (8.4-10.2) mg/dL Assessment and Plan Plan: Assessment: 1. Acute kidney injury mostly prerenal secondary to hemodynamic instability and diuresis. Creatinine peaked at 1.8 for this admission. It is relatively stable at 1.35 today. UA benign. Need to monitor for contrast-induced nephropathy. Florian caldera received IV contrast on July 19 for a cardiac catheterization and again today. 2. Chronic kidney disease stage III with baseline creatinine in the range of 1- 1.3 secondary to nephrosclerosis. 3. Diastolic CHF. Currently compensated. 4. Chest pain. Cardiology following. Status post cardiac catheterization on July 19 which revealed severe disease involving the first diagonal branch of the LAD. She underwent balloon angioplasty on July 23. Stent could not be placed due to calcified vessel. 5. Metabolic acidosis secondary to IV fluids. Expect improvement once IV fluids discontinued. Plan: Hold Lasix. Hep-Lock IV fluids. Continue to monitor renal function and urine output. Encouraged oral intake.
--- NOTE | 2018-07-24 10:44 | P.PN ---
Subjective Progress Note Date: 07/24/18 This is an 87-year-old female admitted with chest tightness, mildly elevated troponins,atrial fibrillation with RVR and multiple other medical issues. Evaluated by cardiology and cardiac catheterization scheduled for tomorrow.IV fluid hydration prior to and post procedure as per Nephrology. Currently denies chest pain, palpitations or shortness of breath. Denies lightheadedness, dizziness, focal deficits. 07/18/2018 patient's schedule bumped- cardiac catheterization rescheduled for tomorrow. IV fluids placed on hold. Denies chest pain, palpitations or shortness of breath. MRI after cardiac catheterization. 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 No further chest pain or palpitations. Scheduled for stent placement tomorrow of the diagonal branch. Maintained on IV fluid hydration as per nephrology. Creatinine currently 1.84 , Lasix remains on hold .Denies chest pain, palpitations or shortness of breath. 08/19/2018 scheduled for heart catheterization/stent placement today. Denies chest pain, palpitations or shortness of breath. Creatinine 1.29, maintain IV fluid hydration as per nephrology. 07/24/2018 Lasix remains on hold. Bicarb 20. Fluids have been PIVL'd. Creatinine 1.35. Stent placement unable to be performed secondary to calcified vessel, attempted angioplasty. Dual antiplatelet therapy recommended. Tolerated procedure well. Denies chest pain, palpitations or increasing shortness of breath. Objective - Vital Signs Vital signs: Vital Signs Temp 98.7 F 07/24/18 08:35 Pulse 82 07/24/18 08:35 Resp 18 07/24/18 08:35 BP 121/59 07/24/18 08:35 Pulse Ox 95 07/24/18 08:35 Intake & Output 07/23/18 07/24/18 07/24/18 18:59 06:59 18:59 Intake Total 369.6 Balance 369.6 Weight 67.3 kg Intake: IV 129.6 Oral 240 Other: Voiding Method Toilet Toilet # Voids 1 1 # Bowel Movements 1 - Exam VITAL SIGNS: As above GENERAL: Sitting up in bed, no acute distress HEENT: Conjunctivae normal. eyes normal. Oral mucosa moist NECK: No JVD. No thyroid enlargement. No LNs CARDIOVASCULAR: S1, S2 muffled. Systolic murmur, no rubs, no gallops RESPIRATION: Breath sounds diminished in the bases. No rhonchi or crackles. No wheezing. ABDOMEN: Soft, nontender . No guarding. no masses palpable. Bowel sounds heard. LEGS: No edema. no clubbing, no cyanosis. PSYCHIATRY: Alert and oriented -3, mood and affect normal. NERVOUS SYSTEM: Cranial N 2-12 grossly normal. Moves all 4 limbs. Diffuse weakness No focal deficits. Skin: no ulcer no rash - Labs CBC & Chem 7: 07/24/18 06:18 07/24/18 06:18 Labs: Abnormal Lab Results - Last 24 Hours (Table) 07/24/18 07/24/18 Range/Units 06:18 06:18 WBC 2.4 L (3.8-10.6) k/uL RBC 2.64 L (3.80-5.40) m/uL Hgb 8.4 L (11.4-16.0) gm/dL Hct 26.1 L (34.0-46.0) % Plt Count 140 L (150-450) k/uL Neutrophils # (Manual) 1.01 L (1.3-7.7) k/uL Lymphocytes # (Manual) 0.94 L (1.0-4.8) k/uL Chloride 117 H (98-107) mmol/L Carbon Dioxide 20 L (22-30) mmol/L Creatinine 1.35 H (0.52-1.04) mg/dL Calcium 8.3 L (8.4-10.2) mg/dL Assessment and Plan Assessment: -Atypical chest Pain, Status post cardiac catheterization-severe disease of the first diagonal branch of LAD. Stent placement attempted unsuccessfully. Attempted angioplasty. -Elevated troponin, mild, possibly related to CKD, possibly acute non-STEMI -Acute renal failure, prerenal secondary to Diuresing,dehydration -Paroxysmal atrial fibrillation -Chronic kidney disease, stage III, secondary to nephrosclerosis ,baseline creatinine 1.1.3 -Chronic Diastolic CHF -History of Elevated lipase of unclear etiology,possible chronic pancreatitis. Prior CT reports Prominence of the common bile duct near the pancreas head., El evated AFP. Abdominal MRI reported no evident sequelae of pancreatitis. 6mm left liver lobe cyst-stable, renal corresponding to prior. -Hypertension -Dyslipidemia -Bibasilar atelectasis Plan: Continue on current medication regime ,monitoring and symptomatic treatment. Dual antiplatelet therapy as per cardiology Close monitoring of renal function and electrolytes with labs ordered for elyse Tiwari at discharge. Further recommendations to follow. The impression and plan of care has been dictated as directed. : I performed a history and examination of this patient, discussed the same with the dictator. I agree with the dictator's note ,documented as a scribe. Any additional findings or plans will be noted.
--- NOTE | 2018-07-24 16:02 | P.PN ---
Subjective Progress Note Date: 07/24/18 This is a pleasant 87-year-old female patient with a past medical history significant for paroxysmal atrial fibrillation, hypertension, dyslipidemia, and chronic kidney disease, was brought to the emergency room by her daughter because of chest discomfort. This is the third admission for the patient with a chest discomfort within the last several weeks. The patient was in her usual state of health until yesterday showed was playing cards with her friends and she felt tired, fatigued, and weak, and she went to bed. She woke up during the night walking to the bathroom and she was experiencing chest discomfort. She did have another episode of chest discomfort earlier today. The patient described the discomfort as a pressure in the mid of the chest, without any radiation to the arm or neck or shoulders, and without any associated symptoms of shortness of breath, nausea, dizziness, heart racing, or syncope. No sweating as well as. The EKG showed what it seems to be atrial fibrillation without any ischemic ST or T-wave abnormalities. The first set of troponin came in to be slightly abnormal. The patient did have 2 previous admissions in June 2018 with a chest discomfort. In April 2018 she underwent a myocardial perfusion imaging stress test here in this hospital and that showed ischemia. For some reason the patient did not have any coronary angiogram after that probably because of her chronic kidney disease. 07/17/2018 Patient was seen and examined this morning, she denies any further episodes of chest discomfort, I did have a lengthy discussion with her and her daughter, and son via phone conversation and in life, the risks of undergoing cardiac catheterization were explained to them in detail, especially the risks of to the kidneys. The patient and the children wish to undergo cardiac catheterization. This will be performed tomorrow by Dr. Soto. Hemodynamically the patient is stable. 07/22/2018 Patient was seen and examined this morning, feels well, denies any chest pain or difficulty in breathing. She is scheduled to undergo angioplasty and stenting tomorrow with Dr. Soto. We will give her some IV fluids at 50 mL per hour today. Her blood pressure is 144/90 with a heart rate in the 60s, 96% on room air. Hemoglobin 9.1, platelet 123, sodium 140, potassium 4.2, BUN 27 and creatinine 1.6. 07/24/2018 Patient was taken to the cardiac catheterization lab yesterday by Dr. Soto and underwent balloon angioplasty of the first diagonal branch of the LAD. She was seen and examined today overall doing well. Feeling a little weak but denies any chest discomfort and her breathing overall is stable. Hemodynamically she is stable. Objective - Vital Signs Vital signs: Vital Signs Temp 98.1 F 07/24/18 12:17 Pulse 86 07/24/18 12:17 Resp 17 07/24/18 12:17 BP 124/41 07/24/18 12:17 Pulse Ox 96 07/24/18 12:17 Intake & Output 07/23/18 07/24/18 07/24/18 18:59 06:59 18:59 Intake Total 369.6 Balance 369.6 Weight 67.3 kg Intake: IV 129.6 Oral 240 Other: Voiding Method Toilet Toilet # Voids 1 1 # Bowel Movements 1 - Exam PHYSICAL EXAMINATION: GENERAL: 87-year-old female in no acute distress at the time of my examination HEENT: Head is atraumatic, normocephalic. Pupils equal, round. Sclera anicteric. Conjunctiva are clear. Mucous membranes of the mouth are moist. Neck is supple. There is no elevated jugular venous pressure. No carotid bruit is heard. HEART EXAMINATION: Heart S1 S2 1 systolic murmur is heard CHEST EXAMINATION: Lungs are clear to auscultation and precussion. No chest wall tenderness is noted on palpation or with deep breathing. ABDOMEN: Soft, nontender. Bowel sounds are heard. No organomegaly noted. EXTREMITIES: 2+ peripheral pulses with no evidence of peripheral edema and no calf tenderness noted. Left groin is soft, no evidence of any hematoma. NEUROLOGIC patient is awake, alert and oriented 3 . . - Labs CBC & Chem 7: 07/24/18 06:18 07/24/18 06:18 Labs: Abnormal Lab Results - Last 24 Hours (Table) 07/24/18 07/24/18 Range/Units 06:18 06:18 WBC 2.4 L (3.8-10.6) k/uL RBC 2.64 L (3.80-5.40) m/uL Hgb 8.4 L (11.4-16.0) gm/dL Hct 26.1 L (34.0-46.0) % Plt Count 140 L (150-450) k/uL Neutrophils # (Manual) 1.01 L (1.3-7.7) k/uL Lymphocytes # (Manual) 0.94 L (1.0-4.8) k/uL Chloride 117 H (98-107) mmol/L Carbon Dioxide 20 L (22-30) mmol/L Creatinine 1.35 H (0.52-1.04) mg/dL Calcium 8.3 L (8.4-10.2) mg/dL Assessment and Plan Plan: Assessment #1 non-ST elevation AL, status post balloon angioplasty of the first diagonal branch of the LAD #2 mildly abnormal cardiac enzymes could be secondary to the chronic kidney dise ase with acute non-ST elevation myocardial infarction to be considered #3 hypertension #4 paroxysmal atrial fibrillation Plan From cardiology's perspective, we'll recommend to observe the patient for another 24 hours, plan for possible discharge home in the morning if stable. DNP note has been reviewed, I agree with a documented findings and plan of care. Patient was seen and examined.
[2018-07-24] MEDS ORDERED: DILTIAZEM DRIP BOLUS FROM BAG 1 MG SOLN IV ONE (17:03)
[2018-07-24] MEDS: DILTIAZEM 125 MG in SODIUM CHLORIDE 0.9% 100 ML IV SCH (17:37)
[2018-07-24] MEDS: HEPARIN SOD,PORK IN 0.45% NACL 25,000 UNIT in 0.45% NACL 1 250ML.BAG IV SCH (17:38)
[2018-07-24] MEDS: APIXABAN 2.5 MG TABLET PO SCH ×2 (17:39→20:57)
[2018-07-24] MEDS: ASPIRIN 81 MG PO SCH (17:40)
[2018-07-24] MEDS: QUEtiapine 50 MG TAB PO SCH (20:56)
[2018-07-24] MEDS: ATORVASTATIN 20 MG TAB PO SCH (20:57)
--- NOTE | 2018-07-24 23:27 | P.PN ---
Subjective Progress Note Date: 07/24/18 Principal diagnosis: Coronary artery disease, unstable angina, right lower lobe atelectasis, right- sided small effusion, congestive heart failure acute on chronic diastolic heart failure, non-ST segment elevated UT, chronic renal failure stage III, A. fib with rapid response, 07/24/2018, patient seen eval reexamined during the rounds denies any cough or shortness of breath doing well, Lasix is on hold, patient is on maximal medical therapy for coronary artery disease 07/23/2018, patient seen eval reexamined during the rounds patient is status post cath and angiogram today is stent couldn't be placed due to technical difficulties, denies any chest pain shortness of breath functions stable 07/21/2018, patient seen and evaluated examined during the rounds she is feeling bit better her breathing is improved denies any cough or sputum production patient's lab indications reviewed 07/20/2018, patient seen and evaluated examined during the rounds she has some loose stool diarrhea for which she is feeling weak but stools are more formed now respiratory status stable denies any chest pain shortness of breath no arrhythmia or tachycardia has been noted, she is awaiting repeat cath and stent placement sometime next week in the meantime renal functions are being monitored and followed 07/19/2018, patient seen eval reexamined during the rounds breathing better heart rate is well controlled patient underwent cath earlier being planned for his stent of diagonal branch of LAD for tomorrow 87-year-old female who was admitted into the hospital after an episode of chest discomfort and shortness of breath , she denies any chest pain or sputum production the chest discomfort was transient thought to be related to A. fib with rapid ventricular response noted to have mildly elevated cardiac enzyme and she is been worked up for acute non-ST segment elevated UT she has chronic renal failure hypertension hypertensive cardiovascular disease, on specific questioning she denies any loss of consciousness, denies any wheezing denies any cough or sputum production denies any abdominal pain Objective - Vital Signs Vital signs: Vital Signs Temp 97.8 F 07/24/18 20:00 Pulse 122 H 07/24/18 20:00 Resp 18 07/24/18 20:00 BP 129/66 07/24/18 20:00 Pulse Ox 98 07/24/18 20:00 Intake & Output 07/24/18 07/24/18 07/25/18 06:59 18:59 06:59 Intake Total 360 Balance 360 Weight 67.3 kg Intake: Oral 360 Other: Voiding Method Toilet Toilet Toilet # Voids 1 3 # Bowel Movements 1 - Exam Constitutional General appearance: average body habitus, cooperative, disheveled, mild distress - EENT Eyes: EOMI, PERRLA, normal appearance ENT: hard of hearing Ears: bilateral: normal - Neck Neck: normal ROM Carotids: bilateral: upstroke normal Thyroid: bilateral: normal size - Respiratory Respiratory: bilateral: rales (Bilateral basal Rales), negative: CTA, diminished, dullness, rhonchi, wheezing, prolonged expiration - Cardiovascular Rhythm: regular Heart sounds: normal: S1, S2 - Gastrointestinal General gastrointestinal: normal bowel sounds, soft - Integumentary Integumentary: normal turgor - Neurologic Neurologic: CNII-XII intact - Musculoskeletal Musculoskeletal: gait normal, generalized weakness, strength equal bilaterally - Psychiatric Psychiatric: A&O x's 3, appropriate affect, intact judgment & insight - Labs CBC & Chem 7: 07/24/18 06:18 07/24/18 06:18 Labs: Abnormal Lab Results - Last 24 Hours (Table) 07/24/18 07/24/18 Range/Units 06:18 06:18 WBC 2.4 L (3.8-10.6) k/uL RBC 2.64 L (3.80-5.40) m/uL Hgb 8.4 L (11.4-16.0) gm/dL Hct 26.1 L (34.0-46.0) % Plt Count 140 L (150-450) k/uL Neutrophils # (Manual) 1.01 L (1.3-7.7) k/uL Lymphocytes # (Manual) 0.94 L (1.0-4.8) k/uL Chloride 117 H (98-107) mmol/L Carbon Dioxide 20 L (22-30) mmol/L Creatinine 1.35 H (0.52-1.04) mg/dL Calcium 8.3 L (8.4-10.2) mg/dL Assessment and Plan Assessment: Coronary artery disease/stenosis of diagonal branch of LAD Right lower lobe atelectasis Small right-sided effusion Suspect they're related to congestive heart failure /acute diastolic heart failure Doubt pneumonia Non-ST segment elevated UT cannot be excluded Chronic renal failure stage III A. fib with rapid ventricular response Acute diastolic heart failure Plan: Maximal medical therapy Continue Gentle diuresis Hold antibiotics Agree with breathing treatments X-ray reviewed Further recommendations pending plan of care as per clinical response of the patient Agree with more definitive intervention for A. fib Time with Patient: Greater than 30
[2018-07-25] MEDS: PANTOPRAZOLE 40 MG TABLET PO SCH (06:39)
[2018-07-25] MEDS: HYDROcodone/APAP 7.5-325MG 1 EACH TAB PO SCH (06:51)
[2018-07-25 06:57] LABS: HCT 24.9 % (34.0-46.0); HGB 8.1 gm/dL (11.4-16.0); MCH 31.9 pg (25.0-35.0); MCHC 32.6 g/dL (31.0-37.0); MCV 97.8 fL (80.0-100.0); Mean Platelet Volume 7.3; Platelet Count 151 k/uL (150-450); RBC 2.54 m/uL (3.80-5.40); RDW 15.3 % (11.5-15.5); WBC 2.9 k/uL (3.8-10.6)
[2018-07-25 07:11] LABS: Calcium 8.1 mg/dL (8.4-10.2); Magnesium 1.6 mg/dL (1.6-2.3); Potassium 3.6 mmol/L (3.5-5.1)
[2018-07-25] MEDS: IPRATROPIUM-ALBUTEROL 3 ML NEB INHALATION SCH ×2 (08:22→11:32)
[2018-07-25 08:54] LABS: Basophils # (M) 0.03 k/uL (0-0.2); Lymphocytes # (M) 0.64 k/uL (1.0-4.8); Monocytes # (M) 0.41 k/uL (0-1.0); Neutrophils # (M) 1.62 k/uL (1.3-7.7); Neutrophils % (M) 56 %; Nucleated Red Blood Cells 0 /100 WBC (0-0); Total Cells Counted 100
[2018-07-25 08:55] LABS: Anisocytosis (M) Present; Poikilocytosis (M) Present
[2018-07-25] MEDS ORDERED: FUROSEMIDE 10 MG/ML 4 ML VIAL IV STA (09:07)
[2018-07-25] MEDS: MULTIVITAMINS, THERA 1 EACH TAB PO SCH (09:23)
[2018-07-25] MEDS: METOPROLOL SUCCINATE (ER) 50 MG TAB.ER.24H PO SCH (09:23)
[2018-07-25] MEDS: hydrALAZINE HCL 25 MG TAB PO SCH (09:23)
[2018-07-25] MEDS: ASPIRIN 81 MG PO SCH (09:23)
[2018-07-25] MEDS: DOCUSATE 100 MG CAP PO SCH (09:23)
[2018-07-25] MEDS: ISOSORBIDE MONONITRATE ER 60 MG TAB.ER.24H PO SCH (09:23)
[2018-07-25] MEDS: CLOPIDOGREL 75 MG TAB PO SCH (09:23)
[2018-07-25] MEDS: RANOLAZINE 500 MG TAB.ER.12H PO SCH (09:24)
[2018-07-25] MEDS: APIXABAN 2.5 MG TABLET PO SCH (09:24)
[2018-07-25 11:26] VITALS: RESP 20
[2018-07-25] MEDS: HEPARIN SOD,PORK IN 0.45% NACL 25,000 UNIT in 0.45% NACL 1 250ML.BAG IV SCH (11:44)
[2018-07-25] MEDS: DILTIAZEM 125 MG in SODIUM CHLORIDE 0.9% 100 ML IV SCH (11:45)
--- NOTE | 2018-07-25 13:02 | P.PN ---
Subjective Progress Note Date: 07/25/18 This is a pleasant 87-year-old female patient with a past medical history significant for paroxysmal atrial fibrillation, hypertension, dyslipidemia, and chronic kidney disease, was brought to the emergency room by her daughter because of chest discomfort. This is the third admission for the patient with a chest discomfort within the last several weeks. The patient was in her usual state of health until yesterday showed was playing cards with her friends and she felt tired, fatigued, and weak, and she went to bed. She woke up during the night walking to the bathroom and she was experiencing chest discomfort. She did have another episode of chest discomfort earlier today. The patient described the discomfort as a pressure in the mid of the chest, without any radiation to the arm or neck or shoulders, and without any associated symptoms of shortness of breath, nausea, dizziness, heart racing, or syncope. No sweating as well as. The EKG showed what it seems to be atrial fibrillation without any ischemic ST or T-wave abnormalities. The first set of troponin came in to be slightly abnormal. The patient did have 2 previous admissions in June 2018 with a chest discomfort. In April 2018 she underwent a myocardial perfusion imaging stress test here in this hospital and that showed ischemia. For some reason the patient did not have any coronary angiogram after that probably because of her chronic kidney disease. 07/17/2018 Patient was seen and examined this morning, she denies any further episodes of chest discomfort, I did have a lengthy discussion with her and her daughter, and son via phone conversation and in life, the risks of undergoing cardiac catheterization were explained to them in detail, especially the risks of to the kidneys. The patient and the children wish to undergo cardiac catheterization. This will be performed tomorrow by Dr. Soto. Hemodynamically the patient is stable. 07/22/2018 Patient was seen and examined this morning, feels well, denies any chest pain or difficulty in breathing. She is scheduled to undergo angioplasty and stenting tomorrow with Dr. Soto. We will give her some IV fluids at 50 mL per hour today. Her blood pressure is 144/90 with a heart rate in the 60s, 96% on room air. Hemoglobin 9.1, platelet 123, sodium 140, potassium 4.2, BUN 27 and creatinine 1.6. 07/24/2018 Patient was taken to the cardiac catheterization lab yesterday by Dr. Soto and underwent balloon angioplasty of the first diagonal branch of the LAD. She was seen and examined today overall doing well. Feeling a little weak but denies any chest discomfort and her breathing overall is stable. Hemodynamically she is stable. 07/25/2018 Patient was seen and examined this morning, yesterday in the late afternoon she went into atrial fibrillation with a rapid ventricular response, this morning is in normal sinus rhythm. Overall she feels well. Blood pressure 126/50 with a heart rate in the 70s to 80s. White blood cell count 2.9, hemoglobin 8.1, platelet count 151. Sodium 141, potassium 3.6, BUN 13 and creatinine 1.3 Objective - Vital Signs Vital signs: Vital Signs Temp 97.6 F 07/25/18 08:30 Pulse 76 07/25/18 11:44 Resp 20 07/25/18 08:30 BP 126/52 07/25/18 08:30 Pulse Ox 98 07/25/18 08:30 Intake & Output 07/24/18 07/25/18 07/25/18 18:59 06:59 18:59 Intake Total 360 250 Balance 360 250 Weight 71.6 kg 69.4 kg Intake: Oral 360 250 Other: Voiding Method Toilet Toilet # Voids 3 1 2 - Exam PHYSICAL EXAMINATION: GENERAL: 87-year-old female in no acute distress at the time of my examination HEENT: Head is atraumatic, normocephalic. Pupils equal, round. Sclera anicteric. Conjunctiva are clear. Mucous membranes of the mouth are moist. Neck is supple. There is no elevated jugular venous pressure. No carotid bruit is heard. HEART EXAMINATION: Heart S1 S2 1 systolic murmur is heard CHEST EXAMINATION: Lungs are clear to auscultation and precussion. No chest wall tenderness is noted on palpation or with deep breathing. ABDOMEN: Soft, nontender. Bowel sounds are heard. No organomegaly noted. EXTREMITIES: 2+ peripheral pulses with trace evidence of peripheral edema and no calf tenderness noted. Left groin is soft, no evidence of any hematoma. NEUROLOGIC patient is awake, alert and oriented 3 . . - Labs CBC & Chem 7: 07/25/18 06:08 07/25/18 06:08 Labs: Abnormal Lab Results - Last 24 Hours (Table) 07/25/18 07/25/18 Range/Units 06:08 06:08 WBC 2.9 L (3.8-10.6) k/uL RBC 2.54 L (3.80-5.40) m/uL Hgb 8.1 L (11.4-16.0) gm/dL Hct 24.9 L (34.0-46.0) % Lymphocytes # (Manual) 0.64 L (1.0-4.8) k/uL Chloride 117 H (98-107) mmol/L Carbon Dioxide 20 L (22-30) mmol/L Creatinine 1.32 H (0.52-1.04) mg/dL Calcium 8.1 L (8.4-10.2) mg/dL Assessment and Plan Plan: Assessment #1 non-ST elevation PA, status post balloon angioplasty of the first diagonal branch of the LAD #2 mildly abnormal cardiac enzymes could be secondary to the chronic kidney disease with acute non-ST elevation myocardial infarction to be considered #3 hypertension #4 paroxysmal atrial fibrillation Plan From cardiology's perspective, patient may be discharged home once cleared by rhianna scruggs, we'll make a follow-up appointment in the office post discharge. DNP note has been reviewed, I agree with a documented findings and plan of care. Patient was seen and examined.
--- NOTE | 2018-07-25 13:31 | P.PN ---
Subjective Progress Note Date: 07/25/18 Principal diagnosis: Coronary artery disease, unstable angina, right lower lobe atelectasis, right- sided small effusion, congestive heart failure acute on chronic diastolic heart failure, non-ST segment elevated AK, chronic renal failure stage III, A. fib with rapid response, 07/25/2018, patient seen and evaluated examined during the rounds clinically has been doing well denies any chest pain or shortness of breath patient likely will be discharged later on today 07/24/2018, patient seen eval reexamined during the rounds denies any cough or shortness of breath doing well, Lasix is on hold, patient is on maximal medical therapy for coronary artery disease 07/23/2018, patient seen eval reexamined during the rounds patient is status post cath and angiogram today is stent couldn't be placed due to technical difficulties, denies any chest pain shortness of breath functions stable 07/21/2018, patient seen and evaluated examined during the rounds she is feeling bit better her breathing is improved denies any cough or sputum production patient's lab indications reviewed 07/20/2018, patient seen and evaluated examined during the rounds she has some loose stool diarrhea for which she is feeling weak but stools are more formed now respiratory status stable denies any chest pain shortness of breath no arrhythmia or tachycardia has been noted, she is awaiting repeat cath and stent placement sometime next week in the meantime renal functions are being monitored and followed 07/19/2018, patient seen eval reexamined during the rounds breathing better heart rate is well controlled patient underwent cath earlier being planned for his stent of diagonal branch of LAD for tomorrow 87-year-old female who was admitted into the hospital after an episode of chest discomfort and shortness of breath , she denies any chest pain or sputum production the chest discomfort was transient thought to be related to A. fib with rapid ventricular response noted to have mildly elevated cardiac enzyme and she is been worked up for acute non-ST segment elevated AK she has chronic renal failure hypertension hypertensive cardiovascular disease, on specific questioning she denies any loss of consciousness, denies any wheezing denies any cough or sputum production denies any abdominal pain Objective - Vital Signs Vital signs: Vital Signs Temp 97.6 F 07/25/18 08:30 Pulse 76 07/25/18 11:44 Resp 20 07/25/18 08:30 BP 126/52 07/25/18 08:30 Pulse Ox 98 07/25/18 08:30 Intake & Output 07/24/18 07/25/18 07/25/18 18:59 06:59 18:59 Intake Total 360 250 Balance 360 250 Weight 71.6 kg 69.4 kg Intake: Oral 360 250 Other: Voiding Method Toilet Toilet # Voids 3 1 2 - Exam Constitutional General appearance: average body habitus, cooperative, disheveled, mild distress - EENT Eyes: EOMI, PERRLA, normal appearance ENT: hard of hearing Ears: bilateral: normal - Neck Neck: normal ROM Carotids: bilateral: upstroke normal Thyroid: bilateral: normal size - Respiratory Respiratory: bilateral: rales (Bilateral basal Rales), negative: CTA, diminished, dullness, rhonchi, wheezing, prolonged expiration - Cardiovascular Rhythm: regular Heart sounds: normal: S1, S2 - Gastrointestinal General gastrointestinal: normal bowel sounds, soft - Integumentary Integumentary: normal turgor - Neurologic Neurologic: CNII-XII intact - Musculoskeletal Musculoskeletal: gait normal, generalized weakness, strength equal bilaterally - Psychiatric Psychiatric: A&O x's 3, appropriate affect, intact judgment & insight - Labs CBC & Chem 7: 07/25/18 06:08 07/25/18 06:08 Labs: Abnormal Lab Results - Last 24 Hours (Table) 07/25/18 07/25/18 Range/Units 06:08 06:08 WBC 2.9 L (3.8-10.6) k/uL RBC 2.54 L (3.80-5.40) m/uL Hgb 8.1 L (11.4-16.0) gm/dL Hct 24.9 L (34.0-46.0) % Lymphocytes # (Manual) 0.64 L (1.0-4.8) k/uL Chloride 117 H (98-107) mmol/L Carbon Dioxide 20 L (22-30) mmol/L Creatinine 1.32 H (0.52-1.04) mg/dL Calcium 8.1 L (8.4-10.2) mg/dL Assessment and Plan Assessment: Coronary artery disease/stenosis of diagonal branch of LAD Right lower lobe atelectasis Small right-sided effusion Suspect they're related to congestive heart failure /acute diastolic heart f ailure Doubt pneumonia Non-ST segment elevated AK cannot be excluded Chronic renal failure stage III A. fib with rapid ventricular response Acute diastolic heart failure Plan: Maximal medical therapy Continue Gentle diuresis Hold antibiotics Agree with breathing treatments X-ray reviewed Further recommendations pending plan of care as per clinical response of the patient Agree with more definitive intervention for A. fib Time with Patient: Greater than 30
[2018-07-25 13:41] VITALS: BP 130/63; PULSE 75; TEMP 98
--- NOTE | 2018-07-25 14:42 | P.DS ---
Providers Date of admission: 07/18/18 16:00 Expected date of discharge: 07/25/18 Attending physician: Pepe Canela Consults: 07/16/18 11:51 Consult Physician Urgent Consulting Provider: Migdalia Segovia Consult Reason/Comments: Unstable angina Do you want consulting provider notified?: Yes 07/16/18 16:21 Consult Physician Routine Consulting Provider: Toribio Simpson Consult Reason/Comments: rml infiltrate Do you want consulting provider notified?: Yes 07/16/18 16:23 Consult Physician Routine Consulting Provider: Jhonatan Whitfield Consult Reason/Comments: cardiac cath clearance Do you want consulting provider notified?: Yes 07/23/18 10:28 Consult Physician Routine Consulting Provider: Migdalia Segovia Consult Reason/Comments: Post Interventional patient Do you want consulting provider notified?: Already Contacted Primary care physician: [facility] Course: Final Diagnoses: -Atypical chest Pain, Status post cardiac catheterization-severe disease of the first diagonal branch of LAD. Stent placement attempted unsuccessfully. Attempted angioplasty. -Elevated troponin, mild, possibly related to CKD, acute non-STEMI -Acute renal failure, prerenal secondary to Diuresing,dehydration -Paroxysmal atrial fibrillation -Chronic kidney disease, stage III, secondary to nephrosclerosis ,baseline creatinine 1.1.3 -Chronic Diastolic CHF -History of Elevated lipase of unclear etiology,possible chronic pancreatitis. Prior CT reports Prominence of the common bile duct near the pancreas head., Elevated AFP. Abdominal MRI reported no evident sequelae of pancreatitis. 6mm left liver lobe cyst-stable, renal corresponding to prior. -Hypertension -Dyslipidemia -Bibasilar atelectasis Hospital course:This is an 87-year-old female admitted with chest tightness, mildly elevated troponins,atrial fibrillation with RVR and multiple other medical issues. Evaluated by cardiology and cardiac catheterization scheduled for tomorrow.IV fluid hydration prior to and post procedure as per Nephrology. Currently denies chest pain, palpitations or shortness of breath. Denies lightheadedness, dizziness, focal deficits. 07/18/2018 patient's schedule bumped- cardiac catheterization rescheduled for tomorrow. IV fluids placed on hold. Denies chest pain, palpitations or shortness of breath. MRI after cardiac catheterization. 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 No further chest pain or palpitations. Scheduled for stent placement tomorrow of the diagonal branch. Maintained on IV fluid hydration as per nephrology. Creatinine currently 1.84 , Lasix remains on hold .Denies chest pain, palpitations or shortness of breath. 08/19/2018 scheduled for heart catheterization/stent placement today. Denies chest pain, palpitations or shortness of breath. Creatinine 1.29, maintain IV fluid hydration as per nephrology. 07/24/2018 Lasix remains on hold. Bicarb 20. Fluids have been PIVL'd. Creatinine 1.35. Stent placement unable to be performed secondary to calcified vessel, attempted angioplasty. Dual antiplatelet therapy recommended. Tolerated procedure well. Denies chest pain, palpitations or increasing shortness of breath. 07/25/2018 developed atrial fibrillation with RVR yesterday afternoon, placed on Cardizem drip and converted to sinus rhythm early this morning. Cardiology has cleared patient for discharge- to be discharged on aspirin, Plavix, Eliquis 1 month with aspirin being discontinued after 1 month, resume Lasix, Ranexa, increased Imdur and hydralazine. Cleared by nephrology for discharge. Patient is being discharged home to [facility] in a stable condition with fair prognosis. - Exam GENERAL:Alert & oriented X 3, no acute distress CARDIOVASCULAR: S1, S2 muffled. Systolic murmur, no rubs, no gallops RESPIRATION: Breath sounds diminished in the bases. No rhonchi or crackles. No wheezing. ABDOMEN: Soft, nontender . No guarding. no masses palpable. Bowel sounds heard. NERVOUS SYSTEM:No focal deficits. The impression and plan of care has been dictated as directed. : I performed a history and examination of this patient, discussed the same with the dictator. I agree with the dictator's note ,documented as a scribe. Any additional findings or plans will be noted. Time taken: 35 minutes Patient Condition at Discharge: Stable Plan - Discharge Summary Discharge Rx Participant: No New Discharge Prescriptions: New Docusate [Colace] 100 mg PO BID cap Furosemide [Lasix] 40 mg PO DAILY #30 tab Metoprolol Succinate (ER) [Toprol XL] 75 mg PO DAILY #90 tab.er.24h Nitroglycerin Sl Tabs [Nitrostat] 0.4 mg SUBLINGUAL Q5M PRN #100 tab PRN Reason: Chest Pain hydrALAZINE HCL [Apresoline] 25 mg PO TID #90 tab Isosorbide Mononitrate ER [Imdur] 60 mg PO DAILY #30 tab.er.24h Ranolazine [Ranexa] 500 mg PO Q12HR #60 tab.er.12h Clopidogrel [Plavix] 75 mg PO DAILY #30 tab Continue Aspirin 81 mg PO DAILY QUEtiapine [SEROquel] 50 mg PO HS QUEtiapine [SEROquel] 100 mg PO HS Multivitamins, Thera [Multivitamin (formulary)] 1 tab PO DAILY HYDROcodone/APAP 7.5-325MG [[place] 7.5-325] 1 tab PO HS Atorvastatin [Lipitor] 20 mg PO HS Omeprazole [PriLOSEC] 20 mg PO AC-BID #60 cap Ipratropium-Albuterol Nebulize [Duoneb 0.5 mg-3 mg/3 ml Soln] 3 ml INHALATION RT-QID #120 ampul.neb Apixaban [Eliquis] 2.5 mg PO BID #60 tablet Discontinued Metoprolol Succinate (ER) [Toprol XL] 50 mg PO DAILY tab.er.24h Furosemide [Lasix] 20 mg PO BID #60 tab Isosorbide Mononitrate ER [Imdur] 30 mg PO DAILY #30 tab.er.24h Discharge Medication List Aspirin 81 mg PO DAILY 07/08/13 [History] QUEtiapine [SEROquel] 50 mg PO HS 05/08/18 [History] QUEtiapine [SEROquel] 100 mg PO HS 05/08/18 [History] Atorvastatin [Lipitor] 20 mg PO HS 06/23/18 [History] HYDROcodone/APAP 7.5-325MG [[place] 7.5-325] 1 tab PO HS 06/23/18 [History] Multivitamins, Thera [Multivitamin (formulary)] 1 tab PO DAILY 06/23/18 [History] Ipratropium-Albuterol Nebulize [Duoneb 0.5 mg-3 mg/3 ml Soln] 3 ml INHALATION RT-QID #120 ampul.neb 06/29/18 [Rx] Omeprazole [PriLOSEC] 20 mg PO AC-BID #60 cap 06/29/18 [Rx] Apixaban [Eliquis] 2.5 mg PO BID #60 tablet 07/10/18 [Rx] Clopidogrel [Plavix] 75 mg PO DAILY #30 tab 07/25/18 [Rx] Docusate [Colace] 100 mg PO BID cap 07/25/18 [Rx] Furosemide [Lasix] 40 mg PO DAILY #30 tab 07/25/18 [Rx] Isosorbide Mononitrate ER [Imdur] 60 mg PO DAILY #30 tab.er.24h 07/25/18 [Rx] Metoprolol Succinate (ER) [Toprol XL] 75 mg PO DAILY #90 tab.er.24h 07/25/18 [Rx] Nitroglycerin Sl Tabs [Nitrostat] 0.4 mg SUBLINGUAL Q5M PRN #100 tab 07/25/18 [Rx] Ranolazine [Ranexa] 500 mg PO Q12HR #60 tab.er.12h 07/25/18 [Rx] hydrALAZINE HCL [Apresoline] 25 mg PO TID #90 tab 07/25/18 [Rx] Follow up Appointment(s)/Referral(s): Diane Staley MD [STAFF PHYSICIAN] - 1 Week Pepe Canela MD [Primary Care Provider] - 3 Days Ambulatory/Diagnostic Orders: Complete Blood Count w/diff [LAB.AMB] Time Frame: 3 Days, Location: None Selected Activity/Diet/Wound Care/Special Instructions: Kandace Tiwari. BILLY Aspirin after 1 mth. Confirm cardiology follow-up appointment prior to discharge. Hold Colace if diarrhea Home Care - [facility] - [phone] Discharge Disposition: HOME WITH HOME HEALTH SERVICES
--- NOTE | 2018-07-25 18:18 | PN ---
PROGRESS NOTE Patient is seen for followup for acute kidney injury and chronic kidney disease. This morning she is complaining of mild shortness of breath. Patient went into atrial fibrillation. She is maintained on Cardizem drip this morning. On examination, blood pressure was 126/52, heart rate of 70 per minute. She is afebrile. EXAMINATION OF THE HEART: S1 and S2. EXAMINATION OF LUNGS: Bilateral breath sounds are heard. ABDOMEN: Soft, non-tender. Examination of lower extremities shows edema 1+ bilaterally. WASTE HAND exam is grossly intact. Labs show sodium of 141, potassium 3.6, BUN 13, serum creatinine 1.32. ASSESSMENT: 1. Chronic kidney disease, NKF stage III. Renal function is stable. 2. Acute kidney injury on initial admission, currently improved. Renal function staying stable. 3. Mild volume overload. I will give her a dose of IV Lasix. Patient should continue with oral diuretics upon discharge. 4. Status post cardiac catheterization and balloon angioplasty, which was a staged procedure, with the last cardiac catheterization and angioplasty done on July 23. 5. Diastolic heart failure, improved. Patient is mildly hypervolemic. PLAN: Lasix IV x1. Continue with oral Lasix upon discharge. Follow up as outpatient for CKD. MMODL / IJN: [id number] /
[2018-07-26] MEDS ORDERED: FUROSEMIDE 40 MG TAB PO SCH (09:00)
[2018-07-26] MEDS ORDERED: METOPROLOL SUCCINATE (ER) 25 MG TAB.ER.24H PO SCH (09:00)
== END 2018-07-25 15:50 | disposition home health service (06) | DRG 280 ==
LOC: EC 10:03 → 3SCARD 11:51 → OBSVTOIN 07-18 16:00
PROVIDERS: ADMIT Family Medicine; ATTEND Family Medicine
PROC: B2111ZZ Fluoroscopy of Multiple Coronary Arteries using Low Osmolar Contrast (ICD-10-PCS; 2018-07-19)
PROC: 4A023N7 Measurement of Cardiac Sampling and Pressure, Left Heart, Percutaneous Approach (ICD-10-PCS; principal; 2018-07-19 07:35)
PROC: 4A023N7 Measurement of Cardiac Sampling and Pressure, Left Heart, Percutaneous Approach (ICD-10-PCS; 2018-07-23)
PROC: B2101ZZ Fluoroscopy of Single Coronary Artery using Low Osmolar Contrast (ICD-10-PCS; 2018-07-23)
DX: I25.10 Atherosclerotic heart disease of native coronary artery without angina pectoris (principal); I21.4 Non-ST elevation (NSTEMI) myocardial infarction; I50.33 Acute on chronic diastolic (congestive) heart failure; E87.2 Acidosis; I13.0 Hypertensive heart and chronic kidney disease with heart failure and stage 1 through stage 4 chronic kidney disease, or unspecified chronic kidney disease; J98.11 Atelectasis; K86.1 Other chronic pancreatitis; N17.9 Acute kidney failure, unspecified; J44.9 Chronic obstructive pulmonary disease, unspecified; E86.0 Dehydration; I45.10 Unspecified right bundle-branch block; I48.0 Paroxysmal atrial fibrillation; K76.89 Other specified diseases of liver; N18.3 Chronic kidney disease, stage 3 (moderate); M19.90 Unspecified osteoarthritis, unspecified site; E78.5 Hyperlipidemia, unspecified; M54.5 Low back pain; R19.7 Diarrhea, unspecified; R77.2 Abnormality of alphafetoprotein; H91.90 Unspecified hearing loss, unspecified ear; T50.2X5A Adverse effect of carbonic-anhydrase inhibitors, benzothiadiazides and other diuretics, initial encounter; T50.995A Adverse effect of other drugs, medicaments and biological substances, initial encounter; Z79.01 Long term (current) use of anticoagulants; Z79.82 Long term (current) use of aspirin; Z79.899 Other long term (current) drug therapy; Z96.651 Presence of right artificial knee joint; Z87.891 Personal history of nicotine dependence; Z86.73 Personal history of transient ischemic attack (TIA), and cerebral infarction without residual deficits; Z90.49 Acquired absence of other specified parts of digestive tract; Z98.42 Cataract extraction status, left eye; Z98.41 Cataract extraction status, right eye; Z96.1 Presence of intraocular lens; Z80.41 Family history of malignant neoplasm of ovary; Z80.8 Family history of malignant neoplasm of other organs or systems
CPT/HCPCS: 36415; 71045; 71046; 74181; 80048; 80053; 80061; 81003; 83735; 83880; 84484; 85025; 85610; 85730; 93005; 93458; 94640; 94760; 96365; 96366; 96376; 99291

== ENCOUNTER 2018-07-30 12:50 | Inpatient (IN) | payer MEDICARE, BC ==
--- NOTE | 2018-07-30 13:27 | ED ---
General Adult HPI - General Chief complaint: Weakness Stated complaint: Weakness Time Seen by Provider: 07/30/18 13:15 Source: patient, family, EMS, RN notes reviewed Mode of arrival: EMS Limitations: no limitations - History of Present Illness Initial comments: Patient is a pleasant 87-year-old female presenting to the emergency Department with complaints of fatigue and generalized weakness. Patient was just discharged from the hospital several days ago with atrial fibrillation. Patient did have heart catheterization. Patient does have history of known kidney problems. Patient is on Lasix. Urination has been somewhat decreased the past couple of days. Patient feels very fatigued and somewhat weak throughout. Patient denies any isolated area of weakness. Patient is having difficulty getting around the house even using her walker. Patient was unable to make it to the bathroom today. Patient did not fall or hurt herself. Patient does not feel confused. No chest pain. No dyspnea. no Fever. - Related Data Home Medications Medication Instructions Recorded Confirmed Aspirin 81 mg PO DAILY 07/08/13 07/30/18 QUEtiapine [SEROquel] 50 mg PO HS 05/08/18 07/30/18 QUEtiapine [SEROquel] 100 mg PO HS 05/08/18 07/30/18 HYDROcodone/APAP 7.5-325MG [[place] 1 tab PO HS 06/23/18 07/30/18 7.5-325] Multivitamins, Thera [Multivitamin 1 tab PO DAILY 06/23/18 07/30/18 (formulary)] Ranolazine [Ranexa] 1,000 mg PO HS 07/30/18 07/30/18 Ranolazine [Ranexa] 500 mg PO [facility] 07/30/18 07/30/18 Previous Rx's Medication Instructions Recorded Ipratropium-Albuterol Nebulize 3 ml INHALATION RT-QID #120 06/29/18 [Duoneb 0.5 mg-3 mg/3 ml Soln] ampul.neb Omeprazole [PriLOSEC] 20 mg PO AC-BID #60 cap 06/29/18 Apixaban [Eliquis] 2.5 mg PO BID #60 tablet 07/10/18 Clopidogrel [Plavix] 75 mg PO DAILY #30 tab 07/25/18 Docusate [Colace] 100 mg PO BID cap 07/25/18 Furosemide [Lasix] 40 mg PO DAILY #30 tab 07/25/18 Isosorbide Mononitrate ER [Imdur] 60 mg PO DAILY #30 tab.er.24h 07/25/18 Metoprolol Succinate (ER) [Toprol 75 mg PO DAILY #90 tab.er.24h 07/25/18 XL] Nitroglycerin Sl Tabs [Nitrostat] 0.4 mg SUBLINGUAL Q5M PRN #100 tab 07/25/18 hydrALAZINE HCL [Apresoline] 25 mg PO TID #90 tab 07/25/18 Allergies Allergy/AdvReac Type Severity Reaction Status Date / Time No Known Allergies Allergy Verified 07/30/18 13:29 Review of Systems ROS Statement: Those systems with pertinent positive or pertinent negative responses have been documented in the HPI. ROS Other: All systems not noted in ROS Statement are negative. Constitutional: Denies: fever Eyes: Denies: eye pain ENT: Denies: ear pain Respiratory: Denies: cough, dyspnea Cardiovascular: Denies: chest pain Endocrine: Reports: fatigue Gastrointestinal: Denies: abdominal pain Genitourinary: Denies: dysuria Musculoskeletal: Denies: back pain Skin: Denies: rash Neurological: Denies: headache, confusion Past Medical History Past Medical History: CVA/TIA, Hypertension, Osteoarthritis (OA), Renal Disease Additional Past Medical History / Comment(s): HX PANCREATITIS 2011 OR 2010, LOWER BACK PAIN-HARD TO WALK FAR- USES CANE OR WALKER. TIA X 2. states Stage 3 kidney dx, History of Any Multi-Drug Resistant Organisms: None Reported Past Surgical History: Adenoidectomy, Appendectomy, Back Surgery, Cholecystectomy, Hernia Repair, Joint Replacement, Tonsillectomy Additional Past Surgical History / Comment(s): Low back surgery, CATARACTS TAMAR, INCISIONAL HERNIA, RT KNEE REPLACEMENT, TAMAR.VARICOSE VEIN STRIPPING, PAIN CLINIC PROCEDURES, COLONOSCOPY, EGD Past Anesthesia/Blood Transfusion Reactions: No Reported Reaction Additional Past Anesthesia/Blood Transfusion Reaction / Comment(s): reluctant to receive any anesthesia, wants family meeting prior to any procedures involving anesthesia Past Psychological History: No Psychological Hx Reported Smoking Status: Former smoker Past Alcohol Use History: Rare Past Drug Use History: None Reported - Past Family History Father Family Medical History: No Reported History Additional Family Medical History / Comment(s): Father at age 84 yrs of old age. Mother Family Medical History: Cancer Additional Family Medical History / Comment(s): Mother at age 53yrs of ovarian cancer. Brother(s) Family Medical History: Cancer Additional Family Medical History / Comment(s): BRAIN CA General Exam Limitations: no limitations General appearance: in no apparent distress, other (Patient is drowsy but arouses to voice. Patient does not show much interest in following commands or having conversation for history.) Head exam: Present: atraumatic Eye exam: Present: normal appearance, PERRL, EOMI. Absent: nystagmus ENT exam: Present: normal oropharynx Neck exam: Present: normal inspection Respiratory exam: Present: normal lung sounds bilaterally Cardiovascular Exam: Present: regular rate, normal rhythm Expanded Peripheral pulses: 2+: Radial (R), Radial (L), Dorsalis Pedis (R), Dorsalis Pedis (L) GI/Abdominal exam: Present: soft. Absent: tenderness Extremities exam: Present: normal inspection. Absent: pedal edema, calf tenderness Neurological exam: Present: oriented X3, other (Drowsy. No focal deficits. Limited exam.) Expanded Neurological exam: Present: protecting the airway Patient oriented to: Present: person, place, time Speech: Present: fluid speech Cranial nerves: EOM's Intact: Normal Motor strength exam: RUE: 5, LUE: 5, RLE: 5, LLE: 5 Eye Response: (3) open to voice Motor Response: (6) obeys commands Verbal Response: (5) oriented Psychiatric exam: Present: flat affect Skin exam: Present: normal color Course Vital Signs 07/30/18 12:59 Temperature 98.0 F Pulse Rate 73 Respiratory 18 Rate Blood Pressure 109/62 O2 Sat by Pulse 96 Oximetry EKG Findings - EKG Comments: EKG Findings:: No sinus rhythm 70. OR 174. QRS 144. QT 448. QTC 43. Left axis. Right bundle branch block. No acute ST change. Medical Decision Making - Medical Decision Making Patient reevaluated. Patient and family updated. Case discussed in detail with Dr. Canela, who will admit his patient. Case also discussed in detail with Dr. Good, who will consult. Heparin will be held at this time secondary to patient is on Eliquis. - Lab Data Result diagrams: 07/30/18 13:41 07/30/18 13:41 Lab Results 07/30/18 07/30/18 07/30/18 Range/Units 13:41 13:41 13:41 WBC 3.3 L (3.8-10.6) k/uL RBC 3.05 L (3.80-5.40) m/uL Hgb 9.6 L D (11.4-16.0) gm/dL Hct 29.4 L (34.0-46.0) % MCV 96.3 (80.0-100.0) fL MCH 31.6 (25.0-35.0) pg MCHC 32.8 (31.0-37.0) g/dL RDW 16.0 H (11.5-15.5) % Plt Count 290 (150-450) k/uL Neutrophils % (Manual) 37 % Band Neutrophils % 1 % Lymphocytes % (Manual) 33 % Monocytes % (Manual) 21 % Eosinophils % (Manual) 8 % Neutrophils # (Manual) 1.20 L (1.3-7.7) k/uL Lymphocytes # (Manual) 1.09 (1.0-4.8) k/uL Monocytes # (Manual) 0.69 (0-1.0) k/uL Eosinophils # (Manual) 0.26 (0-0.7) k/uL Nucleated RBCs 0 (0-0) /100 WBC Manual Slide Review Performed Poikilocytosis (manual Present Anisocytosis Slight PT (9.0-12.0) sec INR (<1.2) APTT (22.0-30.0) sec Sodium 137 (137-145) mmol/L Potassium 3.7 (3.5-5.1) mmol/L Chloride 107 (98-107) mmol/L Carbon Dioxide 23 (22-30) mmol/L Anion Gap 7 mmol/L BUN 34 H (7-17) mg/dL Creatinine 2.00 H (0.52-1.04) mg/dL Est GFR (CKD-EPI)AfAm 25 (>60 ml/min/1.73 sqM) Est GFR (CKD-EPI)NonAf 22 (>60 ml/min/1.73 sqM) Glucose 117 H (74-99) mg/dL Plasma Lactic Acid Vladimir 0.9 (0.7-2.0) mmol/L Calcium 8.4 (8.4-10.2) mg/dL Phosphorus 3.5 (2.5-4.5) mg/dL Magnesium 1.8 (1.6-2.3) mg/dL Total Bilirubin 0.5 (0.2-1.3) mg/dL AST 33 (14-36) U/L ALT 23 (9-52) U/L Alkaline Phosphatase 67 (38-126) U/L Creatine Kinase 76 (30-135) U/L Troponin I (0.000-0.034) ng/mL Total Protein 5.7 L (6.3-8.2) g/dL Albumin 3.1 L (3.5-5.0) g/dL TSH 4.140 (0.465-4.680) mIU/L Free T4 1.32 (0.78-2.19) ng/dL Free T3 pg/mL 4.4 (2.8-5.3) pg/ml 07/30/18 07/30/18 Range/Units 13:41 13:41 WBC (3.8-10.6) k/uL RBC (3.80-5.40) m/uL Hgb (11.4-16.0) gm/dL Hct (34.0-46.0) % MCV (80.0-100.0) fL MCH (25.0-35.0) pg MCHC (31.0-37.0) g/dL RDW (11.5-15.5) % Plt Count (150-450) k/uL Neutrophils % (Manual) % Band Neutrophils % % Lymphocytes % (Manual) % Monocytes % (Manual) % Eosinophils % (Manual) % Neutrophils # (Manual) (1.3-7.7) k/uL Lymphocytes # (Manual) (1.0-4.8) k/uL Monocytes # (Manual) (0-1.0) k/uL Eosinophils # (Manual) (0-0.7) k/uL Nucleated RBCs (0-0) /100 WBC Manual Slide Review Poikilocytosis (manual Anisocytosis PT 10.8 (9.0-12.0) sec INR 1.0 (<1.2) APTT 24.7 (22.0-30.0) sec Sodium (137-145) mmol/L Potassium (3.5-5.1) mmol/L Chloride (98-107) mmol/L Carbon Dioxide (22-30) mmol/L Anion Gap mmol/L BUN (7-17) mg/dL Creatinine (0.52-1.04) mg/dL Est GFR (CKD-EPI)AfAm (>60 ml/min/1.73 sqM) Est GFR (CKD-EPI)NonAf (>60 ml/min/1.73 sqM) Glucose (74-99) mg/dL Plasma Lactic Acid Vladimir (0.7-2.0) mmol/L Calcium (8.4-10.2) mg/dL Phosphorus (2.5-4.5) mg/dL Magnesium (1.6-2.3) mg/dL Total Bilirubin (0.2-1.3) mg/dL AST (14-36) U/L ALT (9-52) U/L Alkaline Phosphatase (38-126) U/L Creatine Kinase (30-135) U/L Troponin I 1.730 H* (0.000-0.034) ng/mL Total Protein (6.3-8.2) g/dL Albumin (3.5-5.0) g/dL TSH (0.465-4.680) mIU/L Free T4 (0.78-2.19) ng/dL Free T3 pg/mL (2.8-5.3) pg/ml - Radiology Data Radiology results: report reviewed (Computed tomography scan the brain shows degenerative and nonspecific white matter changes. No acute hemorrhage or mass.), image reviewed (Chest x-ray shows COPD. Stable nodule right midlung.) Disposition Clinical Impression: Altered mental status, Renal insufficiency, Elevated troponin Disposition: ADMITTED IP TO THIS [facility] Condition: Serious Is patient prescribed a controlled substance at d/c from ED?: No Referrals: Pepe Canela MD [Primary Care Provider] - 1-2 days Decision Time: 15:22
[2018-07-30] MEDS ORDERED: SODIUM CHLORIDE 0.9% 1,000 ML IV STA (13:32)
[2018-07-30 14:08] LABS: Anisocytosis Slight; HCT 29.4 % (34.0-46.0); MCH 31.6 pg (25.0-35.0); MCHC 32.8 g/dL (31.0-37.0); MCV 96.3 fL (80.0-100.0); Mean Platelet Volume 7.2; Platelet Count 290 k/uL (150-450); RBC 3.05 m/uL (3.80-5.40); WBC 3.3 k/uL (3.8-10.6)
[2018-07-30 14:11] LABS: Albumin 3.1 g/dL (3.5-5.0); Calcium 8.4 mg/dL (8.4-10.2); Magnesium 1.8 mg/dL (1.6-2.3); Phosphorus 3.5 mg/dL (2.5-4.5); Potassium 3.7 mmol/L (3.5-5.1); Total Bilirubin 0.5 mg/dL (0.2-1.3); Total Protein 5.7 g/dL (6.3-8.2)
[2018-07-30 14:17] LABS: HGB 9.6 gm/dL (11.4-16.0); Partial Thromboplastin Time 24.7 sec (22.0-30.0); Prothrombin Time 10.8 sec (9.0-12.0)
--- NOTE | 2018-07-30 14:17 | CT ---
EXAMINATION TYPE: CT brain wo con DATE OF EXAM: 07/30/2018 COMPARISON: 09/02/2013 HISTORY: Weakness CT DLP: 1007.4 mGycm Automated exposure control for dose reduction was used. FINDINGS: Mild generalized degenerative change with a greater frontal lobe component. No acute hemorrhage or ma ss effect. Intracranial atherosclerotic changes noted. Low-attenuation the white matter is nonspecific but most typical of remote microvascular ischemia. Calvarium intact. IMPRESSION: DEGENERATIVE AND NONSPECIFIC WHITE MATTER CHANGES WITH NO EVIDENCE OF ACUTE HEMORRHAGE OR MASS EFFECT .
[2018-07-30 14:27] LABS: T4, Free (Free Thyroxine) 1.32 ng/dL (0.78-2.19)
[2018-07-30 14:47] LABS: Band Neutrophils % 1 %; Eosinophils # (M) 0.26 k/uL (0-0.7); Lymphocytes # (M) 1.09 k/uL (1.0-4.8); Monocytes # (M) 0.69 k/uL (0-1.0); Neutrophils % (M) 37 %; Nucleated Red Blood Cells 0 /100 WBC (0-0); Total Cells Counted 100
[2018-07-30 14:48] LABS: Poikilocytosis (M) Present
--- NOTE | 2018-07-30 15:16 | XR ---
EXAMINATION TYPE: XR chest 2V DATE OF EXAM: 07/30/2018 COMPARISON: 07/21/2018 TECHNIQUE: PA and lateral views submitted. HISTORY: Weakness FINDINGS: Hyperinflation suggests COPD. There are subsegmental consolidation bilaterally. Somewhat nodular dens ity seen along the lateral margin of the right midlung. Atherosclerotic change of the aorta. Hyperinf lation suggests COPD. Biapical pleural thickening. Diffuse osteopenia noted. Atherosclerotic change o f the aorta. IMPRESSION: 1. Bilateral infiltrate and small effusion are stable correlate for COPD. 2. Stable appearing nodular density in the right midlung measuring 8 mm.
[2018-07-30] MEDS ORDERED: NALOXONE 0.4 MG/ML 1 ML VIAL IV PRN (15:24)
[2018-07-30] MEDS: SODIUM CHLORIDE 0.9% 1,000 ML IV SCH (16:26)
[2018-07-30] MEDS ORDERED: NITROGLYCERIN SL TABS 0.4 MG TAB SUBLINGUAL PRN (17:32)
[2018-07-30] MEDS: HYDROcodone/APAP 7.5-325MG 1 EACH TAB PO SCH (21:48)
[2018-07-30] MEDS: QUEtiapine 50 MG TAB PO SCH (21:49)
[2018-07-30] MEDS: APIXABAN 2.5 MG TABLET PO SCH (21:49)
[2018-07-30] MEDS: QUEtiapine 100 MG TAB PO SCH (21:49)
[2018-07-30] MEDS: DOCUSATE 100 MG CAP PO SCH (21:51)
--- NOTE | 2018-07-30 23:21 | CT ---
EXAMINATION TYPE: CT chest wo con DATE OF EXAM: 07/30/2018 COMPARISON: 07/09/2018 HISTORY: Dyspnea. Pt has not had breathing treatment yet today CT DLP: 231.6 mGycm. Automated Exposure Control for Dose Reduction was Utilized. TECHNIQUE: CT scan of the thorax is performed without IV contrast. FINDINGS: LUNGS, PLEURAL SPACES, AIRWAYS: The lungs are grossly clear, there is no concerning parenchymal mass or nodule identified. There is n o pleural effusion or pneumothorax seen. The tracheobronchial tree is patent. 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 There is mild cardiomegaly with prominent left and right coronary calcifications; no pericardial effu adrianna. Prominent pulmonary arterial caliber can correlate with a clinical diagnosis of pulmonary hypertensio n. There is no mediastinal or hilar adenopathy. OTHER: No additional significant abnormality is seen. IMPRESSION: No acute process.
[2018-07-30] MEDS: IPRATROPIUM-ALBUTEROL 3 ML NEB INHALATION SCH (23:37)
--- NOTE | 2018-07-30 23:37 | HP ---
HISTORY AND PHYSICAL CHIEF COMPLAINT: 87-year-old female presents with fatigue, generalized weakness, chest pain and tightness with ambulation, status post balloon angioplasty a week ago, history of chronic atrial fibrillation. She is unable to have any energy or with any movement around her house with chest pain and shortness of breath. She was unable to get up out of bed to get to the bathroom today. Brought to the hospital was found to have dehydration type symptoms. She feels better with IV fluids. Elevated troponin. Await cardiology recommendations. HOME MEDICATIONS: Will be restarted and include: Seroquel 150 q.h.s., Seney 7.5/325 1 at night, aspirin 81 mg daily, multivitamins, Ranexa 1500 mg daily, Imdur ER 60 mg daily, metoprolol-XL 75 daily, nitroglycerin sublingual p.r.n., she took 2 nitros the night before admission due to chest pain, which she did not tell the emergency room doctor. It takes DuoNeb 4 times a day, omeprazole 20 daily. Eliquis 2.5 mg b.i.d. ALLERGIES: Negative. PAST MEDICAL HISTORY: CVA, TIA, hypertension, atrial fibrillation, renal disease, osteoarthritis. Surgery low back surgery, cataract surgery, incisional hernia repair, right knee replacement, varicose vein stripping, colonoscopy, EGD. PHYSICAL EXAMINATION: Temperature 98, pulse 73, sinus rhythm, respiratory 16-20, blood pressure 109/62. Cardiovascular S1-S2. Lungs transmitted upper sounds. Hematology negative Homans. Psych: Fair mood and affect. GI soft. Hematology negative Homans. Cranial nerves are intact. White count 3.3, hemoglobin is 9.6, BUN 34, creatinine 2.01. ASSESSMENT: 1. Prerenal renal failure. 2. Chronic renal disease. 3. Elevated troponin. 4. Unstable angina. 5. Altered mental status. 6. Renal insufficiency. 7. Elevated troponin. 8. Shortness of breath of unclear etiology. We will do CT of the chest as chest x-ray showed bilateral infiltrates. Await cardiology recommendations due to elevated troponin and possible restenoses of his cardiac stent. MMODL / IJN: [id number] /
[2018-07-31 00:27] LABS: Appearance,Urine Clear (Clear); Bilirubin,Urine Negative (Negative); Blood,Urine Negative (Negative); Color,Urine Yellow; Glucose,Urine (UA) Negative (Negative); Hyaline Casts,Urine 45 /lpf (0-2); Ketones,Urine Negative (Negative); Leukocyte Esterase,Urine Trace (Negative); Mucus,Urine Rare /hpf; Nitrite,Urine Negative (Negative); PH, Urine 5.5 (5.0-8.0); Protein,Urine Negative (Negative); Renal Epithelial Cells,Urine <1 /hpf (0); Specific Gravity,Urine 1.013 (1.001-1.035); Squamous Epithelial Cell,Urine 1 /hpf (0-4); Urobilinogen,Urine <2.0 mg/dL (<2.0); WBC,Urine 6 /hpf (0-5)
[2018-07-31] MEDS: hydrALAZINE HCL 25 MG TAB PO SCH ×4 (01:20→20:18)
[2018-07-31 02:45] LABS: Creatine Kinase MB 1.9 ng/mL (0.0-2.4)
[2018-07-31 02:46] LABS: Troponin I 0.904 ng/mL (0.000-0.034)
[2018-07-31] MEDS: RANOLAZINE 500 MG TAB.ER.12H PO SCH ×3 (06:25→20:18)
[2018-07-31 06:35] LABS: HCT 27.4 % (34.0-46.0); HGB 9.1 gm/dL (11.4-16.0); MCH 31.9 pg (25.0-35.0); MCV 96.6 fL (80.0-100.0); Mean Platelet Volume 6.9; Platelet Count 292 k/uL (150-450); RBC 2.84 m/uL (3.80-5.40); RDW 15.5 % (11.5-15.5); WBC 2.7 k/uL (3.8-10.6)
[2018-07-31 06:53] LABS: Albumin 2.7 g/dL (3.5-5.0); Calcium 8.3 mg/dL (8.4-10.2); Potassium 3.7 mmol/L (3.5-5.1); Total Bilirubin 0.4 mg/dL (0.2-1.3); Total Protein 5.2 g/dL (6.3-8.2)
[2018-07-31 07:01] LABS: Basophils # (M) 0.03 k/uL (0-0.2); Eosinophils # (M) 0.11 k/uL (0-0.7); Lymphocytes # (M) 0.76 k/uL (1.0-4.8); Monocytes # (M) 0.41 k/uL (0-1.0); Neutrophils % (M) 52 %; Nucleated Red Blood Cells 0 /100 WBC (0-0); Total Cells Counted 100
[2018-07-31] MEDS: IPRATROPIUM-ALBUTEROL 3 ML NEB INHALATION SCH ×4 (07:39→20:26)
[2018-07-31] MEDS ORDERED: PANTOPRAZOLE 40 MG/10 ML VIAL IV SCH (09:00)
[2018-07-31] MEDS ORDERED: FUROSEMIDE 40 MG TAB PO SCH (09:00)
[2018-07-31] MEDS: DOCUSATE 100 MG CAP PO SCH ×2 (11:07→20:18)
[2018-07-31] MEDS: CLOPIDOGREL 75 MG TAB PO SCH (11:07)
[2018-07-31] MEDS: ISOSORBIDE MONONITRATE ER 60 MG TAB.ER.24H PO SCH (11:07)
[2018-07-31] MEDS: PANTOPRAZOLE 40 MG TABLET PO SCH ×2 (11:08→17:50)
[2018-07-31] MEDS: APIXABAN 2.5 MG TABLET PO SCH ×2 (11:08→20:18)
[2018-07-31] MEDS: METOPROLOL SUCCINATE (ER) 25 MG TAB.ER.24H PO SCH (11:08)
[2018-07-31] MEDS: ASPIRIN 81 MG PO SCH (11:08)
[2018-07-31] MEDS: MULTIVITAMINS, THERA 1 EACH TAB PO SCH (11:08)
[2018-07-31] MEDS: SODIUM CHLORIDE 0.9% 1,000 ML IV SCH ×2 (11:09→17:50)
--- NOTE | 2018-07-31 12:28 | P.CRDCN ---
History of Present Illness Consult date: 07/31/18 Requesting physician: Pepe Canela Reason for Consult (text): Recent PTCA Chief complaint: weakness History of present illness: Is a pleasant 87-year-old female with a past medical history significant for paroxysmal atrial fibrillation, hypertension, hyperlipidemia, chronic kidney disease, chronic anemia, who was just recently in the hospital at the end of June, with a recurrent admission of chest discomfort. Because of the multiple admissions of chest discomfort as well as a stress test in April which revealed reversible ischemia the patient was taken to the cardiac catheteri zation lab where she underwent angioplasty of the first diagonal branch of the LAD, Dr. Soot was unable to stent that vessel. After that procedure the patient did quite well, was discharged home in stable position. She returns to the hospital on this occasion with symptoms of weakness, she denies any overt chest discomfort in her breathing overall has been stable. According to the patient, she has not been drinking enough fluids at home. CAT scan of the brain showed degenerative and nonspecific white matter changes with no evidence of acute hemorrhage or mass effect. EKG showed a normal sinus rhythm with a right bundle branch block pattern and left anterior fascicular block. CAT scan of the chest was performed which did not reveal any acute process. Pressure on arrival here 109/60, heart rate in the 70s, afebrile, 98% on room air. White blood cell count 3.3, hemoglobin 9.6, 9.1 this morning. Platelet count 292. Sodium 137 on admission potassium 3.7, BUN 34 and creatinine 0.0, this morning's creatinine 1.6. Troponin 1.7, 1.1, 0.9. TSH 4.1 with a free T4 of 1.3. She was initiated on IV fluids on arrival here, at the time of my examination in the emergency room she does state that she is ready feeling quite a bit stronger today. Past Medical History Past Medical History: CVA/TIA, Hypertension, Osteoarthritis (OA), Renal Disease Additional Past Medical History / Comment(s): HX PANCREATITIS 2011 OR 2010, LOWER BACK PAIN-HARD TO WALK FAR- USES CANE OR WALKER. TIA X 2. states Stage 3 kidney dx, History of Any Multi-Drug Resistant Organisms: None Reported Past Surgical History: Adenoidectomy, Appendectomy, Back Surgery, Cholecystectomy, Hernia Repair, Joint Replacement, Tonsillectomy Additional Past Surgical History / Comment(s): Low back surgery, CATARACTS TAMAR, INCISIONAL HERNIA, RT KNEE REPLACEMENT, TAMAR.VARICOSE VEIN STRIPPING, PAIN CLINIC PROCEDURES, COLONOSCOPY, EGD Past Anesthesia/Blood Transfusion Reactions: No Reported Reaction Additional Past Anesthesia/Blood Transfusion Reaction / Comment(s): reluctant to receive any anesthesia, wants family meeting prior to any procedures involving anesthesia Past Psychological History: No Psychological Hx Reported Smoking Status: Former smoker Past Alcohol Use History: Rare Past Drug Use History: None Reported - Past Family History Father Family Medical History: No Reported History Additional Family Medical History / Comment(s): Father at age 84 yrs of old age. Mother Family Medical History: Cancer Additional Family Medical History / Comment(s): Mother at age 53yrs of ovarian cancer. Brother(s) Family Medical History: Cancer Additional Family Medical History / Comment(s): BRAIN CA Medications and Allergies Home Medications Medication Instructions Recorded Confirmed Type Aspirin 81 mg PO DAILY 07/08/13 07/30/18 History QUEtiapine [SEROquel] 50 mg PO HS 05/08/18 07/30/18 History QUEtiapine [SEROquel] 100 mg PO HS 05/08/18 07/30/18 History HYDROcodone/APAP 7.5-325MG [Reform 1 tab PO HS 06/23/18 07/30/18 History 7.5-325] Multivitamins, Thera [Multivitamin 1 tab PO DAILY 06/23/18 07/30/18 History (formulary)] Ipratropium-Albuterol Nebulize 3 ml INHALATION RT-QID #120 06/29/18 07/30/18 Rx [Duoneb 0.5 mg-3 mg/3 ml Soln] ampul.neb Omeprazole [PriLOSEC] 20 mg PO AC-BID #60 cap 06/29/18 07/30/18 Rx Apixaban [Eliquis] 2.5 mg PO BID #60 tablet 07/10/18 07/30/18 Rx Clopidogrel [Plavix] 75 mg PO DAILY #30 tab 07/25/18 07/30/18 Rx Docusate [Colace] 100 mg PO BID cap 07/25/18 07/30/18 Rx Furosemide [Lasix] 40 mg PO DAILY #30 tab 07/25/18 07/30/18 Rx Isosorbide Mononitrate ER [Imdur] 60 mg PO DAILY #30 tab.er.24h 07/25/18 07/30/18 Rx Metoprolol Succinate (ER) [Toprol 75 mg PO DAILY #90 tab.er.24h 07/25/18 07/30/18 Rx XL] Nitroglycerin Sl Tabs [Nitrostat] 0.4 mg SUBLINGUAL Q5M PRN #100 tab 07/25/18 07/30/18 Rx hydrALAZINE HCL [Apresoline] 25 mg PO TID #90 tab 07/25/18 07/30/18 Rx Ranolazine [Ranexa] 1,000 mg PO HS 07/30/18 07/30/18 History Ranolazine [Ranexa] 500 mg PO QAM 07/30/18 07/30/18 History Allergies Allergy/AdvReac Type Severity Reaction Status Date / Time No Known Allergies Allergy Verified 07/30/18 13:29 Physical Exam Vitals: Vital Signs Temp Pulse Resp BP Pulse Ox 07/31/18 11:18 69 07/31/18 11:05 69 07/31/18 07:49 68 07/31/18 07:39 70 98 07/31/18 06:26 68 18 114/57 97 07/30/18 21:54 75 18 131/62 97 07/30/18 18:00 71 18 131/64 95 07/30/18 17:00 72 113/57 96 07/30/18 16:00 75 13 104/61 95 07/30/18 15:00 121/62 07/30/18 14:00 117/62 07/30/18 13:03 109/62 96 07/30/18 12:59 98.0 F 73 18 109/62 96 PHYSICAL EXAMINATION: GENERAL: 87-year-old female in no acute distress at the time of my examination HEENT: Head is atraumatic, normocephalic. Pupils equal, round. Sclera anic teric. Conjunctiva are clear. Mucous membranes of the mouth are moist. Neck is supple. There is no elevated jugular venous pressure. No carotid bruit is heard. HEART EXAMINATION: Heart S1 S2 1 systolic murmur is heard CHEST EXAMINATION: Lungs are clear to auscultation and precussion. No chest wall tenderness is noted on palpation or with deep breathing. ABDOMEN: Soft, nontender. Bowel sounds are heard. No organomegaly noted. EXTREMITIES: 2+ peripheral pulses with no evidence of peripheral edema and no calf tenderness noted. Left groin is soft, no evidence of any hematoma. NEUROLOGIC patient is awake, alert and oriented 3 . Results 07/31/18 06:07 07/31/18 06:07 Cardiac Enzymes 07/30/18 07/30/18 07/30/18 Range/Units 13:41 13:41 19:52 AST 33 (14-36) U/L CK-MB (CK-2) 2.8 H (0.0-2.4) ng/mL Troponin I 1.730 H* (0.000-0.034) ng/mL 07/30/18 07/31/18 07/31/18 Range/Units 19:52 01:56 06:07 AST 29 (14-36) U/L CK-MB (CK-2) 1.9 (0.0-2.4) ng/mL Troponin I 1.180 H* 0.904 H* (0.000-0.034) ng/mL Coagulation 07/30/18 Range/Units 13:41 PT 10.8 (9.0-12.0) sec APTT 24.7 (22.0-30.0) sec CBC 07/30/18 07/31/18 Range/Units 13:41 06:07 WBC 3.3 L 2.7 L (3.8-10.6) k/uL RBC 3.05 L 2.84 L (3.80-5.40) m/uL Hgb 9.6 L D 9.1 L (11.4-16.0) gm/dL Hct 29.4 L 27.4 L (34.0-46.0) % Plt Count 290 292 (150-450) k/uL Comprehensive Metabolic Panel 07/30/18 07/31/18 Range/Units 13:41 06:07 Sodium 137 139 (137-145) mmol/L Potassium 3.7 3.7 (3.5-5.1) mmol/L Chloride 107 111 H (98-107) mmol/L Carbon Dioxide 23 25 (22-30) mmol/L BUN 34 H 30 H (7-17) mg/dL Creatinine 2.00 H 1.66 H (0.52-1.04) mg/dL Glucose 117 H 95 (74-99) mg/dL Calcium 8.4 8.3 L (8.4-10.2) mg/dL AST 33 29 (14-36) U/L ALT 23 21 (9-52) U/L Alkaline Phosphatase 67 58 (38-126) U/L Total Protein 5.7 L 5.2 L (6.3-8.2) g/dL Albumin 3.1 L 2.7 L (3.5-5.0) g/dL Current Medications Generic Name Dose Route Start Last Admin Trade Name Freq PRN Reason Stop Dose Admin Hydrocodone Bitart/Acetaminophen 1 each 07/30/18 21:00 07/30/18 21:48 Reform 7.5-325 PO 1 each HS JS Administration Albuterol/Ipratropium 3 ml 07/30/18 20:00 07/31/18 11:05 Duoneb 0.5 Mg-3 Mg/3 Ml Soln INHALATION 3 ml RT-QID JS Administration Apixaban 2.5 mg 07/30/18 21:00 07/31/18 11:08 Eliquis PO 2.5 mg BID JS Administration Aspirin 81 mg 07/31/18 09:00 07/31/18 11:08 Aspirin PO 81 mg DAILY JS Administration Clopidogrel Bisulfate 75 mg 07/31/18 09:00 07/31/18 11:07 Plavix PO 75 mg DAILY JS Administration Docusate Sodium 100 mg 07/30/18 21:00 07/31/18 11:07 Colace PO 100 mg BID JS Administration Furosemide 40 mg 07/31/18 09:00 07/31/18 11:08 Lasix PO 40 mg DAILY JS Administration Hydralazine HCl 25 mg 07/30/18 22:00 07/31/18 11:08 Apresoline PO 25 mg TID JS Administration Sodium Chloride 1,000 mls @ 75 mls/hr 07/30/18 15:30 07/31/18 11:09 Saline 0.9% IV 75 mls/hr .[id number] JS Administration Isosorbide Mononitrate 60 mg 07/31/18 09:00 07/31/18 11:07 Imdur PO 60 mg DAILY JS Administration Metoprolol Succinate 75 mg 07/31/18 09:00 07/31/18 11:08 Toprol Xl PO 75 mg DAILY JS Administration Multivitamins 1 each 07/31/18 09:00 07/31/18 11:08 Theragran PO 1 each DAILY JS Administration Naloxone HCl 0.2 mg 07/30/18 15:24 Narcan IV Q2M PRN Opioid Reversal Nitroglycerin 0.4 mg 07/30/18 17:32 Nitrostat SUBLINGUAL Q5M PRN Chest Pain Pantoprazole Sodium 40 mg 07/31/18 07:30 07/31/18 11:08 Protonix PO 40 mg AC-BID JS Administration Quetiapine Fumarate 50 mg 07/30/18 21:00 07/30/18 21:49 Seroquel PO 50 mg HS JS Administration Quetiapine Fumarate 100 mg 07/30/18 21:00 07/30/18 21:49 Seroquel PO 100 mg HS JS Administration Ranolazine 500 mg 07/31/18 09:00 07/31/18 11:07 Ranexa PO 500 mg QAM JS Administration Ranolazine 1,000 mg 07/30/18 21:00 07/31/18 06:25 Ranexa PO Not Given HS JS 07/31/18 06:07 07/31/18 06:07 EKG Interpretations (text) EKG shows a normal sinus rhythm with a right bundle branch block pattern and left anterior fascicular block. Assessment and Plan Plan: Assessment and plan #1 symptoms of weakness with evidence of dehydration, creatinine on admission 2.0, after hydration her creatinine this morning is 1.6. #2 recent non-ST elevation MD status post balloon angioplasty of the first diagonal branch of the LAD #3 acute on chronic kidney disease #4 hypertension #5 hyperlipidemia #6 paroxysmal atrial fibrillation #7 chronic anemia Plan From cardiology's perspective, we'll recommend to continue to hydrate the patient for another 24 hours. Her echocardiogram with Doppler study performed in June showed a normal left ventricular systolic function. We will continue Eliquis 2-1/2 mg one tablet by mouth twice a day, aspirin 81 mg daily, Plavix 75 mg daily, after a month of aspirin this will be discontinued and patient will continue on the Plavix and Eliquis only, we will hold her oral diuretics for 24 hours, continue Imdur, metoprolol, and Ranexa. Check lytes BUN and creatinine in the morning. Further recommendations to follow. DNP note has been reviewed, I agree with a documented findings and plan of care. Patient was seen and examined.
[2018-07-31] MEDS: HYDROcodone/APAP 7.5-325MG 1 EACH TAB PO SCH (20:18)
[2018-07-31] MEDS: QUEtiapine 50 MG TAB PO SCH (20:18)
[2018-07-31] MEDS: QUEtiapine 100 MG TAB PO SCH (21:04)
[2018-08-01 04:09] VITALS: RESP 16
[2018-08-01] MEDS: PANTOPRAZOLE 40 MG TABLET PO SCH ×2 (06:32→16:24)
[2018-08-01] MEDS: SODIUM CHLORIDE 0.9% 1,000 ML IV SCH (06:32)
[2018-08-01] MEDS: METOPROLOL SUCCINATE (ER) 25 MG TAB.ER.24H PO SCH (08:09)
[2018-08-01] MEDS: ISOSORBIDE MONONITRATE ER 60 MG TAB.ER.24H PO SCH (08:09)
[2018-08-01] MEDS: ASPIRIN 81 MG PO SCH (08:09)
[2018-08-01] MEDS: RANOLAZINE 500 MG TAB.ER.12H PO SCH (08:09)
[2018-08-01] MEDS: DOCUSATE 100 MG CAP PO SCH (08:09)
[2018-08-01] MEDS: hydrALAZINE HCL 25 MG TAB PO SCH ×2 (08:09→16:24)
[2018-08-01] MEDS: MULTIVITAMINS, THERA 1 EACH TAB PO SCH (08:09)
[2018-08-01] MEDS: APIXABAN 2.5 MG TABLET PO SCH (08:10)
[2018-08-01] MEDS: CLOPIDOGREL 75 MG TAB PO SCH (08:10)
[2018-08-01] MEDS: IPRATROPIUM-ALBUTEROL 3 ML NEB INHALATION SCH ×3 (08:17→15:11)
--- NOTE | 2018-08-01 10:29 | CDI ---
Documentation Clarification Form Date: 08/01/2018 10:17:14 AM From: Jihan Barboza RN CCDS Admit Date: 07/30/2018 3:24:00 PM Patient Name: Maria Ines Dominguez Visit Number: [id number] Discharge Date: ATTENTION: The Clinical Documentation Specialists (CDI) and [facility] Coding Staff appreciate your assistance in clarifying documentation. Please respond to the clarification below the line at the bottom and electronically sign. The CDI & [facility] Coding staff will review the response and follow-up if needed. Please note: Queries are made part of the Legal Health Record. If you have any questions, please contact the author of this message via ITS. Dr. Pepe Canela Altered Mental Status was documented in the H & P History/Risk Factors: 87 year old female presents to the ED with generalized weakness, chest pain tightness with ambulation. Medical history CVA; TIA, HTN; Atrial Fibrillation ; Renal disease Clinical Indicators: Labs: 07/30/2018 BUN 34; Cr 2.0, 07/31/2018 Bun 30; Cr 1.66; CT Brain: Degenerative and and nonspecific white matter changes. Treatment: 0.9ns 125cchr, In your professional opinion, please clarify the etiology of the Altered Mental Status, if known. Metabolic Encephalopathy (specify Type and Underlying Medical Illness) Dementia (if know, specify Type and if with/without Behavioral Disturbance) Other condition (please specify) Unable to determine (Last Revision: May 2017) MTDD
--- NOTE | 2018-08-01 11:56 | P.PN ---
Subjective Progress Note Date: 08/01/18 This is a pleasant 87-year-old female with a past medical history significant for paroxysmal atrial fibrillation, hypertension, hyperlipidemia, chronic kidney disease, chronic anemia, who was just recently in the hospital at the end of June, with a recurrent admission of chest discomfort. Because of the multiple admissions of chest discomfort as well as a stress test in April which revealed reversible ischemia the patient was taken to the cardiac catheterization lab where she underwent angioplasty of the first diagonal branch of the LAD, Dr. Soto was unable to stent that vessel. After that procedure the patient did quite well, was discharged home in stable position. She returns to the hospital on this occasion with symptoms of weakness, she denies any overt chest discomfort in her breathing overall has been stable. According to the patient, she has not been drinking enough fluids at home. CAT scan of the brain showed degenerative and nonspecific white matter changes with no evidence of acute hemorrhage or mass effect. EKG showed a normal sinus rhythm with a right bundle branch block pattern and left anterior fascicular block. CAT scan of the chest was performed which did not reveal any acute process. Pressure on arrival here 109/60, heart rate in the 70s, afebrile, 98% on room air. White blood cell count 3.3, hemoglobin 9.6, 9.1 this morning. Platelet count 292. Sodium 137 on admission potassium 3.7, BUN 34 and creatinine 0.0, this morning's creatinine 1.6. Troponin 1.7, 1.1, 0.9. TSH 4.1 with a free T4 of 1.3. She was initiated on IV fluids on arrival here, at the time of my examination in the emergency room she does state that she is ready feeling quite a bit stronger today. 08/01/2018 Patient was seen and examined this morning, feeling much stronger overall. Through the night last night her blood pressure was noted to have dropped, however today he has remained stable. We would recommend to continue her on the same medications at this time. Objective - Vital Signs Vital signs: Vital Signs Temp 98.2 F 08/01/18 08:11 Pulse 76 08/01/18 11:36 Resp 16 08/01/18 08:11 BP 151/70 08/01/18 09:17 Pulse Ox 96 08/01/18 08:11 Intake & Output 07/31/18 08/01/18 08/01/18 18:59 06:59 18:59 Intake Total 200 1000 Output Total 300 Balance 200 700 Weight 67.6 kg Intake: Intake, IV Titration 1000 Amount Sodium Chloride 0.9% 1, 1000 000 ml @ 125 mls/hr IV . Q8H [facility] Rx#:[id number] Oral 200 Output: Urine 300 Other: Voiding Method Toilet Toilet - Exam PHYSICAL EXAMINATION: GENERAL: 87-year-old female in no acute distress at the time of my examination HEENT: Head is atraumatic, normocephalic. Pupils equal, round. Sclera anict jami. Conjunctiva are clear. Mucous membranes of the mouth are moist. Neck is supple. There is no elevated jugular venous pressure. No carotid bruit is heard. HEART EXAMINATION: Heart S1 S2 1 systolic murmur is heard CHEST EXAMINATION: Lungs are clear to auscultation and precussion. No chest wall tenderness is noted on palpation or with deep breathing. ABDOMEN: Soft, nontender. Bowel sounds are heard. No organomegaly noted. EXTREMITIES: 2+ peripheral pulses with no evidence of peripheral edema and no calf tenderness noted. Left groin is soft, no evidence of any hematoma. NEUROLOGIC patient is awake, alert and oriented 3 . - Labs CBC & Chem 7: 07/31/18 06:07 07/31/18 06:07 Assessment and Plan Plan: Assessment and plan #1 symptoms of weakness with evidence of dehydration, creatinine on admission 2.0, after hydration her creatinine this morning is 1.6. #2 recent non-ST elevation [place] status post balloon angioplasty of the first diagonal branch of the LAD #3 acute on chronic kidney disease #4 hypertension #5 hyperlipidemia #6 paroxysmal atrial fibrillation #7 chronic anemia Plan cardiology's perspective, we'll recommend to continue current medications. She may be able to be discharged home once cleared by primary, we will follow her along with you now on an as-needed basis only, please don't hesitate to call with any questions. DNP note has been reviewed, I agree with a documented findings and plan of care. Patient was seen and examined.
[2018-08-01 12:39] VITALS: BP 159/73; PULSE 70; TEMP 97.8
[2018-08-01 13:31] VITALS: BMI 23.3
--- NOTE | 2018-08-01 17:34 | P.PN ---
Subjective Progress Note Date: 07/31/18 This is an 87-year-old female admitted with dehydration, acute on chronic renal failure, elevated troponins, in a patient with recent non-STEMI, status post balloon angioplasty a week ago, chronic atrial fibrillation and multiple other medical issues. Maintained on IV fluids, feeling better. Creatinine improving, 1.6. Denies chest pain, palpitations or shortness of breath. Cardiology consult in place with recommendations pending. Objective - Vital Signs Vital signs: Vital Signs Temp 98.0 F 07/30/18 12:59 Pulse 68 07/31/18 06:26 Resp 18 07/31/18 06:26 BP 114/57 07/31/18 06:26 Pulse Ox 97 07/31/18 06:26 Intake & Output 07/30/18 07/31/18 07/31/18 18:59 06:59 18:59 Weight 64.864 kg - Exam PHYSICAL EXAM: VITAL SIGNS: As above GENERAL: Sitting up in stretcher, in ER, no acute distress HEENT: Conjunctivae normal. eyes normal. NECK: No JVD. No thyroid enlargement. No LNs CARDIOVASCULAR: S1, S2 regular. Systolic murmur. RESPIRATION: Breath sounds diminished in the bases. No rhonchi or crackles. No bronchial breathing. ABDOMEN: Soft, nontender . No guarding. no masses palpable.Bowel sounds heard. LEGS: No edema. no swelling PSYCHIATRY: Alert and oriented ?-3, mood and affect normal. NERVOUS SYSTEM: Cranial N 2-12 grossly normal. Moves all 4 limbs. Diffuse weakness, No focal deficits. Strength and sensation grossly intact.. Skin: no lesions, no rash Lymphatic system. No LN neck axilla or groin. - Labs CBC & Chem 7: 07/31/18 06:07 07/31/18 06:07 Labs: Abnormal Lab Results - Last 24 Hours (Table) 07/30/18 07/30/18 07/30/18 Range/Units 13:41 13:41 13:41 WBC 3.3 L (3.8-10.6) k/uL RBC 3.05 L (3.80-5.40) m/uL Hgb 9.6 L D (11.4-16.0) gm/dL Hct 29.4 L (34.0-46.0) % RDW 16.0 H (11.5-15.5) % Neutrophils # (Manual) 1.20 L (1.3-7.7) k/uL Lymphocytes # (Manual) (1.0-4.8) k/uL Chloride (98-107) mmol/L BUN 34 H (7-17) mg/dL Creatinine 2.00 H (0.52-1.04) mg/dL Glucose 117 H (74-99) mg/dL Calcium (8.4-10.2) mg/dL CK-MB (CK-2) (0.0-2.4) ng/mL Troponin I 1.730 H* (0.000-0.034) ng/mL Total Protein 5.7 L (6.3-8.2) g/dL Albumin 3.1 L (3.5-5.0) g/dL Ur Leukocyte Esterase (Negative) Urine WBC (0-5) /hpf Hyaline Casts (0-2) /lpf Urine Mucus (None) /hpf 07/30/18 07/30/18 07/31/18 Range/Units 19:52 19:52 00:06 WBC (3.8-10.6) k/uL RBC (3.80-5.40) m/uL Hgb (11.4-16.0) gm/dL Hct (34.0-46.0) % RDW (11.5-15.5) % Neutrophils # (Manual) (1.3-7.7) k/uL Lymphocytes # (Manual) (1.0-4.8) k/uL Chloride (98-107) mmol/L BUN (7-17) mg/dL Creatinine (0.52-1.04) mg/dL Glucose (74-99) mg/dL Calcium (8.4-10.2) mg/dL CK-MB (CK-2) 2.8 H (0.0-2.4) ng/mL Troponin I 1.180 H* (0.000-0.034) ng/mL Total Protein (6.3-8.2) g/dL Albumin (3.5-5.0) g/dL Ur Leukocyte Esterase Trace H (Negative) Urine WBC 6 H (0-5) /hpf Hyaline Casts 45 H (0-2) /lpf Urine Mucus Rare H (None) /hpf 07/31/18 07/31/18 07/31/18 Range/Units 01:56 06:07 06:07 WBC 2.7 L (3.8-10.6) k/uL RBC 2.84 L (3.80-5.40) m/uL Hgb 9.1 L (11.4-16.0) gm/dL Hct 27.4 L (34.0-46.0) % RDW (11.5-15.5) % Neutrophils # (Manual) (1.3-7.7) k/uL Lymphocytes # (Manual) 0.76 L (1.0-4.8) k/uL Chloride 111 H (98-107) mmol/L BUN 30 H (7-17) mg/dL Creatinine 1.66 H (0.52-1.04) mg/dL Glucose (74-99) mg/dL Calcium 8.3 L (8.4-10.2) mg/dL CK-MB (CK-2) (0.0-2.4) ng/mL Troponin I 0.904 H* (0.000-0.034) ng/mL Total Protein 5.2 L (6.3-8.2) g/dL Albumin 2.7 L (3.5-5.0) g/dL Ur Leukocyte Esterase (Negative) Urine WBC (0-5) /hpf Hyaline Casts (0-2) /lpf Urine Mucus (None) /hpf Assessment and Plan Assessment: -Dehydration with acute on chronic renal failure. Patient states she has not been drinking enough at home. -Possible Acute metabolic encephalopathy on admission secondary to the above, resolved -Elevated troponins in a patient with Recent non-STEMI, status post balloon angioplasty of the first diagonal branch of the LAD, cardiology following. --Paroxysmal atrial fibrillation -Chronic kidney disease, stage III, secondary to nephrosclerosis ,baseline creatinine 1.3 -Chronic Diastolic CHF -Hypertension -Dyslipidemia -Ascending aortic aneurysm 4.5 cm, recommend regular follow up outpatient -Stable right mid lung nodular density 8 mm, outpatient follow-up -Bilateral atelectasis -COPD-stable in a patient with history of nicotine abuse Plan: Continue on current medication regime ,monitoring and symptomatic treatment. Maintain gentle IV fluid hydration. Cardiology recommendations pending. Orthostatic vital signs ordered. PT/OT. Patient declines subacute rehab. Close monitoring of renal function, electrolytes with repeat labs ordered for a.m. Further recommendations to follow. The impression and plan of care has been dictated as directed. : I performed a history and examination of this patient, discussed the same with the dictator. I agree with the dictator's note ,documented as a scribe. Any additional findings or plans will be noted.
--- NOTE | 2018-08-01 17:41 | P.DS ---
Providers Date of admission: 07/30/18 15:24 Expected date of discharge: 08/01/18 Attending physician: Pepe Canela Consults: 07/30/18 15:24 Consult Physician Urgent Consulting Provider: Luisa Good Consult Reason/Comments: Elevated troponin, cardiac evaluation Do you want consulting provider notified?: Yes Primary care physician: Pepe Canela [facility] Hospital Course: Final Diagnoses: -Dehydration with acute on chronic renal failure. Patient states she has not been drinking enough at home. -Possible Acute metabolic encephalopathy on admission secondary to the above, resolved -Elevated troponins in a patient with Recent non-STEMI, status post balloon angioplasty of the first diagonal branch of the LAD, cardiology following. --Paroxysmal atrial fibrillation -Chronic kidney disease, stage III, secondary to nephrosclerosis ,baseline creatinine 1.3 -Chronic Diastolic CHF -Hypertension -Dyslipidemia -Ascending aortic aneurysm 4.5 cm, recommend regular follow up outpatient -Stable right mid lung nodular density 8 mm, outpatient follow-up -Bilateral atelectasis -COPD-stable in a patient with history of nicotine abuse Hospital course:This is an 87-year-old female admitted with dehydration, acute on chronic renal failure, elevated troponins, in a patient with recent non- STEMI, status post balloon angioplasty a week ago, chronic atrial fibrillation and multiple other medical issues. Maintained on IV fluids, feeling better. Creatinine improving, 1.6. Denies chest pain, palpitations or shortness of breath. Cardiology consult in place with recommendations pending. Last night developed hypotension, received IV fluid boluses with significant clinical improvement. Negative for orthostatic hypotension. Cleared by cardiology for discharge. Patient declines subacute rehab. Prognosis guarded given multiple complex medical issues. High risk for return to the hospital. Patient being discharged home in a stable condition with guarded prognosis. EXAM: GENERAL: ALert and oriented X 3, no acute distress CARDIOVASCULAR: S1, S2 regular. Systolic murmur. RESPIRATION: Breath sounds diminished in the bases. No rhonchi or crackles. No bronchial breathing. ABDOMEN: Soft, nontender . No guarding. no masses palpable.Bowel sounds heard. NERVOUS SYSTEM: No focal deficits. The impression and plan of care has been dictated as directed. : I performed a history and examination of this patient, discussed the same with the dictator. I agree with the dictator's note ,documented as a scribe. Any additional findings or plans will be noted. Intake and: 35 minutes Patient Condition at Discharge: Stable Plan - Discharge Summary Discharge Rx Participant: No New Discharge Prescriptions: Continue Aspirin 81 mg PO DAILY QUEtiapine [SEROquel] 50 mg PO HS QUEtiapine [SEROquel] 100 mg PO HS Multivitamins, Thera [Multivitamin (formulary)] 1 tab PO DAILY HYDROcodone/APAP 7.5-325MG [[place] 7.5-325] 1 tab PO HS Omeprazole [PriLOSEC] 20 mg PO AC-BID #60 cap Ipratropium-Albuterol Nebulize [Duoneb 0.5 mg-3 mg/3 ml Soln] 3 ml INHALATION RT-QID #120 ampul.neb Apixaban [Eliquis] 2.5 mg PO BID #60 tablet Furosemide [Lasix] 40 mg PO DAILY #30 tab Metoprolol Succinate (ER) [Toprol XL] 75 mg PO DAILY #90 tab.er.24h Nitroglycerin Sl Tabs [Nitrostat] 0.4 mg SUBLINGUAL Q5M PRN #100 tab PRN Reason: Chest Pain Isosorbide Mononitrate ER [Imdur] 60 mg PO DAILY #30 tab.er.24h Clopidogrel [Plavix] 75 mg PO DAILY #30 tab Ranolazine [Ranexa] 1,000 mg PO HS Ranolazine [Ranexa] 500 mg PO QAM hydrALAZINE HCL [Apresoline] 25 mg PO TID #90 tab Docusate [Colace] 100 mg PO BID #0 cap Discharge Medication List Aspirin 81 mg PO DAILY 07/08/13 [History] QUEtiapine [SEROquel] 50 mg PO HS 05/08/18 [History] QUEtiapine [SEROquel] 100 mg PO HS 05/08/18 [History] HYDROcodone/APAP 7.5-325MG [[place] 7.5-325] 1 tab PO HS 06/23/18 [History] Multivitamins, Thera [Multivitamin (formulary)] 1 tab PO DAILY 06/23/18 [History] Ipratropium-Albuterol Nebulize [Duoneb 0.5 mg-3 mg/3 ml Soln] 3 ml INHALATION RT-QID #120 ampul.neb 06/29/18 [Rx] Omeprazole [PriLOSEC] 20 mg PO AC-BID #60 cap 06/29/18 [Rx] Apixaban [Eliquis] 2.5 mg PO BID #60 tablet 07/10/18 [Rx] Clopidogrel [Plavix] 75 mg PO DAILY #30 tab 07/25/18 [Rx] Furosemide [Lasix] 40 mg PO DAILY #30 tab 07/25/18 [Rx] Isosorbide Mononitrate ER [Imdur] 60 mg PO DAILY #30 tab.er.24h 07/25/18 [Rx] Metoprolol Succinate (ER) [Toprol XL] 75 mg PO DAILY #90 tab.er.24h 07/25/18 [Rx] Nitroglycerin Sl Tabs [Nitrostat] 0.4 mg SUBLINGUAL Q5M PRN #100 tab 07/25/18 [Rx] Ranolazine [Ranexa] 1,000 mg PO HS 07/30/18 [History] Ranolazine [Ranexa] 500 mg PO QAM 07/30/18 [History] Docusate [Colace] 100 mg PO BID #0 cap 08/01/18 [Rx] hydrALAZINE HCL [Apresoline] 25 mg PO TID #90 tab 08/01/18 [Rx] Follow up Appointment(s)/Referral(s): Warren Roach MD [STAFF PHYSICIAN] - 08/03/18 4:00 pm (Monday -previously scheduled appointment) [facility] [NON-STAFF] - 1-2 Days Pepe Canela MD [Primary Care Provider] - 08/09/18 11:15 am () Ambulatory/Diagnostic Orders: Complete Blood Count w/diff [LAB.AMB] Time Frame: 3 Days, Location: None Selected Patient Instructions/Handouts: Dehydration (DC), Chronic Kidney Disease (DC) Discharge Disposition: HOME WITH HOME HEALTH SERVICES
== END 2018-08-01 16:46 | disposition home health service (06) | DRG 682 ==
LOC: EC 12:50 → 3SCARD 15:24
PROVIDERS: ADMIT Family Medicine; ATTEND Family Medicine
DX: N17.9 Acute kidney failure, unspecified (principal); I21.4 Non-ST elevation (NSTEMI) myocardial infarction; G93.41 Metabolic encephalopathy; I50.32 Chronic diastolic (congestive) heart failure; I13.0 Hypertensive heart and chronic kidney disease with heart failure and stage 1 through stage 4 chronic kidney disease, or unspecified chronic kidney disease; I45.2 Bifascicular block; J98.11 Atelectasis; N18.3 Chronic kidney disease, stage 3 (moderate); I25.10 Atherosclerotic heart disease of native coronary artery without angina pectoris; Z95.5 Presence of coronary angioplasty implant and graft; Z87.891 Personal history of nicotine dependence; D64.9 Anemia, unspecified; E78.5 Hyperlipidemia, unspecified; E86.0 Dehydration; I48.2 Chronic atrial fibrillation; I71.2 Thoracic aortic aneurysm, without rupture; J44.9 Chronic obstructive pulmonary disease, unspecified; Z79.01 Long term (current) use of anticoagulants; Z79.02 Long term (current) use of antithrombotics/antiplatelets; Z79.82 Long term (current) use of aspirin; Z79.899 Other long term (current) drug therapy; Z80.41 Family history of malignant neoplasm of ovary; Z80.8 Family history of malignant neoplasm of other organs or systems; Z86.73 Personal history of transient ischemic attack (TIA), and cerebral infarction without residual deficits; Z96.651 Presence of right artificial knee joint; M19.90 Unspecified osteoarthritis, unspecified site; Z98.42 Cataract extraction status, left eye; Z98.41 Cataract extraction status, right eye; I95.9 Hypotension, unspecified; R91.1 Solitary pulmonary nodule
CPT/HCPCS: 36415; 70450; 71046; 71250; 80053; 81001; 82550; 82553; 83605; 83735; 84100; 84439; 84443; 84481; 84484; 85025; 85610; 85730; 93005; 94640; 94760; 96360; 96361; 99285

== ENCOUNTER 2018-08-09 12:25 | Inpatient (IN) | payer MEDICARE, BC ==
[2018-08-09] MEDS ORDERED: SODIUM CHLORIDE 0.9% 500 ML 500 ML IV STA (13:07)
--- NOTE | 2018-08-09 13:17 | ED ---
General Adult HPI - General Chief complaint: Dizziness Stated complaint: SOB, Poss Dehydrated Time Seen by Provider: 08/09/18 12:35 Source: patient, family, RN notes reviewed Mode of arrival: wheelchair Limitations: no limitations - History of Present Illness Initial comments: This is an 87-year-old female that presents emergency Department with the com plaint of lightheadedness when she stands. Patient states she was diagnosed with orthostatic hypotension and she went to see her doctor today and he center in the emergency department evaluated and worked up. Patient denies any dizziness when she sitting she denies any dizziness with moving her head per patient denies any headache patient denies numbness weakness. Patient denies any recent fever chills or cough per patient denies chest pain difficulty breathing or shortness of breath per patient denies any abdominal pain. Patient denies any vomiting or diarrhea recently. Patient's only complaint is when she stands she gets very lightheaded. - Related Data Home Medications Medication Instructions Recorded Confirmed Aspirin 81 mg PO DAILY 07/08/13 08/09/18 QUEtiapine [SEROquel] 50 mg PO HS 05/08/18 08/09/18 QUEtiapine [SEROquel] 100 mg PO HS 05/08/18 08/09/18 HYDROcodone/APAP 7.5-325MG [[place] 1 tab PO HS 06/23/18 08/09/18 7.5-325] Multivitamins, Thera [Multivitamin 1 tab PO DAILY 06/23/18 08/09/18 (formulary)] Ranolazine [Ranexa] 1,000 mg PO HS 07/30/18 08/09/18 Ranolazine [Ranexa] 500 mg PO QAM 07/30/18 08/09/18 Isosorbide Mononitrate ER [Imdur] 30 mg PO DAILY 08/09/18 08/09/18 hydrALAZINE HCL [Apresoline] 25 mg PO TID PRN 08/09/18 08/09/18 Previous Rx's Medication Instructions Recorded Ipratropium-Albuterol Nebulize 3 ml INHALATION RT-QID #120 06/29/18 [Duoneb 0.5 mg-3 mg/3 ml Soln] ampul.neb Omeprazole [PriLOSEC] 20 mg PO AC-BID #60 cap 06/29/18 Apixaban [Eliquis] 2.5 mg PO BID #60 tablet 07/10/18 Clopidogrel [Plavix] 75 mg PO DAILY #30 tab 07/25/18 Furosemide [Lasix] 40 mg PO DAILY #30 tab 07/25/18 Metoprolol Succinate (ER) [Toprol 75 mg PO DAILY #90 tab.er.24h 07/25/18 XL] Nitroglycerin Sl Tabs [Nitrostat] 0.4 mg SUBLINGUAL Q5M PRN #100 tab 07/25/18 Docusate [Colace] 100 mg PO BID #0 cap 08/01/18 Allergies Allergy/AdvReac Type Severity Reaction Status Date / Time No Known Allergies Allergy Verified 08/09/18 14:01 Review of Systems ROS Statement: Those systems with pertinent positive or pertinent negative responses have been documented in the HPI. ROS Other: All systems not noted in ROS Statement are negative. Past Medical History Past Medical History: Atrial Fibrillation, Heart Failure, CVA/TIA, Deep Vein Thrombosis (DVT), Hypertension, Osteoarthritis (OA), Pneumonia, Renal Disease Additional Past Medical History / Comment(s): Pt recently admitted to [facility] on 07/18/18 with atypical chest pain-had cardiac cath with unsuccessful stent and bilateral basilar atelectasis. Other hx: Paroxysmal Afib, TIA x 2, CKD stage III, renal cysts, anemia, pancreatitis, chronic elevated lipase thought d/t possible chronic pancreatitis, DVT R leg History of Any Multi-Drug Resistant Organisms: None Reported Past Surgical History: Adenoidectomy, Appendectomy, Back Surgery, Cholecystectomy, Heart Catheterization, Hernia Repair, Joint Replacement, Tonsillectomy Additional Past Surgical History / Comment(s): Low back surgery, CATARACTS TAMAR, INCISIONAL HERNIA, RT KNEE REPLACEMENT, TAMAR.VARICOSE VEIN STRIPPING, PAIN CLINIC PROCEDURES, COLONOSCOPY, EGD Past Anesthesia/Blood Transfusion Reactions: No Reported Reaction Additional Past Anesthesia/Blood Transfusion Reaction / Comment(s): reluctant to receive any anesthesia, wants family meeting prior to any procedures involving anesthesia Past Psychological History: No Psychological Hx Reported Smoking Status: Former smoker Past Alcohol Use History: None Reported Past Drug Use History: None Reported - Past Family History Father Family Medical History: No Reported History Additional Family Medical History / Comment(s): Father at age 84 yrs of old age. Mother Family Medical History: Cancer Additional Family Medical History / Comment(s): Mother at age 53yrs of ovarian cancer. Brother(s) Family Medical History: Cancer Additional Family Medical History / Comment(s): BRAIN CA General Exam - General Exam Comments Initial Comments: GENERAL: Patient is well-developed and well-nourished. Patient is nontoxic and well- hydrated and is in no acute distress. ENT: Neck is soft and supple. No significant lymphadenopathy is noted. Oropharynx is clear. Moist mucous membranes. Neck has full range of motion without eliciting any pain. EYES: The sclera were anicteric and conjunctiva were pink and moist. Extraocular movements were intact and pupils were equal round and reactive to light. Eyelids were unremarkable. PULMONARY: Unlabored respirations. Good breath sounds bilaterally. No audible rales rhonchi or wheezing was noted. CARDIOVASCULAR: There is a regular rate and rhythm without any murmurs gallops or rubs. ABDOMEN: Soft and nontender with normal bowel sounds. SKIN: Skin is clear with no lesions or rashes and otherwise unremarkable. NEUROLOGIC: Patient is alert and oriented x3. Cranial nerves II through XII are grossly intact. Motor and sensory are also intact. Normal speech, volume and content. Symmetrical smile. MUSCULOSKELETAL: Normal extremities with adequate strength and full range of motion. LYMPHATICS: No significant lymphadenopathy is noted PSYCHIATRIC: Normal psychiatric evaluation. Limitations: no limitations Course Vital Signs 08/09/18 08/09/18 08/09/18 12:37 13:30 14:00 Temperature 97.8 F Pulse Rate 78 66 Respiratory 18 17 19 Rate Blood Pressure 127/74 127/82 60/46 Blood Pressure [Right Arm Sitting] Blood Pressure [Right Arm Standing] Blood Pressure [Right Arm Supine] O2 Sat by Pulse 98 97 97 Oximetry 08/09/18 08/09/18 08/09/18 14:30 14:42 15:30 Temperature Pulse Rate 65 Respiratory 18 17 Rate Blood Pressure 176/76 165/82 Blood Pressure 147/78 [Right Arm Sitting] Blood Pressure 60/46 [Right Arm Standing] Blood Pressure 170/69 [Right Arm Supine] O2 Sat by Pulse 97 Oximetry 08/09/18 16:00 Temperature Pulse Rate 67 Respiratory 17 Rate Blood Pressure 183/77 Blood Pressure [Right Arm Sitting] Blood Pressure [Right Arm Standing] Blood Pressure [Right Arm Supine] O2 Sat by Pulse 96 Oximetry Medical Decision Making - Medical Decision Making EKG shows normal sinus rhythm at 70 bpm IA interval is 196 QRS is 136 QT interval 4:30 QTC is 464 per patient's EKG shows no ST segment elevation or depression or T-wave abdomen is noted. Patient is asymptomatic as long she stated in bed however when we sit her up and her orthostatics and blood pressure dropped to 60 and she became very dizzy and weak. I spoke with Dr. Canela he wants the patient admitted once cardiac consulted so that they can tweak her medications and a little made her orthostatic hyp otension. - Lab Data Result diagrams: 08/09/18 13:43 08/09/18 13:43 Lab Results 08/09/18 08/09/18 08/09/18 Range/Units 13:43 13:43 13:43 WBC 3.7 L (3.8-10.6) k/uL RBC 3.43 L (3.80-5.40) m/uL Hgb 10.8 L (11.4-16.0) gm/dL Hct 33.2 L (34.0-46.0) % MCV 97.0 (80.0-100.0) fL MCH 31.5 (25.0-35.0) pg MCHC 32.5 (31.0-37.0) g/dL RDW 15.0 (11.5-15.5) % Plt Count 320 (150-450) k/uL Neutrophils % 51 % Lymphocytes % 30 % Monocytes % 10 % Eosinophils % 4 % Basophils % 1 % Neutrophils # 1.9 (1.3-7.7) k/uL Lymphocytes # 1.1 (1.0-4.8) k/uL Monocytes # 0.4 (0-1.0) k/uL Eosinophils # 0.2 (0-0.7) k/uL Basophils # 0.0 (0-0.2) k/uL PT 10.5 (9.0-12.0) sec INR 1.0 (<1.2) APTT 22.8 (22.0-30.0) sec Sodium 138 (137-145) mmol/L Potassium 4.8 (3.5-5.1) mmol/L Chloride 105 (98-107) mmol/L Carbon Dioxide 23 (22-30) mmol/L Anion Gap 10 mmol/L BUN 29 H (7-17) mg/dL Creatinine 1.71 H (0.52-1.04) mg/dL Est GFR (CKD-EPI)AfAm 30 (>60 ml/min/1.73 sqM) Est GFR (CKD-EPI)NonAf 26 (>60 ml/min/1.73 sqM) Glucose 104 H (74-99) mg/dL Calcium 9.1 (8.4-10.2) mg/dL Magnesium 2.1 (1.6-2.3) mg/dL Total Bilirubin 0.6 (0.2-1.3) mg/dL AST 29 (14-36) U/L ALT 11 (9-52) U/L Alkaline Phosphatase 71 (38-126) U/L Troponin I (0.000-0.034) ng/mL Total Protein 6.9 (6.3-8.2) g/dL Albumin 3.8 (3.5-5.0) g/dL 08/09/18 Range/Units 13:43 WBC (3.8-10.6) k/uL RBC (3.80-5.40) m/uL Hgb (11.4-16.0) gm/dL Hct (34.0-46.0) % MCV (80.0-100.0) fL MCH (25.0-35.0) pg MCHC (31.0-37.0) g/dL RDW (11.5-15.5) % Plt Count (150-450) k/uL Neutrophils % % Lymphocytes % % Monocytes % % Eosinophils % % Basophils % % Neutrophils # (1.3-7.7) k/uL Lymphocytes # (1.0-4.8) k/uL Monocytes # (0-1.0) k/uL Eosinophils # (0-0.7) k/uL Basophils # (0-0.2) k/uL PT (9.0-12.0) sec INR (<1.2) APTT (22.0-30.0) sec Sodium (137-145) mmol/L Potassium (3.5-5.1) mmol/L Chloride (98-107) mmol/L Carbon Dioxide (22-30) mmol/L Anion Gap mmol/L BUN (7-17) mg/dL Creatinine (0.52-1.04) mg/dL Est GFR (CKD-EPI)AfAm (>60 ml/min/1.73 sqM) Est GFR (CKD-EPI)NonAf (>60 ml/min/1.73 sqM) Glucose (74-99) mg/dL Calcium (8.4-10.2) mg/dL Magnesium (1.6-2.3) mg/dL Total Bilirubin (0.2-1.3) mg/dL AST (14-36) U/L ALT (9-52) U/L Alkaline Phosphatase (38-126) U/L Troponin I <0.012 (0.000-0.034) ng/mL Total Protein (6.3-8.2) g/dL Albumin (3.5-5.0) g/dL Disposition Clinical Impression: Orthostatic hypotension Disposition: [facility] Time of Disposition: 15:25
[2018-08-09 13:54] LABS: Basophils % (A) 1 %; Eosinophils # (A) 0.2 k/uL (0-0.7); Eosinophils % (A) 4 %; HCT 33.2 % (34.0-46.0); HGB 10.8 gm/dL (11.4-16.0); Lymphocytes # (A) 1.1 k/uL (1.0-4.8); Lymphocytes % (A) 30 %; MCH 31.5 pg (25.0-35.0); MCHC 32.5 g/dL (31.0-37.0); Mean Platelet Volume 6.9; Monocytes # (A) 0.4 k/uL (0-1.0); Monocytes % (A) 10 %; Neutrophils # (A) 1.9 k/uL (1.3-7.7); Neutrophils % (A) 51 %; Platelet Count 320 k/uL (150-450); RBC 3.43 m/uL (3.80-5.40); WBC 3.7 k/uL (3.8-10.6)
[2018-08-09 14:05] LABS: Albumin 3.8 g/dL (3.5-5.0); Calcium 9.1 mg/dL (8.4-10.2); Total Bilirubin 0.6 mg/dL (0.2-1.3); Total Protein 6.9 g/dL (6.3-8.2)
[2018-08-09 14:08] LABS: Partial Thromboplastin Time 22.8 sec (22.0-30.0); Prothrombin Time 10.5 sec (9.0-12.0)
[2018-08-09 14:11] LABS: Potassium 4.8 mmol/L (3.5-5.1)
[2018-08-09 14:12] LABS: Magnesium 2.1 mg/dL (1.6-2.3)
--- NOTE | 2018-08-09 14:52 | XR ---
EXAMINATION TYPE: XR chest 2V DATE OF EXAM: 08/09/2018 COMPARISON: 07/30/2018 and 06/13/2018. HISTORY: 79-year-old female with chest pain TECHNIQUE: AP and lateral views FINDINGS: Heart borderline enlarged. Elongation thoracic aorta with prostatic calcifications. There is stable p atchy peripheral lower lung density on the right. However, this is noted to be new from 06/13/2018. [place] appearance to the right and left main pulmonary arteries on the lateral view. Hyperinflation with interstitial prominence. IMPRESSION: 1. COPD with borderline cardiomegaly and pulmonary arterial hypertension. 2. Patchy opacity peripheral right base is stable from recent 07/30/2018 exam but new from 06/13/2018. Correlate to exclude infiltrate here.
[2018-08-09] MEDS ORDERED: SODIUM CHLORIDE 0.9% 1,000 ML IV ONE (15:26)
[2018-08-09 17:55] VITALS: BMI 22.7
[2018-08-09] MEDS ORDERED: NITROGLYCERIN SL TABS 0.4 MG TAB SUBLINGUAL PRN (18:16)
[2018-08-09] MEDS ORDERED: hydrALAZINE HCL 25 MG TAB PO PRN (18:16)
[2018-08-09] MEDS: IPRATROPIUM-ALBUTEROL 3 ML NEB INHALATION SCH (19:35)
[2018-08-09] MEDS: RANOLAZINE 500 MG TAB.ER.12H PO SCH (21:26)
[2018-08-09] MEDS: DOCUSATE 100 MG CAP PO SCH (21:27)
[2018-08-09] MEDS: QUEtiapine 100 MG TAB PO SCH (21:27)
[2018-08-09] MEDS: QUEtiapine 50 MG TAB PO SCH (21:27)
[2018-08-09] MEDS: APIXABAN 2.5 MG TABLET PO SCH (21:27)
[2018-08-09] MEDS: HYDROcodone/APAP 7.5-325MG 1 EACH TAB PO SCH (21:27)
[2018-08-10] MEDS: PANTOPRAZOLE 40 MG TABLET PO SCH (06:42)
[2018-08-10] MEDS: IPRATROPIUM-ALBUTEROL 3 ML NEB INHALATION SCH ×4 (07:54→20:34)
[2018-08-10] MEDS: CLOPIDOGREL 75 MG TAB PO SCH (08:54)
[2018-08-10] MEDS: METOPROLOL SUCCINATE (ER) 25 MG TAB.ER.24H PO SCH (08:54)
[2018-08-10] MEDS: APIXABAN 2.5 MG TABLET PO SCH ×2 (08:54→20:32)
[2018-08-10] MEDS: FUROSEMIDE 20 MG TAB PO SCH (08:54)
[2018-08-10] MEDS: ASPIRIN 81 MG PO SCH (08:54)
[2018-08-10] MEDS: DOCUSATE 100 MG CAP PO SCH ×2 (08:54→20:31)
[2018-08-10] MEDS: RANOLAZINE 500 MG TAB.ER.12H PO SCH ×2 (08:55→20:31)
[2018-08-10] MEDS: MULTIVITAMINS, THERA 1 EACH TAB PO SCH (08:55)
[2018-08-10] MEDS ORDERED: ISOSORBIDE MONONITRATE ER 15 MG TAB PO SCH (09:00)
--- NOTE | 2018-08-10 11:58 | P.HPIM ---
History of Present Illness H&P Date: 08/10/18 This is an 87-year-old female admitted with orthostatic hypotension in a patient with recent non-STEMI status post balloon angioplasty, chronic atrial fibrillation, recent admission for dehydration with acute on chronic renal failure and multiple other medical issues. Patient presented to Dr. Canela's office with complaints of dizziness, weakness upon standing;significant drop in Systolic blood pressure- 70 with standing reported. Denies chest pain, palpitations or increasing shortness of breath. Sent to the ER , positive symptomatic orthostatic hypotension with both sitting and standing. EKG reporting sinus rhythm. Troponins negative 1. Creatinine 1.71, baseline 1.08-1.3.hemoglobin 10.8. Chest x-ray reported COPD with borderline cardiomegaly and pulmonary arterial hypertension, stable right basilar opacity.Received IV fluid hydration. and admitted for further evaluation, medication adjustment as per cardiology. Review of Systems ROS Statement: Those systems with pertinent positive or pertinent negative responses have been documented in the HPI. ROS Other: All systems not noted in ROS Statement are negative. Past Medical History Past Medical History: Atrial Fibrillation, Heart Failure, CVA/TIA, Deep Vein Thrombosis (DVT), Hypertension, Osteoarthritis (OA), Pneumonia, Renal Disease Additional Past Medical History / Comment(s): Pt recently admitted to [facility] on 07/18/18 with atypical chest pain-had cardiac cath with unsuccessful stent and bilateral basilar atelectasis. Other hx: Paroxysmal Afib, TIA x 2, CKD stage III, renal cysts, anemia, pancreatitis, chronic elevated lipase thought d/t possible chronic pancreatitis, DVT R leg History of Any Multi-Drug Resistant Organisms: None Reported Past Surgical History: Adenoidectomy, Appendectomy, Back Surgery, Cholecystectomy, Heart Catheterization, Hernia Repair, Joint Replacement, Tonsillectomy Additional Past Surgical History / Comment(s): Low back surgery, CATARACTS TAMAR, INCISIONAL HERNIA, RT KNEE REPLACEMENT, TAMAR.VARICOSE VEIN STRIPPING, PAIN CLINIC PROCEDURES, COLONOSCOPY, EGD Past Anesthesia/Blood Transfusion Reactions: No Reported Reaction Additional Past Anesthesia/Blood Transfusion Reaction / Comment(s): reluctant to receive any anesthesia, wants family meeting prior to any procedures involving anesthesia Past Psychological History: No Psychological Hx Reported Smoking Status: Former smoker Past Alcohol Use History: None Reported Past Drug Use History: None Reported - Past Family History Father Family Medical History: No Reported History Additional Family Medical History / Comment(s): Father at age 84 yrs of old age. Mother Family Medical History: Cancer Additional Family Medical History / Comment(s): Mother at age 53yrs of ovarian cancer. Brother(s) Family Medical History: Cancer Additional Family Medical History / Comment(s): BRAIN CA Medications and Allergies Home Medications Medication Instructions Recorded Confirmed Type Aspirin 81 mg PO DAILY 07/08/13 08/09/18 History QUEtiapine [SEROquel] 50 mg PO HS 05/08/18 08/09/18 History QUEtiapine [SEROquel] 100 mg PO HS 05/08/18 08/09/18 History HYDROcodone/APAP 7.5-325MG [[place] 1 tab PO HS 06/23/18 08/09/18 History 7.5-325] Multivitamins, Thera [Multivitamin 1 tab PO DAILY 06/23/18 08/09/18 History (formulary)] Ipratropium-Albuterol Nebulize 3 ml INHALATION RT-QID #120 06/29/18 08/09/18 Rx [Duoneb 0.5 mg-3 mg/3 ml Soln] ampul.neb Omeprazole [PriLOSEC] 20 mg PO AC-BID #60 cap 06/29/18 08/09/18 Rx Apixaban [Eliquis] 2.5 mg PO BID #60 tablet 07/10/18 08/09/18 Rx Clopidogrel [Plavix] 75 mg PO DAILY #30 tab 07/25/18 08/09/18 Rx Furosemide [Lasix] 40 mg PO DAILY #30 tab 07/25/18 08/09/18 Rx Metoprolol Succinate (ER) [Toprol 75 mg PO DAILY #90 tab.er.24h 07/25/18 08/09/18 Rx XL] Nitroglycerin Sl Tabs [Nitrostat] 0.4 mg SUBLINGUAL Q5M PRN #100 tab 07/25/18 08/09/18 Rx Ranolazine [Ranexa] 1,000 mg PO HS 07/30/18 08/09/18 History Ranolazine [Ranexa] 500 mg PO QAM 07/30/18 08/09/18 History Docusate [Colace] 100 mg PO BID #0 cap 08/01/18 08/09/18 Rx Isosorbide Mononitrate ER [Imdur] 30 mg PO DAILY 08/09/18 08/09/18 History hydrALAZINE HCL [Apresoline] 25 mg PO TID PRN 08/09/18 08/09/18 History Allergies Allergy/AdvReac Type Severity Reaction Status Date / Time No Known Allergies Allergy Verified 08/09/18 14:01 Physical Exam Vitals: Vital Signs Temp Pulse Pulse Resp BP BP BP 08/10/18 08:07 72 08/10/18 07:54 68 08/10/18 06:43 109/48 89/54 08/10/18 02:28 97.4 F L 69 18 08/09/18 23:21 97.8 F 68 16 08/09/18 20:00 98.2 F 71 18 08/09/18 19:44 72 08/09/18 19:34 68 08/09/18 18:00 97.7 F 74 18 155/67 90/46 08/09/18 17:00 67 20 172/82 08/09/18 16:00 67 17 183/77 08/09/18 15:30 65 17 165/82 08/09/18 14:42 147/78 60/46 08/09/18 14:30 18 176/76 08/09/18 14:00 66 19 60/46 08/09/18 13:30 17 127/82 08/09/18 12:37 97.8 F 78 18 127/74 BP Pulse Ox 08/10/18 08:07 08/10/18 07:54 08/10/18 06:43 128/76 08/10/18 02:28 109/48 97 08/09/18 23:21 127/56 96 08/09/18 20:00 143/64 96 08/09/18 19:44 08/09/18 19:34 08/09/18 18:00 97 08/09/18 17:00 97 08/09/18 16:00 96 08/09/18 15:30 97 08/09/18 14:42 170/69 08/09/18 14:30 08/09/18 14:00 97 08/09/18 13:30 97 08/09/18 12:37 98 Intake and Output 06/08/10/18 08/10/18 22:59 06:59 14:59 Intake Total 500 Balance 500 Intake: Intake, IV Titration 500 Amount Sodium Chloride 0.9% 1, 500 000 ml @ 100 mls/hr IV . Q10H ONE Rx#:[id number] Other: Voiding Method Bedside Commode Bedside Commode # Voids 0 Weight 67.5 kg VITAL SIGNS: As above GENERAL: Sitting up in bed, no acute distress HEENT: Conjunctivae normal. eyes normal. Oral mucosa moist NECK: No JVD. No thyroid enlargement. No LNs CARDIOVASCULAR: S1, S2 regular. Systolic murmur. RESPIRATION: Breath sounds diminished in the bases. No rhonchi or crackles. No bronchial breathing. ABDOMEN: Soft, nontender . No guarding. no masses palpable.Bowel sounds heard. LEGS: No edema. no swelling PSYCHIATRY: Alert and oriented ?-3, mood and affect normal. NERVOUS SYSTEM: Cranial N 2-12 grossly normal. Moves all 4 limbs. Diffuse weakness, No focal deficits. Strength and sensation grossly intact.. Skin: no lesions, no rash Lymphatic system. No LN neck axilla or groin. Results CBC & Chem 7: 08/09/18 13:43 08/09/18 13:43 Labs: Abnormal Lab Results - Last 24 Hours (Table) 08/09/18 08/09/18 Range/Units 13:43 13:43 WBC 3.7 L (3.8-10.6) k/uL RBC 3.43 L (3.80-5.40) m/uL Hgb 10.8 L (11.4-16.0) gm/dL Hct 33.2 L (34.0-46.0) % BUN 29 H (7-17) mg/dL Creatinine 1.71 H (0.52-1.04) mg/dL Glucose 104 H (74-99) mg/dL Assessment and Plan Assessment: -Orthostatic hypotension -Recent admission for dehydration with acute on chronic renal failure secondary to decreased oral intake. -Recent non-STEMI, status post balloon angioplasty of the first diagonal branch of the LAD -Paroxysmal atrial fibrillation -Acute on Chronic kidney disease, stage III, secondary to nephrosclerosis ,baseline creatinine 1.08 - 1.3 -Chronic Diastolic CHF -Hypertension -Dyslipidemia -History of Ascending aortic aneurysm 4.5 cm -History of Stable right mid lung nodular density 8 mm -Bilateral atelectasis -COPD-stable in a patient with history of nicotine abuse Plan: Continue current medication regime ,monitoring and symptomatic treatment. GI and DVT prophylaxis ordered. Orthostatic vital signs every shift. cardiology consult in place with recommendations pending. Further recommendations to follow. The impression and plan of care has been dictated as directed. : I performed a history and examination of this patient, discussed the same with the dictator. I agree with the dictator's note ,documented as a scribe. Any additional findings or plans will be noted.
--- NOTE | 2018-08-10 15:55 | P.CRDCN ---
History of Present Illness Consult date: 08/10/18 History of present illness: This is a 87-year-old female with history of ischemic heart disease who was recently treated with angioplasty of the diagonal. Following non-STEMI. Patient also has history of atrial fibrillation and evidence of dehydration requiring recent admission. Yesterday patient went to primary care physician's office with complaints of being dizzy and weak. It was noted that patient has significant postural hypotension. Patient is admitted here for further evaluation. She denied any chest pain or shortness of breath. She was found to have postural changes in the blood pressure. However this morning she was able to shower without any dizziness. No arrhythmias detected. EKG showed sinus rhythm. Troponins are negative. I'm going to discontinue Imdur. Patient is also on metoprolol. I will also recommend knee-high stockings and continue monitoring for any postural changes. If necessary, middle and can be added. Patient is otherwise critically stable. Review of Systems As per the chart Past Medical History Past Medical History: Atrial Fibrillation, Heart Failure, CVA/TIA, Deep Vein Thrombosis (DVT), Hypertension, Osteoarthritis (OA), Pneumonia, Renal Disease Additional Past Medical History / Comment(s): Pt recently admitted to [facility] on 07/18/18 with atypical chest pain-had cardiac cath with unsuccessful stent and bilateral basilar atelectasis. Other hx: Paroxysmal Afib, TIA x 2, CKD stage III, renal cysts, anemia, pancreatitis, chronic elevated lipase thought d/t possible chronic pancreatitis, DVT R leg History of Any Multi-Drug Resistant Organisms: None Reported Past Surgical History: Adenoidectomy, Appendectomy, Back Surgery, Cholecystectomy, Heart Catheterization, Hernia Repair, Joint Replacement, Tonsillectomy Additional Past Surgical History / Comment(s): Low back surgery, CATARACTS TAMAR, INCISIONAL HERNIA, RT KNEE REPLACEMENT, TAMAR.VARICOSE VEIN STRIPPING, PAIN CLINIC PROCEDURES, COLONOSCOPY, EGD Past Anesthesia/Blood Transfusion Reactions: No Reported Reaction Additional Past Anesthesia/Blood Transfusion Reaction / Comment(s): reluctant to receive any anesthesia, wants family meeting prior to any procedures involving anesthesia Past Psychological History: No Psychological Hx Reported Smoking Status: Former smoker Past Alcohol Use History: None Reported Past Drug Use History: None Reported - Past Family History Father Family Medical History: No Reported History Additional Family Medical History / Comment(s): Father at age 84 yrs of old age. Mother Family Medical History: Cancer Additional Family Medical History / Comment(s): Mother at age 53yrs of ovarian cancer. Brother(s) Family Medical History: Cancer Additional Family Medical History / Comment(s): BRAIN CA Medications and Allergies Home Medications Medication Instructions Recorded Confirmed Type Aspirin 81 mg PO DAILY 07/08/13 08/09/18 History QUEtiapine [SEROquel] 50 mg PO HS 05/08/18 08/09/18 History QUEtiapine [SEROquel] 100 mg PO HS 05/08/18 08/09/18 History HYDROcodone/APAP 7.5-325MG [[place] 1 tab PO HS 06/23/18 08/09/18 History 7.5-325] Multivitamins, Thera [Multivitamin 1 tab PO DAILY 06/23/18 08/09/18 History (formulary)] Ipratropium-Albuterol Nebulize 3 ml INHALATION RT-QID #120 06/29/18 08/09/18 Rx [Duoneb 0.5 mg-3 mg/3 ml Soln] ampul.neb Omeprazole [PriLOSEC] 20 mg PO AC-BID #60 cap 06/29/18 08/09/18 Rx Apixaban [Eliquis] 2.5 mg PO BID #60 tablet 07/10/18 08/09/18 Rx Clopidogrel [Plavix] 75 mg PO DAILY #30 tab 07/25/18 08/09/18 Rx Furosemide [Lasix] 40 mg PO DAILY #30 tab 07/25/18 08/09/18 Rx Metoprolol Succinate (ER) [Toprol 75 mg PO DAILY #90 tab.er.24h 07/25/18 08/09/18 Rx XL] Nitroglycerin Sl Tabs [Nitrostat] 0.4 mg SUBLINGUAL Q5M PRN #100 tab 07/25/18 08/09/18 Rx Ranolazine [Ranexa] 1,000 mg PO HS 07/30/18 08/09/18 History Ranolazine [Ranexa] 500 mg PO QAM 07/30/18 08/09/18 History Docusate [Colace] 100 mg PO BID #0 cap 08/01/18 08/09/18 Rx Isosorbide Mononitrate ER [Imdur] 30 mg PO DAILY 08/09/18 08/09/18 History hydrALAZINE HCL [Apresoline] 25 mg PO TID PRN 08/09/18 08/09/18 History Allergies Allergy/AdvReac Type Severity Reaction Status Date / Time No Known Allergies Allergy Verified 08/09/18 14:01 Physical Exam Vitals: Vital Signs Temp Pulse Pulse Resp BP BP BP 08/10/18 15:45 64 08/10/18 15:34 64 08/10/18 14:00 84 18 106/55 08/10/18 11:30 97.0 F L 73 18 141/65 132/66 08/10/18 08:07 72 08/10/18 07:54 68 08/10/18 07:30 98.4 F 67 18 137/59 121/54 08/10/18 06:43 109/48 89/54 08/10/18 02:28 97.4 F L 69 18 08/09/18 23:21 97.8 F 68 16 08/09/18 20:00 98.2 F 71 18 08/09/18 19:44 72 08/09/18 19:34 68 08/09/18 18:00 97.7 F 74 18 155/67 90/46 08/09/18 17:00 67 20 172/82 08/09/18 16:00 67 17 183/77 BP Pulse Ox 08/10/18 15:45 08/10/18 15:34 08/10/18 14:00 98 08/10/18 11:30 158/69 97 08/10/18 08:07 08/10/18 07:54 08/10/18 07:30 155/62 96 08/10/18 06:43 128/76 08/10/18 02:28 109/48 97 08/09/18 23:21 127/56 96 08/09/18 20:00 143/64 96 08/09/18 19:44 08/09/18 19:34 08/09/18 18:00 97 08/09/18 17:00 97 08/09/18 16:00 96 Intake and Output 08/10/18 08/10/18 08/10/18 06:59 14:59 22:59 Intake Total 500 Balance 500 Intake: Intake, IV Titration 500 Amount Sodium Chloride 0.9% 1, 500 000 ml @ 100 mls/hr IV . Q10H ONE Rx#:[id number] Other: Voiding Method Bedside Commode Bedside Commode # Voids 0 Weight 67.5 kg GENERAL EXAM: Patient is alert and oriented and doesn't appear to be in any acute distress HEENT: Normocephalic. Normal reaction of pupils, equal size, normal range of extraocular motion. No erythema or exudates in the throat. NECK: No masses, no nuchal rigidity. CHEST: No chest wall deformity. LUNGS: Equal air entry with no crackles or wheeze. HEART: S1 and S2 normal with no audible mumurs or gallops. Regular rhythm, femorals equal on both sides.. ABDOMEN: No hepatosplenomegaly, normal bowel sounds, no guarding or rigidity. SKIN: No rashes CENTRAL NERVOUS SYSTEM: No focal deficits. EXTREMITIES: No cyanosis, clubbing or edema. Results 08/09/18 13:43 08/09/18 13:43 Current Medications Generic Name Dose Route Start Last Admin Trade Name Freq PRN Reason Stop Dose Admin Hydrocodone Bitart/Acetaminophen 1 each 08/09/18 21:00 08/09/18 21:27 [place] 7.5-325 PO 1 each HS JS Administration Albuterol/Ipratropium 3 ml 08/09/18 20:00 08/10/18 15:33 Duoneb 0.5 Mg-3 Mg/3 Ml Soln INHALATION 3 ml RT-QID JS Administration Apixaban 2.5 mg 08/09/18 21:00 08/10/18 08:54 Eliquis PO 2.5 mg BID JS Administration Aspirin 81 mg 08/10/18 09:00 08/10/18 08:54 Aspirin PO 81 mg DAILY JS Administration Clopidogrel Bisulfate 75 mg 08/10/18 09:00 08/10/18 08:54 Plavix PO 75 mg DAILY JS Administration Docusate Sodium 100 mg 08/09/18 21:00 08/10/18 08:54 Colace PO 100 mg BID JS Administration Furosemide 20 mg 08/10/18 09:00 08/10/18 08:54 Lasix PO 20 mg DAILY JS Administration Hydralazine HCl 12.5 mg 08/09/18 18:16 Apresoline PO TID PRN Blood Pressure - High Metoprolol Succinate 75 mg 08/10/18 09:00 08/10/18 08:54 Toprol Xl PO 75 mg DAILY JS Administration Multivitamins 1 each 08/10/18 09:00 08/10/18 08:55 Theragran PO 1 each DAILY JS Administration Nitroglycerin 0.4 mg 08/09/18 18:16 Nitrostat SUBLINGUAL Q5M PRN Chest Pain Pantoprazole Sodium 40 mg 08/10/18 07:30 08/10/18 06:42 Protonix PO 40 mg AC-[id number] JS Administration Quetiapine Fumarate 50 mg 08/09/18 21:00 08/09/18 21:27 Seroquel PO 50 mg HS JS Administration Quetiapine Fumarate 100 mg 08/09/18 21:00 08/09/18 21:27 Seroquel PO 100 mg HS JS Administration Ranolazine 250 mg 08/10/18 09:00 08/10/18 08:55 Ranexa PO 250 mg QAM JS Administration Ranolazine 500 mg 08/09/18 21:00 08/09/18 21:26 Ranexa PO 500 mg HS JS Administration Intake and Output 08/10/18 08/10/18 08/10/18 06:59 14:59 22:59 Intake Total 500 Balance 500 Intake: Intake, IV Titration 500 Amount Sodium Chloride 0.9% 1, 500 000 ml @ 100 mls/hr IV . Q10H ONE Rx#:[id number] Other: Voiding Method Bedside Commode Bedside Commode # Voids 0 Weight 67.5 kg 08/09/18 13:43 08/09/18 13:43 EKG Interpretations (text) Sinus rhythm Assessment and Plan (1) Orthostatic hypotension Current Visit: Yes Status: Acute Code(s): I95.1 - ORTHOSTATIC HYPOTENSION SNOMED Code(s): 95160038 (2) COPD (chronic obstructive pulmonary disease) Current Visit: No Status: Acute Code(s): J44.9 - CHRONIC OBSTRUCTIVE PULMONARY DISEASE, UNSPECIFIED SNOMED Code(s): 92134640 (3) Stage 3 chronic kidney disease due to benign hypertension Current Visit: No Status: Acute Code(s): I12.9 - HYPERTENSIVE CHRONIC KIDNEY DISEASE W STG 1-4/UNSP CHR KDNY; N18.3 - CHRONIC KIDNEY DISEASE, STAGE 3 (MODERATE) SNOMED Code(s): 443363799868098 Plan: I will discontinue Imdur. Continue to monitor blood pressure. Knee has stockings. May need to use midodrine if necessary.
[2018-08-10] MEDS: HYDROcodone/APAP 7.5-325MG 1 EACH TAB PO SCH (20:31)
[2018-08-10] MEDS: QUEtiapine 50 MG TAB PO SCH (20:32)
[2018-08-10] MEDS: QUEtiapine 100 MG TAB PO SCH (22:35)
[2018-08-11] MEDS: IPRATROPIUM-ALBUTEROL 3 ML NEB INHALATION SCH ×4 (08:00→20:29)
[2018-08-11] MEDS: ASPIRIN 81 MG PO SCH (08:15)
[2018-08-11] MEDS: METOPROLOL SUCCINATE (ER) 25 MG TAB.ER.24H PO SCH (08:15)
[2018-08-11] MEDS: PANTOPRAZOLE 40 MG TABLET PO SCH (08:15)
[2018-08-11] MEDS: CLOPIDOGREL 75 MG TAB PO SCH (08:15)
[2018-08-11] MEDS: FUROSEMIDE 20 MG TAB PO SCH (08:15)
[2018-08-11] MEDS: APIXABAN 2.5 MG TABLET PO SCH ×2 (08:15→19:56)
[2018-08-11] MEDS: DOCUSATE 100 MG CAP PO SCH ×2 (08:15→19:56)
[2018-08-11] MEDS: MULTIVITAMINS, THERA 1 EACH TAB PO SCH (08:15)
[2018-08-11] MEDS: RANOLAZINE 500 MG TAB.ER.12H PO SCH ×2 (08:15→19:58)
[2018-08-11] MEDS: MIDODRINE 5 MG TAB PO SCH ×3 (11:01→16:14)
--- NOTE | 2018-08-11 11:51 | P.PN ---
Subjective Progress Note Date: 08/04/18 This is a 87-year-old female with history of ischemic heart disease who was recently treated with angioplasty of the diagonal. Following non-STEMI. Patient also has history of atrial fibrillation and evidence of dehydration requiring recent admission. Yesterday patient went to primary care physician's office with complaints of being dizzy and weak. It was noted that patient has significant postural hypotension. Patient is admitted here for further evaluation. She denied any chest pain or shortness of breath. She was found to have postural changes in the blood pressure. However this morning she was able to shower without any dizziness. No arrhythmias detected. EKG showed sinus rhythm. Troponins are negative. I'm going to discontinue Imdur. Patient is also on metoprolol. I will also recommend knee-high stockings and continue monitoring for any postural changes. 08/11/2018 Patient was seen and examined this morning, she denies any further episodes of dizziness or lightheadedness. We did check orthostatics on her this morning, blood pressure 124/60 sitting and 60/40 standing. She was quite symptomatic at that time. Very dizzy and lightheaded. We will discontinue her aspirin, decrease dose of beta laure and start the patient on midodrine today. We will monitor her for another 24 hours. Objective - Vital Signs Vital signs: Vital Signs Temp 97.5 F L 08/11/18 11:00 Pulse 66 08/11/18 11:21 Resp 18 08/11/18 11:00 BP 139/61 08/11/18 11:00 Pulse Ox 96 08/11/18 11:00 Intake & Output 08/10/18 08/11/18 08/11/18 18:59 06:59 18:59 Intake Total 240 Balance 240 Weight 70.1 kg Intake: Oral 240 Other: Voiding Method Toilet Toilet # Voids 2 1 - Exam GENERAL EXAM: Patient is alert and oriented and doesn't appear to be in any acute distress HEENT: Normocephalic. Normal reaction of pupils, equal size, normal range of extraocular motion. No erythema or exudates in the throat. NECK: No masses, no nuchal rigidity. CHEST: No chest wall deformity. LUNGS: Equal air entry with no crackles or wheeze. HEART: S1 and S2 normal with no audible mumurs or gallops. Regular rhythm, femorals equal on both sides.. ABDOMEN: No hepatosplenomegaly, normal bowel sounds, no guarding or rigidity. SKIN: No rashes CENTRAL NERVOUS SYSTEM: No focal deficits. EXTREMITIES: No cyanosis, clubbing or edema. - Labs CBC & Chem 7: 08/09/18 13:43 08/09/18 13:43 Assessment and Plan Plan: Assessment and Plan Assessment and plan #1 symptoms of dizziness and lightheadedness secondary to orthostatic hypotension #2 recent non-ST elevation GA status post balloon angioplasty of the first diagonal branch of the LAD #3 acute on chronic kidney disease #4 hypertension #5 hyperlipidemia #6 paroxysmal atrial fibrillation #7 chronic anemia Plan We will discontinue the aspirin, decrease dose of beta laure, start the patien t on midodrine today. Continue to monitor the patient for another 24 hours. DNP note has been reviewed, I agree with a documented findings and plan of care. Patient was seen and examined.
[2018-08-11] MEDS: HYDROcodone/APAP 7.5-325MG 1 EACH TAB PO SCH (19:56)
[2018-08-11] MEDS: QUEtiapine 50 MG TAB PO SCH (19:58)
[2018-08-11] MEDS: QUEtiapine 100 MG TAB PO SCH (19:58)
--- NOTE | 2018-08-12 00:36 | PN ---
PROGRESS NOTE 87-year-old white female orthostatic hypertension is possibly going to be discharged home today. The patient had another episode of orthostatic hypotension was started on Midodrine 5 mg a.c. t.i.d. Cardiac medicines have been cut in half essentially from admission. Cardiovascular S1-S2. Lungs transmitted upper sounds. Hematology negative Homans. Neurologic: Alert and orient x3. ASSESSMENT: 1. Orthostatic hypotension with recurrence. 2. Coronary artery disease Imdur has been discontinued. Metoprolol cut down to 50 from 75. 3. Hydralazine dose cut from 25-12.5 with Lasix is cut down from 40 to 20 a day. 4. Continue Midodrine. 5. Possible discharge home in the morning. MMODL / IJN: [id number] /
[2018-08-12 06:20] LABS: Basophils % (A) 1 %; Eosinophils # (A) 0.2 k/uL (0-0.7); Eosinophils % (A) 6 %; HCT 28.7 % (34.0-46.0); Lymphocytes % (A) 34 %; MCH 31.3 pg (25.0-35.0); MCHC 32.4 g/dL (31.0-37.0); MCV 96.7 fL (80.0-100.0); Mean Platelet Volume 7.2; Monocytes # (A) 0.4 k/uL (0-1.0); Monocytes % (A) 14 %; Neutrophils # (A) 1.2 k/uL (1.3-7.7); Neutrophils % (A) 41 %; Platelet Count 201 k/uL (150-450); RBC 2.97 m/uL (3.80-5.40); RDW 15.1 % (11.5-15.5)
[2018-08-12] MEDS: PANTOPRAZOLE 40 MG TABLET PO SCH (06:21)
[2018-08-12] MEDS: MIDODRINE 5 MG TAB PO SCH ×3 (06:21→17:05)
[2018-08-12 06:29] LABS: Calcium 8.6 mg/dL (8.4-10.2)
[2018-08-12 06:39] LABS: HGB 9.3 gm/dL (11.4-16.0)
[2018-08-12] MEDS: IPRATROPIUM-ALBUTEROL 3 ML NEB INHALATION SCH ×4 (07:25→19:57)
[2018-08-12] MEDS: CLOPIDOGREL 75 MG TAB PO SCH (08:09)
[2018-08-12] MEDS: RANOLAZINE 500 MG TAB.ER.12H PO SCH ×2 (08:09→21:44)
[2018-08-12] MEDS: FUROSEMIDE 20 MG TAB PO SCH (08:09)
[2018-08-12] MEDS: DOCUSATE 100 MG CAP PO SCH ×2 (08:09→21:44)
[2018-08-12] MEDS: MULTIVITAMINS, THERA 1 EACH TAB PO SCH (08:10)
[2018-08-12] MEDS: APIXABAN 2.5 MG TABLET PO SCH ×2 (08:10→21:44)
[2018-08-12] MEDS: METOPROLOL SUCCINATE (ER) 50 MG TAB.ER.24H PO SCH (08:10)
--- NOTE | 2018-08-12 13:49 | PN ---
PROGRESS NOTE Mrs. Dominguez has orthostatic hypotension. Yesterday I started her on 5 mg t.i.d. of midodrine. Pressure is better today on standing. It still comes from 140 down to 85, but she is less symptomatic. I will increase the midodrine to 7.5 t.i.d. Increase oral fluids. Vital signs stable. S1-S2 heard normally. Lungs are clear. Abdomen and lower extremity exam unchanged. Plan is to increase the midodrine to 7.5 mg t.i.d. for orthostatic hypotension and hopefully discharge her tomorrow if the standing blood pressure is more than 100 without symptoms. MMODL / IJN: [id number] /
[2018-08-12] MEDS: HYDROcodone/APAP 7.5-325MG 1 EACH TAB PO SCH (21:42)
[2018-08-12] MEDS: QUEtiapine 50 MG TAB PO SCH ×2 (21:43→21:44)
--- NOTE | 2018-08-12 21:45 | PN ---
PROGRESS NOTE DATE OF SERVICE: 08/12/2018. She started to ambulate using a walker. She feels somewhat weak at this time. On physical examination, respiratory rate is 16, pulse rate of 65, temperature 97.9, blood pressure 146/68, O2 saturation on room air is 98%. Blood pressure at 8:00 am had been as low as 64/41 in the right arm standing, improved to 117/58 right arm sitting. HEENT is unremarkable. Chest is clear. Cardiovascular system revealed an S1, S2. Abdomen is soft. There is no edema. IMPRESSION: At this time is: 1. Orthostatic hypotension for which he is symptomatic. 2. Coronary artery disease. 3. Medical debility. Increase activity level. Adjust her medications to achieve a more stable blood pressure. Appreciate Cardiology input. Her prognosis is fair. MMODL / IJN: [id number] /
[2018-08-12] MEDS: QUEtiapine 100 MG TAB PO SCH (21:46)
[2018-08-13] MEDS: PANTOPRAZOLE 40 MG TABLET PO SCH (06:28)
[2018-08-13] MEDS: MIDODRINE 5 MG TAB PO SCH ×3 (06:28→17:32)
[2018-08-13 06:53] LABS: Basophils % (A) 1 %; Eosinophils # (A) 0.2 k/uL (0-0.7); Eosinophils % (A) 7 %; HCT 29.1 % (34.0-46.0); HGB 9.4 gm/dL (11.4-16.0); Lymphocytes # (A) 1.1 k/uL (1.0-4.8); Lymphocytes % (A) 37 %; MCH 31.6 pg (25.0-35.0); MCHC 32.4 g/dL (31.0-37.0); MCV 97.6 fL (80.0-100.0); Monocytes # (A) 0.3 k/uL (0-1.0); Monocytes % (A) 11 %; Neutrophils # (A) 1.2 k/uL (1.3-7.7); Neutrophils % (A) 41 %; Platelet Count 209 k/uL (150-450); RBC 2.98 m/uL (3.80-5.40); RDW 14.9 % (11.5-15.5); WBC 2.9 k/uL (3.8-10.6)
[2018-08-13 07:04] LABS: Calcium 8.7 mg/dL (8.4-10.2); Potassium 4.2 mmol/L (3.5-5.1)
[2018-08-13] MEDS: IPRATROPIUM-ALBUTEROL 3 ML NEB INHALATION SCH ×4 (08:09→20:21)
[2018-08-13] MEDS: CLOPIDOGREL 75 MG TAB PO SCH (08:44)
[2018-08-13] MEDS: APIXABAN 2.5 MG TABLET PO SCH ×2 (08:44→21:40)
[2018-08-13] MEDS: DOCUSATE 100 MG CAP PO SCH ×2 (08:44→21:40)
[2018-08-13] MEDS: METOPROLOL SUCCINATE (ER) 50 MG TAB.ER.24H PO SCH (08:44)
[2018-08-13] MEDS: FUROSEMIDE 20 MG TAB PO SCH (08:44)
[2018-08-13] MEDS: RANOLAZINE 500 MG TAB.ER.12H PO SCH ×2 (08:45→21:41)
[2018-08-13] MEDS: MULTIVITAMINS, THERA 1 EACH TAB PO SCH (08:45)
--- NOTE | 2018-08-13 11:18 | CDI ---
Documentation Clarification Form Date: 08/13/2018 11:00:47 AM From: Shakira Reddy RN, CCDS Admit Date: 08/10/2018 3:39:00 PM Patient Name: Maria Ines Dominguez Visit Number: [id number] ATTENTION: The Clinical Documentation Specialists (CDI) and [facility] Coding Staff appreciate your assistance in clarifying documentation. Please respond to the clarification below the line at the bottom and electronically sign. The CDI & [facility] Coding staff will review the response and follow-up if needed. Please note: Queries are made part of the Legal Health Record. If you have any questions, please contact the author of this message via ITS. Dr. Pepe Canela A diagnosis of anemia lacks specificity to accurately reflect your patients severity of condition and clarification is needed. History/Risk Factors: A-fib, Heart failure, CVA/TIA, DVT, HTN, OA, pneumonia, renal disease, paroxsysmal A-Fib, TIA x 2, CKD stage 3, renal cysts, anemia, pancreatitis Clinical indicators: Hemoglobin: 10.8/9.3/9.4 Hematocrit: 33.2/28.7/29.1 Treatment: Labs AM Daily In order to capture the severity of condition, please clarify the type of anemia and etiology if known: Acute blood loss anemia Acute on chronic blood loss anemia Chronic blood loss anemia Iron deficiency anemia Nutritional anemia Anemia of chronic kidney disease Anemia of chronic disease Unable to determine Other, please specify (Last Revision: November 2016) MTDD
--- NOTE | 2018-08-13 15:39 | P.PN ---
Subjective Progress Note Date: 08/13/18 This is a 87-year-old female with history of ischemic heart disease who was recently treated with angioplasty of the diagonal. Following non-STEMI. Patient also has history of atrial fibrillation and evidence of dehydration requiring recent admission. Yesterday patient went to primary care physician's office with complaints of being dizzy and weak. It was noted that patient has significant postural hypotension. Patient is admitted here for further evaluation. She denied any chest pain or shortness of breath. She was found to have postural changes in the blood pressure. However this morning she was able to shower without any dizziness. No arrhythmias detected. EKG showed sinus rhythm. Troponins are negative. I'm going to discontinue Imdur. Patient is also on metoprolol. I will also recommend knee-high stockings and continue monitoring for any postural changes. 08/11/2018 Patient was seen and examined this morning, she denies any further episodes of dizziness or lightheadedness. We did check orthostatics on her this morning, blood pressure 124/60 sitting and 60/40 standing. She was quite symptomatic at that time. Very dizzy and lightheaded. We will discontinue her aspirin, decrease dose of beta laure and start the patient on midodrine today. We will monitor her for another 24 hours. 08/13/2018 Patient seen and examined today, she did have significant orthostatics earlier this morning that seemed to improve a little this afternoon and her symptoms of dizziness are much improved. Organic continue with the same dose of midodrine, continue to monitor her for another 24 hours and plan for possible discharge home in 24 hours if stable. Objective - Vital Signs Vital signs: Vital Signs Temp 98.3 F 08/13/18 12:00 Pulse 68 08/13/18 12:00 Resp 18 08/13/18 12:00 BP 156/67 08/13/18 12:00 Pulse Ox 97 08/13/18 12:00 Intake & Output 08/12/18 08/13/18 08/13/18 18:59 06:59 18:59 Intake Total 580 360 Balance 580 360 Weight 71.2 kg Intake: Oral 580 360 Other: Voiding Method Toilet # Voids 3 1 1 - Exam GENERAL EXAM: Patient is alert and oriented and doesn't appear to be in any acute distress HEENT: Normocephalic. Normal reaction of pupils, equal size, normal range of extraocular motion. No erythema or exudates in the throat. NECK: No masses, no nuchal rigidity. CHEST: No chest wall deformity. LUNGS: Equal air entry with no crackles or wheeze. HEART: S1 and S2 normal with no audible mumurs or gallops. Regular rhythm, femorals equal on both sides.. ABDOMEN: No hepatosplenomegaly, normal bowel sounds, no guarding or rigidity. SKIN: No rashes CENTRAL NERVOUS SYSTEM: No focal deficits. EXTREMITIES: No cyanosis, clubbing or edema. - Labs CBC & Chem 7: 08/13/18 06:04 08/13/18 06:04 Labs: Abnormal Lab Results - Last 24 Hours (Table) 08/13/18 08/13/18 Range/Units 06:04 06:04 WBC 2.9 L (3.8-10.6) k/uL RBC 2.98 L (3.80-5.40) m/uL Hgb 9.4 L (11.4-16.0) gm/dL Hct 29.1 L (34.0-46.0) % Neutrophils # 1.2 L (1.3-7.7) k/uL Chloride 108 H (98-107) mmol/L BUN 23 H (7-17) mg/dL Creatinine 1.39 H (0.52-1.04) mg/dL Assessment and Plan Plan: Assessment and Plan Assessment and plan #1 symptoms of dizziness and lightheadedness secondary to orthostatic hypotension #2 recent non-ST elevation [place] status post balloon angioplasty of the first diagonal branch of the LAD #3 acute on chronic kidney disease #4 hypertension #5 hyperlipidemia #6 paroxysmal atrial fibrillation #7 chronic anemia Plan Cardiology's perspective, we'll recommend to continue current dose of midodrine, continue to observe for another 24 hours possible discharge home in the morning. DNP note has been reviewed, I agree with a documented findings and plan of care. Patient was seen and examined.
[2018-08-13] MEDS: HYDROcodone/APAP 7.5-325MG 1 EACH TAB PO SCH (21:40)
[2018-08-13] MEDS: QUEtiapine 50 MG TAB PO SCH (21:41)
[2018-08-13] MEDS: QUEtiapine 100 MG TAB PO SCH (21:41)
[2018-08-14] MEDS: PANTOPRAZOLE 40 MG TABLET PO SCH (06:25)
[2018-08-14] MEDS: MIDODRINE 5 MG TAB PO SCH ×3 (06:25→17:50)
[2018-08-14] MEDS: IPRATROPIUM-ALBUTEROL 3 ML NEB INHALATION SCH ×4 (08:22→20:41)
[2018-08-14] MEDS: METOPROLOL SUCCINATE (ER) 50 MG TAB.ER.24H PO SCH ×2 (08:32→08:36)
[2018-08-14] MEDS: APIXABAN 2.5 MG TABLET PO SCH ×2 (08:32→20:15)
[2018-08-14] MEDS: DOCUSATE 100 MG CAP PO SCH ×2 (08:32→20:15)
[2018-08-14] MEDS: MULTIVITAMINS, THERA 1 EACH TAB PO SCH (08:32)
[2018-08-14] MEDS: RANOLAZINE 500 MG TAB.ER.12H PO SCH ×2 (08:32→20:01)
[2018-08-14] MEDS: CLOPIDOGREL 75 MG TAB PO SCH (08:32)
[2018-08-14] MEDS: FUROSEMIDE 20 MG TAB PO SCH (08:32)
--- NOTE | 2018-08-14 10:42 | P.PN ---
Subjective Progress Note Date: 08/13/18 This is an 87-year-old female admitted with orthostatic hypotension in a patient with recent non-STEMI status post balloon angioplasty, chronic atrial fibrillation, recent admission for dehydration with acute on chronic renal failure and multiple other medical issues. Patient presented to Dr. Canela's office with complaints of dizziness, weakness upon standing;significant drop in Systolic blood pressure- 70 with standing reported. Denies chest pain, palpitations or increasing shortness of breath. Sent to the ER , positive symptomatic orthostatic hypotension with both sitting and standing. EKG reporting sinus rhythm. Troponins negative 1. Creatinine 1.71, baseline 1.08-1.3.hemoglobin 10.8. Chest x-ray reported COPD with borderline cardiomegaly and pulmonary arterial hypertension, stable right basilar opacity.Received IV fluid hydration. and admitted for further evaluation, medication adjustment as per cardiology. 08/13/2018 Yesterday medication as well as oral fluids increased .Persistent symptomatic-dizzy/lightheadedness upon standing, significant orthostatic hypotension. Creatinine down to 1.39. Diet intake 50-75%. Denies nausea vomiting or diarrhea. Denies chest pain, palpitations. Objective - Vital Signs Vital signs: Vital Signs Temp 98.3 F 08/13/18 12:00 Pulse 73 08/13/18 16:00 Resp 16 08/13/18 16:00 BP 158/70 08/13/18 16:00 Pulse Ox 97 08/13/18 16:00 Intake & Output 08/12/18 08/13/18 08/13/18 18:59 06:59 18:59 Intake Total 580 360 Balance 580 360 Weight 71.2 kg Intake: Oral 580 360 Other: Voiding Method Toilet # Voids 3 1 1 - Exam GENERAL: Sitting up in bed, no acute distress HEENT: Conjunctivae normal. eyes normal. Oral mucosa moist NECK: No JVD. No thyroid enlargement. No LNs CARDIOVASCULAR: S1, S2 regular. Systolic murmur. RESPIRATION: Breath sounds diminished in the bases. No rhonchi or crackles. No bronchial breathing. ABDOMEN: Soft, nontender . No guarding. no masses palpable.Bowel sounds heard. LEGS: No edema. no swelling. No clubbing, no cyanosis. PSYCHIATRY: Alert and oriented ?-3, mood and affect normal. NERVOUS SYSTEM: Cranial N 2-12 grossly normal. Moves all 4 limbs. Diffuse weakness, No focal deficits. Strength and sensation grossly intact.. Skin: no lesions, no rash Lymphatic system. No LN neck axilla or groin. - Labs CBC & Chem 7: 08/13/18 06:04 08/13/18 06:04 Labs: Abnormal Lab Results - Last 24 Hours (Table) 08/13/18 08/13/18 Range/Units 06:04 06:04 WBC 2.9 L (3.8-10.6) k/uL RBC 2.98 L (3.80-5.40) m/uL Hgb 9.4 L (11.4-16.0) gm/dL Hct 29.1 L (34.0-46.0) % Neutrophils # 1.2 L (1.3-7.7) k/uL Chloride 108 H (98-107) mmol/L BUN 23 H (7-17) mg/dL Creatinine 1.39 H (0.52-1.04) mg/dL Assessment and Plan Assessment: -Orthostatic hypotension -Recent admission for dehydration with acute on chronic renal failure secondary to decreased oral intake. -Recent non-STEMI, status post balloon angioplasty of the first diagonal branch of the LAD -Paroxysmal atrial fibrillation -Acute on Chronic kidney disease, stage III, secondary to nephrosclerosis ,baseline creatinine 1.08 - 1.3 -Chronic Diastolic CHF -Hypertension -Dyslipidemia -History of Ascending aortic aneurysm 4.5 cm -History of Stable right mid lung nodular density 8 mm -Bilateral atelectasis -COPD-stable in a patient with history of nicotine abuse -Anemia of chronic disease Plan: Continue current medication regime ,monitoring and symptomatic treatment. Orthostatic vital signs every shift. Persistent orthostatic hypotension /Further recommendations from cardiology pending. Close monitoring of renal function, el ectrolytes with repeat labs ordered for a.m. Further recommendations to follow. Prognosis guarded given multiple complex medical issues. The impression and plan of care has been dictated as directed. : I performed a history and examination of this patient, discussed the same with the dictator. I agree with the dictator's note ,documented as a scribe. Any additional findings or plans will be noted.
--- NOTE | 2018-08-14 10:53 | P.PN ---
Subjective Progress Note Date: 08/14/18 This is an 87-year-old female admitted with orthostatic hypotension in a patient with recent non-STEMI status post balloon angioplasty, chronic atrial fibrillation, recent admission for dehydration with acute on chronic renal failure and multiple other medical issues. Patient presented to Dr. Canela's office with complaints of dizziness, weakness upon standing;significant drop in Systolic blood pressure- 70 with standing reported. Denies chest pain, palpitations or increasing shortness of breath. Sent to the ER , positive symptomatic orthostatic hypotension with both sitting and standing. EKG reporting sinus rhythm. Troponins negative 1. Creatinine 1.71, baseline 1.08-1.3.hemoglobin 10.8. Chest x-ray reported COPD with borderline cardiomegaly and pulmonary arterial hypertension, stable right basilar opacity.Received IV fluid hydration. and admitted for further evaluation, medication adjustment as per cardiology. 08/13/2018 Yesterday medication as well as oral fluids increased .Persistent symptomatic-dizzy/lightheadedness upon standing, significant orthostatic hypotension. Creatinine down to 1.39. Diet intake 50-75%. Denies nausea vomiting or diarrhea. Denies chest pain, palpitations. 08/14/18 symptomatic orthostatic hypotension, systolic blood pressure 99, dropped to 64 standing. Consuming 50% of breakfast this morning. Telemetry sinus rhythm. Labs pending. Objective - Vital Signs Vital signs: Vital Signs Temp 98.3 F 08/14/18 07:30 Pulse 70 08/14/18 08:40 Resp 18 08/14/18 07:30 BP 64/38 08/14/18 08:43 Pulse Ox 98 08/14/18 08:25 Intake & Output 08/13/18 08/14/18 08/14/18 18:59 06:59 18:59 Intake Total 360 120 Balance 360 120 Weight 71 kg Intake: Oral 360 120 Other: Voiding Method Toilet # Voids 1 1 1 - Exam GENERAL: Sitting up in chair, no acute distress HEENT: Conjunctivae normal. eyes normal. Oral mucosa moist NECK: No JVD. No thyroid enlargement. No LNs CARDIOVASCULAR: S1, S2 regular. Systolic murmur. RESPIRATION: Breath sounds diminished in the bases. No rhonchi, crackles, wheezing ABDOMEN: Soft, nondistended, nontender . No guarding. no masses palpable. Positive Bowel sounds. LEGS: No edema. no swelling. No clubbing, no cyanosis. PSYCHIATRY: Alert and oriented & OX 3, mood and affect normal. NERVOUS SYSTEM: Cranial N 2-12 grossly normal. Moves all 4 limbs. Diffuse w eakness, No focal deficits. Strength and sensation grossly intact.. Skin: no lesions, no rash - Labs CBC & Chem 7: 08/13/18 06:04 08/13/18 06:04 Assessment and Plan Assessment: -Orthostatic hypotension -Recent admission for dehydration with acute on chronic renal failure secondary to decreased oral intake. -Recent non-STEMI, status post balloon angioplasty of the first diagonal branch of the LAD -Paroxysmal atrial fibrillation -Acute on Chronic kidney disease, stage III, secondary to nephrosclerosis ,baseline creatinine 1.08 - 1.3 -Chronic Diastolic CHF -Hypertension -Dyslipidemia -History of Ascending aortic aneurysm 4.5 cm -History of Stable right mid lung nodular density 8 mm -Bilateral atelectasis -COPD-stable in a patient with history of nicotine abuse -Anemia of chronic disease Plan: Continue current medication regime ,monitoring and symptomatic treatment. Persistent orthostatic hypotension, consider increasing Midodrin -defer to cardiology.Labs Pending. Further recommendations to follow. The impression and plan of care has been dictated as directed. : I performed a history and examination of this patient, discussed the same with the dictator. I agree with the dictator's note ,documented as a scribe. Any additional findings or plans will be noted.
[2018-08-14 11:28] LABS: HCT 33.2 % (34.0-46.0); HGB 10.8 gm/dL (11.4-16.0); MCH 31.8 pg (25.0-35.0); MCHC 32.6 g/dL (31.0-37.0); MCV 97.7 fL (80.0-100.0); Mean Platelet Volume 7.1; Platelet Count 228 k/uL (150-450); RDW 15.7 % (11.5-15.5); WBC 3.4 k/uL (3.8-10.6)
[2018-08-14 11:47] LABS: Calcium 9.3 mg/dL (8.4-10.2); Potassium 4.3 mmol/L (3.5-5.1)
--- NOTE | 2018-08-14 14:40 | P.PN ---
Subjective Progress Note Date: 08/14/18 This is a 87-year-old female with history of ischemic heart disease who was recently treated with angioplasty of the diagonal. Following non-STEMI. Patient also has history of atrial fibrillation and evidence of dehydration requiring recent admission. Yesterday patient went to primary care physician's office with complaints of being dizzy and weak. It was noted that patient has significant postural hypotension. Patient is admitted here for further evaluation. She denied any chest pain or shortness of breath. She was found to have postural changes in the blood pressure. However this morning she was able to shower without any dizziness. No arrhythmias detected. EKG showed sinus rhythm. Troponins are negative. I'm going to discontinue Imdur. Patient is also on metoprolol. I will also recommend knee-high stockings and continue monitoring for any postural changes. 08/11/2018 Patient was seen and examined this morning, she denies any further episodes of dizziness or lightheadedness. We did check orthostatics on her this morning, blood pressure 124/60 sitting and 60/40 standing. She was quite symptomatic at that time. Very dizzy and lightheaded. We will discontinue her aspirin, decrease dose of beta laure and start the patient on midodrine today. We will monitor her for another 24 hours. 08/13/2018 Patient seen and examined today, she did have significant orthostatics earlier this morning that seemed to improve a little this afternoon and her symptoms of dizziness are much improved. Organic continue with the same dose of midodrine, continue to monitor her for another 24 hours and plan for possible discharge home in 24 hours if stable. 08/14/2018 Patient was seen and examined this morning, she did feel dizzy and lightheaded earlier this morning, her blood pressure was 99/50 sitting and 64/58 standing. Since then it has been running in the low 100s. We will discontinue her beta laure and Ranexa today, continue to monitor for 24 hours. We've also requested bilateral SERA hose stockings. Objective - Vital Signs Vital signs: Vital Signs Temp 98.3 F 08/14/18 07:30 Pulse 72 08/14/18 12:35 Resp 16 08/14/18 10:52 BP 162/61 08/14/18 10:52 Pulse Ox 99 08/14/18 10:52 Intake & Output 08/13/18 08/14/18 08/14/18 18:59 06:59 18:59 Intake Total 360 360 Balance 360 360 Weight 71 kg Intake: Oral 360 360 Other: Voiding Method Toilet # Voids 1 1 1 - Exam GENERAL EXAM: Patient is alert and oriented and doesn't appear to be in any acute distress HEENT: Normocephalic. Normal reaction of pupils, equal size, normal range of extraocular motion. No erythema or exudates in the throat. NECK: No masses, no nuchal rigidity. CHEST: No chest wall deformity. LUNGS: Equal air entry with no crackles or wheeze. HEART: S1 and S2 normal with no audible mumurs or gallops. Regular rhythm, femorals equal on both sides.. ABDOMEN: No hepatosplenomegaly, normal bowel sounds, no guarding or rigidity. SKIN: No rashes CENTRAL NERVOUS SYSTEM: No focal deficits. EXTREMITIES: No cyanosis, clubbing or edema. - Labs CBC & Chem 7: 08/14/18 11:01 08/14/18 11:01 Labs: Abnormal Lab Results - Last 24 Hours (Table) 08/14/18 08/14/18 Range/Units 11:01 11:01 WBC 3.4 L (3.8-10.6) k/uL RBC 3.40 L (3.80-5.40) m/uL Hgb 10.8 L (11.4-16.0) gm/dL Hct 33.2 L (34.0-46.0) % RDW 15.7 H (11.5-15.5) % BUN 23 H (7-17) mg/dL Creatinine 1.56 H (0.52-1.04) mg/dL Assessment and Plan Plan: Assessment and Plan Assessment and plan #1 symptoms of dizziness and lightheadedness secondary to orthostatic hypotension #2 recent non-ST elevation [place] status post balloon angioplasty of the first diagonal branch of the LAD #3 acute on chronic kidney disease #4 hypertension #5 hyperlipidemia #6 paroxysmal atrial fibrillation #7 chronic anemia Plan Cardiology's perspective, we'll recommend to continue current dose of midodrine, we will discontinue the beta laure and Ranexa. Continue to monitor blood pressure for 24 hours. DNP note has been reviewed, I agree with a documented findings and plan of care. Patient was seen and examined.
[2018-08-14] MEDS: HYDROcodone/APAP 7.5-325MG 1 EACH TAB PO SCH (20:15)
[2018-08-14] MEDS: QUEtiapine 100 MG TAB PO SCH (20:21)
[2018-08-15] MEDS: MIDODRINE 5 MG TAB PO SCH ×3 (06:46→17:22)
[2018-08-15] MEDS: PANTOPRAZOLE 40 MG TABLET PO SCH (06:46)
[2018-08-15] MEDS: IPRATROPIUM-ALBUTEROL 3 ML NEB INHALATION SCH ×5 (07:54→20:19)
[2018-08-15] MEDS: MULTIVITAMINS, THERA 1 EACH TAB PO SCH (08:36)
[2018-08-15] MEDS: CLOPIDOGREL 75 MG TAB PO SCH (08:36)
[2018-08-15] MEDS: DOCUSATE 100 MG CAP PO SCH ×2 (08:36→21:20)
[2018-08-15] MEDS: APIXABAN 2.5 MG TABLET PO SCH ×2 (08:36→22:09)
[2018-08-15] MEDS: FUROSEMIDE 20 MG TAB PO SCH (08:46)
--- NOTE | 2018-08-15 11:41 | P.PN ---
Subjective Progress Note Date: 08/15/18 This is an 87-year-old female admitted with orthostatic hypotension in a patient with recent non-STEMI status post balloon angioplasty, chronic atrial fibrillation, recent admission for dehydration with acute on chronic renal failure and multiple other medical issues. Patient presented to Dr. Canela's office with complaints of dizziness, weakness upon standing;significant drop in Systolic blood pressure- 70 with standing reported. Denies chest pain, palpitations or increasing shortness of breath. Sent to the ER , positive symptomatic orthostatic hypotension with both sitting and standing. EKG reporting sinus rhythm. Troponins negative 1. Creatinine 1.71, baseline 1.08-1.3.hemoglobin 10.8. Chest x-ray reported COPD with borderline cardiomegaly and pulmonary arterial hypertension, stable right basilar opacity.Received IV fluid hydration. and admitted for further evaluation, medication adjustment as per cardiology. 08/13/2018 Yesterday medication as well as oral fluids increased .Persistent symptomatic-dizzy/lightheadedness upon standing, significant orthostatic hypotension. Creatinine down to 1.39. Diet intake 50-75%. Denies nausea vomiting or diarrhea. Denies chest pain, palpitations. 08/14/18 symptomatic orthostatic hypotension, systolic blood pressure 99, dropped to 64 standing. Consuming 50% of breakfast this morning. Telemetry sinus rhythm. Labs pending. 08/16/2018 beta laure held yesterday. Earlier orthostatic vital signs attempted systolic mid 90s, 81 with standing-though inaccurate as patient has to sit down in the middle of blood pressure being taken secondary to lightheadedness/dizziness. Orthostatic vitals repeated systolic blood pressure 164 and dropped to 87. Worsening renal function, creatinine increased to 1.56. Lasix and Ranexa placed on hold today with beta laure reintroduced as per cardiology. Minimal bowel movement yesterday, but reports has not had a normal bowel movement in about a week and a half. Telemetry sinus rhythm. Objective - Vital Signs Vital signs: Vital Signs Temp 98.4 F 08/15/18 07:52 Pulse 109 H 08/15/18 08:33 Resp 16 08/15/18 07:52 BP 94/55 08/15/18 08:33 Pulse Ox 96 08/15/18 07:52 Intake & Output 08/14/18 08/15/18 08/15/18 18:59 06:59 18:59 Intake Total 480 240 Output Total 300 Balance 480 -60 Weight 71.1 kg Intake: Oral 480 240 Output: Urine 300 Other: Voiding Method Toilet # Voids 2 1 - Exam GENERAL: Sitting up in chair, no acute distress HEENT: Conjunctivae normal. eyes normal. Oral mucosa moist NECK: No JVD. No thyroid enlargement. No LNs CARDIOVASCULAR: S1, S2 regular. Systolic murmur. RESPIRATION: Breath sounds diminished in the bases. No rhonchi, crackles, wheezing ABDOMEN: Soft, nondistended, nontender . No guarding. no masses palpable. Positive Bowel sounds. LEGS: No edema. no swelling. No clubbing, no cyanosis. PSYCHIATRY: Alert and oriented & OX 3, mood and affect normal. NERVOUS SYSTEM: Cranial N 2-12 grossly normal. Moves all 4 limbs. Diffuse weakness, No focal deficits. Skin: no lesions, no rash - Labs CBC & Chem 7: 08/14/18 11:01 08/14/18 11:01 Labs: Abnormal Lab Results - Last 24 Hours (Table) 08/14/18 Range/Units 11:01 BUN 23 H (7-17) mg/dL Creatinine 1.56 H (0.52-1.04) mg/dL Assessment and Plan Assessment: -Orthostatic hypotension -Recent admission for dehydration with acute on chronic renal failure secondary to decreased oral intake. -Recent non-STEMI, status post balloon angioplasty of the first diagonal branch of the LAD -Paroxysmal atrial fibrillation -Acute on Chronic kidney disease, stage III, secondary to nephrosclerosis ,bas guy creatinine 1.08 - 1.3 -Chronic Diastolic CHF -Hypertension -Dyslipidemia -History of Ascending aortic aneurysm 4.5 cm -History of Stable right mid lung nodular density 8 mm -Bilateral atelectasis -COPD-stable in a patient with history of nicotine abuse -Anemia of chronic disease Plan: Continue current medication regime ,monitoring and symptomatic treatment. As mentioned above Lasix and Ranexa discontinued today, continue monitoring with orthostatic vital signs every shift. Flat plate of abdomen, Dulcolax suppository and Senokot added to med regime. Further recommendations to follow. The impression and plan of care has been dictated as directed. : I performed a history and examination of this patient, discussed the same with the dictator. I agree with the dictator's note ,documented as a scribe. Any additional findings or plans will be noted.
[2018-08-15] MEDS: BISACODYL 10 MG SUPP RECTAL SCH (12:09)
[2018-08-15] MEDS: SENNOSIDES-DOCUSATE SODIUM 1 EACH TAB PO SCH ×2 (12:10→21:15)
--- NOTE | 2018-08-15 12:12 | XR ---
Abdomen HISTORY: Constipation Frontal view the abdomen submitted on 2 images Comparison to prior exam 06/23/2018 Lung bases show probable subsegmental atelectatic changes or scarring. There is a spinal curvature, b one mineralization is reduced. Scattered calcifications within the pelvis may be related to calcified diverticula, possible injection granuloma or calcified mesenteric nodes or vascular calcifications. There is some retained fecal debris present within the colon. No evident pneumoperitoneum or bowel ob struction. IMPRESSION: There is retained fecal debris within the colon extending to the rectum, correlate for fe alena impaction, fecal stasis.
--- NOTE | 2018-08-15 12:27 | P.PN ---
Subjective Progress Note Date: 08/15/18 This is a 87-year-old female with history of ischemic heart disease who was recently treated with angioplasty of the diagonal. Following non-STEMI. Patient also has history of atrial fibrillation and evidence of dehydration requiring recent admission. Yesterday patient went to primary care physician's office with complaints of being dizzy and weak. It was noted that patient has significant postural hypotension. Patient is admitted here for further evaluation. She denied any chest pain or shortness of breath. She was found to have postural changes in the blood pressure. However this morning she was able to shower without any dizziness. No arrhythmias detected. EKG showed sinus rhythm. Troponins are negative. I'm going to discontinue Imdur. Patient is also on metoprolol. I will also recommend knee-high stockings and continue monitoring for any postural changes. 08/11/2018 Patient was seen and examined this morning, she denies any further episodes of dizziness or lightheadedness. We did check orthostatics on her this morning, blood pressure 124/60 sitting and 60/40 standing. She was quite symptomatic at that time. Very dizzy and lightheaded. We will discontinue her aspirin, decrease dose of beta laure and start the patient on midodrine today. We will monitor her for another 24 hours. 08/13/2018 Patient seen and examined today, she did have significant orthostatics earlier this morning that seemed to improve a little this afternoon and her symptoms of dizziness are much improved. Organic continue with the same dose of midodrine, continue to monitor her for another 24 hours and plan for possible discharge home in 24 hours if stable. 08/14/2018 Patient was seen and examined this morning, she did feel dizzy and lightheaded earlier this morning, her blood pressure was 99/50 sitting and 64/58 standing. Since then it has been running in the low 100s. We will discontinue her beta laure and Ranexa today, continue to monitor for 24 hours. We've also requested bilateral SERA hose stockings. 08/15/2018 Patient was seen and examined this morning, denies any further episodes of dizziness or lightheadedness. Drops in blood pressure seemed to be much less. Dr. Amador recommended adding a small dose of Lopressor 12-1/2 mg daily to the medication regime, felt that she may be able to be discharged home today from our perspective. Objective - Vital Signs Vital signs: Vital Signs Temp 98.4 F 08/15/18 07:52 Pulse 83 08/15/18 11:36 Resp 16 08/15/18 11:36 BP 164/76 08/15/18 11:36 Pulse Ox 97 08/15/18 11:36 Intake & Output 08/14/18 08/15/18 08/15/18 18:59 06:59 18:59 Intake Total 480 480 Output Total 300 Balance 480 180 Weight 71.1 kg Intake: Oral 480 480 Output: Urine 300 Other: Voiding Method Toilet # Voids 2 1 - Exam GENERAL EXAM: Patient is alert and oriented and doesn't appear to be in any acute distress HEENT: Normocephalic. Normal reaction of pupils, equal size, normal range of extraocular motion. No erythema or exudates in the throat. NECK: No masses, no nuchal rigidity. CHEST: No chest wall deformity. LUNGS: Equal air entry with no crackles or wheeze. HEART: S1 and S2 normal with no audible mumurs or gallops. Regular rhythm, femorals equal on both sides.. ABDOMEN: No hepatosplenomegaly, normal bowel sounds, no guarding or rigidity. SKIN: No rashes CENTRAL NERVOUS SYSTEM: No focal deficits. EXTREMITIES: No cyanosis, clubbing or edema. - Labs CBC & Chem 7: 08/14/18 11:01 08/14/18 11:01 Assessment and Plan Plan: Assessment and Plan Assessment and plan #1 symptoms of dizziness and lightheadedness secondary to orthostatic hypoten adrianna #2 recent non-ST elevation [place] status post balloon angioplasty of the first diagonal branch of the LAD #3 acute on chronic kidney disease #4 hypertension #5 hyperlipidemia #6 paroxysmal atrial fibrillation #7 chronic anemia Plan Cardiology's perspective, we'll recommend to continue current dose of midodrine, we will add back a small dose of beta laure 12-1/2 mg daily. She may be able to be discharged home today from our perspective, follow-up appointment in the office post discharge. DNP note has been reviewed, I agree with a documented findings and plan of care. Patient was seen and examined.
[2018-08-15] MEDS: QUEtiapine 100 MG TAB PO SCH (21:20)
[2018-08-15] MEDS: QUEtiapine 50 MG TAB PO SCH (21:20)
[2018-08-15] MEDS: LACTULOSE 20 GM/30 ML CUP PO SCH (21:21)
[2018-08-15] MEDS: HYDROcodone/APAP 7.5-325MG 1 EACH TAB PO SCH (21:22)
[2018-08-15] MEDS: RANOLAZINE 500 MG TAB.ER.12H PO SCH (22:09)
[2018-08-16] MEDS: MIDODRINE 5 MG TAB PO SCH (05:51)
[2018-08-16] MEDS: PANTOPRAZOLE 40 MG TABLET PO SCH (05:52)
[2018-08-16] MEDS: IPRATROPIUM-ALBUTEROL 3 ML NEB INHALATION SCH ×3 (07:38→16:08)
[2018-08-16] MEDS ORDERED: METOPROLOL TARTRATE 12.5 MG TAB PO SCH (09:00)
[2018-08-16 09:04] VITALS: RESP 18
[2018-08-16 09:20] LABS: Basophils % (A) 1 %; Eosinophils # (A) 0.3 k/uL (0-0.7); Eosinophils % (A) 8 %; HCT 33.7 % (34.0-46.0); HGB 10.5 gm/dL (11.4-16.0); Lymphocytes # (A) 1.2 k/uL (1.0-4.8); Lymphocytes % (A) 31 %; MCH 31.3 pg (25.0-35.0); MCHC 31.2 g/dL (31.0-37.0); MCV 100.2 fL (80.0-100.0); Macrocytosis Slight; Mean Platelet Volume 6.6; Monocytes # (A) 0.4 k/uL (0-1.0); Monocytes % (A) 10 %; Neutrophils # (A) 1.9 k/uL (1.3-7.7); Neutrophils % (A) 47 %; Platelet Count 221 k/uL (150-450); RBC 3.36 m/uL (3.80-5.40); RDW 14.8 % (11.5-15.5)
[2018-08-16 09:48] LABS: Potassium 4.2 mmol/L (3.5-5.1)
[2018-08-16] MEDS: MULTIVITAMINS, THERA 1 EACH TAB PO SCH (09:52)
[2018-08-16] MEDS: CLOPIDOGREL 75 MG TAB PO SCH (09:52)
[2018-08-16] MEDS: DOCUSATE 100 MG CAP PO SCH (09:52)
[2018-08-16] MEDS: APIXABAN 2.5 MG TABLET PO SCH (09:52)
[2018-08-16] MEDS: SENNOSIDES-DOCUSATE SODIUM 1 EACH TAB PO SCH (09:53)
[2018-08-16] MEDS: LACTULOSE 20 GM/30 ML CUP PO SCH (09:53)
[2018-08-16] MEDS: BISACODYL 10 MG SUPP RECTAL SCH (10:13)
--- NOTE | 2018-08-16 11:43 | P.PN ---
Subjective Progress Note Date: 08/16/18 This is an 87-year-old female admitted with orthostatic hypotension in a patient with recent non-STEMI status post balloon angioplasty, chronic atrial fibrillation, recent admission for dehydration with acute on chronic renal failure and multiple other medical issues. Patient presented to Dr. Canela's office with complaints of dizziness, weakness upon standing;significant drop in Systolic blood pressure- 70 with standing reported. Denies chest pain, palpitations or increasing shortness of breath. Sent to the ER , positive symptomatic orthostatic hypotension with both sitting and standing. EKG reporting sinus rhythm. Troponins negative 1. Creatinine 1.71, baseline 1.08-1.3.hemoglobin 10.8. Chest x-ray reported COPD with borderline cardiomegaly and pulmonary arterial hypertension, stable right basilar opacity.Received IV fluid hydration. and admitted for further evaluation, medication adjustment as per cardiology. 08/13/2018 Yesterday medication as well as oral fluids increased .Persistent symptomatic-dizzy/lightheadedness upon standing, significant orthostatic hypotension. Creatinine down to 1.39. Diet intake 50-75%. Denies nausea vomiting or diarrhea. Denies chest pain, palpitations. 08/14/18 symptomatic orthostatic hypotension, systolic blood pressure 99, dropped to 64 standing. Consuming 50% of breakfast this morning. Telemetry sinus rhythm. Labs pending. 08/15/2018 beta laure held yesterday. Earlier orthostatic vital signs attempted systolic mid 90s, 81 with standing-though inaccurate as patient has to sit down in the middle of blood pressure being taken secondary to lightheadedness/dizziness. Orthostatic vitals repeated systolic blood pressure 164 and dropped to 87. Worsening renal function, creatinine increased to 1.56. Lasix and Ranexa placed on hold today with beta laure reintroduced as per cardiology. Minimal bowel movement yesterday, but reports has not had a normal bowel movement in about a week and a half. Telemetry sinus rhythm. 08/16/2018 plan plate of abdomen completed yesterday reported retained fecal debris within the colon extending to the rectum, possible fecal impaction, fecal stasis. Patient received lactulose, Dulcolax suppository in addition to Colace and Senokot with positive results; large brown BM 1. Denies abdominal pain. Feels much better today. Ambulated to the bathroom requiring assistance times one. Tolerated exertion well, denies lightheadedness or dizziness during this short ambulation. Continues to decline subacute rehab option. Med. changes as mentioned above yesterday, positive orthostatic hypotension this morning, systolic blood pressure 118 sitting, dropped to 83 standing, asymptomatic-able to stand throughout the entire pressure taking this morning with no lightheadedness or dizziness. Good diet intake, denies nausea vomiting or diarrhea. Creatinine 1.45. Denies chest pain, palpitations. Telemetry sinus rhythm. Objective - Vital Signs Vital signs: Vital Signs Temp 97 F L 08/16/18 04:00 Pulse 88 08/16/18 06:37 Resp 16 08/16/18 04:00 BP 103/53 08/16/18 06:37 Pulse Ox 98 08/16/18 04:00 Intake & Output 08/15/18 08/16/18 08/16/18 18:59 06:59 18:59 Intake Total 720 100 240 Output Total 700 Balance 20 100 240 Weight 70 kg Intake: Oral 720 100 240 Output: Urine 700 Other: # Bowel Movements 1 - Exam GENERAL: Sitting up in chair, no acute distress HEENT: Conjunctivae normal. eyes normal. Oral mucosa moist NECK: No JVD. No thyroid enlargement. No LNs CARDIOVASCULAR: S1, S2 regular. Systolic murmur. RESPIRATION: Breath sounds diminished in the bases. No rhonchi, crackles, wheezing ABDOMEN: Soft, nondistended, nontender . No guarding. no masses palpable. Positive Bowel sounds. LEGS: No edema. no swelling. No clubbing, no cyanosis. PSYCHIATRY: Alert and oriented & OX 3, mood and affect normal. NERVOUS SYSTEM: Cranial N 2-12 grossly normal. Moves all 4 limbs. Diffuse weakness, No focal deficits. Skin: no lesions, no rash - Labs CBC & Chem 7: 08/16/18 09:06 08/16/18 09:06 Assessment and Plan Assessment: -Orthostatic hypotension -Recent admission for dehydration with acute on chronic renal failure secondary to decreased oral intake. -Recent non-STEMI, status post balloon angioplasty of the first diagonal branch of the LAD -Paroxysmal atrial fibrillation -Acute on Chronic kidney disease, stage III, secondary to nephrosclerosis ,baseline creatinine 1.08 - 1.3 -Chronic Diastolic CHF -Hypertension -Dyslipidemia -History of Ascending aortic aneurysm 4.5 cm -History of Stable right mid lung nodular density 8 mm -Bilateral atelectasis -COPD-stable in a patient with history of nicotine abuse -Anemia of chronic disease Plan: Continue current medication regime ,monitoring and symptomatic treatment.Orthostatic vital signs every shift. PT .instructed to do passive range of motion/pumping exercises with both upper and lower extremities prior to actually getting up to facilitate higher blood pressure .Further recommendations to follow. The impression and plan of care has been dictated as directed. : I performed a history and examination of this patient, discussed the same with the dictator. I agree with the dictator's note ,documented as a scribe. Any additional findings or plans will be noted.
[2018-08-16 13:06] VITALS: BP 168/69; PULSE 68; TEMP 98.1
--- NOTE | 2018-08-16 13:09 | P.DS ---
Providers Date of admission: 08/10/18 15:39 Expected date of discharge: 08/16/18 Attending physician: Pepe Canela Consults: 08/09/18 15:26 Consult Physician Urgent Consulting Provider: [facility] Consult Reason/Comments: Orthostatic hypotension Do you want consulting provider notified?: Yes Primary care physician: Pepe Canela [facility] Course: Final Diagnoses: -Orthostatic hypotension -Recent admission for dehydration with acute on chronic renal failure secondary to decreased oral intake. -Recent non-STEMI, status post balloon angioplasty of the first diagonal branch of the LAD -Paroxysmal atrial fibrillation -Acute on Chronic kidney disease, stage III, secondary to nephrosclerosis ,baseline creatinine 1.08 - 1.3 -Chronic Diastolic CHF -Hypertension -Dyslipidemia -History of Ascending aortic aneurysm 4.5 cm -History of Stable right mid lung nodular density 8 mm -Bilateral atelectasis -COPD-stable in a patient with history of nicotine abuse -Anemia of chronic disease Hospital COurse:This is an 87-year-old female admitted with orthostatic hypotension in a patient with recent non-STEMI status post balloon angioplasty, chronic atrial fibrillation, recent admission for dehydration with acute on chronic renal failure and multiple other medical issues. Patient presented to Dr. Canela's office with complaints of dizziness, weakness upon standing;significant drop in Systolic blood pressure- 70 with standing reported. Denies chest pain, palpitations or increasing shortness of breath. Sent to the ER , positive symptomatic orthostatic hypoten adrianna with both sitting and standing. EKG reporting sinus rhythm. Troponins negative 1. Creatinine 1.71, baseline 1.08-1.3.hemoglobin 10.8. Chest x-ray reported COPD with borderline cardiomegaly and pulmonary arterial hypertension, stable right basilar opacity.Received IV fluid hydration. and admitted for further evaluation, medication adjustment as per cardiology. 08/13/2018 Yesterday medication as well as oral fluids increased .Persistent symptomatic-dizzy/lightheadedness upon standing, significant orthostatic hypotension. Creatinine down to 1.39. Diet intake 50-75%. Denies nausea vom iting or diarrhea. Denies chest pain, palpitations. 08/14/18 symptomatic orthostatic hypotension, systolic blood pressure 99, dropped to 64 standing. Consuming 50% of breakfast this morning. Telemetry sinus rhythm. Labs pending. 08/15/2018 beta laure held yesterday. Earlier orthostatic vital signs attempted systolic mid 90s, 81 with standing-though inaccurate as patient has to sit down in the middle of blood pressure being taken secondary to lightheadedness/dizziness. Orthostatic vitals repeated systolic blood pressure 164 and dropped to 87. Worsening renal function, creatinine increased to 1.56. Lasix and Ranexa placed on hold today with beta laure reintroduced as per cardiology. Minimal bowel movement yesterday, but reports has not had a normal bowel movement in about a week and a half. Telemetry sinus rhythm. 08/16/2018 plan plate of abdomen completed yesterday reported retained fecal debris within the colon extending to the rectum, possible fecal impaction, fecal stasis. Patient received lactulose, Dulcolax suppository in addition to Colace and Senokot with positive results; large brown BM 1. Denies abdominal pain. Feels much better today. Ambulated to the bathroom requiring assistance times one. Tolerated exertion well, denies lightheadedness or dizziness during this short ambulation. Continues to decline subacute rehab option. Med. changes as mentioned above yesterday, positive orthostatic hypotension this morning, systolic blood pressure 118 sitting, dropped to 83 standing, asymptomatic-able to stand throughout the entire pressure taking this morning with no lightheadedness or dizziness. Good diet intake, denies nausea vomiting or diarrhea. Creatinine 1.45. Denies chest pain, palpitations. Telemetry sinus rhythm. Re-evaluated patient. Ambulating independently in room with walker. Tolerated exertion well, denies denies dizziness, lightheadedness, or focal deficits. Eager to go home. Significant clinical improvement. Cleared by Cardiology for discharge. Patient is being discharged home in a stable condition with quarded prognosis. - Exam GENERAL: Alert and oriented X 3, no acute distress CARDIOVASCULAR: S1, S2 regular. Systolic murmur. RESPIRATION: Breath sounds diminished in the bases. No rhonchi, crackles, wheezing ABDOMEN: Soft, nondistended, nontender . No guarding. no masses palpable. Positive Bowel sounds. NERVOUS SYSTEM: No focal deficits. The impression and plan of care has been dictated as directed. : I performed a history and examination of this patient, discussed the same with the dictator. I agree with the dictator's note ,documented as a scribe. Any additional findings or plans will be noted. Time taken: 35 min. Patient Condition at Discharge: Stable Plan - Discharge Summary New Discharge Prescriptions: New Ranolazine [Ranexa] 500 mg PO HS tab.er.12h Metoprolol Tartrate [Lopressor] 12.5 mg PO DAILY #30 tab Midodrine [ProAmatine] 7.5 mg PO AC-TID #90 tab Continue QUEtiapine [SEROquel] 50 mg PO HS QUEtiapine [SEROquel] 100 mg PO HS Multivitamins, Thera [Multivitamin (formulary)] 1 tab PO DAILY HYDROcodone/APAP 7.5-325MG [[place] 7.5-325] 1 tab PO HS Omeprazole [PriLOSEC] 20 mg PO AC-BID #60 cap Ipratropium-Albuterol Nebulize [Duoneb 0.5 mg-3 mg/3 ml Soln] 3 ml INHALATION RT-QID #120 ampul.neb Apixaban [Eliquis] 2.5 mg PO BID #60 tablet Nitroglycerin Sl Tabs [Nitrostat] 0.4 mg SUBLINGUAL Q5M PRN #100 tab PRN Reason: Chest Pain Clopidogrel [Plavix] 75 mg PO DAILY #30 tab Docusate [Colace] 100 mg PO BID #0 cap Discontinued Aspirin 81 mg PO DAILY Furosemide [Lasix] 40 mg PO DAILY #30 tab Metoprolol Succinate (ER) [Toprol XL] 75 mg PO DAILY #90 tab.er.24h Ranolazine [Ranexa] 1,000 mg PO HS Ranolazine [Ranexa] 500 mg PO QAM hydrALAZINE HCL [Apresoline] 25 mg PO TID PRN PRN Reason: Blood Pressure - High Isosorbide Mononitrate ER [Imdur] 30 mg PO DAILY Discharge Medication List QUEtiapine [SEROquel] 50 mg PO HS 05/08/18 [History] QUEtiapine [SEROquel] 100 mg PO HS 05/08/18 [History] HYDROcodone/APAP 7.5-325MG [[place] 7.5-325] 1 tab PO HS 06/23/18 [History] Multivitamins, Thera [Multivitamin (formulary)] 1 tab PO DAILY 06/23/18 [History] Ipratropium-Albuterol Nebulize [Duoneb 0.5 mg-3 mg/3 ml Soln] 3 ml INHALATION RT-QID #120 ampul.neb 06/29/18 [Rx] Omeprazole [PriLOSEC] 20 mg PO AC-BID #60 cap 06/29/18 [Rx] Apixaban [Eliquis] 2.5 mg PO BID #60 tablet 07/10/18 [Rx] Clopidogrel [Plavix] 75 mg PO DAILY #30 tab 07/25/18 [Rx] Nitroglycerin Sl Tabs [Nitrostat] 0.4 mg SUBLINGUAL Q5M PRN #100 tab 07/25/18 [Rx] Docusate [Colace] 100 mg PO BID #0 cap 08/01/18 [Rx] Ranolazine [Ranexa] 500 mg PO HS tab.er.12h 08/11/18 [Rx] Metoprolol Tartrate [Lopressor] 12.5 mg PO DAILY #30 tab 08/16/18 [Rx] Midodrine [ProAmatine] 7.5 mg PO AC-TID #90 tab 08/16/18 [Rx] Follow up Appointment(s)/Referral(s): Warren Roach MD [STAFF PHYSICIAN] - 08/27/18 3:30 pm (With Jillian SANTACRUZ.) Pepe Canela MD [Primary Care Provider] - 3 Days (please reschedule her apt. from tomorrow to Monday08/20/18) [facility] [NON-STAFF] - As Needed Ambulatory/Diagnostic Orders: Complete Blood Count w/diff [LAB.AMB] Time Frame: 3 Days, Location: None Selected Patient Instructions/Handouts: Syncope (DC), Hypotension (DC) Activity/Diet/Wound Care/Special Instructions: Lasix currently on hold, re-eval Monday at F/U visit with Dr. Canela. Send home with TEDs and instructions Diet:Cardiac Activity: as tolerated Discharge Disposition: HOME SELF-CARE
== END 2018-08-16 16:27 | disposition home health service (06) | DRG 281 ==
LOC: EC 12:25 → 3SCARD 15:27 → INTOOBSV 15:27 → 3SCARD 17:02 → OBSVTOIN 08-10 15:39
PROVIDERS: ADMIT Family Medicine; ATTEND Family Medicine
DX: I95.1 Orthostatic hypotension (principal); I21.4 Non-ST elevation (NSTEMI) myocardial infarction; I13.0 Hypertensive heart and chronic kidney disease with heart failure and stage 1 through stage 4 chronic kidney disease, or unspecified chronic kidney disease; I50.32 Chronic diastolic (congestive) heart failure; J98.11 Atelectasis; D63.8 Anemia in other chronic diseases classified elsewhere; E78.5 Hyperlipidemia, unspecified; I25.10 Atherosclerotic heart disease of native coronary artery without angina pectoris; I27.21 Secondary pulmonary arterial hypertension; I48.2 Chronic atrial fibrillation; J44.9 Chronic obstructive pulmonary disease, unspecified; N18.3 Chronic kidney disease, stage 3 (moderate); Z79.01 Long term (current) use of anticoagulants; Z79.02 Long term (current) use of antithrombotics/antiplatelets; Z79.82 Long term (current) use of aspirin; Z79.899 Other long term (current) drug therapy; Z80.41 Family history of malignant neoplasm of ovary; Z80.8 Family history of malignant neoplasm of other organs or systems; Z86.73 Personal history of transient ischemic attack (TIA), and cerebral infarction without residual deficits; Z87.891 Personal history of nicotine dependence; Z96.651 Presence of right artificial knee joint; Z95.5 Presence of coronary angioplasty implant and graft; K56.41 Fecal impaction; N28.1 Cyst of kidney, acquired; Z98.42 Cataract extraction status, left eye; Z98.41 Cataract extraction status, right eye; Z66 Do not resuscitate; I71.4 Abdominal aortic aneurysm, without rupture
CPT/HCPCS: 36415; 71046; 74018; 80048; 80053; 83735; 84484; 85025; 85027; 85610; 85730; 93005; 94640; 94760; 99285

== ENCOUNTER → 2019-01-23 | Outpatient (CLI) | payer MEDICARE, BC ==
[~2019-01-23] MED LIST changes: +AMINOPHYLLINE 500 MG/20 ML VIAL IV ONE; -LIDOCAINE 1% 20 ML VIAL (10MG/ML) FOR IV START INTRADERMA PRN; +REGADENOSON 0.4 MG/5 ML SYRINGE IV ONE; -ceFAZolin IN SWFI 2 GM/20 ML SYRINGE IVP ONE
--- NOTE | 2019-01-23 11:40 | NM ---
EXAMINATION TYPE: NM stress lexiscan cardiolite DATE OF EXAM: 01/23/2019 COMPARISON: 04/26/2018 HISTORY: Chest pain TECHNIQUE: After the intravenous administration of 10.14 mCi Tc 99m Sestamibi - Cardiolite resting S PECT images acquired 45 minutes post injection. The patient received 0.4mg Lexiscan, 25.8 mCi Tc 99m Sestamibi - Stress images obtained [address] injection FINDINGS: Review of stress and rest SPECT images demonstrates no distinct perfusion abnormality. Gated analysi s shows reduced global wall motion with an estimated left ventricular ejection fraction of 33 %. Repo rt called to referring clinician. IMPRESSION: 1. No diagnostic evidence of stress-induced reversible ischemia. However, ejection fraction only adalberto ures 33 % and should be correlated for LV dysfunction.
--- NOTE | 2019-01-23 12:00 | EST ---
EXERCISE STRESS AGE: 88 SEX: F HT: 67" WT: 145 PROTOCOL: Lexiscan Cardiolite Stress Test HEART RATE REST: 69 BLOOD PRESSURE REST: 156/92 MAXIMUM HEART RATE ACHIEVED: 93 MAXIMUM BLOOD PRESSURE: 178/75 85% MPHR: 111 100% MPHR: 131 INDICATIONS: Fatigue, chest pain. CLINICAL INFORMATION: Baseline EKG shows sinus rhythm, right bundle branch block with left axis deviation. The patient was given intravenous Lexiscan as per protocol. Did not have chest pain or diagnostic ST-segment depression. CONCLUSION: 1. Negative stress test by EKG criteria. 2. Frequent premature ventricular contractions during stress test. 3. Cardiolite portion of the stress test will be reported separately. MMODL / IJN: [id number] /
== END | disposition home or self-care (01) ==
LOC: RADNMMAIN 08:45
PROVIDERS: ATTEND Family Medicine
DX: R07.9 Chest pain, unspecified (principal)
CPT/HCPCS: 93017; 78452; A9500; J2785

== ENCOUNTER → 2019-02-18 | Outpatient (CLI) | payer MEDICARE, BC ==
--- NOTE | 2019-02-19 06:57 | ECHOF ---
Referral Reason:I42.9 Cardiomyopathy, unspecified MEASUREMENTS -------- HEIGHT: 170.2 cm WEIGHT: 67.1 kg BP: IVSd: 0.8 cm (0.6 - 1.1) LVIDd: 4.1 cm (3.9 - 5.3) LVPWd: 1.1 cm (0.6 - 1.1) IVSs: 1.6 cm LVIDs: 2.3 cm LVPWs: 1.5 cm LAESV Index (A-L): 46.33 ml/m Ao Diam: 3.6 cm (2.0 - 3.7) AV Cusp: 1.6 cm (1.5 - 2.6) LA Diam: 2.3 cm (2.7 - 3.8) MV EXCURSION: 12.148 mm (> 18.000) MV EF SLOPE: 69 mm/s (70 - 150) EPSS: 0.4 cm MV E John: 1.13 m/s MV DecT: 305 ms MV A John: 1.18 m/s MV E/A Ratio: 0.96 AV maxP.64 mmHg AV meanP.07 mmHg AR PHT: 482 ms RAP: 5.00 mmHg RVSP: 42.71 mmHg FINDINGS -------- Sinus rhythm. This was a technically adequate study. The left ventricular size is normal. There is mild concentric left ventricular hypertrophy. Overa ll left ventricular systolic function is normal with, an EF between 55 - 60 %. The right ventricle is normal in size. LA is severely dilated >40 ml/m2 The right atrial size is normal. Aortic valve is trileaflet and is mildly thickened. There is mild aortic valve sclerosis. There i s moderate aortic regurgitation. Mild mitral annular calcification present. Moderate mitral regurgitation is present. The tricuspid valve appears structurally normal. Moderate tricuspid regurgitation present. There is mild pulmonary hypertension. The right ventricular systolic pressure, as measured by Doppler, is 42.71mmHg. There is no pulmonic regurgitation present. The aortic root size is normal. Normal inferior vena cava with normal inspiratory collapse consistent with estimated right atrial pre ssure of 5 mmHg. There is no pericardial effusion. CONCLUSIONS -------- 1. Sinus rhythm. 2. This was a technically adequate study. 3. The left ventricular size is normal. 4. There is mild concentric left ventricular hypertrophy. 5. Overall left ventricular systolic function is normal with, an EF between 55 - 60 %. 6. LA is severely dilated >40 ml/m2 7. There is mild aortic valve sclerosis. 8. There is moderate aortic regurgitation. 9. Mild mitral annular calcification present. 10. Moderate mitral regurgitation is present. 11. The tricuspid valve appears structurally normal. 12. Moderate tricuspid regurgitation present. 13. There is mild pulmonary hypertension. 14. There is no pulmonic regurgitation present. 15. There is no pericardial effusion. MYSTERY SHOPPER: Judi Butterfield RDCS
== END | disposition home or self-care (01) ==
LOC: RADECHMAIN 14:48
PROVIDERS: ATTEND Family Medicine
DX: I27.20 Pulmonary hypertension, unspecified (principal); I08.3 Combined rheumatic disorders of mitral, aortic and tricuspid valves
CPT/HCPCS: 93306

== ENCOUNTER 2019-06-18 12:38 | Inpatient (IN) | payer MEDICARE, BC ==
[2019-06-18] MEDS ORDERED: SODIUM CHLORIDE 0.9% 1,000 ML IV STA (12:42)
[2019-06-18] MEDS ORDERED: DILTIAZEM DRIP BOLUS FROM BAG 1 MG SOLN IV ONE (12:43)
[2019-06-18] MEDS ORDERED: DILTIAZEM 125 MG in SODIUM CHLORIDE 0.9% 100 ML IV SCH (12:45)
--- NOTE | 2019-06-18 12:51 | ED ---
General Adult HPI - General Stated complaint: Cardiac Issues Time Seen by Provider: 06/18/19 12:42 Source: patient, EMS, RN notes reviewed, old records reviewed Mode of arrival: EMS Limitations: no limitations - History of Present Illness Initial comments: 88-year-old female presents with altered mental status which began acutely according to EMS. She is found to be in A. fib with RVR rate of 160 and blood pressure in the 80s systolic. She had answered simple questions correctly, alert and oriented 3 with a baseline of normal mentation. Apparently she had been talking to her daughter on the phone who noticed a change in mental status. EMS reports symmetric movements, all extremities. Further history will be obtained from the patient's family when available. History is limited from this patient. - Related Data Home Medications Medication Instructions Recorded Confirmed QUEtiapine [SEROquel] 50 mg PO HS 05/08/18 08/09/18 QUEtiapine [SEROquel] 100 mg PO HS 05/08/18 08/09/18 HYDROcodone/APAP 7.5-325MG [[place] 1 tab PO HS 06/23/18 08/09/18 7.5-325] Multivitamins, Thera [Multivitamin 1 tab PO DAILY 06/23/18 08/09/18 (formulary)] Previous Rx's Medication Instructions Recorded Ipratropium-Albuterol Nebulize 3 ml INHALATION RT-QID #120 06/29/18 [Duoneb 0.5 mg-3 mg/3 ml Soln] ampul.neb Omeprazole [PriLOSEC] 20 mg PO AC-BID #60 cap 06/29/18 Apixaban [Eliquis] 2.5 mg PO BID #60 tablet 07/10/18 Clopidogrel [Plavix] 75 mg PO DAILY #30 tab 07/25/18 Nitroglycerin Sl Tabs [Nitrostat] 0.4 mg SUBLINGUAL Q5M PRN #100 tab 07/25/18 Docusate [Colace] 100 mg PO BID #0 cap 08/01/18 Ranolazine [Ranexa] 500 mg PO HS tab.er.12h 08/11/18 Metoprolol Tartrate [Lopressor] 12.5 mg PO DAILY #30 tab 08/16/18 Midodrine [ProAmatine] 7.5 mg PO AC-TID #90 tab 08/16/18 Allergies Allergy/AdvReac Type Severity Reaction Status Date / Time No Known Allergies Allergy Verified 08/09/18 14:01 Review of Systems ROS Statement: Those systems with pertinent positive or pertinent negative responses have been documented in the HPI. ROS Other: All systems not noted in ROS Statement are negative. Past Medical History Past Medical History: Atrial Fibrillation, Heart Failure, CVA/TIA, Deep Vein Thrombosis (DVT), Hypertension, Osteoarthritis (OA), Pneumonia, Renal Disease Additional Past Medical History / Comment(s): Pt recently admitted to [facility] on 07/18/18 with atypical chest pain-had cardiac cath with unsuccessful stent and bilateral basilar atelectasis. Other hx: Paroxysmal Afib, TIA x 2, CKD stage III, renal cysts, anemia, pancreatitis, chronic elevated lipase thought d/t possible chronic pancreatitis, DVT R leg History of Any Multi-Drug Resistant Organisms: None Reported Past Surgical History: Adenoidectomy, Appendectomy, Back Surgery, Cholecystecto my, Heart Catheterization, Hernia Repair, Joint Replacement, Tonsillectomy Additional Past Surgical History / Comment(s): Low back surgery, CATARACTS TAMAR, INCISIONAL HERNIA, RT KNEE REPLACEMENT, TAMAR.VARICOSE VEIN STRIPPING, PAIN CLINIC PROCEDURES, COLONOSCOPY, EGD Past Anesthesia/Blood Transfusion Reactions: No Reported Reaction Additional Past Anesthesia/Blood Transfusion Reaction / Comment(s): reluctant to receive any anesthesia, wants family meeting prior to any procedures involving anesthesia Past Psychological History: No Psychological Hx Reported Smoking Status: Former smoker Past Alcohol Use History: None Reported Past Drug Use History: None Reported - Past Family History Father Family Medical History: No Reported History Additional Family Medical History / Comment(s): Father at age 84 yrs of old age. Mother Family Medical History: Cancer Additional Family Medical History / Comment(s): Mother at age 53yrs of ovarian cancer. Brother(s) Family Medical History: Cancer Additional Family Medical History / Comment(s): BRAIN CA General Exam Limitations: no limitations General appearance: in no apparent distress, lethargic Head exam: Present: atraumatic, normocephalic Eye exam: Present: normal appearance, PERRL, EOMI. Absent: scleral icterus ENT exam: Present: mucous membranes dry Neck exam: Present: normal inspection. Absent: tenderness, meningismus Respiratory exam: Present: normal lung sounds bilaterally. Absent: respiratory distress, wheezes Cardiovascular Exam: Present: tachycardia, irregular rhythm GI/Abdominal exam: Present: soft. Absent: distended, tenderness, guarding, rebound Extremities exam: Present: normal inspection, normal capillary refill. Absent: pedal edema Neurological exam: Present: motor sensory deficit (Patient follows simple commands, she will move all extremities symmetrically.). Absent: oriented X3 Skin exam: Present: warm, dry, intact. Absent: cyanosis, diaphoretic Course Vital Signs 06/18/19 06/18/19 06/18/19 12:40 13:14 13:46 Temperature 97.6 F Pulse Rate 150 H 138 H 98 Respiratory 18 18 18 Rate Blood Pressure 133/94 101/67 104/67 O2 Sat by Pulse 100 98 100 Oximetry - Reevaluation(s) Reevaluation #1: 06/18/19 14:12 Patient reevaluated multiple times in the emergency prompt, improved mental status to baseline. Her daughter is at bedside and states she has returned normal. Her heart rate is controlled with Cardizem and blood pressure remained stable. EKG Findings - EKG Comments: EKG Findings:: A. fib with RVR, right bundle branch block, rate of 141, QRS duration 128, QTC 505, ST segment depression in lead 2. Medical Decision Making - Medical Decision Making 88-year-old female presenting with acute confusion, A. fib with RVR, and hypotension. With improvement and rate control, she does have normalized blood pressure and her mental status improves to baseline. I suspect her mental status changes were secondary to hypotension. She has a head CT which is negative for any acute intracranial hemorrhage or mass effect. Chest x-ray showing atelectasis versus early pneumonia, I doubt early pneumonia given this presentation. She has a normal white blood cell count, stable hemoglobin, crea tinine 1.66 which is baseline. Urinalysis is pending. Covid is negative. Diagnosis: A. fib with RVR, hypotension resolved, altered mental status. Case discussed with Dr. Canela who will accept admission and is able to evaluate the patient in the emergency department. - Lab Data Result diagrams: 06/18/19 12:53 06/18/19 12:53 Lab Results 06/18/19 06/18/19 06/18/19 Range/Units 12:53 12:53 12:53 WBC 4.2 (3.8-10.6) k/uL RBC 3.60 L (3.80-5.40) m/uL Hgb 11.8 (11.4-16.0) gm/dL Hct 36.4 (34.0-46.0) % MCV 101.0 H (80.0-100.0) fL MCH 32.7 (25.0-35.0) pg MCHC 32.4 (31.0-37.0) g/dL RDW 13.6 (11.5-15.5) % Plt Count 172 (150-450) k/uL Neutrophils % 56 % Lymphocytes % 22 % Monocytes % 10 % Eosinophils % 7 % Basophils % 1 % Neutrophils # 2.3 (1.3-7.7) k/uL Lymphocytes # 0.9 L (1.0-4.8) k/uL Monocytes # 0.4 (0-1.0) k/uL Eosinophils # 0.3 (0-0.7) k/uL Basophils # 0.0 (0-0.2) k/uL Macrocytosis Slight PT 10.7 (9.0-12.0) sec INR 1.0 (<1.2) APTT 23.1 (22.0-30.0) sec VBG pH (7.31-7.41) VBG pCO2 (37-51) mmHg VBG HCO3 (24-28) mmol/L Sodium 137 (137-145) mmol/L Potassium 4.7 (3.5-5.1) mmol/L Chloride 109 H (98-107) mmol/L Carbon Dioxide 17 L (22-30) mmol/L Anion Gap 11 mmol/L BUN 32 H (7-17) mg/dL Creatinine 1.66 H (0.52-1.04) mg/dL Est GFR (CKD-EPI)AfAm 31 (>60 ml/min/1.73 sqM) Est GFR (CKD-EPI)NonAf 27 (>60 ml/min/1.73 sqM) Glucose 93 (74-99) mg/dL Plasma Lactic Acid Vladimir (0.7-2.0) mmol/L Calcium 8.9 (8.4-10.2) mg/dL Magnesium 2.1 (1.6-2.3) mg/dL Total Bilirubin 0.6 (0.2-1.3) mg/dL AST 32 (14-36) U/L ALT 16 (4-34) U/L Alkaline Phosphatase 110 (38-126) U/L Troponin I (0.000-0.034) ng/mL Total Protein 6.7 (6.3-8.2) g/dL Albumin 3.4 L (3.5-5.0) g/dL Coronavirus (PCR) (Not Detectd) 06/18/19 06/18/19 06/18/19 Range/Units 12:53 12:53 12:53 WBC (3.8-10.6) k/uL RBC (3.80-5.40) m/uL Hgb (11.4-16.0) gm/dL Hct (34.0-46.0) % MCV (80.0-100.0) fL MCH (25.0-35.0) pg MCHC (31.0-37.0) g/dL RDW (11.5-15.5) % Plt Count (150-450) k/uL Neutrophils % % Lymphocytes % % Monocytes % % Eosinophils % % Basophils % % Neutrophils # (1.3-7.7) k/uL Lymphocytes # (1.0-4.8) k/uL Monocytes # (0-1.0) k/uL Eosinophils # (0-0.7) k/uL Basophils # (0-0.2) k/uL Macrocytosis PT (9.0-12.0) sec INR (<1.2) APTT (22.0-30.0) sec VBG pH 7.36 (7.31-7.41) VBG pCO2 34 L (37-51) mmHg VBG HCO3 19 L (24-28) mmol/L Sodium (137-145) mmol/L Potassium (3.5-5.1) mmol/L Chloride (98-107) mmol/L Carbon Dioxide (22-30) mmol/L Anion Gap mmol/L BUN (7-17) mg/dL Creatinine (0.52-1.04) mg/dL Est GFR (CKD-EPI)AfAm (>60 ml/min/1.73 sqM) Est GFR (CKD-EPI)NonAf (>60 ml/min/1.73 sqM) Glucose (74-99) mg/dL Plasma Lactic Acid Vladimir 1.8 (0.7-2.0) mmol/L Calcium (8.4-10.2) mg/dL Magnesium (1.6-2.3) mg/dL Total Bilirubin (0.2-1.3) mg/dL AST (14-36) U/L ALT (4-34) U/L Alkaline Phosphatase (38-126) U/L Troponin I 0.021 (0.000-0.034) ng/mL Total Protein (6.3-8.2) g/dL Albumin (3.5-5.0) g/dL Coronavirus (PCR) (Not Detectd) 06/18/19 Range/Units 13:15 WBC (3.8-10.6) k/uL RBC (3.80-5.40) m/uL Hgb (11.4-16.0) gm/dL Hct (34.0-46.0) % MCV (80.0-100.0) fL MCH (25.0-35.0) pg MCHC (31.0-37.0) g/dL RDW (11.5-15.5) % Plt Count (150-450) k/uL Neutrophils % % Lymphocytes % % Monocytes % % Eosinophils % % Basophils % % Neutrophils # (1.3-7.7) k/uL Lymphocytes # (1.0-4.8) k/uL Monocytes # (0-1.0) k/uL Eosinophils # (0-0.7) k/uL Basophils # (0-0.2) k/uL Macrocytosis PT (9.0-12.0) sec INR (<1.2) APTT (22.0-30.0) sec VBG pH (7.31-7.41) VBG pCO2 (37-51) mmHg VBG HCO3 (24-28) mmol/L Sodium (137-145) mmol/L Potassium (3.5-5.1) mmol/L Chloride (98-107) mmol/L Carbon Dioxide (22-30) mmol/L Anion Gap mmol/L BUN (7-17) mg/dL Creatinine (0.52-1.04) mg/dL Est GFR (CKD-EPI)AfAm (>60 ml/min/1.73 sqM) Est GFR (CKD-EPI)NonAf (>60 ml/min/1.73 sqM) Glucose (74-99) mg/dL Plasma Lactic Acid Vladimir (0.7-2.0) mmol/L Calcium (8.4-10.2) mg/dL Magnesium (1.6-2.3) mg/dL Total Bilirubin (0.2-1.3) mg/dL AST (14-36) U/L ALT (4-34) U/L Alkaline Phosphatase (38-126) U/L Troponin I (0.000-0.034) ng/mL Total Protein (6.3-8.2) g/dL Albumin (3.5-5.0) g/dL Coronavirus (PCR) Not Detected (Not Detectd) Critical Care Time Critical Care Time: Yes Total Critical Care Time: 35 Disposition Clinical Impression: Altered mental status, Atrial fibrillation with RVR Disposition: ADMITTED IP TO THIS [facility] Condition: Stable Is patient prescribed a controlled substance at d/c from ED?: No Referrals: Pepe Canela MD [Primary Care Provider] - 1-2 days Decision to Admit Reason: Admit from EC Decision Date: 06/18/19 Decision Time: 14:14
[2019-06-18 13:04] LABS: Basophils % (A) 1 %; Eosinophils # (A) 0.3 k/uL (0-0.7); Eosinophils % (A) 7 %; HCT 36.4 % (34.0-46.0); HGB 11.8 gm/dL (11.4-16.0); Lymphocytes # (A) 0.9 k/uL (1.0-4.8); Lymphocytes % (A) 22 %; MCH 32.7 pg (25.0-35.0); MCHC 32.4 g/dL (31.0-37.0); Macrocytosis Slight; Mean Platelet Volume 7.4; Monocytes # (A) 0.4 k/uL (0-1.0); Monocytes % (A) 10 %; Neutrophils # (A) 2.3 k/uL (1.3-7.7); Neutrophils % (A) 56 %; Platelet Count 172 k/uL (150-450); RDW 13.6 % (11.5-15.5); WBC 4.2 k/uL (3.8-10.6)
[2019-06-18 13:06] LABS: VBG PH 7.36 (7.31-7.41)
[2019-06-18 13:14] LABS: Partial Thromboplastin Time 23.1 sec (22.0-30.0); Prothrombin Time 10.7 sec (9.0-12.0)
[2019-06-18 13:17] LABS: Albumin 3.4 g/dL (3.5-5.0); Calcium 8.9 mg/dL (8.4-10.2); Potassium 4.7 mmol/L (3.5-5.1); Total Protein 6.7 g/dL (6.3-8.2)
[2019-06-18 13:18] LABS: Magnesium 2.1 mg/dL (1.6-2.3); Total Bilirubin 0.6 mg/dL (0.2-1.3)
--- NOTE | 2019-06-18 13:56 | CT ---
EXAMINATION TYPE: CT brain wo con DATE OF EXAM: 06/18/2019 COMPARISON: 07/30/2018 INDICATION: altered mental status DLP: 1052.4 mGycm, Automated exposure control for dose reduction was used. CONTRAST: None CT of the brain is performed utilizing 3 mm thick sections through the posterior fossa and 3 mm thick sections through the remaining calvarium. Study is performed within 24 hours of arrival to the hosp ital. No abnormal hyperdensity is present to suggest an acute intracranial hemorrhage. No mass lesion is evident. No acute infarcts are evident. There is mild periventricular white matter hypodensity, likely on the basis of chronic white matter ischemic changes. Ventricles and sulci are mildly prominent for the patient age. Paranasal sinuses and mastoid air cells within the [id number] are clear. IMPRESSIONS: 1. Atrophy with chronic appearing periventricular white matter ischemic type changes. No significan t interval changes evident.
--- NOTE | 2019-06-18 13:57 | XR ---
EXAMINATION TYPE: XR chest 1V portable DATE OF EXAM: 06/18/2019 COMPARISON: 08/09/2018 INDICATION: Dysrhythmia TECHNIQUE: Single frontal view of the chest is obtained. FINDINGS: The heart size is normal. The pulmonary vasculature is normal. Some minimal plate atelectasis appears to be at the left base. A mild infiltrate may be developing ea t the right base. IMPRESSION: 1. Bibasilar infiltrates. Correlate for atelectasis and pneumonia including an atypical pneumonia.
[2019-06-18] MEDS ORDERED: MORPHINE SULFATE 2 MG/ML SYRINGE IVP STA (14:00)
[2019-06-18] MEDS ORDERED: NALOXONE 0.4 MG/ML 1 ML VIAL IV PRN (14:10)
[2019-06-18] MEDS: SODIUM CHLORIDE 0.9% 1,000 ML IV SCH (15:15)
[2019-06-18] MEDS ORDERED: METOPROLOL SUCCINATE (ER) 25 MG TAB.ER.24H PO SCH (18:45)
[2019-06-18] MEDS: MORPHINE SULFATE 4 MG/ML SYRINGE IV PRN (20:28)
[2019-06-18 20:55] LABS: Glucose,Whole Blood 111 mg/dL (75-99)
[2019-06-18] MEDS ORDERED: QUEtiapine 100 MG TAB PO SCH (23:15)
--- NOTE | 2019-06-19 00:13 | HP ---
HISTORY AND PHYSICAL A 88-year-old white female admitted to the hospital with atrial fibrillation, rapid ventricular response 160, blood pressure is 80 systolic, answered simple questions correctly. She is lying down in the ER in room 2 for where she was examined. Heart rates in the 120s with atrial fibrillation with rapid ventricular response. She is feeling better. She is on Cardizem drip. She has stopped beta laure, metoprolol XL 12.5 mg 1 a day, and Aldactone once a day recently. She just takes Plavix and aspirin for prior heart disease, atrial fibrillation, prior possible coronary artery disease. No other blood thinners can be taken because of bleeding. History of insomnia by a mood disorder, COPD. She has stopped Eliquis secondary to bleeding. She has atrial fibrillation, heart failure, CVA, TIA, DVT, hypertension, osteoarthritis, pneumonia, renal disease. On 07/18/2018, she had an unsuccessful stent with heart catheterization, TIA x2, paroxysmal atrial fib for which she is on Plavix and aspirin, renal cyst, anemia, pancreatitis, chronic pancreatitis, DVT right leg. SURGERIES: Adenoidectomy, appendectomy, back surgery, cholecystectomy, heart catheterization, hernia repair, joint replacement, tonsillectomy, right knee replacement, cataracts bilaterally, bilateral vein stripping, pain clinic, colonoscopy, EGD. ALLERGIES: No known drug allergies. FAMILY HISTORY: Father old age, age 84. Mother ovarian cancer. Brother cancer of the brain. PHYSICAL EXAMINATION: Pulse is 120, atrial fibrillation, rapid ventricular response. Blood pressure systolic 80s to 100s. CARDIOVASCULAR: Irregular, irregular rhythm. Heart rate 120s to 130s. LUNGS: Rales at the base. Wheezes x4. PSYCH: She is alert and orient x3. NEURO: Cranial nerves are intact. OPHTHALMOLOGIC: Pupils equal, round, reactive to light and accommodation. SKIN: No cyanosis, clubbing, edema. ABDOMEN: Soft, nontender. Pulse as mentioned was 120 on Cardizem drip in the ER. Blood pressure is low 100s over 90s. Given appropriate answers. INTEGUMENT: No rash, excoriation, or bruising. Looks stated age. ASSESSMENT: 1. Atrial fibrillation with rapid ventricular response. 2. Prior to cerebrovascular accident, transient ischemic attack. 3. History atrial fibrillation. 4. History of deep venous thromboses. 5. Recently stopped her beta laure and Aldactone. 6. She has mood disorders. She takes Seroquel for many years at night. 7. Hypotension, unclear etiology. 8. Possible dehydration with acute tubular necrosis and acute renal insufficiency. CAT scan is negative for any bleed. Chest x-ray shows possible pneumonia. She has normal white count. COVID is negative. UA is negative. We are going to do a CAT scan of her lungs. Please see further orders. MMODL / IJN: [id number] /
[2019-06-19] MEDS ORDERED: NITROGLYCERIN SL TABS 0.4 MG TAB SUBLINGUAL ONE (01:46)
[2019-06-19] MEDS: QUEtiapine 50 MG TAB PO SCH ×2 (01:54→20:24)
[2019-06-19] MEDS: HYDROcodone/APAP 5-325MG 1 EACH TAB PO PRN ×2 (01:55→20:25)
[2019-06-19 06:11] LABS: Glucose,Whole Blood 99 mg/dL (75-99)
[2019-06-19 07:06] LABS: Calcium 8.5 mg/dL (8.4-10.2); Potassium 4.6 mmol/L (3.5-5.1)
[2019-06-19 07:08] LABS: Basophils % (A) 1 %; Eosinophils # (A) 0.3 k/uL (0-0.7); Eosinophils % (A) 9 %; HCT 31.3 % (34.0-46.0); HGB 10.2 gm/dL (11.4-16.0); Hypochromasia Slight; Lymphocytes # (A) 0.8 k/uL (1.0-4.8); Lymphocytes % (A) 24 %; MCH 33.2 pg (25.0-35.0); MCHC 32.5 g/dL (31.0-37.0); MCV 102.3 fL (80.0-100.0); Macrocytosis Slight; Mean Platelet Volume 7.7; Monocytes # (A) 0.4 k/uL (0-1.0); Monocytes % (A) 12 %; Neutrophils # (A) 1.6 k/uL (1.3-7.7); Neutrophils % (A) 50 %; Platelet Count 150 k/uL (150-450); RBC 3.06 m/uL (3.80-5.40); RDW 13.6 % (11.5-15.5); WBC 3.2 k/uL (3.8-10.6)
--- NOTE | 2019-06-19 07:40 | CT ---
EXAMINATION TYPE: CT chest wo con DATE OF EXAM: 06/19/2019 COMPARISON: 07/30/2018, chest x-ray 06/18/2019 HISTORY: abn CXR CT DLP: 254.8 mGycm, Automated exposure control for dose reduction was used. CONTRAST: Performed injected with 0 mL of Isovue 300. TECHNIQUE: Axial images were obtained at 5 mm thick sections. Reconstructed images are reviewed on [employer] computer in the coronal plane. FINDINGS: Portion of the thyroid visualized is normal. Small bilateral pleural effusions are present. Some mild compressive atelectasis may be adjacent. The re are some increased lung markings within the bilateral lung bases. Findings are nonspecific. Atelec tasis and pneumonia, atypical pneumonia could be considered. Vascular calcification is within the aorta. No enlarged mediastinal or hilar adenopathy is evident. The ascending aorta diameter at the level o f the main pulmonary artery is 4.6 cm. The main pulmonary artery diameter at the bifurcation is 3.7 cm. Coronary artery calcification is present. Limited CT sections are obtained through the upper abdomen. Multiple dense calcifications are within the spleen. Few scattered calcifications are within the liver. Consider granuloma. IMPRESSIONS: 1. Small bilateral pleural effusions with adjacent small infiltrates. Compressive atelectasis is favo red. Portions may be chronic from July 2018. Atypical pneumonia is not excluded. 2. Ascending thoracic aortic aneurysm measuring 4.6 cm AP.
[2019-06-19] MEDS ORDERED: ASPIRIN 81 MG PO SCH (09:00)
[2019-06-19] MEDS ORDERED: METOPROLOL SUCCINATE (ER) 25 MG TAB.ER.24H PO SCH (09:00)
[2019-06-19] MEDS ORDERED: SPIRONOLACTONE 25 MG TAB PO SCH (09:00)
[2019-06-19] MEDS: CLOPIDOGREL 75 MG TAB PO SCH (10:06)
[2019-06-19] MEDS: METOPROLOL SUCCINATE (ER) 25 MG TAB.ER.24H PO SCH (10:07)
[2019-06-19] MEDS: APIXABAN 2.5 MG TABLET PO SCH ×2 (10:07→20:25)
--- NOTE | 2019-06-19 10:55 | P.CNPUL ---
History of Present Illness Reason for consult: dyspnea, chest pain Chief complaint: Altered mental status History of present illness: This is a pleasant 88-year-old female who was seen eval examined on third floor patient was admitted to the hospital with altered mental status and hypotension she was in A. fib with RVR on presentation heart rate was up to 160 systolic blood pressure was low, however and presentation and gradually in the ER heart rate and blood pressure continued to improve her oxygen saturation remains 100% she had a computed tomography scan of the chest done showed small bilateral atelectasis small pleural effusion doubt pneumonia most likely related to acute diastolic heart failure related to A. fib with RVR Review of Systems All systems: negative Past Medical History Past Medical History: Atrial Fibrillation, Heart Failure, CVA/TIA, Deep Vein Thrombosis (DVT), Hypertension, Osteoarthritis (OA), Pneumonia, Renal Disease Additional Past Medical History / Comment(s): Other hx: Paroxysmal Afib, TIA x 2, CKD stage III, renal cysts, anemia, pancreatitis, chronic elevated lipase thought d/t possible chronic pancreatitis, DVT R leg History of Any Multi-Drug Resistant Organisms: None Reported Past Surgical History: Adenoidectomy, Appendectomy, Back Surgery, Cholecystectomy, Heart Catheterization, Hernia Repair, Joint Replacement, Tonsillectomy Additional Past Surgical History / Comment(s): Low back surgery, CATARACTS TAMAR, INCISIONAL HERNIA, RT KNEE REPLACEMENT, TAMAR.VARICOSE VEIN STRIPPING, PAIN CLINIC PROCEDURES, COLONOSCOPY, EGD Past Anesthesia/Blood Transfusion Reactions: No Reported Reaction Additional Past Anesthesia/Blood Transfusion Reaction / Comment(s): reluctant to receive any anesthesia, wants family meeting prior to any procedures involving anesthesia Past Psychological History: No Psychological Hx Reported Additional Psychological History / Comment(s): Pt resides at [facility] in an apartment. Smoking Status: Former smoker Past Alcohol Use History: None Reported Additional Past Alcohol Use History / Comment(s): STARTED SMOKING @ AGE 19 (1950) QUIT @ AGE 57(1987) WAS 2 PPD Past Drug Use History: None Reported - Past Family History Father Family Medical History: No Reported History Additional Family Medical History / Comment(s): Father at age 84 yrs of old age. Mother History Unknown: Yes Family Medical History: Cancer Additional Family Medical History / Comment(s): Mother at age 53yrs of ovarian cancer. Brother(s) History Unknown: Yes Family Medical History: Cancer Additional Family Medical History / Comment(s): BRAIN CA Medications and Allergies Home Medications Medication Instructions Recorded Confirmed Type QUEtiapine [SEROquel] 50 mg PO HS 05/08/18 06/18/19 History QUEtiapine [SEROquel] 100 mg PO HS 05/08/18 06/18/19 History Multivitamins, Thera [Multivitamin 1 tab PO DAILY 06/23/18 06/18/19 History (formulary)] Clopidogrel [Plavix] 75 mg PO DAILY #30 tab 07/25/18 06/18/19 Rx Aspirin [Adult Low Dose Aspirin EC] 81 mg PO DAILY 06/18/19 06/18/19 History HYDROcodone/APAP 5-325MG [[place] 1 tab PO HS 06/18/19 06/18/19 History 5-325] Losartan-Hctz 50-12.5 mg [Hyzaar 1 tab PO DAILY 06/18/19 06/18/19 History 50-12.5] Allergies Allergy/AdvReac Type Severity Reaction Status Date / Time fentanyl AdvReac Itching Verified 06/18/19 14:29 Physical Exam Vitals: Vital Signs Temp Pulse Pulse Resp BP BP Pulse Ox 06/19/19 10:05 60 16 101/57 06/19/19 08:00 97.8 F 60 16 89/47 97 06/19/19 04:00 97.6 F 58 L 12 117/68 97 06/19/19 00:00 98.2 F 66 16 118/60 98 06/18/19 20:00 66 16 134/70 97 06/18/19 18:47 18 137/75 98 06/18/19 17:45 97.8 F 85 16 137/75 99 06/18/19 16:30 97.7 F 75 18 132/71 98 06/18/19 16:00 76 18 132/71 98 06/18/19 15:15 74 18 128/76 98 06/18/19 14:00 97.6 F 85 18 127/77 98 06/18/19 13:46 98 18 104/67 100 06/18/19 13:14 138 H 18 101/67 98 06/18/19 13:00 95 18 101/67 98 06/18/19 12:40 97.6 F 98 18 133/94 97 Intake and Output 06/18/19 06/19/19 06/19/19 22:59 06:59 14:59 Intake Total 476 Balance 476 Intake: Oral 476 Other: # Voids 1 Weight 68.039 kg 72.5 kg - Constitutional General appearance: average body habitus, cooperative, disheveled - EENT Eyes: PERRLA Ears: bilateral: normal - Neck Neck: normal ROM Carotids: bilateral: upstroke normal Thyroid: bilateral: normal size - Respiratory Respiratory: bilateral: diminished (At bases), rales (Few rales at bilateral bases), negative: CTA, dullness, rhonchi, wheezing, prolonged expiration, prolonged inspiration, other - Cardiovascular Rhythm: regular Heart sounds: normal: S1, S2 - Integumentary Integumentary: normal turgor - Neurologic Neurologic: CNII-XII intact - Musculoskeletal Musculoskeletal: gait normal, generalized weakness, strength equal bilaterally - Psychiatric Psychiatric: A&O x's 3, appropriate affect, intact judgment & insight Results - Laboratory Findings CBC and BMP: 06/19/19 05:57 06/19/19 05:57 PT/INR, D-dimer PT 10.7 sec (9.0-12.0) 06/18/19 12:53 INR 1.0 (<1.2) 06/18/19 12:53 Abnormal lab findings: Abnormal Labs 06/18/19 06/18/19 06/18/19 12:53 12:53 12:53 WBC RBC 3.60 L Hgb Hct MCV 101.0 H Lymphocytes # 0.9 L VBG pCO2 34 L VBG HCO3 19 L Chloride 109 H Carbon Dioxide 17 L BUN 32 H Creatinine 1.66 H POC Glucose (mg/dL) Albumin 3.4 L 06/18/19 06/19/19 06/19/19 20:54 05:57 05:57 WBC 3.2 L RBC 3.06 L Hgb 10.2 L Hct 31.3 L MCV 102.3 H Lymphocytes # 0.8 L VBG pCO2 VBG HCO3 Chloride 109 H Carbon Dioxide BUN 31 H Creatinine 1.49 H POC Glucose (mg/dL) 111 H Albumin - Diagnostic Findings Chest x-ray: report reviewed, image reviewed (Finding as noted above) CT scan - chest: report reviewed, image reviewed Assessment and Plan Assessment: Shortness of breath likely related to A. fib RVR and acute exacerbation of diastolic heart failure Acute exacerbation of diastolic heart failure Atrial fibrillation with RVR Small bilateral pleural effusion and basal atelectasis likely related to above History of TIA Plan: Continue supportive care Observe off of antibiotics Deep breathing exercises and incentive spirometry Continue anticoagulation Continue meds to control heart rate Patient will benefit from gentle diuresis appears to be auto diuresing making good amount of urine was observe for Lasix Further recommendations pending plan of care as per clinical response of the patient Time with Patient: Greater than 30
[2019-06-19 11:32] LABS: Glucose,Whole Blood 98 mg/dL (75-99)
--- NOTE | 2019-06-19 11:39 | P.CRDCN ---
History of Present Illness Consult date: 06/19/19 Consult reason: atrial fibrillation Chief complaint: Shortness of breath, exhaustion, mental status changes History of present illness: This is an 88-year-old female who follows regularly with Dr. Vincent in the office. 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 Patient underwent PTCA of the LAD at that time. History also of hypertension, hyperlipidemia, paroxysmal atrial fibrillation, chronic kidney disease, and TIA. Patient's most recent hospitalization was July 2018 at which time she was discharged home on anticoagulation in the form of Eliquis 2-1/2 mg one tablet by mouth twice a day, her aspirin was discontinued and patient was instructed to continue with her Plavix. She presented to the hospital on this occasion with symptoms of shortness of breath, she also stated to Dr. Vincent that she was terribly exhausted and having mild mental status changes. According to the patient, her blood pressure had also been fluctuating significantly at home at times running quite high. CAT scan of the brain was performed on arrival here which revealed atrophy, chronic ischemic change with no new changes noted, chest x-ray showed bibasilar infiltrates and possible pneumonia, EKG showed atrial fibrillation with a rapid ventricular response, right bundle branch block pattern, inferior Q waves. CT of the chest showed small bilateral pleural effusions, ascending thoracic aortic aneurysm measuring 4.6 cm. Blood pressure 117/68 with a heart rate of 58 this morning, 97% on 2 L of oxygen. White blood cell count 3.2, hemoglobin 10.2, platelet count 150, sodium 138, potassium 4.6, BUN 31 and creatinine 1.4. Magnesium 2.1, TSH 2.5. Hernandez virus not detected. According to the orders, it appeared that the patient was on a Cardizem drip, so initially Dr. Sommers's recommendation was to increase the dose of beta laure. However a repeat blood pressure came back at around 70 systolic and patient in fact had not been on Cardizem drip. We will hold the beta laure at this time, but her blood pressure is above 90 systolic we will put her on 12-1/2 mg daily. The patient is currently in a normal sinus rhythm. Patient had an echo performed in January 2019 which revealed a normal left ventricular systolic function with moderate mitral regurgitation. She also underwent a Lexiscan stress test at that time which was negative for any reversible ischemia. At the time of examination by Dr. Vincent this morning, patient states that her breathing is improving, she still feeling somewhat short of breath, and continues to feel exhausted. Past Medical History Past Medical History: Atrial Fibrillation, Heart Failure, CVA/TIA, Deep Vein Thrombosis (DVT), Hypertension, Osteoarthritis (OA), Pneumonia, Renal Disease Additional Past Medical History / Comment(s): Other hx: Paroxysmal Afib, TIA x 2, CKD stage III, renal cysts, anemia, pancreatitis, chronic elevated lipase thought d/t possible chronic pancreatitis, DVT R leg History of Any Multi-Drug Resistant Organisms: None Reported Past Surgical History: Adenoidectomy, Appendectomy, Back Surgery, Cholecystectomy, Heart Catheterization, Hernia Repair, Joint Replacement, Tonsillectomy Additional Past Surgical History / Comment(s): Low back surgery, CATARACTS TAMAR, INCISIONAL HERNIA, RT KNEE REPLACEMENT, TAMAR.VARICOSE VEIN STRIPPING, PAIN CLINIC PROCEDURES, COLONOSCOPY, EGD Past Anesthesia/Blood Transfusion Reactions: No Reported Reaction Additional Past Anesthesia/Blood Transfusion Reaction / Comment(s): reluctant to receive any anesthesia, wants family meeting prior to any procedures involving anesthesia Past Psychological History: No Psychological Hx Reported Additional Psychological History / Comment(s): Pt resides at [facility] in an apartment. Smoking Status: Former smoker Past Alcohol Use History: None Reported Additional Past Alcohol Use History / Comment(s): STARTED SMOKING @ AGE 19 (1951) QUIT @ AGE 57(1987) WAS 2 PPD Past Drug Use History: None Reported - Past Family History Father Family Medical History: No Reported History Additional Family Medical History / Comment(s): Father at age 84 yrs of old age. Mother History Unknown: Yes Family Medical History: Cancer Additional Family Medical History / Comment(s): Mother at age 53yrs of ovarian cancer. Brother(s) History Unknown: Yes Family Medical History: Cancer Additional Family Medical History / Comment(s): BRAIN CA Medications and Allergies Home Medications Medication Instructions Recorded Confirmed Type QUEtiapine [SEROquel] 50 mg PO HS 05/08/18 06/18/19 History QUEtiapine [SEROquel] 100 mg PO HS 05/08/18 06/18/19 History Multivitamins, Thera [Multivitamin 1 tab PO DAILY 06/23/18 06/18/19 History (formulary)] Clopidogrel [Plavix] 75 mg PO DAILY #30 tab 07/25/18 06/18/19 Rx Aspirin [Adult Low Dose Aspirin EC] 81 mg PO DAILY 06/18/19 06/18/19 History HYDROcodone/APAP 5-325MG [Mind[place] 1 tab PO HS 06/18/19 06/18/19 History 5-325] Losartan-Hctz 50-12.5 mg [Hyzaar 1 tab PO DAILY 06/18/19 06/18/19 History 50-12.5] Allergies Allergy/AdvReac Type Severity Reaction Status Date / Time fentanyl AdvReac Itching Verified 06/18/19 14:29 Physical Exam Vitals: Vital Signs Temp Pulse Pulse Resp BP BP Pulse Ox 06/19/19 10:05 60 16 101/57 06/19/19 08:00 97.8 F 60 16 89/47 97 06/19/19 04:00 97.6 F 58 L 12 117/68 97 06/19/19 00:00 98.2 F 66 16 118/60 98 06/18/19 20:00 66 16 134/70 97 06/18/19 18:47 18 137/75 98 06/18/19 17:45 97.8 F 85 16 137/75 99 06/18/19 16:30 97.7 F 75 18 132/71 98 06/18/19 16:00 76 18 132/71 98 06/18/19 15:15 74 18 128/76 98 06/18/19 14:00 97.6 F 85 18 127/77 98 06/18/19 13:46 98 18 104/67 100 06/18/19 13:14 138 H 18 101/67 98 06/18/19 13:00 95 18 101/67 98 06/18/19 12:40 97.6 F 98 18 133/94 97 Intake and Output 06/18/19 06/19/19 06/19/19 22:59 06:59 14:59 Intake Total 476 Balance 476 Intake: Oral 476 Other: # Voids 1 Weight 68.039 kg 72.5 kg PHYSICAL EXAMINATION: GENERAL: 88-year-old female in no acute distress at the time of examination HEENT: Head is atraumatic, normocephalic. Pupils equal, round. Sclera anicteric. Conjunctiva are clear. Mucous membranes of the mouth are moist. Neck is supple. There is no elevated jugular venous pressure. No carotid bruit is heard. HEART EXAMINATION: Heart S1-S2 a systolic murmur is heard CHEST EXAMINATION: Lungs are clear to auscultation and precussion. No chest wall tenderness is noted on palpation or with deep breathing. ABDOMEN: Soft, nontender. Bowel sounds are heard. No organomegaly noted. EXTREMITIES: 2+ peripheral pulses with no evidence of peripheral edema and no calf tenderness noted. On examination is that it is noted that the patient's left lower extremity is larger than the right NEUROLOGIC patient is awake, alert and oriented 3 . . Results 06/19/19 05:57 06/19/19 05:57 Cardiac Enzymes 06/18/19 06/18/19 Range/Units 12:53 12:53 AST 32 (14-36) U/L Troponin I 0.021 (0.000-0.034) ng/mL Coagulation 06/18/19 Range/Units 12:53 PT 10.7 (9.0-12.0) sec APTT 23.1 (22.0-30.0) sec CBC 06/18/19 06/19/19 Range/Units 12:53 05:57 WBC 4.2 3.2 L (3.8-10.6) k/uL RBC 3.60 L 3.06 L (3.80-5.40) m/uL Hgb 11.8 10.2 L (11.4-16.0) gm/dL Hct 36.4 31.3 L (34.0-46.0) % Plt Count 172 150 (150-450) k/uL Comprehensive Metabolic Panel 06/18/19 06/19/19 Range/Units 12:53 05:57 Sodium 137 138 (137-145) mmol/L Potassium 4.7 4.6 (3.5-5.1) mmol/L Chloride 109 H 109 H (98-107) mmol/L Carbon Dioxide 17 L 25 (22-30) mmol/L BUN 32 H 31 H (7-17) mg/dL Creatinine 1.66 H 1.49 H (0.52-1.04) mg/dL Glucose 93 92 (74-99) mg/dL Calcium 8.9 8.5 (8.4-10.2) mg/dL AST 32 (14-36) U/L ALT 16 (4-34) U/L Alkaline Phosphatase 110 (38-126) U/L Total Protein 6.7 (6.3-8.2) g/dL Albumin 3.4 L (3.5-5.0) g/dL Current Medications Generic Name Dose Route Start Last Admin Trade Name Freq PRN Reason Stop Dose Admin Hydrocodone Bitart/Acetaminophen 1 each 06/18/19 23:24 06/19/19 01:55 [place] 5-325 PO 1 each HS PRN Administration Moderate Pain Apixaban 2.5 mg 06/19/19 09:00 06/19/19 10:07 Eliquis PO 2.5 mg BID JS Administration Clopidogrel Bisulfate 75 mg 06/19/19 09:00 06/19/19 10:06 Plavix PO 75 mg DAILY JS Administration Sodium Chloride 1,000 mls @ 20 mls/hr 06/18/19 14:15 06/18/19 15:15 Saline 0.9% IV 20 mls/hr .Q24H JS Administration Metoprolol Succinate 12.5 mg 06/19/19 10:00 06/19/19 10:07 Toprol Xl PO 12.5 mg DAILY JS Administration Morphine Sulfate 4 mg 06/18/19 14:10 06/18/19 20:28 Morphine Sulfate (Inj) IV 4 mg Q4HR PRN Administration Severe Pain Naloxone HCl 0.2 mg 06/18/19 14:10 Narcan IV Q2M PRN Opioid Reversal Quetiapine Fumarate 150 mg 06/18/19 23:15 06/19/19 01:54 Seroquel PO 150 mg HS JS Administration Spironolactone 25 mg 06/19/19 09:00 Aldactone PO DAILY JS Intake and Output 06/18/19 06/19/19 06/19/19 22:59 06:59 14:59 Intake Total 476 Balance 476 Intake: Oral 476 Other: # Voids 1 Weight 68.039 kg 72.5 kg 06/19/19 05:57 06/19/19 05:57 EKG Interpretations (text) EKG shows atrial fibrillation with a rapid ventricular response Assessment and Plan Plan: Assessment and plan #1 atrial fibrillation with rapid ventricular response #2 history of paroxysmal atrial fibrillation, in July 2018 patient was discharged from the hospital on 2-1/2 mg of Eliquis twice a day, according to the patient she is unsure of why this was discontinued and she denies having any bleeding. #3 coronary artery disease with LAD stenting in June 2018. 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 #4 hypertension #5 hyperlipidemia #6 chronic kidney disease #7 prior TIA Plan Patient had an echo performed in January 2019 which revealed a normal left ventricular systolic function with moderate mitral regurgitation. She also had a Lexiscan performed at that time which was negative for reversible ischemia. She is currently in a normal sinus rhythm. Her blood pressure is low this morning, we will hold her beta laure, if the blood pressure remains above 90 systolic we will continue the patient on metoprolol 12-1/2 mg daily. We will reinitiate Eliquis 2-1/2 mg one tablet by mouth twice a day, discontinue the aspirin, continue Plavix. Discontinue Aldactone. Further recommendations to follow. DNP note has been reviewed, I agree with a documented findings and plan of care. Patient was seen and examined.
[2019-06-19] MEDS: SODIUM CHLORIDE 0.9% 1,000 ML IV SCH (15:59)
[2019-06-19 16:21] LABS: Glucose,Whole Blood 106 mg/dL (75-99)
--- NOTE | 2019-06-19 16:55 | P.PN ---
Subjective Progress Note Date: 06/19/19 This is a 88-year-old female admitted with atrial fibrillation with RVR, chest pain, mental status changes, increased generalized weakness and multiple other medical issues. Beta lauer on hold for hypotension. Currently sinus rhythm. Anticoagulated on Eliquis. Sitting up in chair, complaining of exhaustion. Reports she had a rough night, did not sleep well. Objective - Vital Signs Vital signs: Vital Signs Temp 97.6 F 06/19/19 16:00 Pulse 65 06/19/19 16:00 Resp 16 06/19/19 16:00 BP 159/72 06/19/19 16:00 Pulse Ox 97 06/19/19 16:00 Intake & Output 06/18/19 06/19/19 06/19/19 18:59 06:59 18:59 Intake Total 716 Balance 716 Weight 68.039 kg 72.5 kg Intake: Oral 716 Other: # Voids 1 2 - Exam PHYSICAL EXAM: VITAL SIGNS: [As above] GENERAL: Sitting up in chair, no acute distress HEENT: Conjunctivae normal. eyes normal. NECK: No JVD. No thyroid enlargement. No LNs CARDIOVASCULAR: S1, S2 Regular. Systolic murmur RESPIRATION: Breath sounds diminished in the bases. No rhonchi, fine bibasilar crackles. ABDOMEN: Soft, nontender . No guarding. no masses palpable. No ascites, No hepatosplenomegaly.Bowel sounds heard. LEGS: No edema. no swelling PSYCHIATRY: Alert and oriented X3, mood and affect normal. NERVOUS SYSTEM: Cranial N 2-12 grossly normal. Moves all 4 limbs. Diffuse weakness No focal deficits. Strength and sensation grossly intact.. Skin: no rash - Labs CBC & Chem 7: 06/19/19 05:57 06/19/19 05:57 Labs: Abnormal Lab Results - Last 24 Hours (Table) 06/18/19 06/19/19 06/19/19 Range/Units 20:54 05:57 05:57 WBC 3.2 L (3.8-10.6) k/uL RBC 3.06 L (3.80-5.40) m/uL Hgb 10.2 L (11.4-16.0) gm/dL Hct 31.3 L (34.0-46.0) % MCV 102.3 H (80.0-100.0) fL Lymphocytes # 0.8 L (1.0-4.8) k/uL Chloride 109 H (98-107) mmol/L BUN 31 H (7-17) mg/dL Creatinine 1.49 H (0.52-1.04) mg/dL POC Glucose (mg/dL) 111 H (75-99) mg/dL 06/19/19 Range/Units 16:19 WBC (3.8-10.6) k/uL RBC (3.80-5.40) m/uL Hgb (11.4-16.0) gm/dL Hct (34.0-46.0) % MCV (80.0-100.0) fL Lymphocytes # (1.0-4.8) k/uL Chloride (98-107) mmol/L BUN (7-17) mg/dL Creatinine (0.52-1.04) mg/dL POC Glucose (mg/dL) 106 H (75-99) mg/dL Assessment and Plan Assessment: Final Diagnoses: Atrial fibrillation with RVR in a person with history of chronic paroxysmal atrial fibrillation Possible mild component of Acute CHF exacerbation, diastolic dysfunction Hypotension Acute hypoxic respiratory failure secondary to the above Acute metabolic encephalopathy secondary to the above Possible dehydration acute renal failure secondary to ATN secondary to the above Chronic kidney disease, stage III Anemia of chronic disease Compressive atelectasis Possible atypical pneumonia, doubtful as per pulmonary CAD with history of stenting Hypertension Hyperlipidemia Recently stopped taking her beta laure and Aldactone History of CVA, TIA History of DVT Ascending thoracic aneurysm 4.6 cm History of nicotine dependence COVID negative. Plan: Continue on current medication regime ,monitoring and symptomatic treatment. Eliquis resumed as per cardiology. Beta laure currently on hold secondary to hypotension. Close monitoring of blood pressure. Close monitoring of renal function, altered lites with repeat labs ordered for a.m. PT/OT. Follow closely with cardiology, pulmonary.Possible subacute rehab at discharge. Discharge planning in progress for tomorrow pending cardiology and pulmonary clearance. The impression and plan of care has been dictated as directed. : I performed a history and examination of this patient, discussed the same with the dictator. I agree with the dictator's note ,documented as a scribe. Any additional findings or plans will be noted.
[2019-06-19 20:46] LABS: Glucose,Whole Blood 122 mg/dL (75-99)
[2019-06-20 06:19] LABS: Glucose,Whole Blood 96 mg/dL (75-99)
[2019-06-20 07:28] LABS: Basophils % (A) 1 %; Eosinophils # (A) 0.4 k/uL (0-0.7); Eosinophils % (A) 10 %; HCT 35.9 % (34.0-46.0); HGB 11.1 gm/dL (11.4-16.0); Hypochromasia Slight; Lymphocytes # (A) 0.6 k/uL (1.0-4.8); Lymphocytes % (A) 18 %; MCH 31.7 pg (25.0-35.0); MCHC 30.9 g/dL (31.0-37.0); MCV 102.5 fL (80.0-100.0); Macrocytosis Slight; Mean Platelet Volume 7.7; Monocytes # (A) 0.4 k/uL (0-1.0); Monocytes % (A) 10 %; Neutrophils # (A) 2.1 k/uL (1.3-7.7); Neutrophils % (A) 58 %; Platelet Count 155 k/uL (150-450); RDW 13.5 % (11.5-15.5); WBC 3.7 k/uL (3.8-10.6)
[2019-06-20 07:37] LABS: Calcium 8.5 mg/dL (8.4-10.2); Potassium 4.5 mmol/L (3.5-5.1)
[2019-06-20] MEDS: METOPROLOL SUCCINATE (ER) 25 MG TAB.ER.24H PO SCH (09:32)
[2019-06-20] MEDS: APIXABAN 2.5 MG TABLET PO SCH ×2 (09:32→20:23)
[2019-06-20] MEDS: CLOPIDOGREL 75 MG TAB PO SCH (09:32)
--- NOTE | 2019-06-20 10:36 | P.PN ---
Subjective Progress Note Date: 06/20/19 Principal diagnosis: Shortness of breath likely related to A. fib RVR and acute exacerbation of diastolic heart failure Acute exacerbation of diastolic heart failure Atrial fibrillation with RVR Small bilateral pleural effusion and basal atelectasis likely related to above History of TIA 06/20/2019, patient seen eval examined during the rounds labs reviewed medications reviewed care plan discussed, overall shortness of breath is improved now, patient is on supplemental oxygen 2 L saturation is 97% respiratory status stable, renal functions slightly better denies any cough or sputum production This is a pleasant 88-year-old female who was seen eval examined on third floor patient was admitted to the hospital with altered mental status and hypotension she was in A. fib with RVR on presentation heart rate was up to 160 systolic blood pressure was low, however and presentation and gradually in the ER heart rate and blood pressure continued to improve her oxygen saturation remains 100% she had a computed tomography scan of the chest done showed small bilateral ate lectasis small pleural effusion doubt pneumonia most likely related to acute diastolic heart failure related to A. fib with RVR Objective - Vital Signs Vital signs: Vital Signs Temp 97.9 F 06/20/19 08:00 Pulse 63 06/20/19 08:00 Resp 16 06/20/19 08:00 BP 146/70 06/20/19 08:00 Pulse Ox 97 06/20/19 08:00 Intake & Output 06/19/19 06/20/19 06/20/19 18:59 06:59 18:59 Intake Total 956 480 Balance 956 480 Weight 71 kg Intake: Oral 956 480 Other: # Voids 1 1 - Exam - Constitutional General appearance: average body habitus, cooperative, disheveled - EENT Eyes: PERRLA Ears: bilateral: normal - Neck Neck: normal ROM Carotids: bilateral: upstroke normal Thyroid: bilateral: normal size - Respiratory Respiratory: bilateral: diminished (At bases), rales (Few rales at bilateral bases), negative: CTA, dullness, rhonchi, wheezing, prolonged expiration, prolonged inspiration, other - Cardiovascular Rhythm: regular Heart sounds: normal: S1, S2 - Integumentary Integumentary: normal turgor - Neurologic Neurologic: CNII-XII intact - Musculoskeletal Musculoskeletal: gait normal, generalized weakness, strength equal bilaterally - Psychiatric Psychiatric: A&O x's 3, appropriate affect, intact judgment & insight - Labs CBC & Chem 7: 06/20/19 07:07 06/20/19 07:07 Labs: Abnormal Lab Results - Last 24 Hours (Table) 06/19/19 06/19/19 06/20/19 Range/Units 16:19 20:39 07:07 WBC 3.7 L (3.8-10.6) k/uL RBC 3.50 L (3.80-5.40) m/uL Hgb 11.1 L (11.4-16.0) gm/dL MCV 102.5 H (80.0-100.0) fL MCHC 30.9 L (31.0-37.0) g/dL Lymphocytes # 0.6 L (1.0-4.8) k/uL Chloride (98-107) mmol/L BUN (7-17) mg/dL Creatinine (0.52-1.04) mg/dL POC Glucose (mg/dL) 106 H 122 H (75-99) mg/dL 06/20/19 Range/Units 07:07 WBC (3.8-10.6) k/uL RBC (3.80-5.40) m/uL Hgb (11.4-16.0) gm/dL MCV (80.0-100.0) fL MCHC (31.0-37.0) g/dL Lymphocytes # (1.0-4.8) k/uL Chloride 110 H (98-107) mmol/L BUN 28 H (7-17) mg/dL Creatinine 1.28 H (0.52-1.04) mg/dL POC Glucose (mg/dL) (75-99) mg/dL Assessment and Plan Assessment: Shortness of breath likely related to A. fib RVR and acute exacerbation of diastolic heart failure Acute exacerbation of diastolic heart failure Atrial fibrillation with RVR Small bilateral pleural effusion and basal atelectasis likely related to above History of TIA Plan: Continue supportive care Observe off of antibiotics Deep breathing exercises and incentive spirometry Continue anticoagulation Continue meds to control heart rate Patient will benefit from gentle diuresis appears to be auto diuresing making good amount of urine was observe for Lasix as needed Further recommendations pending plan of care as per clinical response of the p atient Time with Patient: Greater than 30
--- NOTE | 2019-06-20 11:44 | P.PN ---
Subjective Progress Note Date: 06/20/19 This is an 88-year-old female who follows regularly with Dr. Vincent in the office. She has a known history of coronary artery disease with most recent cardiac catheterization performed in June 2018 which revealed a SKEET OPERATOR of the RCA, severe disease in the first diagonal, severe disease in the LAD. Patient underwent PTCA of the LAD at that time. History also of hypertension, hyperlipidemia, paroxysmal atrial fibrillation, chronic kidney disease, and TIA. Patient's most recent hospitalization was July 2018 at which time she was discharged home on anticoagulation in the form of Eliquis 2-1/2 mg one tablet by mouth twice a day, her aspirin was discontinued and patient was instructed to continue with her Plavix. She presented to the hospital on this occasion with symptoms of shortness of breath, she also stated to Dr. Vincent that she was terribly exhausted and having mild mental status changes. According to the patient, her blood pressure had also been fluctuating significantly at home at times running quite high. CAT scan of the brain was performed on arrival here which revealed atrophy, chronic ischemic change with no new changes noted, chest x-ray showed bibasilar infiltrates and possible pneumonia, EKG showed atrial fibrillation with a rapid ventricular response, right bundle branch block pattern, inferior Q waves. CT of the chest showed small bilateral pleural effusions, ascending thoracic aortic aneurysm measuring 4.6 cm. Blood pressure 117/68 with a heart rate of 58 this morning, 97% on 2 L of oxygen. White blood cell count 3.2, hemoglobin 10.2, platelet count 150, sodium 138, potassium 4.6, BUN 31 and creatinine 1.4. Magnesium 2.1, TSH 2.5. Hernandez virus not detected. According to the orders, it appeared that the patient was on a Cardizem drip, so initially Dr. Sommers's recommendation was to increase the dose of beta laure. However a repeat blood pressure came back at around 70 systolic and patient in fact had not been on Cardizem drip. We will hold the beta laure at this time, but her blood pressure is above 90 systolic we will put her on 12-1/2 mg daily. The patient is currently in a normal sinus rhythm. Patient had an echo performed in January 2019 which revealed a normal left ventricular systolic function with moderate mitral regurgitation. She also underwent a Lexiscan stress test at that time which was negative for any reversible ischemia. At the time of examination by Dr. Vincent this morning, patient states that her breathing is improving, she still feeling somewhat short of breath, and continues to feel exhausted. 06/20/2019 Patient was seen and examined this morning, she had just returned back from having a shower, feels well, denies any palpitations in her breathing is stable. Remaining in normal sinus rhythm this morning. Blood pressure 140/60 with a heart rate in the 60s. She is anticipating discharge home today. Objective - Vital Signs Vital signs: Vital Signs Temp 97.9 F 06/20/19 08:00 Pulse 63 06/20/19 08:00 Resp 16 06/20/19 08:00 BP 146/70 06/20/19 08:00 Pulse Ox 97 06/20/19 08:00 Intake & Output 06/19/19 06/20/19 06/20/19 18:59 06:59 18:59 Intake Total 956 480 Balance 956 480 Weight 71 kg Intake: Oral 956 480 Other: # Voids 1 1 - Exam PHYSICAL EXAMINATION: GENERAL: 88-year-old female in no acute distress at the time of examination HEENT: Head is atraumatic, normocephalic. Pupils equal, round. Sclera anicter ic. Conjunctiva are clear. Mucous membranes of the mouth are moist. Neck is supple. There is no elevated jugular venous pressure. No carotid bruit is heard. HEART EXAMINATION: Heart S1-S2 a systolic murmur is heard CHEST EXAMINATION: Lungs are clear to auscultation and precussion. No chest wall tenderness is noted on palpation or with deep breathing. ABDOMEN: Soft, nontender. Bowel sounds are heard. No organomegaly noted. EXTREMITIES: 2+ peripheral pulses with no evidence of peripheral edema and no calf tenderness noted. On examination is that it is noted that the patient's left lower extremity is larger than the right NEUROLOGIC patient is awake, alert and oriented 3 . . - Labs CBC & Chem 7: 06/20/19 07:07 06/20/19 07:07 Labs: Abnormal Lab Results - Last 24 Hours (Table) 06/19/19 06/19/19 06/20/19 Range/Units 16:19 20:39 07:07 WBC 3.7 L (3.8-10.6) k/uL RBC 3.50 L (3.80-5.40) m/uL Hgb 11.1 L (11.4-16.0) gm/dL MCV 102.5 H (80.0-100.0) fL MCHC 30.9 L (31.0-37.0) g/dL Lymphocytes # 0.6 L (1.0-4.8) k/uL Chloride (98-107) mmol/L BUN (7-17) mg/dL Creatinine (0.52-1.04) mg/dL POC Glucose (mg/dL) 106 H 122 H (75-99) mg/dL 06/20/19 Range/Units 07:07 WBC (3.8-10.6) k/uL RBC (3.80-5.40) m/uL Hgb (11.4-16.0) gm/dL MCV (80.0-100.0) fL MCHC (31.0-37.0) g/dL Lymphocytes # (1.0-4.8) k/uL Chloride 110 H (98-107) mmol/L BUN 28 H (7-17) mg/dL Creatinine 1.28 H (0.52-1.04) mg/dL POC Glucose (mg/dL) (75-99) mg/dL Assessment and Plan Plan: Assessment and plan #1 atrial fibrillation with rapid ventricular response #2 history of paroxysmal atrial fibrillation, in July 2018 patient was discharged from the hospital on 2-1/2 mg of Eliquis twice a day, according to the patient she is unsure of why this was discontinued and she denies having any bleeding. #3 coronary artery disease with LAD stenting in June 2018. Patient was also found to have a SKEET OPERATOR of the RCA and severe disease in the diagonal at that time. #4 hypertension #5 hyperlipidemia #6 chronic kidney disease #7 prior TIA Plan Patient had an echo performed in January 2019 which revealed a normal left ventricular systolic function with moderate mitral regurgitation. She also had a Lexiscan performed at that time which was negative for reversible ischemia. She is currently in a normal sinus rhythm. Were anticipating possible discharge home today. We will make her a follow-up appointment in the office with post discharge. DNP note has been reviewed, I agree with a documented findings and plan of care. Patient was seen and examined.
[2019-06-20] MEDS: amLODIPine 5 MG TAB PO SCH (13:31)
[2019-06-20] MEDS: SODIUM CHLORIDE 0.9% 1,000 ML IV SCH (14:34)
[2019-06-20] MEDS ORDERED: amLODIPine 5 MG TAB PO STA (15:12)
--- NOTE | 2019-06-20 16:02 | P.PN ---
Subjective Progress Note Date: 06/20/19 This is a 88-year-old female admitted with atrial fibrillation with RVR, chest pain, mental status changes, increased generalized weakness and multiple other medical issues. Beta laure on hold for hypotension. Currently sinus rhythm. Anticoagulated on Eliquis. Sitting up in chair, complaining of exhaustion. Reports she had a rough night, did not sleep well. 06/20/2019 reports better night last night, slept well. Maintaining O2 sats in the high 90s on 2 L nasal cannula. Creatinine continues to improve down to 1.28. Evaluated by PT, recommending patient return to [facility]. Hypertensive. Objective - Vital Signs Vital signs: Vital Signs Temp 97.9 F 06/20/19 08:00 Pulse 66 06/20/19 15:01 Resp 16 06/20/19 15:01 BP 198/87 06/20/19 15:01 Pulse Ox 99 06/20/19 12:00 Intake & Output 06/19/19 06/20/19 06/20/19 18:59 06:59 18:59 Intake Total 956 720 Balance 956 720 Weight 71 kg Intake: Oral 956 720 Other: # Voids 1 1 2 - Exam PHYSICAL EXAM: VITAL SIGNS: [As above] GENERAL: Sitting up in bed, no acute distress HEENT: Conjunctivae normal. eyes normal. Oral mucosa moist. NECK: No JVD. No thyroid enlargement. No LNs. CARDIOVASCULAR: S1, S2 Regular. Systolic murmur. RESPIRATION: Breath sounds diminished in the bases. No rhonchi, fine bibasilar crackles. ABDOMEN: Soft, nontender . No guarding. no masses palpable.positive Bowel sounds. LEGS: No edema. no swelling PSYCHIATRY: Alert and oriented X3, mood and affect normal. NERVOUS SYSTEM: Cranial N 2-12 grossly normal. Moves all 4 limbs. Diffuse wea kness No focal deficits. Strength and sensation grossly intact.. Skin: no rash - Labs CBC & Chem 7: 06/20/19 07:07 06/20/19 07:07 Labs: Abnormal Lab Results - Last 24 Hours (Table) 06/19/19 06/19/19 06/20/19 Range/Units 16:19 20:39 07:07 WBC 3.7 L (3.8-10.6) k/uL RBC 3.50 L (3.80-5.40) m/uL Hgb 11.1 L (11.4-16.0) gm/dL MCV 102.5 H (80.0-100.0) fL MCHC 30.9 L (31.0-37.0) g/dL Lymphocytes # 0.6 L (1.0-4.8) k/uL Chloride (98-107) mmol/L BUN (7-17) mg/dL Creatinine (0.52-1.04) mg/dL POC Glucose (mg/dL) 106 H 122 H (75-99) mg/dL 06/20/19 Range/Units 07:07 WBC (3.8-10.6) k/uL RBC (3.80-5.40) m/uL Hgb (11.4-16.0) gm/dL MCV (80.0-100.0) fL MCHC (31.0-37.0) g/dL Lymphocytes # (1.0-4.8) k/uL Chloride 110 H (98-107) mmol/L BUN 28 H (7-17) mg/dL Creatinine 1.28 H (0.52-1.04) mg/dL POC Glucose (mg/dL) (75-99) mg/dL Assessment and Plan Assessment: Final Diagnoses: Atrial fibrillation with RVR in a person with history of chronic paroxysmal atr ial fibrillation Possible mild component of Acute CHF exacerbation, diastolic dysfunction Hypotension Acute hypoxic respiratory failure secondary to the above Acute metabolic encephalopathy secondary to the above Possible dehydration acute renal failure secondary to ATN secondary to the above Chronic kidney disease, stage III Anemia of chronic disease Compressive atelectasis Possible atypical pneumonia, doubtful as per pulmonary CAD with history of stenting Hypertension Hyperlipidemia Recently stopped taking her beta laure and Aldactone History of CVA, TIA History of DVT Ascending thoracic aneurysm 4.6 cm History of nicotine dependence COVID negative. Plan: Continue on current medication regime ,monitoring and symptomatic treatment. Hypertensive, repeat blood pressure ordered, pending. Discharge planning in progress for tomorrow for return to [facility]. The impression and plan of care has been dictated as directed. : I performed a history and examination of this patient, discussed the same with the dictator. I agree with the dictator's note ,documented as a scribe. Any additional findings or plans will be noted.
[2019-06-20] MEDS: MORPHINE SULFATE 4 MG/ML SYRINGE IV PRN (17:37)
[2019-06-20] MEDS ORDERED: hydrALAZINE HCL 20 MG/ML 1 ML VIAL IVP PRN (17:54)
[2019-06-20] MEDS ORDERED: METOPROLOL SUCCINATE (ER) 25 MG TAB.ER.24H PO STA (17:54)
[2019-06-20] MEDS: QUEtiapine 50 MG TAB PO SCH (20:23)
[2019-06-20] MEDS: HYDROcodone/APAP 5-325MG 1 EACH TAB PO PRN (20:26)
[2019-06-21 07:43] LABS: Basophils % (A) 1 %; Eosinophils # (A) 0.4 k/uL (0-0.7); Eosinophils % (A) 12 %; HCT 36.4 % (34.0-46.0); HGB 11.6 gm/dL (11.4-16.0); Hypochromasia Slight; Lymphocytes # (A) 0.8 k/uL (1.0-4.8); Lymphocytes % (A) 24 %; MCH 32.6 pg (25.0-35.0); MCHC 31.8 g/dL (31.0-37.0); MCV 102.4 fL (80.0-100.0); Macrocytosis Slight; Mean Platelet Volume 7.4; Monocytes # (A) 0.4 k/uL (0-1.0); Monocytes % (A) 12 %; Neutrophils # (A) 1.5 k/uL (1.3-7.7); Neutrophils % (A) 48 %; Platelet Count 159 k/uL (150-450); RBC 3.55 m/uL (3.80-5.40); RDW 13.4 % (11.5-15.5); WBC 3.1 k/uL (3.8-10.6)
[2019-06-21 07:57] LABS: Calcium 8.5 mg/dL (8.4-10.2); Potassium 4.2 mmol/L (3.5-5.1)
[2019-06-21] MEDS: APIXABAN 2.5 MG TABLET PO SCH ×2 (08:56→20:31)
[2019-06-21] MEDS: amLODIPine 5 MG TAB PO SCH ×2 (08:56→20:31)
[2019-06-21] MEDS: CLOPIDOGREL 75 MG TAB PO SCH (08:56)
[2019-06-21] MEDS: METOPROLOL SUCCINATE (ER) 25 MG TAB.ER.24H PO SCH (08:57)
[2019-06-21] MEDS ORDERED: MAG HYDROX/AL HYDROX/SIMETH 30 ML CUP PO PRN (10:12)
--- NOTE | 2019-06-21 10:13 | P.PN ---
Subjective Progress Note Date: 06/21/19 Principal diagnosis: Shortness of breath likely related to A. fib RVR and acute exacerbation of diastolic heart failure Acute exacerbation of diastolic heart failure Atrial fibrillation with RVR Small bilateral pleural effusion and basal atelectasis likely related to above History of TIA 06/21/2019, patient seen eval examined during the rounds labs reviewed medications reviewed currently off of oxygen breathing comfortably denies any chest pain however does have some pain in the rest retrosternal area more looks like a reflux esophagitis pain, will benefit from proton pump inhibitors will initiate a trial of that 06/20/2019, patient seen eval examined during the rounds labs reviewed medications reviewed care plan discussed, overall shortness of breath is improved now, patient is on supplemental oxygen 2 L saturation is 97% respiratory status stable, renal functions slightly better denies any cough or sputum production This is a pleasant 88-year-old female who was seen eval examined on third floor patient was admitted to the hospital with altered mental status and hypotension she was in A. fib with RVR on presentation heart rate was up to 160 systolic blood pressure was low, however and presentation and gradually in the ER heart rate and blood pressure continued to improve her oxygen saturation remains 100% she had a computed tomography scan of the chest done showed small bilateral atelectasis small pleural effusion doubt pneumonia most likely related to acute diastolic heart failure related to A. fib with RVR Objective - Vital Signs Vital signs: Vital Signs Temp 98 F 06/21/19 03:09 Pulse 66 06/21/19 03:09 Resp 18 06/21/19 03:09 BP 107/53 06/21/19 03:09 Pulse Ox 97 06/21/19 03:09 Intake & Output 06/20/19 06/21/19 06/21/19 18:59 06:59 18:59 Intake Total 1080 Balance 1080 Weight 72 kg Intake: Oral 1080 Other: # Voids 2 1 - Exam - Constitutional General appearance: average body habitus, cooperative, disheveled - EENT Eyes: PERRLA Ears: bilateral: normal - Neck Neck: normal ROM Carotids: bilateral: upstroke normal Thyroid: bilateral: normal size - Respiratory Respiratory: bilateral: diminished (At bases), rales (Few rales at bilateral bases), negative: CTA, dullness, rhonchi, wheezing, prolonged expiration, prolonged inspiration, other - Cardiovascular Rhythm: regular Heart sounds: normal: S1, S2 - Integumentary Integumentary: normal turgor - Neurologic Neurologic: CNII-XII intact - Musculoskeletal Musculoskeletal: gait normal, generalized weakness, strength equal bilaterally - Psychiatric Psychiatric: A&O x's 3, appropriate affect, intact judgment & insight - Labs CBC & Chem 7: 06/21/19 07:08 06/21/19 07:08 Labs: Abnormal Lab Results - Last 24 Hours (Table) 06/21/19 06/21/19 Range/Units 07:08 07:08 WBC 3.1 L (3.8-10.6) k/uL RBC 3.55 L (3.80-5.40) m/uL MCV 102.4 H (80.0-100.0) fL Lymphocytes # 0.8 L (1.0-4.8) k/uL Chloride 108 H (98-107) mmol/L BUN 24 H (7-17) mg/dL Creatinine 1.19 H (0.52-1.04) mg/dL Assessment and Plan Assessment: Retro sternal burning sensation likely GERD Shortness of breath likely related to A. fib RVR and acute exacerbation of diastolic heart failure Acute exacerbation of diastolic heart failure Atrial fibrillation with RVR Small bilateral pleural effusion and basal atelectasis likely related to above History of TIA Plan: Add Pepcid and when necessary Mylanta Continue supportive care Observe off of antibiotics Deep breathing exercises and incentive spirometry Continue anticoagulation Continue meds to control heart rate Patient will benefit from gentle diuresis appears to be auto diuresing making good amount of urine was observe for Lasix as needed Further recommendations pending plan of care as per clinical response of the patient Time with Patient: Greater than 30
[2019-06-21] MEDS ORDERED: FAMOTIDINE 20 MG TAB PO SCH (10:15)
--- NOTE | 2019-06-21 10:42 | P.PN ---
Subjective Progress Note Date: 06/21/19 This is an 88-year-old female who follows regularly with Dr. Vincent in the office. She has a known history of coronary artery disease with most recent cardiac catheterization performed in June 2018 which revealed a LEAD PRESSER of the RCA, severe disease in the first diagonal, severe disease in the LAD. Patient underwent PTCA of the LAD at that time. History also of hypertension, hyperlipidemia, paroxysmal atrial fibrillation, chronic kidney disease, and TIA. Patient's most recent hospitalization was July 2018 at which time she was discharged home on anticoagulation in the form of Eliquis 2-1/2 mg one tablet by mouth twice a day, her aspirin was discontinued and patient was instructed to continue with her Plavix. She presented to the hospital on this occasion with symptoms of shortness of breath, she also stated to Dr. Vincent that she was terribly exhausted and having mild mental status changes. According to the patient, her blood pressure had also been fluctuating significantly at home at times running quite high. CAT scan of the brain was performed on arrival here which revealed atrophy, chronic ischemic change with no new changes noted, chest x-ray showed bibasilar infiltrates and possible pneumonia, EKG showed atrial fibrillation with a rapid ventricular response, right bundle branch block pattern, inferior Q waves. CT of the chest showed small bilateral pleural effusions, ascending thoracic aortic aneurysm measuring 4.6 cm. Blood pressure 117/68 with a heart rate of 58 this morning, 97% on 2 L of oxygen. White blood cell count 3.2, hemoglobin 10.2, platelet count 150, sodium 138, potassium 4.6, BUN 31 and creatinine 1.4. Magnesium 2.1, TSH 2.5. Hernandez virus not detected. According to the orders, it appeared that the patient was on a Cardizem drip, so initially Dr. Sommers's recommendation was to increase the dose of beta laure. However a repeat blood pressure came back at around 70 systolic and patient in fact had not been on Cardizem drip. We will hold the beta laure at this time, but her blood pressure is above 90 systolic we will put her on 12-1/2 mg daily. The patient is currently in a normal sinus rhythm. Patient had an echo performed in January 2019 which revealed a normal left ventricular systolic function with moderate mitral regurgitation. She also underwent a Lexiscan stress test at that time which was negative for any reversible ischemia. At the time of examination by Dr. Vincent this morning, patient states that her breathing is improving, she still feeling somewhat short of breath, and continues to feel exhausted. 06/20/2019 Patient was seen and examined this morning, she had just returned back from having a shower, feels well, denies any palpitations in her breathing is stable. Remaining in normal sinus rhythm this morning. Blood pressure 140/60 with a heart rate in the 60s. She is anticipating discharge home today. 06/21/2019 Patient was seen and examined today by Dr. Vincent. Not feeling good overall. She has considerable fluctuations in her blood pressure, this morning her systolic was around 100, when rechecked later this morning, it was 176/80, 195/80, last night patient's blood pressure was also significantly elevated. She is currently on Norvasc 5 mg daily which we will increase to a twice a day dose today. Objective - Vital Signs Vital signs: Vital Signs Temp 98.0 F 06/21/19 08:00 Pulse 56 L 06/21/19 08:00 Resp 18 06/21/19 08:00 BP 170/68 06/21/19 10:26 Pulse Ox 97 06/21/19 03:09 Intake & Output 06/20/19 06/21/19 06/21/19 18:59 06:59 18:59 Intake Total 1080 Balance 1080 Weight 72 kg Intake: Oral 1080 Other: # Voids 2 1 - Exam PHYSICAL EXAMINATION: GENERAL: 88-year-old female in no acute distress at the time of examination HEENT: Head is atraumatic, normocephalic. Pupils equal, round. Sclera a nicteric. Conjunctiva are clear. Mucous membranes of the mouth are moist. Neck is supple. There is elevated jugular venous pressure. No carotid bruit is heard. HEART EXAMINATION: Heart S1-S2 a systolic murmur is heard CHEST EXAMINATION: Lungs are clear to auscultation and precussion. No chest wall tenderness is noted on palpation or with deep breathing. ABDOMEN: Soft, nontender. Bowel sounds are heard. No organomegaly noted. EXTREMITIES: 2+ peripheral pulses with no evidence of peripheral edema and no calf tenderness noted. On examination is that it is noted that the patient's left lower extremity is mildly larger than the right NEUROLOGIC patient is awake, alert and oriented 3 . . - Labs CBC & Chem 7: 06/21/19 07:08 06/21/19 07:08 Labs: Abnormal Lab Results - Last 24 Hours (Table) 06/21/19 06/21/19 Range/Units 07:08 07:08 WBC 3.1 L (3.8-10.6) k/uL RBC 3.55 L (3.80-5.40) m/uL MCV 102.4 H (80.0-100.0) fL Lymphocytes # 0.8 L (1.0-4.8) k/uL Chloride 108 H (98-107) mmol/L BUN 24 H (7-17) mg/dL Creatinine 1.19 H (0.52-1.04) mg/dL Assessment and Plan Plan: Assessment and plan #1 atrial fibrillation with rapid ventricular response #2 history of paroxysmal atrial fibrillation, in July 2018 patient was disch arged from the hospital on 2-1/2 mg of Eliquis twice a day, according to the patient she is unsure of why this was discontinued and she denies having any bleeding. #3 coronary artery disease with LAD stenting in June 2018. Patient was also found to have a LEAD PRESSER of the RCA and severe disease in the diagonal at that time. #4 hypertension #5 hyperlipidemia #6 chronic kidney disease #7 prior TIA Plan We will increase the patient's dose of Norvasc to 5 mg one tablet by mouth twice a day. Check a cortisol level. DNP note has been reviewed, I agree with a documented findings and plan of care. Patient was seen and examined.
--- NOTE | 2019-06-21 13:13 | P.PN ---
Subjective Progress Note Date: 06/21/19 This is a 88-year-old female admitted with atrial fibrillation with RVR, chest pain, mental status changes, increased generalized weakness and multiple other medical issues. Beta laure on hold for hypotension. Currently sinus rhythm. Anticoagulated on Eliquis. Sitting up in chair, complaining of exhaustion. Reports she had a rough night, did not sleep well. 06/20/2019 reports better night last night, slept well. Maintaining O2 sats in the high 90s on 2 L nasal cannula. Creatinine continues to improve down to 1.28. Evaluated by PT, recommending patient return to [facility]. Hypertensive. 06/21/2019 labile blood pressures ranging from systolic blood pressure of 90s to 190s. Creatinine down to 1.19. Maintaining O2 sats in the high 90s on 2 L nasal cannula. Objective - Vital Signs Vital signs: Vital Signs Temp 98.0 F 06/21/19 08:00 Pulse 56 L 06/21/19 08:00 Resp 18 06/21/19 08:00 BP 170/68 06/21/19 10:26 Pulse Ox 97 06/21/19 03:09 Intake & Output 06/20/19 06/21/19 06/21/19 18:59 06:59 18:59 Intake Total 1080 Balance 1080 Weight 72 kg Intake: Oral 1080 Other: Voiding Method Toilet # Voids 2 1 - Exam PHYSICAL EXAM: VITAL SIGNS: [As above] GENERAL: Sitting up in bed, no acute distress HEENT: Conjunctivae normal. eyes normal. Oral mucosa moist. NECK: No JVD. No thyroid enlargement. No LNs. CARDIOVASCULAR: S1, S2 Regular. Systolic murmur. RESPIRATION: Breath sounds diminished in the bases. No rhonchi, fine bibasilar crackles. ABDOMEN: Soft, nontender . No guarding. no masses palpable.positive Bowel sounds. LEGS: No edema. no swelling PSYCHIATRY: Alert and oriented X3, mood and affect normal. NERVOUS SYSTEM: Cranial N 2-12 grossly normal. Moves all 4 limbs. Diffuse weakness, No focal deficits. Strength and sensation grossly intact.. Skin: no rash - Labs CBC & Chem 7: 06/21/19 07:08 06/21/19 07:08 Labs: Abnormal Lab Results - Last 24 Hours (Table) 06/21/19 06/21/19 Range/Units 07:08 07:08 WBC 3.1 L (3.8-10.6) k/uL RBC 3.55 L (3.80-5.40) m/uL MCV 102.4 H (80.0-100.0) fL Lymphocytes # 0.8 L (1.0-4.8) k/uL Chloride 108 H (98-107) mmol/L BUN 24 H (7-17) mg/dL Creatinine 1.19 H (0.52-1.04) mg/dL Assessment and Plan Assessment: Final Diagnoses: Atrial fibrillation with RVR in a person with history of chronic paroxysmal atrial fibrillation Possible mild component of Acute CHF exacerbation, diastolic dysfunction Hypotension Hypertension, labile Acute hypoxic respiratory failure secondary to the above Acute metabolic encephalopathy secondary to the above Possible dehydration acute renal failure secondary to ATN secondary to the above Chronic kidney disease, stage III Anemia of chronic disease Compressive atelectasis Possible atypical pneumonia, doubtful as per pulmonary CAD with history of stenting Hyperlipidemia Recently stopped taking her beta laure and Aldactone History of CVA, TIA History of DVT Ascending thoracic aneurysm 4.6 cm History of nicotine dependence COVID negative. Plan: Continue on current medication regime ,monitoring and symptomatic treatment. Initially had planned for discharge today back to [facility]. Labile blood pressures .Norvasc increased .continue monitoring overnight .Discharge planning in progress for tomorrow for return to [facility]. The impression and plan of care has been dictated as directed. : I performed a history and examination of this patient, discussed the same with the dictator. I agree with the dictator's note ,documented as a scribe. Any additional findings or plans will be noted.
[2019-06-21] MEDS: SODIUM CHLORIDE 0.9% 1,000 ML IV SCH (18:51)
[2019-06-21] MEDS: QUEtiapine 50 MG TAB PO SCH (20:30)
[2019-06-21] MEDS: HYDROcodone/APAP 5-325MG 1 EACH TAB PO PRN (20:34)
[2019-06-22 04:44] VITALS: RESP 18
[2019-06-22] MEDS: APIXABAN 2.5 MG TABLET PO SCH (08:30)
[2019-06-22] MEDS: CLOPIDOGREL 75 MG TAB PO SCH (08:30)
[2019-06-22] MEDS: METOPROLOL SUCCINATE (ER) 25 MG TAB.ER.24H PO SCH (08:30)
[2019-06-22] MEDS: amLODIPine 5 MG TAB PO SCH (08:31)
[2019-06-22] MEDS: SODIUM CHLORIDE 0.9% 1,000 ML IV SCH (08:33)
[2019-06-22] MEDS ORDERED: FAMOTIDINE 20 MG TAB PO SCH (09:00)
[2019-06-22 10:38] VITALS: BP 119/60; PULSE 79; TEMP 97.6
--- NOTE | 2019-06-22 13:49 | P.PN ---
Subjective Progress Note Date: 06/22/19 This is an 88-year-old female who follows regularly with Dr. Vincent in the office. She has a known history of coronary artery disease with most recent cardiac catheterization performed in June 2018 which revealed a [employer] of the RCA, severe disease in the first diagonal, severe disease in the LAD. Patient underwent PTCA of the LAD at that time. History also of hypertension, hyperlipidemia, paroxysmal atrial fibrillation, chronic kidney disease, and TIA. Patient's most recent hospitalization was July 2018 at which time she was discharged home on anticoagulation in the form of Eliquis 2-1/2 mg one tablet by mouth twice a day, her aspirin was discontinued and patient was instructed to continue with her Plavix. She presented to the hospital on this occasion with symptoms of shortness of breath, she also stated to Dr. Vincent that she was terribly exhausted and having mild mental status changes. According to the patient, her blood pressure had also been fluctuating significantly at home at times running quite high. CAT scan of the brain was performed on arrival here which revealed atrophy, chronic ischemic change with no new changes noted, chest x-ray showed bibasilar infiltrates and possible pneumonia, EKG showed atrial fibrillation with a rapid ventricular response, right bundle branch block pattern, inferior Q waves. CT of the chest showed small bilateral pleural effusions, ascending thoracic aortic aneurysm measuring 4.6 cm. Blood pressure 117/68 with a heart rate of 58 this morning, 97% on 2 L of oxygen. White blood cell count 3.2, hemoglobin 10.2, platelet count 150, sodium 138, potassium 4.6, BUN 31 and creatinine 1.4. Magnesium 2.1, TSH 2.5. Hernandez virus not detected. According to the orders, it appeared that the patient was on a Cardizem drip, so initially Dr. Sommers's recommendation was to increase the dose of beta laure. However a repeat blood pressure came back at around 70 systolic and patient in fact had not been on Cardizem drip. We will hold the beta laure at this time, but her blood pressure is above 90 systolic we will put her on 12-1/2 mg daily. The patient is currently in a normal sinus rhythm. Patient had an echo performed in January 2019 which revealed a normal left ventricular systolic function with moderate mitral regurgitation. She also underwent a Lexiscan stress test at that time which was negative for any reversible ischemia. At the time of examination by Dr. Vincent this morning, patient states that her breathing is improving, she still feeling somewhat short of breath, and continues to feel exhausted. 06/20/2019 Patient was seen and examined this morning, she had just returned back from having a shower, feels well, denies any palpitations in her breathing is stable. Remaining in normal sinus rhythm this morning. Blood pressure 140/60 with a heart rate in the 60s. She is anticipating discharge home today. 06/21/2019 Patient was seen and examined today by Dr. Vincent. Not feeling good overall. She has considerable fluctuations in her blood pressure, this morning her systolic was around 100, when rechecked later this morning, it was 176/80, 195/80, last night patient's blood pressure was also significantly elevated. She is currently on Norvasc 5 mg daily which we will increase to a twice a day dose today. 06/22/2019 Patient seen and examined this morning, sitting up in her chair at bedside. Overall feels significantly better today and is anticipating discharge home. Blood pressure 120/60 with a heart rate in the 60s to 70s, 98% on room air. White blood cell count 3.1, hemoglobin 11.6, platelet count 159. Sodium 140, potassium 4.2, BUN 24, creatinine 1.9. Cortisol level 10. Normal. Objective - Vital Signs Vital signs: Vital Signs Temp 97.6 F 06/22/19 08:30 Pulse 79 06/22/19 08:30 Resp 18 06/22/19 08:30 BP 119/60 06/22/19 08:30 Pulse Ox 98 06/22/19 08:30 Intake & Output 06/21/19 06/22/19 06/22/19 18:59 06:59 18:59 Intake Total 240 240 300 Output Total 350 300 Balance 240 -110 0 Weight 70.5 kg Intake: Intake, IV Titration 60 Amount Sodium Chloride 0.9% 1, 60 000 ml @ 20 mls/hr IV . Q24H [facility] Rx#:[id number] Oral 240 240 240 Output: Urine 350 300 Other: Voiding Method Toilet Toilet # Voids 1 1 - Exam PHYSICAL EXAMINATION: GENERAL: 88-year-old female in no acute distress at the time of examination HEENT: Head is atraumatic, normocephalic. Pupils equal, round. Sclera anicteric. Conjunctiva are clear. Mucous membranes of the mouth are moist. Neck is supple. There is elevated jugular venous pressure. No carotid bruit is heard. HEART EXAMINATION: Heart S1-S2 a systolic murmur is heard CHEST EXAMINATION: Lungs are clear to auscultation and precussion. No chest wall tenderness is noted on palpation or with deep breathing. ABDOMEN: Soft, nontender. Bowel sounds are heard. No organomegaly noted. EXTREMITIES: 2+ peripheral pulses with no evidence of peripheral edema and no calf tenderness noted. On examination is that it is noted that the patient's left lower extremity is mildly larger than the right NEUROLOGIC patient is awake, alert and oriented 3 . . - Labs CBC & Chem 7: 06/21/19 07:08 06/21/19 07:08 Assessment and Plan Plan: Assessment and plan #1 atrial fibrillation with rapid ventricular response #2 history of paroxysmal atrial fibrillation, in July 2018 patient was discharged from the hospital on 2-1/2 mg of Eliquis twice a day, according to the patient she is unsure of why this was discontinued and she denies having any bleeding. #3 coronary artery disease with LAD stenting in June 2018. Patient was also fou nd to have a [employer] of the RCA and severe disease in the diagonal at that time. #4 hypertension #5 hyperlipidemia #6 chronic kidney disease #7 prior TIA Plan From cardiology's perspective, patient may be able to be discharged home today on current medications. We will make her a follow-up appointment in the office to see Dr. Vincent post discharge. DNP note has been reviewed, I agree with a documented findings and plan of care. Patient was seen and examined.
--- NOTE | 2019-06-22 14:11 | P.PN ---
Subjective Progress Note Date: 06/22/19 Principal diagnosis: Shortness of breath likely related to A. fib RVR and acute exacerbation of diastolic heart failure Acute exacerbation of diastolic heart failure Atrial fibrillation with RVR Small bilateral pleural effusion and basal atelectasis likely related to above History of TIA 06/22/2019, patient seen eval examined during the rounds sitting upright on the bed breathing comfortably denies any chest pain retrosternal burning fascia has resolved with Mylanta and Pepcid, shortness breath is improved 06/21/2019, patient seen eval examined during the rounds labs reviewed medications reviewed currently off of oxygen breathing comfortably denies any chest pain however does have some pain in the rest retrosternal area more looks like a reflux esophagitis pain, will benefit from proton pump inhibitors will initiate a trial of that 06/20/2019, patient seen eval examined during the rounds labs reviewed medications reviewed care plan discussed, overall shortness of breath is improved now, patient is on supplemental oxygen 2 L saturation is 97% respiratory status stable, renal functions slightly better denies any cough or sputum production This is a pleasant 88-year-old female who was seen eval examined on third floor patient was admitted to the hospital with altered mental status and hypotension she was in A. fib with RVR on presentation heart rate was up to 160 systolic blood pressure was low, however and presentation and gradually in the ER heart rate and blood pressure continued to improve her oxygen saturation remains 100% she had a computed tomography scan of the chest done showed small bilateral atelectasis small pleural effusion doubt pneumonia most likely related to acute diastolic heart failure related to A. fib with RVR Objective - Vital Signs Vital signs: Vital Signs Temp 97.6 F 06/22/19 08:30 Pulse 79 06/22/19 08:30 Resp 18 06/22/19 08:30 BP 119/60 06/22/19 08:30 Pulse Ox 98 06/22/19 08:30 Intake & Output 06/21/19 06/22/19 06/22/19 18:59 06:59 18:59 Intake Total 240 240 300 Output Total 350 300 Balance 240 -110 0 Weight 70.5 kg Intake: Intake, IV Titration 60 Amount Sodium Chloride 0.9% 1, 60 000 ml @ 20 mls/hr IV . Q24H [facility] Rx#:[id number] Oral 240 240 240 Output: Urine 350 300 Other: Voiding Method Toilet Toilet # Voids 1 1 - Exam - Constitutional General appearance: average body habitus, cooperative, disheveled - EENT Eyes: PERRLA Ears: bilateral: normal - Neck Neck: normal ROM Carotids: bilateral: upstroke normal Thyroid: bilateral: normal size - Respiratory Respiratory: bilateral: diminished (At bases), rales (Few rales at bilateral bases), negative: CTA, dullness, rhonchi, wheezing, prolonged expiration, prolonged inspiration, other - Cardiovascular Rhythm: regular Heart sounds: normal: S1, S2 - Integumentary Integumentary: normal turgor - Neurologic Neurologic: CNII-XII intact - Musculoskeletal Musculoskeletal: gait normal, generalized weakness, strength equal bilaterally - Psychiatric Psychiatric: A&O x's 3, appropriate affect, intact judgment & insight - Labs CBC & Chem 7: 06/21/19 07:08 06/21/19 07:08 Assessment and Plan Assessment: Retro sternal burning sensation likely GERD Shortness of breath likely related to A. fib RVR and acute exacerbation of diastolic heart failure Acute exacerbation of diastolic heart failure Atrial fibrillation with RVR Small bilateral pleural effusion and basal atelectasis likely related to above History of TIA Plan: Continue Pepcid and when necessary Mylanta Continue supportive care Observe off of antibiotics Deep breathing exercises and incentive spirometry Continue anticoagulation Continue meds to control heart rate Patient will benefit from gentle diuresis appears to be auto diuresing making good amount of urine was observe for Lasix as needed Further recommendations pending plan of care as per clinical response of the patient Time with Patient: Greater than 30
--- NOTE | 2019-06-22 20:43 | DS ---
DISCHARGE SUMMARY DISCHARGE MEDICATIONS: 1. Maalox 30 mL q.4. 2. Norvasc 5 mg b.i.d. 3. Eliquis 2.5 b.i.d. 4. Plavix 75 daily. 5. [place] 05/325 one at night. 6. Toprol-XL 12.5 daily. 7. Seroquel 150 q.h.s. CONDITION: Stable. PROGNOSIS: Guarded. Ambulate as tolerated. This white female came into the hospital with atypical chest pain, shortness of breath, near-syncope, orthostatic changes. She is found to have very fluctuant blood pressures as well as pulses and severe orthostatic hypotension and some atypical chest pain for which heart disease has been ruled out. Myocardial infarction has been ruled out. We stabilized her blood pressure to 130/70 today. She wants to go home. Cardiovascular S1, S2. Lungs clear. GI soft. Hematology negative Homans. Psych fair mood and affect. Cortisol level is 10, which is normal. Creatinine is 1.9, BUN is 24. ASSESSMENT: 1. Atrial fibrillation rapid ventricular response. 2. Paroxysmal atrial fibrillation. 3. Coronary artery disease. 4. Hypertension. 5. Dyslipidemia. 6. Chronic kidney disease. 7. Prior transient ischemic attack. We are going to send her home today. Follow up with Cardiology on discharge. Follow up in the next 24-48 hours. MMODL / IJN: [id number] /
== END 2019-06-22 14:45 | disposition home or self-care (01) | DRG 308 ==
LOC: EC 12:38 → 3SCARD 14:10
PROVIDERS: ADMIT Family Medicine; ATTEND Family Medicine
DX: I48.0 Paroxysmal atrial fibrillation (principal); G93.41 Metabolic encephalopathy; I50.33 Acute on chronic diastolic (congestive) heart failure; J96.01 Acute respiratory failure with hypoxia; N17.0 Acute kidney failure with tubular necrosis; I13.0 Hypertensive heart and chronic kidney disease with heart failure and stage 1 through stage 4 chronic kidney disease, or unspecified chronic kidney disease; J98.11 Atelectasis; K86.1 Other chronic pancreatitis; D63.8 Anemia in other chronic diseases classified elsewhere; I25.82 Chronic total occlusion of coronary artery; I71.2 Thoracic aortic aneurysm, without rupture; N18.3 Chronic kidney disease, stage 3 (moderate); I95.9 Hypotension, unspecified; Z20.828 Contact with and (suspected) exposure to other viral communicable diseases; E78.5 Hyperlipidemia, unspecified; I25.10 Atherosclerotic heart disease of native coronary artery without angina pectoris; I34.0 Nonrheumatic mitral (valve) insufficiency; J44.9 Chronic obstructive pulmonary disease, unspecified; K21.0 Gastro-esophageal reflux disease with esophagitis; M19.90 Unspecified osteoarthritis, unspecified site; N28.1 Cyst of kidney, acquired; F39 Unspecified mood [affective] disorder; G47.00 Insomnia, unspecified; I45.10 Unspecified right bundle-branch block; E86.0 Dehydration; Z79.01 Long term (current) use of anticoagulants; Z79.02 Long term (current) use of antithrombotics/antiplatelets; Z79.82 Long term (current) use of aspirin; Z79.899 Other long term (current) drug therapy; Z86.718 Personal history of other venous thrombosis and embolism; Z87.891 Personal history of nicotine dependence; Z96.651 Presence of right artificial knee joint; Z86.73 Personal history of transient ischemic attack (TIA), and cerebral infarction without residual deficits; Z90.49 Acquired absence of other specified parts of digestive tract; Z98.42 Cataract extraction status, left eye; Z98.41 Cataract extraction status, right eye; Z96.1 Presence of intraocular lens; Z87.01 Personal history of pneumonia (recurrent); Z80.41 Family history of malignant neoplasm of ovary; Z80.8 Family history of malignant neoplasm of other organs or systems
CPT/HCPCS: 36415; 70450; 71045; 71250; 80048; 80053; 82533; 82803; 83605; 83735; 84443; 84484; 85025; 85610; 85730; 87635; 93005; 96365; 96366; 96375; 96376; 99291